=== PATIENT | female | born 1935 | race Caucasian/White ===

== ENCOUNTER 2019-04-24 19:36 | Emergency (ER) | payer MEDICARE, SELFPAY ==
[2019-04-24 19:39] VITALS: BP 174/58; PULSE 79; RESP 18; TEMP 36.8; O2SAT 97
--- NOTE | 2019-04-24 20:23 | ED.EXTPRO ---
HPI - Extremity Problem General Chief complaint: Extremity Injury, Lower Stated complaint: leg cellulitis Time Seen by Provider: 04/24/19 20:09 Source: patient and RN notes reviewed Mode of arrival: ambulatory Limitations: no limitations History of Present Illness HPI Narrative: Pt is a 83 y/o female with a Hx of cellulitis, who presents to the ED with c/o erythema and swelling in her rt lower leg starting several weeks ago. She notes that she received a rt knee replacement in December of 2018. Pt states that she has been unable to perform her scheduled physical therapy for the past several weeks due to the increased swelling and erythema around her rt knee. She currently denies any fever, chills, CP, or SOB. Pt states that she is currently taking Xarelto. Complaint: other (erythema and swelling of lower extremity) Onset (ago): week(s) (several) Location: right and lower extremity Context: recent surgery/procedure (rt knee replacement) Related Data Home Medications Medication Instructions Recorded Confirmed aspirin 81 mg tablet,delayed 81 mg PO DAILY 01/08/19 02/21/19 release levothyroxine 25 mcg tablet 25 mcg PO DAILY 01/08/19 02/21/19 multivitamin 1 cap PO DAILY 01/08/19 02/21/19 potassium chloride 10 mEq 20 meq PO BID 01/08/19 02/21/19 tablet,extended release simvastatin 10 mg tablet 10 mg PO DAILY 01/08/19 02/21/19 furosemide [Lasix] 40 mg PO DAILY 02/21/19 02/21/19 isosorbide mononitrate 30 mg PO DAILY 02/21/19 02/21/19 metoprolol tartrate 50 mg PO BID 02/21/19 02/21/19 Allergies Allergy/AdvReac Type Severity Reaction Status Date / Time morphine Allergy Intermediate Vomiting Verified 04/24/19 19:38 penicillin V Allergy Intermediate Rash Verified 04/24/19 19:38 Penicillins Allergy Intermediate Rash Verified 04/24/19 19:38 adhesive tape Allergy Unknown RASH Verified 04/24/19 19:38 meperidine Allergy Unknown WOOZY Verified 04/24/19 19:38 Review of Systems Review of Systems: All systems reviewed & are unremarkable except as noted in HPI and below Constitutional: Constitutional: Denies chills and Denies fever(s) Cardiovascular: Cardiovascular: Denies chest pain and Reports leg edema (RLE edema) Respiratory: Respiratory: Denies dyspnea Integumentary/Breasts: Skin/Breast: Reports erythema (erythema on rt lower leg) [facility] Past Medical History Medical History (Updated 04/24/19 @ 21:25 by Je Delarosa MD) Abnormal colonoscopy Colonoscopy per Dr. Peters in July 2013 showed diverticulosis, uncomplicated internal external hemorrhoids, and a hyperplastic polyp. Anemia Atrial fibrillation She has had several cardioversions, and had a cardiac ablation this year at [facility]. Cancer of right breast Status post lumpectomy and radiation in 2006. Cellulitis Dyslipidemia GERD (gastroesophageal reflux disease) Hearing loss of both ears History of peptic ulcer Hypertension Hypothyroidism Migraine headache Mild coronary artery disease Cardiac catheterization October 2018 showed no angiographically significant coronary disease, at best 40% stenosis at the ostium of the 1st diagonal branch. Osteoarthritis Seasonal allergic rhinitis JOSH (stress urinary incontinence, female) Vision loss Surgical History Surgical History History of 3 sections History of appendectomy History of lumpectomy of right breast For breast cancer in 2006. Status post arthroscopic knee surgery Status post laparoscopic cholecystectomy Status post right knee replacement Social History Social History Social History: The patient is . She lives with her daughter, Jaida and their 2 dogs, Yves (a Westie) and Cori (a pit bull). Smoking status: Former smoker Tobacco type: cigarettes Second hand tobacco smoke exposure: No Smoking end date: 02/21/19 Alcohol intake: never Substance use: never Gender identity
[2019-04-24 20:34] LABS: Basophils Percent Auto 0.7 % (0.2-1.2); Eosinophils Absolute Auto 0.2 K/mm3 (0-0.3); Eosinophils Percent Auto 2.6 % (0-4.4); Hematocrit 41.2 % (37.0-47.0); Hemoglobin 12.6 g/dL (12.0-15.0); Immature Granulocyte Absolute 0.01 K/mm3 (0.00-0.031); Immature Granulocyte Percent A 0.2 % (0-0.5); Lymphocytes Absolute Auto 1.46 K/mm3 (0.9-3.2); Lymphocytes Percent Auto 25.4 % (18.3-44.2); Mean Corpuscular HGB Conc 30.6 g/dl (32-36); Mean Corpuscular Hemoglobin 26.1 pg (26-34); Mean Corpuscular Volume 85.5 fl (80-100); Mean Platelet Volume 10.8 fl (7.4-10.4); Monocytes Absolute Auto 0.6 K/mm3 (0.1-0.6); Neutrophils Absolute Auto 3.5 K/mm3 (1.3-6.7); Neutrophils Percent Auto 60.1 % (45.5-73.1); Platelet Count Result 294 k/mm3 (150-375); Red Blood Count 4.82 M/mm3 (4.2-5.4); White Blood Count 5.7 K/mm3 (4.5-10.0)
[2019-04-24 20:45] LABS: INR 2.7; Prothrombin Time 28.5 Seconds (11.1-14.7)
[2019-04-24 20:53] LABS: Blood Urea Nitrogen 20 mg/dL (7-17); Calcium 9.6 mg/dL (8.4-10.2); Carbon Dioxide 33 mmol/L (22-30); Chloride 99 mmol/L (98-107); Estimated CRCL calculation 59 ml/min; Estimated Glomerular Filt Rate > 60; Glucose 119 mg/dL (65-105); Potassium 4.1 mmol/L (3.4-5.0); Sodium 139 mmol/L (137-145)
[2019-04-24 21:47] VITALS: BP 141/63; PULSE 73; RESP 18; O2SAT 97
== END 2019-04-24 21:49 | disposition home or self-care (01) ==
PROVIDERS: Emergency Provider Emergency Medicine; PCP Family Medicine
DX: L03.115 Cellulitis of right lower limb (principal); Z79.01 Long term (current) use of anticoagulants; D64.9 Anemia, unspecified; Z85.3 Personal history of malignant neoplasm of breast; E78.5 Hyperlipidemia, unspecified; K21.9 Gastro-esophageal reflux disease without esophagitis; I10 Essential (primary) hypertension; M19.90 Unspecified osteoarthritis, unspecified site; I25.10 Atherosclerotic heart disease of native coronary artery without angina pectoris
CPT/HCPCS: 36415; 80048; 83605; 85025; 85610; 85730; 99283

== ENCOUNTER → 2019-10-22 11:46 | Outpatient (CLI) | payer MEDICARE, SELFPAY ==
--- NOTE | ~2019-10-22 | XR_ITS ---
EXAMINATION: XR hand LT min 3V INDICATION: Left hand pain TECHNIQUE: Three views of the left hand are obtained. COMPARISON: None available FINDINGS: There is no fracture. There is advanced osteoarthritis at the first carpometacarpal joint. Moderate osteoarthritis is present at the triscaphe joint. There is also moderate to severe polyartic ular osteoarthritis involving several interphalangeal joints. IMPRESSION: 1. Polyarticular osteoarthritis, worst at the first carpometacarpal joint. Reviewed, dictated and finalized at location A.
== END ==
PROVIDERS: Visit Provider Family Medicine
DX: M79.642 Pain in left hand (principal)
CPT/HCPCS: 73130

== ENCOUNTER → 2019-12-24 10:23 | Outpatient (CLI) | payer MEDICARE, SELFPAY ==
--- NOTE | ~2019-12-24 | MM_ITS ---
EXAMINATION: MM screening vicente BI w charlette HISTORY: Screening mammogram TECHNIQUE: Craniocaudal and mediolateral oblique 3-D tomosynthesis images were obtained and synthetic 2-D images were generated. CAD analysis was submitted and interpreted. COMPARISON: 06/20/2018, 05/30/2017, 02/25/2016 bilateral digital screening mammogram examinations BREAST PARENCHYMAL COMPOSITION: There are scattered areas of fibroglandular density. FINDINGS: Status post right partial mastectomy for breast cancer, with volume loss, scarring and retr action and calcifications of fat necrosis. There is no evidence of interval suspicious mass, calcific ation, or architectural distortion to suggest malignancy in either breast. There has been no suspicio us interval change. IMPRESSION: 1. No mammographic evidence of malignancy. 2. Recommend routine screening mammography in one year. BI-RADS Category 2: Benign finding(s). Reviewed, dictated and finalized at location A.
== END ==
PROVIDERS: PCP Family Medicine; Visit Provider Obstetrics & Gynecology
DX: Z12.31 Encounter for screening mammogram for malignant neoplasm of breast (principal)
CPT/HCPCS: 77063; 77067

== ENCOUNTER 2020-02-07 09:18 | Emergency (ER) | payer MEDICARE, SELFPAY ==
[2020-02-07] VITALS (7 sets, daily range): BP systolic 105–130; BP diastolic 49–93; PULSE 76–87; RESP 15–18; TEMP 36.7; O2SAT 96–99
--- NOTE | ~2020-02-07 | CT_ITS ---
EXAMINATION: CT LE LT w con DATE: 02/07/2020 12:04 INDICATION: Left hip pain. Fall. TECHNIQUE: Computed tomography (CT) of the left hip and thigh was performed with 100 mL Omnipaque 350 intravenous contrast. Automated exposure control and iterative reconstruction technique were employe d. The dose-length product was 1204.89 mGy-cm. COMPARISON: CT abdomen and pelvis 12/26/2013 FINDINGS: There is lumbar levocurvature and severe spondylosis. No fracture. There is moderate osteoa rthritis of the hips. There is severe left knee osteoarthritis. Partially visualized is a total right knee arthroplasty. There are no pathologically enlarged lymph nodes. There is no free intraperitonea l fluid. There is a large subcutaneous hematoma in lateral left thigh. There is asymmetric subcutaneo us edema in left thigh. IMPRESSION: 1. Large subcutaneous hematoma in lateral left thigh. 2. Polyarticular osteoarthritis. Reviewed, dictated and finalized at location A. DRIER
--- NOTE | 2020-02-07 10:13 | ED.FALL ---
HPI - Fall General Chief Complaint: Fall Stated Complaint: fall 02/03/20 Time Seen by Provider: 02/07/20 09:21 Source: patient Mode of arrival: EMS Limitations: no limitations History of Present Illness HPI Narrative: This is a 84 year old female that presents to the ER for a fall 4 days ago with left hip pain. Reports she was walking with her walker and tripped on the transition on the [place]. Reports falling onto her left hip. Denies hitting her head or loss of consciousness. Reports since she has had pain in the left hip. She has been able to ambulate still. Reports a large amount of bruising to the area. She is on Xarelto for Afib. Denies vision changes, vomiting, numbness or weakness. Related Data Home Medications Medication Instructions Recorded Confirmed aspirin 81 mg tablet,delayed 81 mg PO DAILY 01/08/19 02/21/19 release levothyroxine 25 mcg tablet 25 mcg PO DAILY 01/08/19 02/21/19 multivitamin 1 cap PO DAILY 01/08/19 02/21/19 potassium chloride 10 mEq 20 meq PO BID 01/08/19 02/21/19 tablet,extended release simvastatin 10 mg tablet 10 mg PO DAILY 01/08/19 02/21/19 furosemide [Lasix] 40 mg PO DAILY 02/21/19 02/21/19 isosorbide mononitrate 30 mg PO DAILY 02/21/19 02/21/19 metoprolol tartrate 50 mg PO BID 02/21/19 02/21/19 Allergies Allergy/AdvReac Type Severity Reaction Status Date / Time morphine Allergy Intermediate Vomiting Verified 02/07/20 09:30 penicillin V Allergy Intermediate Rash Verified 02/07/20 09:30 Penicillins Allergy Intermediate Rash Verified 02/07/20 09:30 adhesive tape Allergy Unknown RASH Verified 02/07/20 09:30 meperidine Allergy Unknown WOOZY Verified 02/07/20 09:30 Review of Systems Review of Systems: Narrative: CONSTITUTIONAL: Denies fever EYES: Denies visual changes CARDIOVASCULAR: Denies chest pain RESPIRATORY: Denies dyspnea. GASTROINTESTINAL: Denies vomiting MUSCULOSKELETAL: Reports joint pain, and myalgia. NEUROLOGIC: Denies headache, numbness, or weakness. All systems reviewed & are unremarkable except as noted in HPI and below PMFSH Past Medical History Medical History Abnormal colonoscopy Colonoscopy per Dr. Peters in July 2013 showed diverticulosis, uncomplicated internal external hemorrhoids, and a hyperplastic polyp. Anemia Atrial fibrillation She has had several cardioversions, and had a cardiac ablation this year at [facility]. Cancer of right breast Status post lumpectomy and radiation in 2006. Cellulitis Dyslipidemia GERD (gastroesophageal reflux disease) Hearing loss of both ears History of peptic ulcer Hypertension Hypothyroidism Migraine headache Mild coronary artery disease Cardiac catheterization October 2018 showed no angiographically significant coronary disease, at best 40% stenosis at the ostium of the 1st diagonal branch. Osteoarthritis Seasonal allergic rhinitis JOSH (stress urinary incontinence, female) Vision loss Surgical History Surgical History History of 3 sections History of appendectomy History of lumpectomy of right breast For breast cancer in 2006. Status post arthroscopic knee surgery Status post laparoscopic cholecystectomy Status post right knee replacement Family History Family History Mother Patient's mother is Family history of Parkinson's disease, Onset Age: 89 Family history of type 2 diabetes mellitus Father Family history of hepatitis, Onset Age: 37 Family history of nephrotic syndrome, Onset Age: 37 Family history of heart disease in male family member before age 55, Onset Age: 37 Patient's father is , Onset Age: 37 Other Breast cancer Diabetes mellitus Family history of arthritis Family history of cardiovascular disease Family history of kidney disease Hypertension Social History
[2020-02-07 11:51] LABS: Estimated CRCL calculation 41 ml/min; Estimated Glomerular Filt Rate 60
[2020-02-07 12:26] LABS: Basophils Percent Auto 0.3 % (0.2-1.2); Eosinophils Absolute Auto 0.1 K/mm3 (0-0.3); Eosinophils Percent Auto 0.6 % (0-4.4); Hemoglobin 8.2 g/dL (12.0-15.0); Immature Granulocyte Absolute 0.08 K/mm3 (0.00-0.031); Immature Granulocyte Percent A 0.8 % (0-0.5); Lymphocytes Absolute Auto 1.16 K/mm3 (0.9-3.2); Lymphocytes Percent Auto 12.2 % (18.3-44.2); Mean Corpuscular HGB Conc 32.8 g/dl (32-36); Mean Corpuscular Hemoglobin 30.1 pg (26-34); Mean Corpuscular Volume 91.9 fl (80-100); Mean Platelet Volume 11.5 fl (7.4-10.4); Monocytes Absolute Auto 1.4 K/mm3 (0.1-0.6); Monocytes Percent Auto 14.3 % (2.6-8.5); Neutrophils Absolute Auto 6.8 K/mm3 (1.3-6.7); Neutrophils Percent Auto 71.8 % (45.5-73.1); Nucleated Red Blood Cells Perc 0.2 % (0.0-0.2); Platelet Count Result 209 k/mm3 (150-375); Red Blood Count 2.72 M/mm3 (4.2-5.4); Red Cell Distribution Width 14.2 % (11.5-14.5); White Blood Count 9.5 K/mm3 (4.5-10.0)
[2020-02-07 12:36] LABS: INR 1.9
[2020-02-07 12:37] LABS: Anion Gap 3 mmol/L (8-16); Blood Urea Nitrogen 15 mg/dL (7-17); Calcium 8.7 mg/dL (8.4-10.2); Carbon Dioxide 33 mmol/L (22-30); Chloride 97 mmol/L (98-107); Estimated CRCL calculation 51 ml/min; Estimated Glomerular Filt Rate > 60; Glucose 110 mg/dL (65-105); Partial Thromboplastin Time 40.8 SECONDS (22.3-36.8); Potassium 3.6 mmol/L (3.4-5.0); Sodium 133 mmol/L (137-145)
--- NOTE | 2020-02-07 15:21 | PM.CNGS ---
Assessment and Plan Assessment and plan (1) Hematoma of left thigh: Qualifiers: Encounter type: initial encounter Qualified Code(s): S70.12XA - Contusion of left thigh, initial encounter Code(s): S70.12XA - Contusion of left thigh, initial encounter Status: Acute Assessment and Plan: Large hematoma of left lateral thigh following a fall 4 days ago. Overall improvement but mostly dealing with pain from the hematoma at this point. She is anemic with hemoglobin at 8.2 but doubt she is continuing to bleed with improvement of her swelling. I discussed the patient's case and plan of care with Dr. Block. We would recommend that the patient follow-up in our office as an outpatient on Tuesday to reassess the hematoma. In the meantime, she should hold her Xarelto, use wendie wrap for compression, and may ice the area as well. Would also recommend analgesics as needed to help with her discomfort at home. I discussed with the patient signs of anemia and to present back to the ER if any of those symptoms present or if the swelling starts to get worse. The patient verbalized understanding. I also discussed with FRIDA Goins in the ER. Thank you for allowing me to see the patient in consultation. I will have our office call the patient to schedule the follow-up appointment for Tuesday. 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 Block on Tuesday. (3) Anemia: Qualifiers: Anemia type: unspecified type Qualified Code(s): D64.9 - Anemia, unspecified Code(s): D64.9 - Anemia, unspecified Status: Acute (4) Atrial fibrillation: Code(s): I48.91 - Unspecified atrial fibrillation Status: Acute Assessment and Plan: Currently in sinus rhythm. (5) Hypertension: Code(s): I10 - Essential (primary) hypertension Status: Acute History of Present Illness Consult details Consult date: 02/07/20 Reason for consult: other (Left thigh hematoma) Requesting physician: Mago Huerta PA-C Narrative: This is an 84-year-old female who is on chronic anticoagulation for paroxysmal atrial fibrillation, that fell at home four days ago, Tuesday evening. She states that she tripped over something on the floor and fell on her left hip and left arm from the ground level. No loss of consciousness, dizziness, or other symptoms contributing to the fall. She states that initially she had a lot of swelling and bruising of the left thigh and buttock. Since falling, she has had a lot of leg pain that has not improved. She states that the overall swelling and firmness of the hematoma have improved. Ultimately, the pain is what brought her to the ER today. CT scan of the left lower extremity showed large subcutaneous hematoma in lateral left thigh. No fracture or extravasation noted. Labs showed a hemoglobin of 8.2 and hematocrit 25. The ED provider contacted our service for consultation of the hematoma. I then saw the patient in the ER. She reports her pain has improved after receiving medication in the ER. She states her daughter has been dressing a skin tear over the hematoma on her left thigh with no changes. She reports that the area of swelling has become softer and improved in size. Reports the pain was uncomfortable enough that she couldn't sleep last night, therefore she came to the ER. No other complaints at this time. The patient takes Xarelto for atrial fibrillation and is followed by Dr. Garay for cardiology. She last took the Xarelto yesterday evening. Review of Systems Constitutional: Constitutional: Reports as per HPI, Denies chills, Denies excessive sweating, Denies fatigue, Denies fever(s), Denies headache(s) and Denies weakness Eyes: Eyes: Denies change in vision and Denies loss of vision ENT: Reports Normal hearing present, Denies
== END 2020-02-07 16:35 | disposition home or self-care (01) ==
PROVIDERS: Physician Assistant; Emergency Provider Emergency Medicine; PCP Family Medicine
DX: S70.12XA Contusion of left thigh, initial encounter (principal); I48.91 Unspecified atrial fibrillation; I25.10 Atherosclerotic heart disease of native coronary artery without angina pectoris; E78.5 Hyperlipidemia, unspecified; I10 Essential (primary) hypertension; E03.9 Hypothyroidism, unspecified; D64.9 Anemia, unspecified; Z85.3 Personal history of malignant neoplasm of breast; Z79.82 Long term (current) use of aspirin; Z87.11 Personal history of peptic ulcer disease; Z96.651 Presence of right artificial knee joint; Z87.891 Personal history of nicotine dependence; Z79.01 Long term (current) use of anticoagulants; M16.0 Bilateral primary osteoarthritis of hip; W18.09XA Striking against other object with subsequent fall, initial encounter
CPT/HCPCS: 73701; 80048; 85025; 85610; 85730; 96365; 99284; J0131; Q9967

== ENCOUNTER 2020-02-18 11:56 | Outpatient (CLI) | payer MEDICARE, SELFPAY ==
[2020-02-18 12:40] LABS: Basophils Percent Auto 0.5 % (0.2-1.2); Eosinophils Absolute Auto 0.1 K/mm3 (0-0.3); Eosinophils Percent Auto 1.9 % (0-4.4); Hematocrit 33.9 % (37.0-47.0); Hemoglobin 10.5 g/dL (12.0-15.0); Immature Granulocyte Absolute 0.04 K/mm3 (0.00-0.031); Immature Granulocyte Percent A 0.5 % (0-0.5); Lymphocytes Absolute Auto 1.05 K/mm3 (0.9-3.2); Lymphocytes Percent Auto 14.2 % (18.3-44.2); Mean Corpuscular Hemoglobin 29.6 pg (26-34); Mean Corpuscular Volume 95.5 fl (80-100); Mean Platelet Volume 10.4 fl (7.4-10.4); Monocytes Absolute Auto 0.8 K/mm3 (0.1-0.6); Neutrophils Absolute Auto 5.3 K/mm3 (1.3-6.7); Neutrophils Percent Auto 71.9 % (45.5-73.1); Platelet Count Result 327 k/mm3 (150-375); Red Blood Count 3.55 M/mm3 (4.2-5.4); Red Cell Distribution Width 16.7 % (11.5-14.5); White Blood Count 7.4 K/mm3 (4.5-10.0)
== END 2020-02-18 11:57 | disposition home or self-care (01) ==
PROVIDERS: PCP Family Medicine; Visit Provider Internal Medicine Cardiovascular Disease
DX: T14.8XXA Other injury of unspecified body region, initial encounter (principal); Z79.899 Other long term (current) drug therapy
CPT/HCPCS: 36415; 85025

== ENCOUNTER 2020-05-12 13:47 | Outpatient (CLI) | payer MEDICARE, SELFPAY | END 2020-05-12 13:48 | disposition home or self-care (01) | LOC: ANHCOVIDVC 13:47 | PROVIDERS: PCP Family Medicine; Visit Provider Internal Medicine Cardiovascular Disease | DX: Z23 Encounter for immunization (principal) | CPT/HCPCS: 0001A; 91300 ==

== ENCOUNTER 2020-06-02 13:45 | Outpatient (CLI) | payer MEDICARE, SELFPAY | END 2020-06-02 13:46 | disposition home or self-care (01) | LOC: ANHCOVIDVC 13:45 | PROVIDERS: PCP Family Medicine; Visit Provider Internal Medicine Cardiovascular Disease | DX: Z23 Encounter for immunization (principal) | CPT/HCPCS: 0002A; 91300 ==

== ENCOUNTER 2020-06-26 08:04 | Outpatient (RCR) | payer MEDICARE, SELFPAY ==
[2020-03-28 13:30] VITALS: BMI 30.2
--- NOTE | 2020-04-22 08:08 | PCWOUND ---
WOCN NOTE patients daughter called and left voicemail to cancel patient's appointment for Tuesday04/23/20 due to the weather. States patient will contact wound center to reschedule.
== END 2020-06-26 23:59 | disposition home or self-care (01) ==
LOC: ANHWOC 08:04
PROVIDERS: PCP Family Medicine; Visit Provider Surgery
DX: I83.009 Varicose veins of unspecified lower extremity with ulcer of unspecified site (principal); L97.909 Non-pressure chronic ulcer of unspecified part of unspecified lower leg with unspecified severity
CPT/HCPCS: 29581; 99212; A9270; G0463

== ENCOUNTER 2020-06-30 09:38 | Outpatient (CLI) | payer MEDICARE, SELFPAY ==
[2020-06-30 10:10] LABS: Basophils Percent Auto 0.7 % (0.2-1.2); Eosinophils Absolute Auto 0.2 K/mm3 (0-0.3); Eosinophils Percent Auto 3.2 % (0-4.4); Hemoglobin 13.6 g/dL (12.0-15.0); Immature Granulocyte Absolute 0.01 K/mm3 (0.00-0.031); Immature Granulocyte Percent A 0.2 % (0-0.5); Lymphocytes Absolute Auto 1.32 K/mm3 (0.9-3.2); Lymphocytes Percent Auto 23.6 % (18.3-44.2); Mean Corpuscular HGB Conc 30.9 g/dl (32-36); Mean Corpuscular Volume 90.7 fl (80-100); Mean Platelet Volume 11.3 fl (7.4-10.4); Monocytes Absolute Auto 0.6 K/mm3 (0.1-0.6); Monocytes Percent Auto 11.3 % (2.6-8.5); Neutrophils Absolute Auto 3.4 K/mm3 (1.3-6.7); Platelet Count Result 237 k/mm3 (150-375); Red Blood Count 4.85 M/mm3 (4.2-5.4); Red Cell Distribution Width 16.6 % (11.5-14.5); White Blood Count 5.6 K/mm3 (4.5-10.0)
[2020-06-30 10:22] LABS: Alanine Aminotransferase 14 U/L (4-35); Albumin Level 4.2 g/dL (3.5-5.1); Alkaline Phosphatase 72 U/L (38-126); Anion Gap 0 mmol/L (8-16); Aspartate Amino Transferase 33 U/L (14-36); Bilirubin,Total 0.7 mg/dL (0.2-1.3); Blood Urea Nitrogen 15 mg/dL (7-17); Calcium 9.7 mg/dL (8.4-10.2); Carbon Dioxide 38 mmol/L (22-30); Chloride 102 mmol/L (98-107); Cholesterol 140 mg/dL (0-200); Estimated Glomerular Filt Rate > 60; Glucose 96 mg/dL (65-105); HDL Direct 58 mg/dL; Potassium 4.1 mmol/L (3.4-5.0); Sodium 140 mmol/L (137-145); Triglycerides 143 mg/dL (<150)
[2020-06-30 10:33] LABS: LDL Cholesterol Direct 49 mg/dL
[2020-06-30 10:53] LABS: Total Triiodothyronine (T3) 1.33 NG/ML (0.97-1.69)
[2020-06-30 11:01] LABS: Creatinine Urine 10.8 mg/dL
[2020-06-30 11:07] LABS: Free T4 Free Thyroxine 0.97 ng/mL (0.78-2.19); MALB Creatinine Ratio < 55.6 mg/g (0-30); Microalbumin Urine Random < 6.0 mg/L (0-16.7); Vitamin D 25 Hydroxy 38.7 ng/mL
== END 2020-06-30 09:39 | disposition home or self-care (01) ==
PROVIDERS: PCP Family Medicine; Visit Provider Nurse Practitioner
DX: E03.9 Hypothyroidism, unspecified (principal); I10 Essential (primary) hypertension; I50.32 Chronic diastolic (congestive) heart failure; I48.91 Unspecified atrial fibrillation; Z13.0 Encounter for screening for diseases of the blood and blood-forming organs and certain disorders involving the immune mechanism; Z13.6 Encounter for screening for cardiovascular disorders; Z13.220 Encounter for screening for lipoid disorders; Z13.29 Encounter for screening for other suspected endocrine disorder; R80.9 Proteinuria, unspecified; E55.9 Vitamin D deficiency, unspecified
CPT/HCPCS: 36415; 80053; 80061; 82043; 82306; 84439; 84443; 84480; 85025; 99212; G0463

== ENCOUNTER 2020-07-23 13:26 | Outpatient (CLI) | payer MEDICARE, SELFPAY ==
--- NOTE | ~2020-07-23 | CT_ITS ---
EXAMINATION: CT LE LT w con DATE: 07/23/2020 14:17 INDICATION: Left thigh swelling. TECHNIQUE: Computed tomography (CT) of the left thigh was performed with 100 mL Omnipaque 350 intrave nous contrast. Automated exposure control and iterative reconstruction technique were employed. The d ose-length product was 604.43 mGy-cm. COMPARISON: CT left thigh 02/07/2020 FINDINGS: Bone alignment is normal. No fracture. There is mild left hip osteoarthritis. There is liliane re osteoarthritis of patellofemoral compartment of the knee. The medial and lateral compartments of t he knee are not included. There is a small knee joint effusion. There is subcutaneous fat stranding p osterolateral to the proximal left femur. IMPRESSION: 1. Subcutaneous fat stranding posterolateral to proximal left femur with interval improvement, consis tent with improving hematoma and scarring. 2. Polyarticular osteoarthritis. 3. Small left knee joint effusion. Reviewed, dictated and finalized at location A. IMPRESSION: 1. Subcutaneous fat stranding posterolateral to proximal left femur with interv al improvement, consistent with improving hematoma and scarring. 2. Polyarticular osteoarthritis. 3. Small left knee joint effusion.
== END 2020-07-23 13:27 | disposition home or self-care (01) ==
PROVIDERS: PCP Family Medicine; Visit Provider Nurse Practitioner
DX: M16.12 Unilateral primary osteoarthritis, left hip (principal); M25.462 Effusion, left knee; M17.12 Unilateral primary osteoarthritis, left knee
CPT/HCPCS: 73701; Q9967

== ENCOUNTER 2020-09-01 07:35 | Outpatient (RCR) | payer MEDICARE, SELFPAY ==
[2020-06-27 00:04] VITALS: BMI 30.2
== END 2020-09-28 23:59 | disposition home or self-care (01) ==
LOC: ANHWOC 07:35
PROVIDERS: PCP Family Medicine; Visit Provider Family Medicine
DX: I83.009 Varicose veins of unspecified lower extremity with ulcer of unspecified site (principal); L97.909 Non-pressure chronic ulcer of unspecified part of unspecified lower leg with unspecified severity
CPT/HCPCS: 29581; 99212; A9270; G0463

== ENCOUNTER 2020-10-08 11:20 | Outpatient (CLI) | payer MEDICARE, SELFPAY ==
[2020-10-08 13:04] LABS: Total Triiodothyronine (T3) 1.44 NG/ML (0.97-1.69)
[2020-10-08 13:14] LABS: Free T4 Free Thyroxine 1.15 ng/mL (0.78-2.19)
== END 2020-10-08 11:21 | disposition home or self-care (01) ==
PROVIDERS: PCP Family Medicine; Visit Provider Nurse Practitioner
DX: E03.9 Hypothyroidism, unspecified (principal)
CPT/HCPCS: 36415; 84439; 84443; 84480

== ENCOUNTER → 2020-11-13 16:44 | Outpatient (CLI) | payer MEDICARE, SELFPAY ==
--- NOTE | ~2020-11-13 | XR_ITS ---
[[id number] ] INDICATION: Recent fall. Left rib and chest pain. TECHNIQUE: Frontal projection of the upper left ribs, frontal projection of the lower left ribs, obli que projection of all the left ribs, frontal inspiratory chest x-ray for interpretation. FINDINGS: There are no displaced rib fractures identified. There are no soft tissue abnormality see n. The lungs are clear. Cardiomegaly. IMPRESSION: 1:No acute displaced rib fractures. Reviewed, dictated and finalized at location A.
== END ==
PROVIDERS: Visit Provider Nurse Practitioner
DX: R07.89 Other chest pain (principal); I51.7 Cardiomegaly
CPT/HCPCS: 71101

== ENCOUNTER 2020-12-15 07:31 | Outpatient (RCR) | payer MEDICARE, SELFPAY ==
[2020-09-29 00:06] VITALS: BMI 30.2
== END 2020-12-28 23:59 | disposition home or self-care (01) ==
LOC: ANHWOC 07:31
PROVIDERS: PCP Family Medicine; Visit Provider Family Medicine
DX: I83.009 Varicose veins of unspecified lower extremity with ulcer of unspecified site (principal); L97.909 Non-pressure chronic ulcer of unspecified part of unspecified lower leg with unspecified severity
CPT/HCPCS: 99212; A9270; G0463

== ENCOUNTER 2021-01-03 05:22 | Emergency (ER) | payer MEDICARE, SELFPAY ==
--- NOTE | ~2021-01-03 | XR_ITS ---
EXAMINATION: XR chest 2V EXAM DATE: 01/03/2021 06:19 INDICATION: Palpitations . TECHNIQUE: Portable AP frontal chest x-ray was obtained. Comparison is made to prior examination from 02/21/2019. FINDINGS: There is pulmonary vascular congestion. There is mild cardiomegaly. These findings do not a ppear significantly changed. No confluent consolidation, pneumothorax or pleural effusion suspected. There is aortic arteriosclerosis. There are bony degenerative changes. There are cholecystectomy clip s. IMPRESSION: Cardiomegaly, pulmonary vascular congestion. Reviewed, dictated and finalized at location A.
[2021-01-03 05:26] VITALS: BP 185/82; PULSE 110; RESP 18; TEMP 36.6; O2SAT 100
--- NOTE | 2021-01-03 06:04 | ECG_ITS ---
Measurements Intervals [place] Rate: 104 P: 23 MN: 208 QRS: -7 QRSD: 90 T: 43 QT: 338 QTc: 446 Interpretive Statements SINUS TACHYCARDIA ATRIAL PREMATURE COMPLEXES BORDERLINE ECG Electronically Signed On 01-03-2021 7:46:17 CDT by Pee Ruff D.O.
--- NOTE | 2021-01-03 06:05 | ED.ARRPALP ---
HPI - Arrhythmia/Palpitations General Chief Complaint: Arrhythmia/Palpitations <Pablito Arroyo MD - Last Filed: 01/03/21 07:01> Stated Complaint: Palpitations, afib <Pablito Arroyo MD - Last Filed: 01/03/21 07:01> Time Seen by Provider: 01/03/21 05:53 <Pablito Arroyo MD - Last Filed: 01/03/21 07:01> History of Present Illness HPI narrative: Patient is an 85-year-old female with history of atrial fibrillation who presents ER with palpitations. Ongoing over the last hour. No chest pain or chest pressure. Negative breathing. Reports compliance with home medication has taken her morning meds. No alleviating factors. No aggravating factors. <Pablito Arroyo MD - Last Filed: 01/03/21 07:01> Related Data Home Medications: Home Medications Medication Instructions Recorded Confirmed aspirin 81 mg tablet,delayed 81 mg PO DAILY 01/08/19 09/29/20 release levothyroxine 25 mcg tablet 25 mcg PO DAILY 01/08/19 09/29/20 multivitamin 1 cap PO DAILY 01/08/19 09/29/20 potassium chloride 10 mEq 20 meq PO BID 01/08/19 09/29/20 tablet,extended release simvastatin 10 mg tablet 20 mg PO DAILY 01/08/19 09/29/20 furosemide [Lasix] 40 mg PO DAILY 02/21/19 09/29/20 isosorbide mononitrate 30 mg PO DAILY 02/21/19 09/29/20 metoprolol tartrate 50 mg PO BID 02/21/19 09/29/20 rivaroxaban [Xarelto] 20 mg PO QPM 03/28/20 09/29/20 <Pablito Arroyo MD - Last Filed: 01/03/21 07:01> Allergies/Adverse Reactions: Allergies Allergy/AdvReac Type Severity Reaction Status Date / Time morphine Allergy Intermediate Vomiting Verified 01/03/21 05:36 penicillin V Allergy Intermediate Rash Verified 01/03/21 05:36 Penicillins Allergy Intermediate Rash Verified 01/03/21 05:36 adhesive tape Allergy Unknown RASH Verified 01/03/21 05:36 meperidine Allergy Unknown WOOZY Verified 01/03/21 05:36 <Pablito Arroyo MD - Last Filed: 01/03/21 07:01> Review of Systems Review of Systems: All systems reviewed & are unremarkable except as noted in HPI and below <Pablito Arroyo MD - Last Filed: 01/03/21 07:01> Constitutional: Constitutional: Denies chills, Denies fever(s) and Denies weakness <Pablito Arroyo MD - Last Filed: 01/03/21 07:01> ENT: Denies nasal congestion and Denies sore throat <Pablito Arroyo MD - Last Filed: 01/03/21 07:01> Cardiovascular: Cardiovascular: Denies chest pain, Reports rapid heart rate and Denies radiating jaw, neck or arm pain <Pablito Arroyo MD - Last Filed: 01/03/21 07:01> Respiratory: Respiratory: Denies chest congestion, Denies cough and Denies dyspnea <Pablito Arroyo MD - Last Filed: 01/03/21 07:01> Gastrointestinal: Gastrointestinal: Denies abdominal pain, Denies nausea and Denies vomiting <Pablito Arroyo MD - Last Filed: 01/03/21 07:01> [facility] Past Medical History Medical History: Medical History Abnormal colonoscopy Colonoscopy per Dr. Peters in July 2013 showed diverticulosis, uncomplicated internal external hemorrhoids, and a hyperplastic polyp. Anemia Atrial fibrillation She has had several cardioversions, and had a cardiac ablation this year at [facility]. Cancer of right breast Status post lumpectomy and radiation in 2006. Cellulitis Dyslipidemia GERD (gastroesophageal reflux disease) Hearing loss of both ears History of peptic ulcer Hypertension Hypothyroidism Migraine headache Mild coronary artery disease Cardiac catheterization October 2018 showed no angiographically significant coronary disease, at best 40% stenosis at the ostium of the 1st diagonal branch. Osteoarthritis Seasonal allergic rhinitis JOSH (stress urinary incontinence, female) Vision loss <Pablito Arroyo MD - Last Filed: 01/03/21 07:01> Surgical History Surgical History: Surgical History History of 3 sections History o
[2021-01-03 06:17] LABS: Basophils Percent Auto 0.7 % (0.2-1.2); Eosinophils Absolute Auto 0.1 K/mm3 (0-0.3); Hemoglobin 13.8 g/dL (12.0-15.0); Immature Granulocyte Absolute 0.01 K/mm3 (0.00-0.031); Immature Granulocyte Percent A 0.2 % (0-0.5); Lymphocytes Absolute Auto 1.07 K/mm3 (0.9-3.2); Mean Corpuscular HGB Conc 32.9 g/dl (32-36); Mean Corpuscular Hemoglobin 29.4 pg (26-34); Mean Corpuscular Volume 89.4 fl (80-100); Mean Platelet Volume 10.7 fl (7.4-10.4); Monocytes Absolute Auto 0.5 K/mm3 (0.1-0.6); Monocytes Percent Auto 10.8 % (2.6-8.5); Neutrophils Absolute Auto 2.8 K/mm3 (1.3-6.7); Neutrophils Percent Auto 62.3 % (45.5-73.1); Platelet Count Result 239 k/mm3 (150-375); Red Cell Distribution Width 13.8 % (11.5-14.5); White Blood Count 4.5 K/mm3 (4.5-10.0)
[2021-01-03 06:22] VITALS: BP 195/88; PULSE 84; RESP 16; O2SAT 99
[2021-01-03 06:36] LABS: Anion Gap 7 mmol/L (8-16); Blood Urea Nitrogen 15 mg/dL (7-17); Calcium 9.8 mg/dL (8.4-10.2); Carbon Dioxide 28 mmol/L (22-30); Chloride 104 mmol/L (98-107); Estimated CRCL calculation 58 ml/min; Estimated Glomerular Filt Rate > 60; Glucose 111 mg/dL (65-110); Magnesium 2.2 mg/dL (1.6-2.3); Potassium 3.4 mmol/L (3.4-5.0); Sodium 139 mmol/L (137-145)
--- NOTE | 2021-01-03 06:55 | PC.NURSE ---
called lab to add on BNP
[2021-01-03 07:21] LABS: NT Pro B Type Natriuretic Pept 673 pg/mL (5-100)
[2021-01-03 07:52] VITALS: BP 175/100; PULSE 82; RESP 16; TEMP 36.6; O2SAT 97
== END 2021-01-03 07:55 | disposition home or self-care (01) ==
PROVIDERS: Emergency Medicine; Emergency Provider Emergency Medicine; PCP Family Medicine
DX: R00.2 Palpitations (principal); I48.91 Unspecified atrial fibrillation; E78.5 Hyperlipidemia, unspecified; K21.9 Gastro-esophageal reflux disease without esophagitis; I10 Essential (primary) hypertension; E03.9 Hypothyroidism, unspecified; I25.10 Atherosclerotic heart disease of native coronary artery without angina pectoris; M19.90 Unspecified osteoarthritis, unspecified site; Z85.3 Personal history of malignant neoplasm of breast; Z96.651 Presence of right artificial knee joint; Z87.891 Personal history of nicotine dependence; Z92.3 Personal history of irradiation; Z79.01 Long term (current) use of anticoagulants; Z79.82 Long term (current) use of aspirin
CPT/HCPCS: 36415; 71046; 80048; 83735; 83880; 85025; 93005; 99284

== ENCOUNTER 2021-01-07 10:27 | Outpatient (RCR) | payer MEDICARE, SELFPAY ==
[2020-12-29 00:04] VITALS: BMI 30.2
== END 2021-03-23 08:47 | disposition home or self-care (01) ==
LOC: ANHWOC 10:27
PROVIDERS: PCP Family Medicine; Visit Provider Family Medicine
DX: I83.009 Varicose veins of unspecified lower extremity with ulcer of unspecified site (principal); L97.909 Non-pressure chronic ulcer of unspecified part of unspecified lower leg with unspecified severity
CPT/HCPCS: 99212; G0463

== ENCOUNTER → 2021-04-21 08:52 | Outpatient (CLI) | payer MEDICARE, SELFPAY ==
--- NOTE | ~2021-04-21 | XR_ITS ---
XR hip LT min 2V DATE: 04/21/2021 09:48 INDICATION: Left hip pain TECHNIQUE: AP and lateral views of left hip COMPARISON: 6 07/23/2020 CT lower extremity 02/07/2020 CT left lower extremity FINDINGS: There is diffuse osteopenia. There is mild to moderate left hip osteoarthritis. No fracture , dislocation, avascular necrosis or bone destruction is detected. The pubic symphysis and left sacro iliac joint are intact. Prominent degenerative disc disease at L5-S1. IMPRESSION: Osteopenia Mild to moderate left hip osteoarthritis Prominent degenerative disc disease at L5-S1 Reviewed, dictated and finalized at location B. ASSISTANT
--- NOTE | ~2021-04-21 | XR_ITS ---
XR cervical spine min 6V DATE: 04/21/2021 09:48 INDICATION: Neck pain TECHNIQUE: AP, open-mouth, lateral, swimmer views. Flexion and extension lateral views. COMPARISON: None FINDINGS: There is diffuse osteopenia. C1 and C2 are normally aligned and the odontoid process is intact. No fracture or dislocation or lock ed facet or prevertebral soft tissue swelling. There is reversal of lower cervical curvature. There is minimal anterolisthesis at C4-5, stable in flexion and extension. No cervical instability is evident on flexion or extension views. There is mild loss of interspace height at C4-5. There is severe degenerative disc disease at C5-6 with prominent uncovertebral joint spurring encroac matty upon the anterior aspect of both C6 neural foramina. IMPRESSION: Reversal of lower cervical curvature Osteopenia Minimal anterolisthesis at C4-5, stable in flexion and extension Mild loss of interspace height at C4-5 Severe degenerative disc disease at C5-C6 Prominent uncovertebral joint spurring bilaterally at C5-6 encroaching upon the anterior aspect of vicki th C6 neural foramina Reviewed, dictated and finalized at location B. E OPERATOR CAB IMPRESSION: Reversal of lower cervical curvature Osteopenia Minimal anterolisthesis at C4-5, stable in flexion and extension Mild loss of interspace height at C4-5 Severe degenerative disc disease at C5-C6 Prominent uncovertebral joint spurring bilaterally at C5-6 encroaching upon the anterior aspect of both C6 neural foramina
== END ==
PROVIDERS: PCP Family Medicine; Visit Provider Family Medicine
DX: M16.12 Unilateral primary osteoarthritis, left hip (principal); M51.37 Other intervertebral disc degeneration, lumbosacral region; M85.88 Other specified disorders of bone density and structure, other site; M50.322 Other cervical disc degeneration at C5-C6 level
CPT/HCPCS: 72052; 73502

== ENCOUNTER 2021-05-03 03:30 | Emergency (ER) | payer MEDICARE, SELFPAY ==
--- NOTE | ~2021-05-03 | XR_ITS ---
EXAMINATION: [id number] INDICATION: Fall, rib pain TECHNIQUE: A frontal view of the chest and 3 views of the right ribs were obtained. COMPARISON: 01/03/2021 FINDINGS: The lungs are free of acute opacities. There is no pleural effusion or pneumothorax. Cardio megaly is noted. There is no displaced rib fracture. Surgical clips are noted in the right breast. Leiva rgical clips in the right upper quadrant are likely from prior cholecystectomy. IMPRESSION: 1. No acute cardiopulmonary abnormality or evidence of displaced rib fracture. 2. Cardiomegaly. Reviewed, dictated and finalized at location F. TEGIC [employer]ANNER
[2021-05-03 03:32] VITALS: BP 164/98; PULSE 76; RESP 18; TEMP 36.6; O2SAT 94
--- NOTE | 2021-05-03 04:29 | ED.FALL ---
HPI - Fall General Chief Complaint: Fall Stated Complaint: GLF Time Seen by Provider: 05/03/21 03:31 Source: patient and RN notes reviewed Mode of arrival: EMS Limitations: no limitations History of Present Illness HPI Narrative: This is an 85 year old female who presents for evaluation of right lateral rib pain s/p fall. She reports she lost her balance and she fell backwards. She hit her right back on the wall but denies hitting her head or LOC. She denies having back pain currently. She is reporting right lateral breast pain with deep inspiration since fall. She denies any extremity pain or injuries. She was not using her walker at time of incident Related Data Home Medications Medication Instructions Recorded Confirmed aspirin 81 mg tablet,delayed 81 mg PO DAILY 01/08/19 09/29/20 release levothyroxine 25 mcg tablet 25 mcg PO DAILY 01/08/19 09/29/20 multivitamin 1 cap PO DAILY 01/08/19 09/29/20 potassium chloride 10 mEq 20 meq PO BID 01/08/19 09/29/20 tablet,extended release simvastatin 10 mg tablet 20 mg PO DAILY 01/08/19 09/29/20 furosemide [Lasix] 40 mg PO DAILY 02/21/19 09/29/20 isosorbide mononitrate 30 mg PO DAILY 02/21/19 09/29/20 metoprolol tartrate 50 mg PO BID 02/21/19 09/29/20 rivaroxaban [Xarelto] 20 mg PO QPM 03/28/20 09/29/20 Allergies Allergy/AdvReac Type Severity Reaction Status Date / Time morphine Allergy Intermediate Vomiting Verified 05/03/21 03:39 penicillin V Allergy Intermediate Rash Verified 05/03/21 03:39 Penicillins Allergy Intermediate Rash Verified 05/03/21 03:39 adhesive tape Allergy Unknown RASH Verified 05/03/21 03:39 meperidine Allergy Unknown WOOZY Verified 05/03/21 03:39 Review of Systems Review of Systems: All systems reviewed & are unremarkable except as noted in HPI and below PMFSH Past Medical History Medical History Abnormal colonoscopy Colonoscopy per Dr. Peters in July 2013 showed diverticulosis, uncomplicated internal external hemorrhoids, and a hyperplastic polyp. Anemia Atrial fibrillation She has had several cardioversions, and had a cardiac ablation this year at [facility]. Cancer of right breast Status post lumpectomy and radiation in 2006. Cellulitis Dyslipidemia GERD (gastroesophageal reflux disease) Hearing loss of both ears History of peptic ulcer Hypertension Hypothyroidism Migraine headache Mild coronary artery disease Cardiac catheterization October 2018 showed no angiographically significant coronary disease, at best 40% stenosis at the ostium of the 1st diagonal branch. Osteoarthritis Seasonal allergic rhinitis JOSH (stress urinary incontinence, female) Vision loss Surgical History Surgical History History of 3 sections History of appendectomy History of lumpectomy of right breast For breast cancer in 2006. Status post arthroscopic knee surgery Status post laparoscopic cholecystectomy Status post right knee replacement Family History Family History Mother Patient's mother is Family history of Parkinson's disease, Onset Age: 89 Family history of type 2 diabetes mellitus Father Family history of hepatitis, Onset Age: 37 Family history of nephrotic syndrome, Onset Age: 37 Family history of heart disease in male family member before age 55, Onset Age: 37 Patient's father is , Onset Age: 37 Other Breast cancer Diabetes mellitus Family history of arthritis Family history of cardiovascular disease Family history of kidney disease Hypertension Social History Social History Social History: The patient is . She lives with her daughter, Jaida and their 2 dogs, Yves (a Westie) and Cori (a pit bull). Smoking status: Former smoker Tobacco
[2021-05-03] MEDS: ACETAMINOPHEN 500 MG TABLET 1000 MG PO (04:43)
--- NOTE | 2021-05-03 05:13 | PC.NURSE ---
pt. ambulated down the dozier with a walker and no assistance.
[2021-05-03 05:56] VITALS: PULSE 61; RESP 16; O2SAT 94
== END 2021-05-03 06:11 | disposition home or self-care (01) ==
PROVIDERS: Emergency Provider General Practice; PCP Family Medicine
DX: R07.81 Pleurodynia (principal); I25.10 Atherosclerotic heart disease of native coronary artery without angina pectoris; I48.91 Unspecified atrial fibrillation; E78.5 Hyperlipidemia, unspecified; K21.9 Gastro-esophageal reflux disease without esophagitis; M19.90 Unspecified osteoarthritis, unspecified site; N39.3 Stress incontinence (female) (male); Z85.3 Personal history of malignant neoplasm of breast; Z92.3 Personal history of irradiation; Z87.11 Personal history of peptic ulcer disease; Z86.2 Personal history of diseases of the blood and blood-forming organs and certain disorders involving the immune mechanism; Z79.01 Long term (current) use of anticoagulants; Z79.82 Long term (current) use of aspirin; Z96.651 Presence of right artificial knee joint; Z87.891 Personal history of nicotine dependence; I51.7 Cardiomegaly; W18.39XA Other fall on same level, initial encounter
CPT/HCPCS: 71101; 99283; A9270

== ENCOUNTER 2021-07-22 17:52 | Inpatient (IN) | payer MEDICARE, SELFPAY ==
[2021-07-22] VITALS (16 sets, daily range): BP systolic 125–152; BP diastolic 54–105; PULSE 92–117; RESP 18–30; TEMP 38.2; O2SAT 88–99; BMI 26.6
--- NOTE | ~2021-07-22 | CT_ITS ---
EXAMINATION: CT brain wo con DATE: 07/22/2021 19:39 INDICATION: AMS . TECHNIQUE: Computed tomography (CT) of the head was performed without intravenous contrast. The mA wa s adjusted according to patient size. Iterative reconstruction technique was employed. The dose-lengt h product was 605.33 mGy-cm. COMPARISON: None FINDINGS: No acute intracranial hemorrhage or extra-axial fluid collection. No hydrocephalus, mass, or herniation. No acute ischemic infarct. Unremarkable dural venous sinus attenuation. No acute osseous abnormality. Right maxillary mucosal thickening, otherwise the aerated spaces are clear. Moderate atrophy and severe chronic white matter change. Atherosclerotic intracranial calcifications. Small right temporal dural calcification versus calcified meningioma. Bilateral lens replacements. IMPRESSION: No acute intracranial process. Reviewed, dictated and finalized at location K.
--- NOTE | ~2021-07-22 | US_ITS ---
EXAMINATION: US venous doppler [facility] DATE: 07/23/2021 15:28 INDICATION: Left lower limb swelling TECHNIQUE: Velazquez scale images without and with compression and Doppler images of the left lower extrem ity veins were obtained. COMPARISON: 03/23/2017 FINDINGS: The left common femoral vein, profunda femoral vein, femoral vein, popliteal vein, peroneal trunk, posterior tibial veins, and greater saphenous vein are patent. IMPRESSION: 1. Patent left lower extremity veins. No evidence of deep venous thrombosis. Reviewed, dictated and finalized at location A.
--- NOTE | ~2021-07-22 | XR_ITS ---
EXAMINATION: XR chest 1V portable DATE: 07/24/2021 18:19 INDICATION: Shortness of breath. TECHNIQUE: A single frontal view of the chest was obtained. COMPARISON: Chest 2 views 07/22/2021 FINDINGS: There is mild atelectasis at the lung bases. No pleural effusion or pneumothorax. Cardiomeg radha is noted. Surgical clips in the right upper quadrant are likely from cholecystectomy. IMPRESSION: 1. Mild atelectasis at the lung bases. 2. Cardiomegaly. Reviewed, dictated and finalized at location A.
--- NOTE | ~2021-07-22 | XR_ITS ---
EXAMINATION: XR ankle LT min 3V DATE: 07/23/2021 14:02 INDICATION: Left lower leg erythema and swelling with weeping medial sided wound TECHNIQUE: Anteroposterior, oblique, mortise, and lateral views of the chest ankle were obtained. COMPARISON: None. FINDINGS: Alignment is normal. No fracture. Joint spaces are well maintained. Small plantar calcaneal spur and tiny enthesophyte at the distal Achilles tendon. No ankle joint effusion. Diffuse soft tissue swelli ng with subcutaneous edema extending from the visualized mid left calf crossing the ankle and extendi ng into the foot. No soft tissue gas or radiopaque foreign bodies. IMPRESSION: 1. No acute osseous abnormality. Reviewed, dictated and finalized at location A.
--- NOTE | ~2021-07-22 | XR_ITS ---
EXAMINATION: XR chest 2V Exam Date/Time: 07/22/2021 18:50 CDT HISTORY: weakness, Hx of Afib, hx of R breast cancer Comparison: 01/03/2021. RESULT: Lines, tubes, and devices: None. Lungs and pleura: Senescent changes, otherwise clear. Cardiomediastinal silhouette: Stable cardiomediastinal silhouette. Other: No acute osseous or upper abdominal finding. IMPRESSION: No acute cardiopulmonary process. Reviewed, dictated and finalized at location K.
--- NOTE | ~2021-07-22 | CT_ITS ---
EXAMINATION: CT abdomen pelvis w con DATE: 07/22/2021 19:40 INDICATION: abdominal pain TECHNIQUE: Computed tomography (CT) of the abdomen and pelvis was performed with 100 mL Omnipaque-300 intravenous contrast. Automated exposure control and iterative reconstruction technique were employe d. The dose-length product was 760.88 mGy-cm. COMPARISON: 07/23/2020, 11/26/2013. FINDINGS: Lower thorax: Bibasilar atelectasis/scarring. Cardiomegaly. Aortic valve calcifications. Liver: Multiple hepatic cysts and lesions that are too small to characterize but also likely represen t cysts. Biliary/Gallbladder: Gallbladder is absent. Stable intrahepatic and extra hepatic biliary duct dilata tion, likely related to cholecystectomy. Pancreas: No mass or duct dilation. Atrophy and fatty infiltration. Spleen: Multiple stable subcentimeter hypodensities, likely represent cysts or granulomas. Adrenals:No mass. Kidneys: Multiple renal cysts and subcentimeter hypodensities that likely represent cysts. GI tract: No small or large bowel dilation. Appendix not visualized. Diverticulosis without diverticu litis. Mesentery/Peritoneum: No ascites, mass, or free air. Retroperitoneum: No mass. Abdominal arterial atherosclerosis. Pelvis: Distended urinary bladder, without wall thickening, otherwise the pelvic organs are within no rmal limits. Soft Tissues: Soft tissues and body wall unremarkable. Bones: No acute osseous finding. IMPRESSION: No acute abdominopelvic process detected. Reviewed, dictated and finalized at location K.
--- NOTE | 2021-07-22 18:15 | ECG_ITS ---
Measurements Intervals [place] Rate: 92 P: 38 [place]: 213 QRS: -4 QRSD: 86 T: 44 QT: 365 QTc: 454 Interpretive Statements SINUS RHYTHM WITH FIRST DEGREE AV BLOCK BASELINE ARTIFACT- I, II, AVR, AVL, AVF, V1-V3 ABNORMAL ECG Electronically Signed On 07-22-2021 20:04:53 CDT by Pee Ruff D.O.
[2021-07-22 18:48] LABS: Basophils Percent Auto 0.3 % (0.2-1.2); Eosinophils Percent Auto 0.1 % (0-4.4); Hematocrit 44.7 % (37.0-47.0); Immature Granulocyte Absolute 0.06 K/mm3 (0.00-0.031); Immature Granulocyte Percent A 0.4 % (0-0.5); Lymphocytes Absolute Auto 0.41 K/mm3 (0.9-3.2); Mean Corpuscular HGB Conc 31.3 g/dl (32-36); Mean Corpuscular Hemoglobin 28.5 pg (26-34); Mean Corpuscular Volume 90.9 fl (80-100); Mean Platelet Volume 11.2 fl (7.4-10.4); Monocytes Absolute Auto 0.8 K/mm3 (0.1-0.6); Monocytes Percent Auto 5.8 % (2.6-8.5); Neutrophils Absolute Auto 12.3 K/mm3 (1.3-6.7); Neutrophils Percent Auto 90.4 % (45.5-73.1); Platelet Count Result 207 k/mm3 (150-375); Red Blood Count 4.92 M/mm3 (4.2-5.4); Red Cell Distribution Width 14.2 % (11.5-14.5); White Blood Count 13.6 K/mm3 (4.5-10.0)
[2021-07-22 19:09] LABS: Alanine Aminotransferase 17 U/L (6-35); Albumin Level 4.7 g/dL (3.5-5.1); Alkaline Phosphatase 92 U/L (38-126); Anion Gap 5 mmol/L (8-16); Aspartate Amino Transferase 41 U/L (14-36); Bilirubin,Total 1.4 mg/dL (0.2-1.3); Blood Urea Nitrogen 12 mg/dL (7-17); Calcium 9.6 mg/dL (8.4-10.2); Carbon Dioxide 34 mmol/L (22-30); Chloride 96 mmol/L (98-107); Estimated Glomerular Filt Rate > 60; Glucose 145 mg/dL (65-110); Potassium 3.5 mmol/L (3.4-5.0); Sodium 135 mmol/L (137-145)
[2021-07-22] MEDS: ONDANSETRON INJ 4 MG/2 ML VIAL IV PUSH (19:12)
[2021-07-22 19:18] LABS: Platelet Estimate Adequate (Adequate)
[2021-07-22 19:19] LABS: Ovalocytes 1+ (NORMAL)
--- NOTE | 2021-07-22 19:30 | ED.WEAKNESS ---
HPI - Weakness General Chief complaint: Weakness Stated complaint: weakness Time Seen by Provider: 07/22/21 18:52 History of Present Illness HPI Narrative: 86-year-old female with history of A. fib on anticoagulation presents after being found by her daughter slumped over on the toilet, last known well at 1430. Patient was initially mumbling and very sleepy, however when woken up she is able to speak in full sentences, states that she is cold and per daughter, she did have an episode of nausea, vomiting, diarrhea today. No known sick contacts. She denies any chest pain, cough, or difficulty breathing Related Data Home Medications Medication Instructions Recorded Confirmed levothyroxine 25 mcg tablet 25 mcg PO DAILY 01/08/19 07/22/21 multivitamin 1 cap PO DAILY 01/08/19 07/22/21 potassium chloride 10 mEq 20 meq PO BID 01/08/19 07/22/21 tablet,extended release simvastatin 10 mg tablet 20 mg PO DAILY 01/08/19 07/22/21 furosemide [Lasix] 40 mg PO DAILY 02/21/19 07/22/21 isosorbide mononitrate 30 mg PO DAILY 02/21/19 07/22/21 metoprolol tartrate 50 mg PO BID 02/21/19 07/22/21 rivaroxaban [Xarelto] 20 mg PO QPM 03/28/20 07/22/21 Allergies Allergy/AdvReac Type Severity Reaction Status Date / Time penicillin V Allergy Intermediate Rash Verified 05/03/21 03:39 Penicillins Allergy Intermediate Rash Verified 05/03/21 03:39 adhesive tape Allergy Unknown RASH Verified 05/03/21 03:39 morphine AdvReac Intermediate Vomiting Verified 07/22/21 19:06 meperidine AdvReac Unknown WOOZY Verified 07/22/21 19:06 Review of Systems Review of Systems: CONST: Chills, fatigue HEENT: No sore throat C/V: No chest pain RESP: No cough GI: nausea, vomiting[, diarrhea] : No dysuria. M/S: No joint pain. SKIN: ulcer left lower extremity NEURO: [No headache or focal numbness or weakness] PSYCH: [No depression] PMFSH Past Medical History Medical History Abnormal colonoscopy Colonoscopy per Dr. Peters in July 2013 showed diverticulosis, uncomplicated internal external hemorrhoids, and a hyperplastic polyp. Anemia Atrial fibrillation She has had several cardioversions, and had a cardiac ablation this year at [facility]. Cancer of right breast Status post lumpectomy and radiation in 2006. Cellulitis Dyslipidemia GERD (gastroesophageal reflux disease) Hearing loss of both ears History of peptic ulcer Hypertension Hypothyroidism Migraine headache Mild coronary artery disease Cardiac catheterization October 2018 showed no angiographically significant coronary disease, at best 40% stenosis at the ostium of the 1st diagonal branch. Osteoarthritis Seasonal allergic rhinitis JOSH (stress urinary incontinence, female) Vision loss Surgical History Surgical History History of 3 sections History of appendectomy History of lumpectomy of right breast For breast cancer in 2006. Status post arthroscopic knee surgery Status post laparoscopic cholecystectomy Status post right knee replacement Family History Family History Mother Patient's mother is Family history of Parkinson's disease, Onset Age: 89 Family history of type 2 diabetes mellitus Father Family history of hepatitis, Onset Age: 37 Family history of nephrotic syndrome, Onset Age: 37 Family history of heart disease in male family member before age 55, Onset Age: 37 Patient's father is , Onset Age: 37 Other Breast cancer Diabetes mellitus Family history of arthritis Family history of cardiovascular disease Family history of kidney disease Hypertension Social History Social History Social History: The patient is . She lives with her daughter, Jaida and their 2 dogs, Yves (a Westie) and Cori (a pit bull). Smoking status: F
[2021-07-22] MEDS: LACTATED RINGERS 1,000 ML 999 ML IV CONT (20:22)
[2021-07-22 20:23] LABS: Appearance Urine Clear (Clear); Bilirubin Urine Negative (Negative); Blood Urine 1+ (Negative); Color Urine Yellow (Yellow); Glucose Urine UA Negative (Negative); Ketones Urine Negative (Negative); Leukocyte Esterase Ur Negative LEU/UL (Negative); Nitrate Urine Negative (Negative); Protein Urine Negative (Negative); Urobilinogen Urine 0.2 mg/dL (<2.0); pH Urine 8.5 (5.0-9.0)
[2021-07-22 20:49] LABS: WBC Urine 0-3 /hpf
[2021-07-22 20:53] LABS: Add Urine Microscopic? YES
[2021-07-22 20:55] LABS: SARS-CoV-2 RNA PCR Negative
[2021-07-22 21:24] LABS: Thyroid Stimulating Hormone Reflex 0.809 uIU/mL (0.465-4.68)
--- NOTE | 2021-07-22 22:50 | ADMGEN ---
This patient, Mayuri Love, was admitted to [address] [place] [address] Room 305-02. Patient/family oriented to hospital policies and general routines including ID bracelet, bed and alarms, visiting hours, pain management, procedures, bathroom and other care routines, personal items, smoking policy, room service/diet, and visiting hours. Information on how to activate the Rapid Response Team has been discussed. Patient/Family are encouraged to report perceived risks to care and to ask questions if they do not understand what they are told or what they should do.
[2021-07-22] MEDS: LACTATED RINGERS 1,000 ML 125 ML IV CONT (23:04)
[2021-07-22] MEDS: ACETAMINOPHEN 325 MG TABLET 650 MG PO (23:28)
[2021-07-23] VITALS (21 sets, daily range): BP systolic 90–112; BP diastolic 41–60; PULSE 72–153; RESP 20–22; TEMP 36.1–37.2; O2SAT 91–96
--- NOTE | 2021-07-23 00:11 | ECG_ITS ---
Measurements Intervals [place] Rate: 151 P: [place]: 0 QRS: -18 QRSD: 84 T: 60 QT: 206 QTc: 327 Interpretive Statements ATRIAL FIBRILLATION WITH RAPID VENTRICULAR RESPONSE NONSPECIFIC ST & T-WAVE ABNORMALITY- DIFFUSE LEADS BASELINE WANDER- I, II, AVR, AVL, AVF ABNORMAL ECG Electronically Signed On 07-23-2021 7:16:22 CDT by Pee Ruff D.O.
--- NOTE | 2021-07-23 00:40 | PC.NURSE ---
Place call to patients daughter Ariadne Lambert , informed that pt was transferred to IMU room 203 for elevated heart rate ( atrial fib with RVR ) verified understanding.
[2021-07-23] MEDS: SODIUM CHLORIDE 0.9% IV 1,000 ML 75 ML IV CONT ×2 (00:56→16:23)
[2021-07-23] MEDS: dilTIAZem 100 MG/100 ML 100 MG/100 ML BAG IV CONT (00:58)
[2021-07-23] MEDS: METOPROLOL TARTRATE 50 MG TAB PO ×3 (01:20→21:06)
--- NOTE | 2021-07-23 02:36 | PC.NURSE ---
This patient, Mayuri Rutherfordradhacosta, was received from [[id number] ] on 07/23/21 at 0030. Patient/family oriented to unit policies and routines
--- NOTE | 2021-07-23 05:02 | PM.IMHP ---
H&P: HPI History of Present Illness Date/Time: 07/23/21 05:02 Chief Complaint: Slumped over on toilet Narrative: Is 86-year-old female with a past medical history of atrial fibrillation, breast cancer, hypertension, hypertension and hypothyroidism who presented to the ER after her daughter found her slumped over on the toilet. As the patient reports that his T does have a history of chronic intermittent diarrhea and had been having some loose stools for the last day and half. Then yesterday she began having nausea and had 2 episodes of vomiting. She was on the toilet began when she became profoundly weak. She denies feeling lightheaded or having a near syncopal episode. She reports that she did not feel well and she does not think that she took her heart medications in the morning. She knows she did not take her metoprolol at night. She denies any shortness of breath or chest pain. She has chronic lower extremity edema and chronic left lower extremity cellulitis for which she sees wound care. She is post dizzy wound care this morning as outpatient. She reports that her chronic wound in her leg is scabbed. Her leg is not any redder than usual. She denies any pain in her extremity. She has not been on any antibiotics recently. After the patient arrived to the medical floor the patient went into AFib RVR. She reports that she never has symptoms whenever she goes in the AFib. The patient denied having any fevers at home that she was aware of but did have a T-max of 100.7? in the ER. She reports that her grandson who is around 7 years old has been sick with upper respiratory symptoms recently. Her COVID PCR was negative. She has chronic intermittent urinary incontinence but denies any dysuria, hematuria or foul-smelling urine. Review of Systems Review of Systems: 12 systems were reviewed with pertinent positives and negatives per HPI. Except as documented in the HPI, all other systems were reviewed and are negative. [facility] Past Medical History Medical History Abnormal colonoscopy Colonoscopy per Dr. Peters in July 2013 showed diverticulosis, uncomplicated internal external hemorrhoids, and a hyperplastic polyp. Anemia Atrial fibrillation She has had several cardioversions, and had a cardiac ablation this year at [facility]. Cancer of right breast Status post lumpectomy and radiation in 2006. Cellulitis Dyslipidemia GERD (gastroesophageal reflux disease) Hearing loss of both ears History of peptic ulcer Hypertension Hypothyroidism Migraine headache Mild coronary artery disease Cardiac catheterization October 2018 showed no angiographically significant coronary disease, at best 40% stenosis at the ostium of the 1st diagonal branch. Osteoarthritis Seasonal allergic rhinitis JOSH (stress urinary incontinence, female) Vision loss Surgical History Surgical History History of 3 sections History of appendectomy History of lumpectomy of right breast For breast cancer in 2006. Status post arthroscopic knee surgery Status post laparoscopic cholecystectomy Status post right knee replacement Family History Family History Mother Patient's mother is Family history of Parkinson's disease, Onset Age: 89 Family history of type 2 diabetes mellitus Father Family history of hepatitis, Onset Age: 37 Family history of nephrotic syndrome, Onset Age: 37 Family history of heart disease in male family member before age 55, Onset Age: 37 Patient's father is , Onset Age: 37 Other Breast cancer Diabetes mellitus Family history of arthritis Family history of cardiovascular disease Family history of kidney disease Hypertension Social History Social History Social History: The [facility]
[2021-07-23 07:20] LABS: Hemoglobin 13.1 g/dL (12.0-15.0); Mean Corpuscular HGB Conc 32.8 g/dl (32-36); Mean Corpuscular Hemoglobin 29.2 pg (26-34); Mean Corpuscular Volume 89.3 fl (80-100); Mean Platelet Volume 11.4 fl (7.4-10.4); Platelet Count Result 185 k/mm3 (150-375); Red Blood Count 4.48 M/mm3 (4.2-5.4); Red Cell Distribution Width 14.2 % (11.5-14.5); White Blood Count 20.4 K/mm3 (4.5-10.0)
[2021-07-23 07:47] LABS: Anion Gap 9 mmol/L (8-16); Blood Urea Nitrogen 15 mg/dL (7-17); Calcium 8.5 mg/dL (8.4-10.2); Carbon Dioxide 29 mmol/L (22-30); Chloride 98 mmol/L (98-107); Estimated CRCL calculation 39 ml/min; Estimated Glomerular Filt Rate > 60; Glucose 127 mg/dL (65-110); Potassium 3.4 mmol/L (3.4-5.0); Sodium 136 mmol/L (137-145)
[2021-07-23] MEDS: ACETAMINOPHEN 325 MG TABLET 650 MG PO ×2 (08:17→18:12)
--- NOTE | 2021-07-23 08:48 | PM.IMPN ---
Progress Note: A&P Assessment and Plan (1) Fever: Qualifiers: Fever type: due to other condition Qualified Code(s): R50.81 - Fever presenting with conditions classified elsewhere Code(s): R50.9 - Fever, unspecified Status: Acute (2) Nausea vomiting and diarrhea: Code(s): R11.2 - Nausea with vomiting, unspecified; R19.7 - Diarrhea, unspecified Status: Acute (3) Paroxysmal atrial fibrillation with RVR: Code(s): I48.0 - Paroxysmal atrial fibrillation Status: Acute (4) Venous stasis ulcer: Qualifiers: Laterality: left Non-pressure ulcer stage: unspecified non-pressure ulcer stage Varicose vein presence: unspecified whether present Venous stasis ulcer site: other part of lower leg Qualified Code(s): I83.028 - Varicose veins of left lower extremity with ulcer other part of lower leg; L97.829 - Non-pressure chronic ulcer of other part of left lower leg with unspecified severity Code(s): I83.009 - Varicose veins of unspecified lower extremity with ulcer of unspecified site; L97.909 - Non-pressure chronic ulcer of unspecified part of unspecified lower leg with unspecified severity Status: Acute (5) Cellulitis of left lower extremity without foot: Code(s): L03.116 - Cellulitis of left lower limb Status: Acute Additional Plan Paroxysmal atrial fibrillation with rapid ventricular response Mr. Home medication due to GI symptoms. Restart metoprolol. Along with Cardizem drip. AFib likely exacerbated by fever/viral illness. Cardiology consultation. Nausea vomiting diarrhea Fever COVID test negative. Check influenza. Chest x-ray with no acute cardiopulmonary process. CT abdomen is negative. Does her leukocytosis which has worsened. Will treat for possible cellulitis of her left lower extremity. Generalized weakness slumped over the toilet prior to admission. CT head is negative Leukocytosis Left lower extremity chronic stasis dermatitis versus acute cellulitis wound care consulted with worsening leukocytosis will cover with antibiotics, started on Ancef pancultured follow culture. Check ultrasound venous duplex and x-ray of left ankle Hypothyroidism Hypertension Hyperlipidemia DVT prophylaxis on Xarelto which will be resumed Code status full code Subjective Date/time seen: 07/23/21 08:48 Interval history: HPI:Chief Complaint: Slumped over on toilet Narrative: Is 86-year-old female with a past medical history of atrial fibrillation, breast cancer, hypertension, hypertension and hypothyroidism who presented to the ER after her daughter found her slumped over on the toilet. As the patient reports that his T does have a history of chronic intermittent diarrhea and had been having some loose stools for the last day and half. Then yesterday she began having nausea and had 2 episodes of vomiting. She was on the toilet began when she became profoundly weak. She denies feeling lightheaded or having a near syncopal episode. She reports that she did not feel well and she does not think that she took her heart medications in the morning. She knows she did not take her metoprolol at night. She denies any shortness of breath or chest pain. She has chronic lower extremity edema and chronic left lower extremity cellulitis for which she sees wound care. She is post dizzy wound care this morning as outpatient. She reports that her chronic wound in her leg is scabbed. Her leg is not any redder than usual. She denies any pain in her extremity. She has not been on any antibiotics recently. After the patient arrived to the medical floor the patient went into AFib RVR. She reports that she never has symptoms whenever she goes in the AFib. The patient denied having any fevers at home that she was aware of but did have a T-max of 100.7? in the ER. She reports that her grandson who is around 7 years old has been sick with upper respiratory symptoms recently. Her COVID PCR was negat
[2021-07-23] MEDS: MULTIVITAMINS THERAPEUTIC TAB (*BKC) 1 TABLET PO (09:02)
[2021-07-23] MEDS: POTASSIUM CHLORIDE 10 MEQ TABLET.ER 20 MEQ PO ×2 (09:02→18:09)
[2021-07-23] MEDS: LEVOTHYROXINE SODIUM 25 MCG TABLET PO (09:03)
[2021-07-23] MEDS: ISOSORBIDE MONONITRATE 30 MG TAB.ER.24H PO (09:03)
[2021-07-23] MEDS: SIMVASTATIN 10 MG TABLET 20 MG PO (09:03)
[2021-07-23 09:12] LABS: Influenza A QL RT-PCR Negative (Negative); Influenza B QL RT-PCR Negative (Negative)
--- NOTE | 2021-07-23 09:47 | PM.CNCAR ---
Assessment and Plan Assessment and plan (1) Paroxysmal atrial fibrillation with RVR: Code(s): I48.0 - Paroxysmal atrial fibrillation Status: Acute Assessment and Plan: History of atrial fibrillation was treated with radiofrequency catheter ablation in 2018. Since then she has not had any recurrence of atrial fibrillation that she is aware of. Presented to the hospital and was noted to be in atrial fibrillation with rapid ventricular response rate 140s to 150s. She was asymptomatic. Currently still in atrial fibrillation with controlled rate. Decrease diltiazem to 5 milligrams/hour Ideally would like to restore sinus rhythm Administer 150 mg amiodarone bolus after diltiazem has been decreased Continue metoprolol 50 mg p.o. b.i.d. 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 History of GI bleeding per her electronic medical record although patient does not have a recollection of this. Monitor for bleeding. History of Present Illness History of Present Illness Consult date/time: 07/23/21 09:47 Requesting physician: Esteban Tinajero MD Consult reason: atrial fibrillation Reason For Visit: chest pain Narrative: Ms. Love is an 86-year-old female with a history of coronary artery disease, hypertension, thyroid dysfunction, osteoarthritis, and atrial fibrillation. She is followed by Dr. Aquino at [facility] for management of her atrial fibrillation. She underwent radiofrequency catheter ablation for atrial fibrillation in February of 2018 and had been maintaining sinus rhythm up until this point. She enters the hospital because there was some concern from her daughter that she was having chest pain. Patient denies having any chest discomfort at home at any time. When she entered the hospital she was noted to be in atrial fibrillation with rapid ventricular response. She denied having any palpitations, shortness of breath, chest pain. She does endorse some shortness of breath with exertion which is baseline for her. Her workup has revealed leukocytosis and fever. Currently being treated for left lower leg cellulitis. In the emergency department she was placed on a diltiazem drip which has provided adequate rate control. Currently, she does not have any complaints whatsoever. Review of Systems Constitutional: Constitutional: Denies fatigue, Denies lethargy and Denies weakness Eyes: Eyes: Denies blurry vision and Denies change in vision ENT: Reports Normal hearing present and Denies epistaxis Cardiovascular: Cardiovascular: Denies chest pain, Denies diaphoresis, Reports leg edema and Denies palpitations Respiratory: Respiratory: Denies cough, Denies hemoptysis, Denies dyspnea and Reports dyspnea on exertion Gastrointestinal: Gastrointestinal: Denies melena and Denies hematochezia Genitourinary: Genitourinary: Denies hematuria Musculoskeletal: Musculoskeletal: Denies arthralgias and Denies joint swelling Integumentary/Breasts: Skin/Breast: Reports erythema and Reports wounds Neurologic: Denies confusion and Reports headache(s) Psychiatric: Psychiatric: Denies anxiety and Denies depression Endocrine: Endocrine: Denies excessive sweating and Denies fatigue Hematologic/Lymphatic: Hematologic/Lymphatic: Denies easy bleeding and Denies easy bruising Allergic/Immunologic: Allergic/Immunologic: Denies lip swelling PMFSH Past Medical History Medical History Abnormal colonoscopy Colonoscopy per Dr. Peters in July 2013 showed diverticulosis,
[2021-07-23 11:39] LABS: Thyroid Stimulating Hormone 0.412 uIU/mL (0.465-4.680)
[2021-07-23 12:14] LABS: Free T4 Free Thyroxine 1.32 ng/mL (0.78-2.19)
--- NOTE | 2021-07-23 12:30 | ECG_ITS ---
Measurements Intervals [place] Rate: 69 P: 109 CT: 239 QRS: 6 QRSD: 93 T: 43 QT: 413 QTc: 444 Interpretive Statements SINUS RHYTHM WITH FIRST DEGREE AV BLOCK ATRIAL PREMATURE COMPLEX NONSPECIFIC T-WAVE ABNORMALITY- LATERAL LEADS ABNORMAL ECG Electronically Signed On 07-23-2021 13:04:57 CDT by Pee Ruff D.O.
--- NOTE | 2021-07-23 12:48 | PC.NURSE ---
Notified Pema Gonsales NP of patient's heart rhythm has converted to NSR. According to 12 lead EKG: SR w/ first degree AV block w/ occasional supraventricular premature complexes. New order to stop Diltazem drip and hold on Amiodarone bolus for now. Pema Gonsales NP will decide on what the future plan is with the patient to keep her in NSR
--- NOTE | 2021-07-23 16:16 | PCCCNOTE ---
On 07/23/21, the student, [Elissa Velez], provided care and completed [facility] documentation on this patient. I have reviewed the student's documentation and agree with the findings.
[2021-07-23] MEDS: RIVAROXABAN 20 MG TABLET PO (18:09)
[2021-07-23] MEDS: DRONEDARONE HCL 400 MG TABLET PO (18:26)
[2021-07-24] VITALS (19 sets, daily range): BP systolic 121–146; BP diastolic 57–90; PULSE 69–115; RESP 16–20; TEMP 36.7–37; O2SAT 92–97
--- NOTE | 2021-07-24 | ECHO_ITS ---
Patient Info Name: Mayuri Love Age: 86 years : 1935 Gender: Female Ht: 64 in Wt: 158 lbs BSA: 1.82 m2 HR: 84 bpm BP: 144 / 71 mmHg Heart Rhythm: Sinus Rhythm Technical Quality: Fair Exam Date: 07/24/2021 10:30 AM Exam Location: [facility] Pulmonary Exam Room: 203 Patient Status: Inpatient Admit Date: 07/22/2021 Staff Ordering Physician: Pema Gonsales Hearing Aid Assistant: Tennille Toledo RDCS Attending Provider: Esteban Tinajero MD Referring Physician: Ilda DAWSON; Exam Type: CA echo doppler color flow Study Info Indications - AFIB RVR Complete two-dimensional, color flow and Doppler transthoracic echocardiogram is performed. Summary 1. Complete two-dimensional, color flow and Doppler transthoracic echocardiogram is performed. 2. Left ventricular chamber dimension is normal. 3. Left ventricular systolic function is normal, estimated at 60-65%. 4. There is mild concentric increased left ventricular wall thickness. 5. Left atrial chamber dimension is moderately enlarged. 6. There is trace mitral valve regurgitation. 7. There is mild aortic valve sclerosis. Left Ventricle Left ventricular chamber dimension is normal. Left ventricular systolic function is normal, estimated at 60-65%. There is mild concentric increased left ventricular wall thickness. The left ventricular diastolic function is grade I diastolic dysfunction. Right Ventricle Right ventricular chamber dimension is normal. Left Atria Left atrial chamber dimension is moderately enlarged. Right Atria Right atrial chamber dimension is normal. Aortic Valve The aortic valve is trileaflet. There is mild aortic valve sclerosis. Pulmonic Valve The pulmonic valve is normal. Mitral Valve The mitral valve has normal leaflets. There is trace mitral valve regurgitation. The mitral valve annulus is mildly calcified. Tricuspid Valve The tricuspid valve leaflets are normal. Pericardium/Pleural The pericardium appears normal. Aorta The aortic root size at the sinus of Valsalva is normal. Left Ventricular Outflow Tract Name Value Normal LVOT 2D LVOT Diameter 2.0 cm LVOT Doppler LVOT Peak Gradient 5 mmHg LVOT Mean Gradient 3 mmHg LVOT VTI 24 cm LVOT VTI/AV VTI Ratio 1.0 LVOT Stroke Volume 76 ml LVOT CO 15.6 l/min LVOT CI 8.6 l/min/m2 Pulmonic Valve Name Value Normal PV Doppler PV Peak Gradient 2 mmHg Mitral Valve Name Value Normal MV Doppler
[2021-07-24] MEDS: HYDROcodone/acetaminophen (*CRX) 5-325 MG TABLET 1 TAB PO (05:18)
[2021-07-24] MEDS: LEVOTHYROXINE SODIUM 25 MCG TABLET PO (05:19)
[2021-07-24 07:28] LABS: Alanine Aminotransferase 21 U/L (6-35); Albumin Level 3.5 g/dL (3.5-5.1); Alkaline Phosphatase 92 U/L (38-126); Anion Gap 6 mmol/L (8-16); Aspartate Amino Transferase 56 U/L (14-36); Bilirubin,Total 0.8 mg/dL (0.2-1.3); Blood Urea Nitrogen 15 mg/dL (7-17); Calcium 8.6 mg/dL (8.4-10.2); Carbon Dioxide 26 mmol/L (22-30); Chloride 99 mmol/L (98-107); Estimated CRCL calculation 58 ml/min; Estimated Glomerular Filt Rate > 60; Glucose 122 mg/dL (65-110); Magnesium 2.2 mg/dL (1.6-2.3); Potassium 3.7 mmol/L (3.4-5.0); Sodium 131 mmol/L (137-145)
[2021-07-24 07:33] LABS: Basophils Percent Auto 0.2 % (0.2-1.2); Hematocrit 38.4 % (37.0-47.0); Hemoglobin 12.3 g/dL (12.0-15.0); Immature Granulocyte Absolute 0.06 K/mm3 (0.00-0.031); Immature Granulocyte Percent A 0.5 % (0-0.5); Lymphocytes Absolute Auto 0.43 K/mm3 (0.9-3.2); Lymphocytes Percent Auto 3.8 % (18.3-44.2); Mean Corpuscular Hemoglobin 28.9 pg (26-34); Mean Corpuscular Volume 90.1 fl (80-100); Mean Platelet Volume 11.5 fl (7.4-10.4); Monocytes Absolute Auto 0.7 K/mm3 (0.1-0.6); Monocytes Percent Auto 6.3 % (2.6-8.5); Neutrophils Percent Auto 89.2 % (45.5-73.1); Platelet Count Result 167 k/mm3 (150-375); Red Blood Count 4.26 M/mm3 (4.2-5.4); Red Cell Distribution Width 14.6 % (11.5-14.5); White Blood Count 11.2 K/mm3 (4.5-10.0)
--- NOTE | 2021-07-24 08:27 | PM.PNCARD ---
Progress Note: A&P Assessment and Plan (1) Paroxysmal atrial fibrillation with RVR: Code(s): I48.0 - Paroxysmal atrial fibrillation Status: Acute Assessment and Plan: History of atrial fibrillation was treated with radiofrequency catheter ablation in 2018. Since then she has not had any recurrence of atrial fibrillation that she is aware of. Presented to the hospital and was noted to be in atrial fibrillation with rapid ventricular response rate 140s to 150s. She was asymptomatic. She had converted to sinus rhythm but is back in AF RVR this morning Continue metoprolol 50 mg p.o. b.i.d. 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 History of GI bleeding per her electronic medical record although patient does not have a recollection of this. Monitor for bleeding. H/H stable. Subjective Date/time seen: 07/24/21 08:27 cardiology follow-up for atrial fibrillation She feels well this morning. Complains of her head feeling fuzzy and states she has had a mild headache since she entered the hospital. No other complaints. Denies shortness of breath, palpitations, chest pain. Review of Systems Constitutional: Constitutional: Denies excessive sweating, Denies fatigue, Reports headache(s), Denies lethargy and Denies weakness Eyes: Eyes: Denies blurry vision and Denies change in vision ENT: Reports Normal hearing present, Reports headache(s), Denies lip swelling and Denies epistaxis Cardiovascular: Cardiovascular: Denies chest pain, Denies diaphoresis, Reports leg edema, Denies palpitations, Denies dyspnea and Reports dyspnea on exertion Respiratory: Respiratory: Denies cough, Denies hemoptysis, Denies dyspnea and Reports dyspnea on exertion Gastrointestinal: Gastrointestinal: Denies melena and Denies hematochezia Genitourinary: Genitourinary: Denies hematuria Musculoskeletal: Musculoskeletal: Denies arthralgias and Denies joint swelling Integumentary/Breasts: Skin/Breast: Reports erythema and Reports wounds Neurologic: Reports Normal hearing present, Denies confusion, Reports headache(s) and Denies weakness Psychiatric: Psychiatric: Denies anxiety, Denies confusion and Denies depression Endocrine: Endocrine: Denies excessive sweating, Denies fatigue and Denies palpitations Hematologic/Lymphatic: Hematologic/Lymphatic: Denies easy bleeding and Denies easy bruising Allergic/Immunologic: Allergic/Immunologic: Denies lip swelling Exam Const: General: comfortable and no acute distress; No confusion Orientation/consciousness: No confusion HENMT: Head: normal to inspection, normocephalic and atraumatic Ears: hearing grossly normal bilaterally Eyes: General: appearance normal, both eyes and all related structures Neck: Neck: supple and no JVD Resp: Auscultation: not clear to auscultation bilaterally and crackles Cardio: Rate: tachycardic Rhythm: abnormal rhythm Heart sounds: no murmurs GI: Auscultation: normal bowel sounds Skin: General skin exam: normal color and erythema Wounds: wounds noted Other: pretibial and calf erythema, swelling, serous drainage Neuro: General: No confusion Cranial nerves: Yes Normal hearing present Cognition (Neuro): normal cognition Extrem: General: abnormal to inspection and edema left Psych: Mental Status: mental status grossly normal Objective Data Vital Signs Vital Signs: Vital Signs - 24 hr 07/23/21 09:03 07/23/21 10:00 07/23/21 11:00 Temperature Pulse Rate 122 H 87 72 Respiratory Rate Blood Pressure Pulse Oximetry 07/05
[2021-07-24] MEDS: SIMVASTATIN 10 MG TABLET 20 MG PO (08:40)
[2021-07-24] MEDS: POTASSIUM CHLORIDE 10 MEQ TABLET.ER 20 MEQ PO ×2 (08:41→17:12)
[2021-07-24] MEDS: MULTIVITAMINS THERAPEUTIC TAB (*BKC) 1 TABLET PO (08:41)
[2021-07-24] MEDS: METOPROLOL TARTRATE 50 MG TAB PO ×2 (08:42→20:41)
[2021-07-24] MEDS: ISOSORBIDE MONONITRATE 30 MG TAB.ER.24H PO (08:42)
[2021-07-24] MEDS: ACETAMINOPHEN 325 MG TABLET 650 MG PO ×2 (08:51→17:10)
[2021-07-24] MEDS: AMIODARONE 150 MG/D5W 100 ML 150 MG/100 ML BAG 600 MG IV CONT (09:16)
[2021-07-24] MEDS: AMIODARONE 360 MG/D5W 200 ML 360 MG/200 ML BAG 33.33 MG IV CONT (09:17)
--- NOTE | 2021-07-24 13:52 | PCCCNOTE ---
On 07/24/21, the student, [Elissa Velez], provided care and completed [facility] documentation on this patient. I have reviewed the student's documentation and agree with the findings.
[2021-07-24] MEDS: AMIODARONE 360 MG/D5W 200 ML 360 MG/200 ML BAG 16.67 MG IV CONT (14:45)
[2021-07-24] MEDS: SODIUM CHLORIDE 0.9% IV 1,000 ML 75 ML IV CONT (14:46)
--- NOTE | 2021-07-24 15:43 | PM.IMPN ---
Progress Note: A&P Assessment and Plan (1) Fever: Qualifiers: Fever type: due to other condition Qualified Code(s): R50.81 - Fever presenting with conditions classified elsewhere Code(s): R50.9 - Fever, unspecified Status: Acute (2) Nausea vomiting and diarrhea: Code(s): R11.2 - Nausea with vomiting, unspecified; R19.7 - Diarrhea, unspecified Status: Acute (3) Paroxysmal atrial fibrillation with RVR: Code(s): I48.0 - Paroxysmal atrial fibrillation Status: Acute (4) Venous stasis ulcer: Qualifiers: Venous stasis ulcer site: other part of lower leg Varicose vein presence: unspecified whether present Laterality: left Non-pressure ulcer stage: unspecified non-pressure ulcer stage Qualified Code(s): I83.028 - Varicose veins of left lower extremity with ulcer other part of lower leg; L97.829 - Non-pressure chronic ulcer of other part of left lower leg with unspecified severity Code(s): I83.009 - Varicose veins of unspecified lower extremity with ulcer of unspecified site; L97.909 - Non-pressure chronic ulcer of unspecified part of unspecified lower leg with unspecified severity Status: Acute (5) Cellulitis of left lower extremity without foot: Code(s): L03.116 - Cellulitis of left lower limb Status: Acute Additional Plan Paroxysmal atrial fibrillation with rapid ventricular response she held her Home medication due to GI symptoms. Restart metoprolol. started on Cardizem drip. AFib likely exacerbated by fever/viral illness. Cardiology consultation. started on amiodarone drip and now sinus rhythm Nausea vomiting diarrhea Fever COVID test negative. influenza negative Chest x-ray with no acute cardiopulmonary process. CT abdomen is negative. Does her leukocytosis which has worsened. treated for cellulitis of her left lower extremity with Ancef. leukocytosis has improved today Generalized weakness slumped over the toilet prior to admission. CT head is negative Leukocytosis improving now with start of antibiotics Left lower extremity chronic stasis dermatitis versus acute cellulitis wound care consulted with worsening leukocytosis will cover with antibiotics, started on Ancef pancultured follow culture. x-ray left ankle negative for any underlying bony infection Venous duplex negative for DVT Hypothyroidism Hypertension Hyperlipidemia DVT prophylaxis on Xarelto which will be resumed Code status full code Subjective Date/time seen: 07/24/21 15:43 Interval history: HPI:Chief Complaint: Slumped over on toilet Narrative: Is 86-year-old female with a past medical history of atrial fibrillation, breast cancer, hypertension, hypertension and hypothyroidism who presented to the ER after her daughter found her slumped over on the toilet. As the patient reports that his T does have a history of chronic intermittent diarrhea and had been having some loose stools for the last day and half. Then yesterday she began having nausea and had 2 episodes of vomiting. She was on the toilet began when she became profoundly weak. She denies feeling lightheaded or having a near syncopal episode. She reports that she did not feel well and she does not think that she took her heart medications in the morning. She knows she did not take her metoprolol at night. She denies any shortness of breath or chest pain. She has chronic lower extremity edema and chronic left lower extremity cellulitis for which she sees wound care. She is post dizzy wound care this morning as outpatient. She reports that her chronic wound in her leg is scabbed. Her leg is not any redder than usual. She denies any pain in her extremity. She has not been on any antibiotics recently. After the patient arrived to the medical [facility] She reports that she never has symptoms whenever she goes in the AFib. The patient denied having any fevers at home that she was aware of but
[2021-07-24] MEDS: RIVAROXABAN 20 MG TABLET PO (17:12)
[2021-07-24] MEDS: FUROSEMIDE INJ 40 MG/4 ML VIAL IV PUSH (20:41)
[2021-07-25] VITALS (19 sets, daily range): BP systolic 128–151; BP diastolic 46–76; PULSE 70–112; RESP 15–24; TEMP 36.4–37.2; O2SAT 94–100
[2021-07-25] MEDS: AMIODARONE 360 MG/D5W 200 ML 360 MG/200 ML BAG 16.67 MG IV CONT (02:32)
[2021-07-25] MEDS: ONDANSETRON INJ 4 MG/2 ML VIAL IV PUSH (03:11)
[2021-07-25] MEDS: LEVOTHYROXINE SODIUM 25 MCG TABLET PO (06:36)
[2021-07-25 07:29] LABS: Anion Gap 4 mmol/L (8-16); Blood Urea Nitrogen 9 mg/dL (7-17); Calcium 8.6 mg/dL (8.4-10.2); Carbon Dioxide 30 mmol/L (22-30); Chloride 100 mmol/L (98-107); Estimated CRCL calculation 70 ml/min; Estimated Glomerular Filt Rate > 60; Glucose 118 mg/dL (65-110); Magnesium 1.9 mg/dL (1.6-2.3); Potassium 3.6 mmol/L (3.4-5.0); Sodium 134 mmol/L (137-145)
[2021-07-25 07:44] LABS: Hematocrit 39.5 % (37.0-47.0); Hemoglobin 12.9 g/dL (12.0-15.0); Mean Corpuscular HGB Conc 32.7 g/dl (32-36); Mean Corpuscular Hemoglobin 29.3 pg (26-34); Mean Corpuscular Volume 89.8 fl (80-100); Mean Platelet Volume 11.6 fl (7.4-10.4); Platelet Count Result 192 k/mm3 (150-375); Red Cell Distribution Width 14.2 % (11.5-14.5); White Blood Count 8.5 K/mm3 (4.5-10.0)
[2021-07-25] MEDS: POTASSIUM CHLORIDE 10 MEQ TABLET.ER 20 MEQ PO ×2 (09:54→17:31)
[2021-07-25] MEDS: SIMVASTATIN 10 MG TABLET 20 MG PO (09:54)
[2021-07-25] MEDS: ISOSORBIDE MONONITRATE 30 MG TAB.ER.24H PO (09:55)
[2021-07-25] MEDS: METOPROLOL TARTRATE 50 MG TAB PO ×2 (09:55→20:47)
[2021-07-25] MEDS: MULTIVITAMINS THERAPEUTIC TAB (*BKC) 1 TABLET PO (09:55)
--- NOTE | 2021-07-25 10:51 | PM.PNCARD ---
Progress Note: A&P Additional Plan 86-year-old lady with: Asymptomatic paroxysmal atrial fibrillation. Will shift her to oral amiodarone this morning at 400 mg daily for the time being. She continues to be systemically anticoagulated with Xarelto. If she is stable I would consider discharge in the next 24-48 hours to be reasonable. Donnie Saunders MD [facility] Subjective Date/time seen: Date of service: 07/25/21 10:51 Interval history: Follow-up in this 86-year-old lady with: Paroxysmal atrial fibrillation admitted with a recurrence of her arrhythmia with which she appeared to have been asymptomatic. She has been placed on intravenous amiodarone this morning she is back in sinus rhythm asymptomatic and has no cardiovascular complaints. She says she feels weak overall and has a headache. Exam Const: General: comfortable and no acute distress; No confusion Orientation/consciousness: No confusion HENMT: Head: normal to inspection, normocephalic and atraumatic Ears: hearing grossly normal bilaterally Eyes: General: appearance normal, both eyes and all related structures Neck: Neck: supple and no JVD Resp: Auscultation: not clear to auscultation bilaterally and crackles Cardio: Rate: regular rate Rhythm: regular rhythm Heart sounds: no murmurs GI: Auscultation: normal bowel sounds Skin: General skin exam: normal color and erythema Wounds: wounds noted Other: pretibial and calf erythema, swelling, serous drainage Neuro: General: No confusion Cranial nerves: Yes Normal hearing present Cognition (Neuro): normal cognition Extrem: General: abnormal to inspection and edema left Psych: Mental Status: mental status grossly normal Objective Data Vital Signs Vital Signs: Vital Signs - 24 hr 07/24/21 12:00 07/24/21 14:00 07/24/21 14:45 Temperature 36.7 C Pulse Rate 74 79 74 Respiratory Rate 20 Blood Pressure 121/64 Pulse Oximetry 95 07/24/21 16:00 07/24/21 18:00 07/24/21 20:00 Temperature 36.8 C 37.0 C Pulse Rate 77 86 87 Respiratory Rate 16 20 Blood Pressure 146/90 H 142/65 H Pulse Oximetry 96 96 07/24/21 20:18 07/24/21 20:41 07/24/21 22:00 Temperature Pulse Rate 87 84 Respiratory Rate Blood Pressure Pulse Oximetry 96 07/25/21 00:00 07/25/21 01:47 07/25/21 02:32 Temperature 36.6 C Pulse Rate 99 88 87 Respiratory Rate 20 Blood Pressure 145/75 H Pulse Oximetry 97 07/25/21 04:00 07/25/21 05:04 07/25/21 06:00 Temperature 37.2 C Pulse Rate 94 79 77 Respiratory Rate 16 Blood Pressure 145/76 H Pulse Oximetry 95 07/25/21 08:00 07/25/21 09:55 Temperature 37.1 C Pulse Rate 71 100 Respiratory Rate 24 H Blood Pressure 128/46 L Pulse Oximetry 94 Intake/Output Intake/Output: Intake & Output 07/22/21 07/23/21 07/24/21 07/25/21 23:59 23:59 23:59 23:59 Intake Total 1000 2351.6 2562 490 Output Total 325 2750 1325 Balance 1000 2026.6 -188 -835 Meds/Results Medications: Active Medications Generic Name Dose Route Start Last Admin Trade Name Freq PRN Reason Stop Dose Admin Acetaminophen 650 mg 07/22/21 20:44 07/24/21 17:10 Acetaminophen 325 Mg Tablet PO 650 mg Q4H PRN Administration Mild Pain (1-3) or Fever Hydrocodone Bitart/Acetaminophen 1 tab 07/23/21 07:29 07/24/21 05:18 Hydrocodone/Acetaminophen (*Crx) 5-325 Mg Tablet PO 1 tab Q8H PRN Administration pain 7-10 Amiodarone HCl 400 mg 07/25/21 10:55 Amiodarone Hcl 200 Mg Tablet PO DAILY@0800 VERN Furosemide 40 mg 07/25/21 09:00 Furosemide 40 Mg Tablet PO DAILY VERN Cefazolin Sodium 1 gm in 50 mls @ 100 mls/hr 07/23/21 10:00 07/25/21 03:03 Ancef 1 Gm/D5w 50 Ml Pm IVPB Infused Q8H VERN Infusion Isosorbide Mononitrate 30 mg 07/23/21 09:00 07/25/21 09:55 Isosorbide Mononitrate 30 Mg Tab.Er.24h PO 30 mg DAILY VERN Administration Levothyroxine Sodium 25 mcg 07/23/21 06:30 07/25/21 06:36 Levothyr
[2021-07-25] MEDS: FUROSEMIDE 40 MG TABLET PO (11:21)
--- NOTE | 2021-07-25 11:36 | PM.IMPN ---
Progress Note: A&P Assessment and Plan (1) Fever: Qualifiers: Fever type: due to other condition Qualified Code(s): R50.81 - Fever presenting with conditions classified elsewhere Code(s): R50.9 - Fever, unspecified Status: Acute (2) Nausea vomiting and diarrhea: Code(s): R11.2 - Nausea with vomiting, unspecified; R19.7 - Diarrhea, unspecified Status: Acute (3) Paroxysmal atrial fibrillation with RVR: Code(s): I48.0 - Paroxysmal atrial fibrillation Status: Acute (4) Venous stasis ulcer: Qualifiers: Venous stasis ulcer site: other part of lower leg Varicose vein presence: unspecified whether present Laterality: left Non-pressure ulcer stage: unspecified non-pressure ulcer stage Qualified Code(s): I83.028 - Varicose veins of left lower extremity with ulcer other part of lower leg; L97.829 - Non-pressure chronic ulcer of other part of left lower leg with unspecified severity Code(s): I83.009 - Varicose veins of unspecified lower extremity with ulcer of unspecified site; L97.909 - Non-pressure chronic ulcer of unspecified part of unspecified lower leg with unspecified severity Status: Acute (5) Cellulitis of left lower extremity without foot: Code(s): L03.116 - Cellulitis of left lower limb Status: Acute Additional Plan Paroxysmal atrial fibrillation with rapid ventricular response she held her Home medication due to GI symptoms. Restart metoprolol. started on Cardizem drip. AFib likely exacerbated by fever/viral illness. Cardiology consultation. started on amiodarone drip and now sinus rhythm. Plans to switch to oral amiodarone Cardiology Nausea vomiting diarrhea this has resolved Fever COVID test negative. influenza negative Chest x-ray with no acute cardiopulmonary process. CT abdomen is negative. She does leukocytosis which has worsened. treated for cellulitis of her left lower extremity with Ancef. leukocytosis has improved and resolved Generalized weakness slumped over the toilet prior to admission. CT head is negative Leukocytosis improving now with start of antibiotics Left lower extremity chronic stasis dermatitis versus acute cellulitis wound care consulted with worsening leukocytosis will cover with antibiotics, started on Ancef pancultured follow culture. x-ray left ankle negative for any underlying bony infection Venous duplex negative for DVT Hypothyroidism Hypertension Hyperlipidemia DVT prophylaxis on Xarelto which will be resumed Code status full code Subjective Date/time seen: 07/25/21 11:36 Interval history: HPI:Chief Complaint: Slumped over on toilet Narrative: Is 86-year-old female with a past medical history of atrial fibrillation, breast cancer, hypertension, hypertension and hypothyroidism who presented to the ER after her daughter found her slumped over on the toilet. As the patient reports that his T does have a history of chronic intermittent diarrhea and had been having some loose stools for the last day and half. Then yesterday she began having nausea and had 2 episodes of vomiting. She was on the toilet began when she became profoundly weak. She denies feeling lightheaded or having a near syncopal episode. She reports that she did not feel well and she does not think that she took her heart medications in the morning. She knows she did not take her metoprolol at night. She denies any shortness of breath or chest pain. She has chronic lower extremity edema and chronic left lower extremity cellulitis for which she sees wound care. She is post dizzy wound care this morning as outpatient. She reports that her chronic wound in her leg is scabbed. Her leg is not any redder than usual. She denies any pain in her extremity. She has not been on any antibiotics recently. After the patient arrived to the medical floor the patient went into AFib RVR. She reports that she never has symptoms whenever she goes in the AFib.
[2021-07-25] MEDS: AMIODARONE HCL 200 MG TABLET 400 MG PO (12:34)
[2021-07-25] MEDS: FUROSEMIDE INJ 40 MG/4 ML VIAL 20 MG IV PUSH (12:34)
[2021-07-25] MEDS: RIVAROXABAN 20 MG TABLET PO (17:31)
[2021-07-26] VITALS (13 sets, daily range): BP systolic 126–155; BP diastolic 63–78; PULSE 70–97; RESP 18–24; TEMP 36.1–36.9; O2SAT 94–100
[2021-07-26 04:51] LABS: Basophils Percent Auto 0.3 % (0.2-1.2); Eosinophils Absolute Auto 0.1 K/mm3 (0-0.3); Eosinophils Percent Auto 1.1 % (0-4.4); Hematocrit 41.6 % (37.0-47.0); Hemoglobin 13.3 g/dL (12.0-15.0); Immature Granulocyte Absolute 0.07 K/mm3 (0.00-0.031); Immature Granulocyte Percent A 1.1 % (0-0.5); Lymphocytes Absolute Auto 1.05 K/mm3 (0.9-3.2); Mean Corpuscular Hemoglobin 28.5 pg (26-34); Mean Corpuscular Volume 89.3 fl (80-100); Mean Platelet Volume 11.4 fl (7.4-10.4); Monocytes Absolute Auto 0.9 K/mm3 (0.1-0.6); Neutrophils Absolute Auto 4.5 K/mm3 (1.3-6.7); Neutrophils Percent Auto 68.5 % (45.5-73.1); Platelet Count Result 232 k/mm3 (150-375); Red Blood Count 4.66 M/mm3 (4.2-5.4); Red Cell Distribution Width 14.1 % (11.5-14.5); White Blood Count 6.6 K/mm3 (4.5-10.0)
[2021-07-26 05:09] LABS: Alanine Aminotransferase 15 U/L (6-35); Albumin Level 3.3 g/dL (3.5-5.1); Alkaline Phosphatase 92 U/L (38-126); Anion Gap 3 mmol/L (8-16); Aspartate Amino Transferase 39 U/L (14-36); Bilirubin,Total 0.5 mg/dL (0.2-1.3); Blood Urea Nitrogen 8 mg/dL (7-17); Calcium 8.9 mg/dL (8.4-10.2); Carbon Dioxide 35 mmol/L (22-30); Chloride 98 mmol/L (98-107); Estimated CRCL calculation 59 ml/min; Estimated Glomerular Filt Rate > 60; Glucose 103 mg/dL (65-110); Potassium 3.6 mmol/L (3.4-5.0); Sodium 136 mmol/L (137-145)
[2021-07-26] MEDS: LEVOTHYROXINE SODIUM 25 MCG TABLET PO (06:37)
[2021-07-26] MEDS: POTASSIUM CHLORIDE 10 MEQ TABLET.ER 20 MEQ PO ×2 (08:24→17:01)
[2021-07-26] MEDS: SIMVASTATIN 10 MG TABLET 20 MG PO (08:24)
[2021-07-26] MEDS: METOPROLOL TARTRATE 50 MG TAB PO ×2 (08:25→20:55)
[2021-07-26] MEDS: ISOSORBIDE MONONITRATE 30 MG TAB.ER.24H PO (08:25)
[2021-07-26] MEDS: MULTIVITAMINS THERAPEUTIC TAB (*BKC) 1 TABLET PO (08:25)
[2021-07-26] MEDS: AMIODARONE HCL 200 MG TABLET 400 MG PO (08:25)
[2021-07-26] MEDS: FUROSEMIDE 40 MG TABLET PO (08:25)
--- NOTE | 2021-07-26 08:35 | PM.PNCARD ---
Progress Note: A&P Additional Plan 86-year-old lady with paroxysmal atrial fibrillation being treated with amyl a recurrence of her arrhythmias she is back in sinus rhythm. From my perspective she can be discharged today and we will arrange for appropriate follow-up in our office with Dr. Garay. She will be discharged on 400 mg per day of amiodarone we will anticipate reducing that dosage as an outpatient. Donnie Saunders MD [facility] Subjective Date/time seen: Date of service: 07/26/21 08:35 Interval history: Follow-up visit in this 86-year-old lady with paroxysmal atrial fibrillation. Admitted and seen in consultation because of a recurrence of her atrial fib with which she appears to be asymptomatic. Patient has been placed on amiodarone is back in sinus rhythm with APCs as mentioned above but continues to be asymptomatic this morning enjoying her breakfast and does not seem to have any other complaints or concerns Exam Const: General: comfortable and no acute distress; No confusion Orientation/consciousness: No confusion HENMT: Head: normal to inspection, normocephalic and atraumatic Ears: hearing grossly normal bilaterally Eyes: General: appearance normal, both eyes and all related structures Neck: Neck: supple and no JVD Resp: Auscultation: not clear to auscultation bilaterally and crackles Cardio: Rate: regular rate Rhythm: regular rhythm Heart sounds: no murmurs GI: Auscultation: normal bowel sounds Skin: General skin exam: normal color and erythema Wounds: wounds noted Other: pretibial and calf erythema, swelling, serous drainage Neuro: General: No confusion Cranial nerves: Yes Normal hearing present Cognition (Neuro): normal cognition Extrem: General: abnormal to inspection and edema left Psych: Mental Status: mental status grossly normal Objective Data Vital Signs Vital Signs: Vital Signs - 24 hr 07/25/21 09:55 07/25/21 10:00 07/25/21 12:00 Temperature 36.9 C Pulse Rate 100 71 70 Respiratory Rate 15 Blood Pressure 133/64 Pulse Oximetry 95 07/25/21 12:34 07/25/21 14:00 07/25/21 16:00 Temperature 36.8 C Pulse Rate 77 77 81 Respiratory Rate 16 Blood Pressure 151/72 H Pulse Oximetry 97 07/25/21 18:00 07/25/21 19:19 07/25/21 20:00 Temperature 36.7 C Pulse Rate 72 90 83 Respiratory Rate 16 Blood Pressure 137/64 Pulse Oximetry 95 95 07/25/21 20:47 07/25/21 22:00 07/25/21 23:08 Temperature 36.4 C L Pulse Rate 112 H 77 94 Respiratory Rate 16 Blood Pressure 143/62 H Pulse Oximetry 100 07/26/21 00:00 07/26/21 02:00 07/26/21 04:00 Temperature 36.4 C Pulse Rate 96 75 79 Respiratory Rate 18 Blood Pressure 146/75 H Pulse Oximetry 100 100 07/26/21 06:00 07/26/21 07:53 07/26/21 08:25 Temperature 36.1 C L Pulse Rate 70 75 97 Respiratory Rate 24 H Blood Pressure 126/63 Pulse Oximetry 96 Intake/Output Intake/Output: Intake & Output 07/23/21 07/24/21 07/25/21 07/26/21 23:59 23:59 23:59 23:59 Intake Total 2351.6 2562 950 50 Output Total 325 2750 2625 850 Balance 2026.6 -188 -1675 -800 Meds/Results Medications: Active Medications Generic Name Dose Route Start Last Admin Trade Name Freq PRN Reason Stop Dose Admin Acetaminophen 650 mg 07/22/21 20:44 07/24/21 17:10 Acetaminophen 325 Mg Tablet PO 650 mg Q4H PRN Administration Mild Pain (1-3) or Fever Hydrocodone Bitart/Acetaminophen 1 tab 07/23/21 07:29 07/24/21 05:18 Hydrocodone/Acetaminophen (*Crx) 5-325 Mg Tablet PO 1 tab Q8H PRN Administration pain 7-10 Amiodarone HCl 400 mg 07/25/21 11:15 07/26/21 08:25 Amiodarone Hcl 200 Mg Tablet PO 400 mg DAILY@0800 VERN Administration Furosemide 40 mg 07/25/21 09:00 07/26/21 08:25 Furosemide 40 Mg Tablet PO 40 mg DAILY VERN Administration Cefazolin Sodium 1 gm in 50 mls @ 100 mls/hr 07/23/21 10:00 07/26/21 02:40 Ancef 1 Gm/D5w 50 Ml Pm IVPB Infused Q
--- NOTE | 2021-07-26 10:45 | PM.IMPN ---
Progress Note: A&P Assessment and Plan (1) Fever: Qualifiers: Fever type: due to other condition Qualified Code(s): R50.81 - Fever presenting with conditions classified elsewhere Code(s): R50.9 - Fever, unspecified Status: Acute (2) Nausea vomiting and diarrhea: Code(s): R11.2 - Nausea with vomiting, unspecified; R19.7 - Diarrhea, unspecified Status: Acute (3) Paroxysmal atrial fibrillation with RVR: Code(s): I48.0 - Paroxysmal atrial fibrillation Status: Acute (4) Venous stasis ulcer: Qualifiers: Venous stasis ulcer site: other part of lower leg Varicose vein presence: unspecified whether present Laterality: left Non-pressure ulcer stage: unspecified non-pressure ulcer stage Qualified Code(s): I83.028 - Varicose veins of left lower extremity with ulcer other part of lower leg; L97.829 - Non-pressure chronic ulcer of other part of left lower leg with unspecified severity Code(s): I83.009 - Varicose veins of unspecified lower extremity with ulcer of unspecified site; L97.909 - Non-pressure chronic ulcer of unspecified part of unspecified lower leg with unspecified severity Status: Acute (5) Cellulitis of left lower extremity without foot: Code(s): L03.116 - Cellulitis of left lower limb Status: Acute Additional Plan # Paroxysmal atrial fibrillation with rapid ventricular response she held her Home medication due to GI symptoms. Restart metoprolol. started on Cardizem drip. AFib likely exacerbated by fever/viral illness. Cardiology consultation. started on amiodarone drip and now sinus rhythm. Switched to amiodarone per Cardiology. Okay to discharge per Cardiology. # Nausea vomiting diarrhea this has resolved # Fever COVID test negative. influenza negative Chest x-ray with no acute cardiopulmonary process. CT abdomen is negative. She does leukocytosis which has worsened. treated for cellulitis of her left lower extremity with Ancef. leukocytosis has improved and resolved # Generalized weakness slumped over the toilet prior to admission. CT head is negative # Leukocytosis improving now with start of antibiotics # Left lower extremity cellulitis: Wound care consulted with worsening leukocytosis will cover with antibiotics, started on Ancef pancultured follow culture. x-ray left ankle negative for any underlying bony infection. Will change Ancef to cephalexin today Venous duplex negative for DVT # Hypothyroidism # Hypertension # Hyperlipidemia # DVT prophylaxis on Xarelto which will be resumed # Code status full code Subjective Date/time seen: 07/26/21 10:45 Interval history: HPI:Chief Complaint: Slumped over on toilet Narrative: Is 86-year-old female with a past medical history of atrial fibrillation, breast cancer, hypertension, hypertension and hypothyroidism who presented to the ER after her daughter found her slumped over on the toilet. As the patient reports that his T does have a history of chronic intermittent diarrhea and had been having some loose stools for the last day and half. Then yesterday she began having nausea and had 2 episodes of vomiting. She was on the toilet began when she became profoundly weak. She denies feeling lightheaded or having a near syncopal episode. She reports that she did not feel well and she does not think that she took her heart medications in the morning. She knows she did not take her metoprolol at night. She denies any shortness of breath or chest pain. She has chronic lower extremity edema and chronic left lower extremity cellulitis for which she sees wound care. She is post dizzy wound care this morning as outpatient. She reports that her chronic wound in her leg is scabbed. Her leg is not any redder than usual. She denies any pain in her extremity. She has not been on any antibiotics recently. After the patient arrived to the medical floor the patient went into AFib RVR. She reports that
--- NOTE | 2021-07-26 14:16 | PC.NURSE ---
This patient, Mayuri Love, was transferred to [[facility]] on 07/26/21 at 1416. Personal belongings sent with patient. Report given to [FREDY Rhodes @ [phone] ]. Appropriate documentation sent with patient.
--- NOTE | 2021-07-26 15:05 | PC.NURSE ---
This patient, Mayuri Love, was received from [[id number] ] on 07/26/21 at 1450. Patient/family oriented to unit policies and routines
[2021-07-26] MEDS: RIVAROXABAN 20 MG TABLET PO (17:01)
[2021-07-26] MEDS: ACETAMINOPHEN 325 MG TABLET 650 MG PO (17:01)
[2021-07-26] MEDS: CEPHALEXIN 250 MG CAPSULE PO ×2 (17:01→23:56)
[2021-07-27] MEDS: ONDANSETRON INJ 4 MG/2 ML VIAL IV PUSH (03:50)
[2021-07-27 05:33] VITALS: BP 137/78; PULSE 101; RESP 18; TEMP 36.8; O2SAT 96
[2021-07-27] MEDS: CEPHALEXIN 250 MG CAPSULE PO ×2 (05:44→12:57)
[2021-07-27] MEDS: LEVOTHYROXINE SODIUM 25 MCG TABLET PO (05:45)
[2021-07-27] MEDS: SIMETHICONE 125 MG CHEW TAB PO (06:16)
[2021-07-27] MEDS: PANTOPRAZOLE SODIUM IV 40 MG VIAL IV PUSH (06:17)
[2021-07-27 07:17] LABS: Basophils Absolute Auto 0.1 K/mm3 (0.0-0.1); Basophils Percent Auto 0.8 % (0.2-1.2); Eosinophils Absolute Auto 0.1 K/mm3 (0-0.3); Eosinophils Percent Auto 1.7 % (0-4.4); Hemoglobin 13.3 g/dL (12.0-15.0); Immature Granulocyte Absolute 0.12 K/mm3 (0.00-0.031); Lymphocytes Absolute Auto 1.15 K/mm3 (0.9-3.2); Lymphocytes Percent Auto 19.2 % (18.3-44.2); Mean Corpuscular HGB Conc 31.7 g/dl (32-36); Mean Corpuscular Hemoglobin 28.4 pg (26-34); Mean Corpuscular Volume 89.7 fl (80-100); Mean Platelet Volume 10.7 fl (7.4-10.4); Monocytes Absolute Auto 0.9 K/mm3 (0.1-0.6); Monocytes Percent Auto 14.4 % (2.6-8.5); Neutrophils Absolute Auto 3.7 K/mm3 (1.3-6.7); Neutrophils Percent Auto 61.9 % (45.5-73.1); Platelet Count Result 229 k/mm3 (150-375); Red Blood Count 4.68 M/mm3 (4.2-5.4); Red Cell Distribution Width 13.9 % (11.5-14.5)
[2021-07-27 07:27] LABS: Alanine Aminotransferase 13 U/L (6-35); Albumin Level 3.2 g/dL (3.5-5.1); Alkaline Phosphatase 71 U/L (38-126); Anion Gap 2 mmol/L (8-16); Aspartate Amino Transferase 30 U/L (14-36); Bilirubin,Total 0.6 mg/dL (0.2-1.3); Blood Urea Nitrogen 11 mg/dL (7-17); Calcium 8.8 mg/dL (8.4-10.2); Carbon Dioxide 34 mmol/L (22-30); Chloride 96 mmol/L (98-107); Estimated CRCL calculation 45 ml/min; Estimated Glomerular Filt Rate > 60; Glucose 109 mg/dL (65-110); Magnesium 2.1 mg/dL (1.6-2.3); Potassium 3.5 mmol/L (3.4-5.0); Sodium 132 mmol/L (137-145)
[2021-07-27] MEDS: AMIODARONE HCL 200 MG TABLET 400 MG PO (08:29)
[2021-07-27] MEDS: METOPROLOL TARTRATE 50 MG TAB PO (08:29)
[2021-07-27] MEDS: FUROSEMIDE 40 MG TABLET PO (08:29)
[2021-07-27] MEDS: MULTIVITAMINS THERAPEUTIC TAB (*BKC) 1 TABLET PO (08:29)
[2021-07-27] MEDS: SIMVASTATIN 10 MG TABLET 20 MG PO (08:29)
[2021-07-27] MEDS: POTASSIUM CHLORIDE 10 MEQ TABLET.ER 20 MEQ PO (08:29)
[2021-07-27] MEDS: ISOSORBIDE MONONITRATE 30 MG TAB.ER.24H PO (08:29)
--- NOTE | 2021-07-27 12:28 | PM.DS ---
DS: Admitting Diagnosis Discharge Date 07/27/2021 Admitting Diagnosis weakness DS: Discharge Diagnosis Discharge Diagnosis (1) Fever: Qualifiers: Fever type: due to other condition Qualified Code(s): R50.81 - Fever presenting with conditions classified elsewhere Code(s): R50.9 - Fever, unspecified Status: Acute (2) Nausea vomiting and diarrhea: Code(s): R11.2 - Nausea with vomiting, unspecified; R19.7 - Diarrhea, unspecified Status: Acute (3) Paroxysmal atrial fibrillation with RVR: Code(s): I48.0 - Paroxysmal atrial fibrillation Status: Acute (4) Venous stasis ulcer: Qualifiers: Venous stasis ulcer site: other part of lower leg Varicose vein presence: unspecified whether present Laterality: left Non-pressure ulcer stage: unspecified non-pressure ulcer stage Qualified Code(s): I83.028 - Varicose veins of left lower extremity with ulcer other part of lower leg; L97.829 - Non-pressure chronic ulcer of other part of left lower leg with unspecified severity Code(s): I83.009 - Varicose veins of unspecified lower extremity with ulcer of unspecified site; L97.909 - Non-pressure chronic ulcer of unspecified part of unspecified lower leg with unspecified severity Status: Acute (5) Cellulitis of left lower extremity without foot: Code(s): L03.116 - Cellulitis of left lower limb Status: Acute DS: Summary Hospital Course Hospital Course: # Paroxysmal atrial fibrillation with rapid ventricular response she held her Home medication due to GI symptoms. Restart metoprolol. started on Cardizem drip. AFib likely exacerbated by fever/viral illness. Cardiology consultation. started on amiodarone drip and now sinus rhythm. Switched to amiodarone per Cardiology. Okay to discharge per Cardiology. on amiodarone and metoprolol at home back to sinus rhythm but the time of discharge. # Nausea vomiting diarrhea this has resolved # Fever COVID test negative. influenza negative Chest x-ray with no acute cardiopulmonary process. CT abdomen is negative. She does leukocytosis which has worsened On admission. she was treated for cellulitis of her left lower extremity with Ancef. leukocytosis has improved and resolved. Or NSAID was switched to cephalexin for discharge which he tolerated during the hospital stay. # Generalized weakness slumped over the toilet prior to admission. CT head is negative # Leukocytosis Resolved now with start of antibiotics # Left lower extremity cellulitis: Wound care consulted with worsening leukocytosis will cover with antibiotics, started on Ancef pancultured follow culture. x-ray left ankle negative for any underlying bony infection. change Ancef to cephalexin which will be continued for at discharge Venous duplex negative for DVT # Hypothyroidism # Hypertension # Hyperlipidemia # DVT prophylaxis on Xarelto which will be resumed # Code status full code Time Spent with Patient Time attestation: Total time spent providing and/or coordinating discharge services: 45 minutes Exam Narrative: General: No acute distress, well-developed well-nourished HEENT: Mucous membranes are dry, no oral pharyngeal erythema, pupils are equal and reactive, normocephalic atraumatic Respiratory: Clear to auscultation bilaterally, no increased work of breathing Cardiovascular: regular rate and rhythm, 2+ bilateral radial pedal pulses Gastrointestinal: Soft, nontender, nondistended, hyperactive bowel sounds Skin: Generalized pallor, non jaundice, chronic erythema of lower extremities left greater than right, the patient's skin in general is warm to touch with no significant increased warmth in the legs Musculoskeletal: Trace to 1+ edema, chronic erythematous changes, venous stasis ulcer of the left anterior pérez erythema has improved much more since admission Neurological: Alert oriented x4, speech is clear, no facial asymmetry Psychiatric: Appropr
[2021-07-27 14:00] VITALS: BP 129/77; PULSE 96; RESP 18; TEMP 36.5; O2SAT 97
== END 2021-07-27 14:46 | disposition home or self-care (01) | DRG 866 ==
LOC: ANHED 19:33 → ANH3MEDSUR 22:40 → ANHIMU 07-23 08:10 → ANH3MEDSUR 07-24 09:50 → ANHIMU 07-24 09:50 → ANH3MEDSUR 07-26 14:14
PROVIDERS: Emergency Medicine; Internal Medicine; Nurse Practitioner; Admitting Provider Internal Medicine; Emergency Provider Emergency Medicine; PCP Family Medicine; Visit Provider Internal Medicine
DX: B34.9 Viral infection, unspecified (principal); L03.116 Cellulitis of left lower limb; L97.829 Non-pressure chronic ulcer of other part of left lower leg with unspecified severity; R50.81 Fever presenting with conditions classified elsewhere; Z20.822 Contact with and (suspected) exposure to COVID-19; I48.91 Unspecified atrial fibrillation; Z79.01 Long term (current) use of anticoagulants; Z85.3 Personal history of malignant neoplasm of breast; E78.5 Hyperlipidemia, unspecified; K21.9 Gastro-esophageal reflux disease without esophagitis; Z87.11 Personal history of peptic ulcer disease; I10 Essential (primary) hypertension; E03.9 Hypothyroidism, unspecified; I25.10 Atherosclerotic heart disease of native coronary artery without angina pectoris; M19.90 Unspecified osteoarthritis, unspecified site; J30.9 Allergic rhinitis, unspecified; N39.3 Stress incontinence (female) (male); Z87.891 Personal history of nicotine dependence; K52.9 Noninfective gastroenteritis and colitis, unspecified; I48.0 Paroxysmal atrial fibrillation; I87.8 Other specified disorders of veins; I83.028 Varicose veins of left lower extremity with ulcer other part of lower leg
CPT/HCPCS: 36415; 70450; 71045; 71046; 73610; 74177; 80048; 80053; 81001; 83735; 84439; 84443; 85025; 85027; 87040; 87502; 93005; 93306; 93971; 96361; 96374; 99285; A9270; C9113; C9803; J0282; J0690; J1940; J2405; J7030; J7120; Q9967; U0003; U0005

== ENCOUNTER 2021-08-19 13:11 | Outpatient (CLI) | payer MEDICARE, SELFPAY ==
--- NOTE | ~2021-08-19 | US_ITS ---
EXAMINATION: US venous doppler [facility] DATE: 08/19/2021 14:27 INDICATION: Left lower limb swelling. TECHNIQUE: Grayscale ultrasound images without and with compression and Doppler ultrasound images of the left lower extremity veins were obtained. COMPARISON: Ultrasound 07/23/2021 FINDINGS: The visualized portions of left common femoral vein, profunda (deep) femoral vein, femoral vein, popl iteal vein, peroneal veins, posterior tibial veins, and greater saphenous vein outflow are patent. Th ere is subcutaneous edema in the calf. IMPRESSION: 1. No deep venous thrombosis. Reviewed, dictated and finalized at location B.
== END 2021-08-19 13:12 | disposition home or self-care (01) ==
PROVIDERS: PCP Family Medicine; Visit Provider Family Medicine
DX: M79.89 Other specified soft tissue disorders (principal)
CPT/HCPCS: 93971

== ENCOUNTER 2021-10-05 07:33 | Outpatient (RCR) | payer MEDICARE, SELFPAY ==
[2021-07-09 13:04] VITALS: BMI 64.0
--- NOTE | 2021-07-23 07:35 | PCWOUND ---
WOCN NOTE outpatient appointment cancelled due to patient is admitted to the hospital.
== END 2021-10-07 23:59 | disposition home or self-care (01) ==
LOC: ANHWOC 07:33
PROVIDERS: PCP Family Medicine; Visit Provider Family Medicine
DX: L03.116 Cellulitis of left lower limb (principal)
CPT/HCPCS: 29581; 99212; 99213; A9270; G0463

== ENCOUNTER 2021-12-14 07:18 | Outpatient (RCR) | payer MEDICARE, SELFPAY ==
[2021-10-08 00:03] VITALS: BMI 64.0
--- NOTE | 2021-11-30 14:23 | PCWOUND ---
CWON NOTE Patient rescheduled from today 11/30/21 at 1330 to Tuesday12/02/21 at 1300 due to CWON being called into surgery during the appointment time.
== END 2022-01-17 23:59 | disposition home or self-care (01) ==
LOC: ANHWOC 07:18
PROVIDERS: PCP Family Medicine; Visit Provider Family Medicine
DX: L03.116 Cellulitis of left lower limb (principal)
CPT/HCPCS: 99212; 99213; A9270; G0463

== ENCOUNTER 2021-12-18 15:06 | Inpatient (IN) | payer MEDICARE, SELFPAY ==
--- NOTE | ~2021-12-18 | US_ITS ---
EXAMINATION: US venous doppler [facility] DATE: 12/19/2021 09:13 INDICATION: Left lower limb swelling. TECHNIQUE: Grayscale ultrasound images without and with compression and Doppler ultrasound images of the bilateral lower extremity veins were obtained. COMPARISON: Ultrasound 08/19/2021 FINDINGS: The visualized portions of right common femoral vein, profunda (deep) femoral vein, femoral vein, pop liteal vein, peroneal veins, and posterior tibial veins are patent. The visualized portions of left common femoral vein, profunda femoral vein, femoral vein, popliteal v ein, peroneal veins, and posterior tibial veins are patent. IMPRESSION: 1. No deep venous thrombosis. Reviewed, dictated and finalized at location A.
[2021-12-18 15:09] VITALS: BP 113/78; PULSE 73; RESP 14; TEMP 36.6; O2SAT 97
[2021-12-18 16:16] LABS: Basophils Absolute Auto 0.1 K/mm3 (0.0-0.1); Basophils Percent Auto 0.6 % (0.2-1.2); Eosinophils Absolute Auto 0.4 K/mm3 (0-0.3); Eosinophils Percent Auto 4.4 % (0-4.4); Hematocrit 42.5 % (37.0-47.0); Hemoglobin 13.3 g/dL (12.0-15.0); Immature Granulocyte Absolute 0.02 K/mm3 (0.00-0.031); Immature Granulocyte Percent A 0.3 % (0-0.5); Lymphocytes Percent Auto 11.4 % (18.3-44.2); Mean Corpuscular HGB Conc 31.3 g/dl (32-36); Mean Corpuscular Hemoglobin 28.1 pg (26-34); Mean Corpuscular Volume 89.9 fl (80-100); Mean Platelet Volume 11.7 fl (7.4-10.4); Monocytes Absolute Auto 0.9 K/mm3 (0.1-0.6); Monocytes Percent Auto 10.7 % (2.6-8.5); Neutrophils Absolute Auto 5.7 K/mm3 (1.3-6.7); Neutrophils Percent Auto 72.6 % (45.5-73.1); Platelet Count Result 204 k/mm3 (150-375); Red Blood Count 4.73 M/mm3 (4.2-5.4); Red Cell Distribution Width 15.4 % (11.5-14.5); White Blood Count 7.9 K/mm3 (4.5-10.0)
[2021-12-18 16:27] LABS: Alanine Aminotransferase 16 U/L (6-35); Albumin Level 4.2 g/dL (3.5-5.1); Alkaline Phosphatase 85 U/L (38-126); Anion Gap 8 mmol/L (8-16); Aspartate Amino Transferase 27 U/L (14-36); Bilirubin,Total 1.1 mg/dL (0.2-1.3); Blood Urea Nitrogen 14 mg/dL (7-17); Calcium 9.1 mg/dL (8.4-10.2); Carbon Dioxide 30 mmol/L (22-30); Chloride 98 mmol/L (98-107); Estimated CRCL calculation 41 ml/min; Estimated Glomerular Filt Rate > 60; Glucose 106 mg/dL (65-110); INR 1.5; Partial Thromboplastin Time 32.7 SECONDS (22.3-36.8); Potassium 3.4 mmol/L (3.4-5.0); Prothrombin Time 17.6 Seconds (11.1-14.7); Sodium 136 mmol/L (137-145)
--- NOTE | 2021-12-18 16:49 | ED.GENADULT ---
HPI - General Adult General Chief complaint: Extremity Problem,Nontraumatic Stated complaint: L. leg draining Time Seen by Provider: 12/18/21 15:16 Source: RN notes reviewed History of Present Illness HPI narrative: Patient presents emergency department from urgent care for left leg cellulitis. Patient states that she has chronic wounds on her left leg that have been more open and weeping over the past several days with increased redness of the leg. She states that she has been being followed by the [facility] wound cares clinic but had been released from there this past Tuesday she states she is noticed increased redness and weeping from the wound. She does report the leg is tender when you touch the wounds she denies any new trauma or injury she states she is had no fevers or chills chest pain shortness of breath or any other symptoms the patient is on Xarelto she has been taking Related Data Home Medications Medication Instructions Recorded Confirmed levothyroxine 25 mcg tablet 50 mcg PO DAILY 01/08/19 10/19/21 (Synthroid) multivitamin 1 cap PO DAILY 01/08/19 10/19/21 potassium chloride 10 mEq 20 meq PO BID 01/08/19 10/19/21 tablet,extended release (Klor-Con) simvastatin 10 mg tablet 20 mg PO DAILY 01/08/19 10/19/21 furosemide 40 mg tablet (Lasix) 40 mg PO DAILY 02/21/19 10/19/21 isosorbide mononitrate 30 mg 30 mg PO DAILY 02/21/19 10/19/21 tablet,extended release 24 hr metoprolol tartrate 100 mg tablet 100 mg PO BID 02/21/19 10/19/21 rivaroxaban 20 mg tablet (Xarelto) 20 mg PO QPM 03/28/20 10/19/21 amiodarone 200 mg tablet (Pacerone) 200 mg PO DAILY@0800 10/19/21 10/19/21 amlodipine 2.5 mg tablet 2.5 mg PO DAILY 10/19/21 10/19/21 cholecalciferol (vitamin D3) 25 50 mcg PO DAILY 10/19/21 10/19/21 mcg (1,000 unit) tablet gabapentin 300 mg capsule 300 mg PO BID 10/19/21 10/19/21 Allergies Allergy/AdvReac Type Severity Reaction Status Date / Time penicillin V Allergy Intermediate Rash Verified 12/18/21 15:07 Penicillins Allergy Intermediate Rash Verified 12/18/21 15:07 adhesive tape Allergy Unknown RASH Verified 12/18/21 15:07 morphine AdvReac Intermediate Vomiting Verified 12/18/21 15:07 meperidine AdvReac Unknown WOOZY Verified 12/18/21 15:07 Review of Systems Review of Systems: Gen.: Denies fevers or chills ENT: Denies congestion Respiratory: Denies shortness of breath or cough CV: Denies chest pain or palpitations GI: Denies abdominal pain nausea, emesis or diarrhea Musculoskeletal: Denies back pain or muscle pain Neuro: Denies numbness, tingling, weakness or focal weakness Skin see HPI Except as documented, all other systems reviewed and negative [facility] Past Medical History Medical History Abnormal colonoscopy Colonoscopy per Dr. Peters in July 2013 showed diverticulosis, uncomplicated internal external hemorrhoids, and a hyperplastic polyp. Anemia Atrial fibrillation She has had several cardioversions, and had a cardiac ablation this year at [facility]. Cancer of right breast Status post lumpectomy and radiation in 2006. Cellulitis Dyslipidemia GERD (gastroesophageal reflux disease) Hearing loss of both ears History of peptic ulcer Hypertension Hypothyroidism Migraine headache Mild coronary artery disease Cardiac catheterization October 2018 showed no angiographically significant coronary disease, at best 40% stenosis at the ostium of the 1st diagonal branch. Osteoarthritis Seasonal allergic rhinitis JOSH (stress urinary incontinence, female) Vision loss Surgical History Surgical History History of 3 sections History of appendectomy History of lumpectomy of right breast For breast cancer in 2006. Status post arthroscopic knee surgery Status post laparoscopic cholecystectomy Status post right knee replacement Family History Family History (Reviewed
[2021-12-18 17:44] VITALS: BP 113/72; PULSE 76; RESP 18; O2SAT 99
--- NOTE | 2021-12-18 18:05 | ADMGEN ---
This patient, Mayuri Rutherfordcosta, was admitted to Medical Room 251-01. Patient/family oriented to hospital policies and general routines including ID bracelet, bed and alarms, visiting hours, pain management, procedures, bathroom and other care routines, personal items, smoking policy, room service/diet, and visiting hours. Information on how to activate the Rapid Response Team has been discussed. Patient/Family are encouraged to report perceived risks to care and to ask questions if they do not understand what they are told or what they should do.
[2021-12-18 18:15] VITALS: BP 125/58; PULSE 65; RESP 16; TEMP 36.6; O2SAT 96
[2021-12-18 20:25] VITALS: BP 155/58; PULSE 75; RESP 16; TEMP 36.6; O2SAT 97
--- NOTE | 2021-12-18 23:26 | PM.IMHP ---
H&P: HPI History of Present Illness Date/Time: 12/18/21 23:26 Chief Complaint: left leg draining Narrative: this is a 86-year-old female patient who came to the emergency room with complaints of left leg cellulitis. The patient does have chronic wounds to her left leg and has been going to the wound care clinic. The patient stated that she was dropped from the wound care clinic and they stated there was nothing else they could do for her. The patient has open sores and we being to her left lower extremity. The patient was released from Wound Care this past Tuesday. She states she has not had any trauma or injury. No fever or chills. The patient has left leg swelling. She denies any fever chills. She does not have a white count. The patient was started on Ancef. The patient is being admitted to observation on the date of service 12/18/2021. Review of Systems Review of Systems: See HPI All systems reviewed & are unremarkable except as noted in HPI and below Constitutional: Constitutional: Reports as per HPI and Reports no additional constitutional complaints Eyes: Eyes: Reports as per HPI and Reports no additional eye complaints ENT: Reports system reviewed and no additional complaints, except as documented and Reports Normal hearing present Cardiovascular: Cardiovascular: Reports no additional cardiovascular complaints Respiratory: Respiratory: Reports no additional respiratory complaints and Reports no additional respiratory complaints Gastrointestinal: Gastrointestinal: Reports as per HPI and Reports no additional gastrointestinal complaints Musculoskeletal: Musculoskeletal: Reports no additional musculoskeletal complaints Integumentary/Breasts: Skin/Breast: Reports system reviewed and no additional complaints, except as docu and Reports as per HPI Neurologic: Reports system reviewed and no additional complaints, except as documented, Reports as per HPI and Reports Normal hearing present Psychiatric: Psychiatric: Reports no additional psychiatric complaints and Reports as per HPI Endocrine: Endocrine: Reports no additional endocrine complaints Hematologic/Lymphatic: Hematologic/Lymphatic: Reports no additional hematologic/lymphatic complaints Allergic/Immunologic: Allergic/Immunologic: Reports no additional allergic/immunologic complaints [facility] Past Medical History Medical History (Updated 12/19/21 @ 01:23 by Kathleen Suresh NP) Abnormal colonoscopy Colonoscopy per Dr. Peters in July 2013 showed diverticulosis, uncomplicated internal external hemorrhoids, and a hyperplastic polyp. Acute lower GI bleeding Anemia Atrial fibrillation She has had several cardioversions, and had a cardiac ablation this year at [facility]. Cancer of right breast Status post lumpectomy and radiation in 2006. Cellulitis Dyslipidemia GERD (gastroesophageal reflux disease) Hearing loss of both ears History of peptic ulcer Hypertension Hypothyroidism Migraine headache Mild coronary artery disease Cardiac catheterization October 2018 showed no angiographically significant coronary disease, at best 40% stenosis at the ostium of the 1st diagonal branch. Osteoarthritis Seasonal allergic rhinitis JOSH (stress urinary incontinence, female) Vision loss Surgical History Surgical History History of 3 sections History of appendectomy History of lumpectomy of right breast For breast cancer in 2006. Status post arthroscopic knee surgery Status post laparoscopic cholecystectomy Status post right knee replacement Family History Family History (Updated 12/19/21 @ 01:15 by Kathleen Suresh NP) Mother Patient's mother is Family history of type 2 diabetes mellitus Family history of Parkinson's disease, Onset Age: 89 Father Family history of heart disease in male family member before age 55, Onset Age: 37 Patient's father is ,
[2021-12-19 05:12] VITALS: BP 129/50; PULSE 82; RESP 16; TEMP 36.6; O2SAT 95
[2021-12-19 05:28] LABS: Basophils Absolute Auto 0.1 K/mm3 (0.0-0.1); Basophils Percent Auto 0.8 % (0.2-1.2); Eosinophils Absolute Auto 0.4 K/mm3 (0-0.3); Eosinophils Percent Auto 6.4 % (0-4.4); Hematocrit 37.8 % (37.0-47.0); Hemoglobin 11.9 g/dL (12.0-15.0); Immature Granulocyte Absolute 0.01 K/mm3 (0.00-0.031); Immature Granulocyte Percent A 0.2 % (0-0.5); Lymphocytes Absolute Auto 1.17 K/mm3 (0.9-3.2); Lymphocytes Percent Auto 17.9 % (18.3-44.2); Mean Corpuscular HGB Conc 31.5 g/dl (32-36); Mean Corpuscular Hemoglobin 28.3 pg (26-34); Mean Corpuscular Volume 89.8 fl (80-100); Mean Platelet Volume 11.6 fl (7.4-10.4); Monocytes Absolute Auto 0.7 K/mm3 (0.1-0.6); Neutrophils Absolute Auto 4.2 K/mm3 (1.3-6.7); Neutrophils Percent Auto 63.7 % (45.5-73.1); Platelet Count Result 174 k/mm3 (150-375); Red Blood Count 4.21 M/mm3 (4.2-5.4); Red Cell Distribution Width 15.4 % (11.5-14.5); White Blood Count 6.5 K/mm3 (4.5-10.0)
[2021-12-19 05:38] LABS: Alanine Aminotransferase 12 U/L (6-35); Albumin Level 3.5 g/dL (3.5-5.1); Alkaline Phosphatase 66 U/L (38-126); Anion Gap 9 mmol/L (8-16); Aspartate Amino Transferase 23 U/L (14-36); Bilirubin,Total 0.8 mg/dL (0.2-1.3); Blood Urea Nitrogen 13 mg/dL (7-17); Calcium 8.6 mg/dL (8.4-10.2); Carbon Dioxide 30 mmol/L (22-30); Chloride 98 mmol/L (98-107); Estimated CRCL calculation 46 ml/min; Estimated Glomerular Filt Rate > 60; Glucose 101 mg/dL (65-110); Potassium 3.1 mmol/L (3.4-5.0); Sodium 137 mmol/L (137-145)
[2021-12-19] MEDS: LEVOTHYROXINE SODIUM 50 MCG TABLET PO (07:19)
[2021-12-19] MEDS: AMIODARONE HCL 200 MG TABLET PO (08:24)
[2021-12-19] MEDS: POTASSIUM CHLORIDE 10 MEQ TABLET.ER 20 MEQ PO ×2 (08:24→17:07)
[2021-12-19] MEDS: POTASSIUM CHLORIDE 20 MEQ TABLET PO (08:24)
[2021-12-19] MEDS: ROSUVASTATIN 10 MG TABLET PO (08:25)
[2021-12-19] MEDS: FUROSEMIDE 40 MG TABLET PO (08:25)
[2021-12-19] MEDS: GABAPENTIN 300 MG CAPSULE PO ×2 (08:25→20:46)
[2021-12-19] MEDS: amLODIPine BESYLATE 2.5 MG TABLET PO (08:25)
[2021-12-19] MEDS: MUPIROCIN 2% OINT 22 GM TUBE 1 APPLIC TOPICAL ×3 (08:26→17:07)
[2021-12-19] MEDS: ISOSORBIDE MONONITRATE 30 MG TAB.ER.24H PO (08:26)
[2021-12-19] MEDS: METOPROLOL TARTRATE 50 MG TAB 100 MG PO ×2 (08:26→20:45)
[2021-12-19 14:00] VITALS: BP 128/54; PULSE 66; RESP 16; TEMP 37; O2SAT 96
[2021-12-19] MEDS: RIVAROXABAN 20 MG TABLET PO (17:07)
--- NOTE | 2021-12-19 17:31 | PM.IMPN ---
Progress Note: A&P Assessment and Plan (1) Cellulitis of left leg: Code(s): L03.116 - Cellulitis of left lower limb Status: Acute Assessment and Plan: The patient had Venous stasis ulcers and was seen by the wound care clinic and had completed her treatment. However the patient states that this is a new event involving the foot. The patient was started on Ancef per antibiotic stewardship. Doppler negative for DVT. Bactroban can cause skin reactions so will hold this for now. Treated with Ancef in July with good response so will continue Ancef. Probably infectious but consider drug reaction or auto-immune. Cultures pending. 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 (2) Hypertension: Code(s): I10 - Essential (primary) hypertension Status: Acute Assessment and Plan: Patient's blood pressure was reviewed on 12/19 Blood pressure remains well controlled. Will continue current medications. (3) Paroxysmal atrial fibrillation with RVR: Code(s): I48.0 - Paroxysmal atrial fibrillation Status: Acute Assessment and Plan: The patient has pAFib. Contine Amiodarone and Metoprolol. Continue with her Xarelto (4) Venous stasis ulcer: Qualifiers: Laterality: left Non-pressure ulcer stage: unspecified non-pressure ulcer stage Varicose vein presence: unspecified whether present Venous stasis ulcer site: other part of lower leg Qualified Code(s): I83.028 - Varicose veins of left lower extremity with ulcer other part of lower leg; L97.829 - Non-pressure chronic ulcer of other part of left lower leg with unspecified severity Code(s): I83.009 - Varicose veins of unspecified lower extremity with ulcer of unspecified site; L97.909 - Non-pressure chronic ulcer of unspecified part of unspecified lower leg with unspecified severity Status: Acute Assessment and Plan: No open areas. Treat as above. (5) Hypothyroidism: Code(s): E03.9 - Hypothyroidism, unspecified Status: Acute Assessment and Plan: Continue with levothyroxine. Will check thyroid level Plan DVT prophylaxis: Xarelto Code status: Full Diet: heart healthy Subjective Date/time seen: 12/19/21 17:31 Interval history: 86yo female with pAFib and HTN here for LLE rash. Patient has had chronic skin issues with the LLE but she states it has never been like this. She denies putting any caustic material on the skin. It was scaly and was also weeping. No fever or chills. Came on over a few days. Exam Narrative: AF 98.6 128/54 66 16 96% ra Gen - NARD Chest - CTA bilaterally, nml RR CV - RRR S1/S2 Abd - Soft, NT/ND, Positive BS Ext - No pedal edema Psych - Nml mood and affect Skin - purplish patch mid left pérez. Diffuse erythema to the left foot and about the left knee with two smaller patches left thigh. The areas are rough and scaly. No open areas. Chronic venous skin changes to the right LE. Objective Data Vital Signs Vital Signs: Vital Signs - 24 hr 12/18/21 17:44 12/18/21 18:15 12/18/21 19:47 Temperature 97.9 F Pulse Rate 76 65 Respiratory Rate 18 16 Blood Pressure 113/72 125/58 L Pulse Oximetry 99 96 Oxygen Delivery Room Air 12/18/21 20:25 12/19/21 05:12 12/19/21 14:00 Temperature 98 F 97.9 F 98.6 F Pulse Rate 75 82 66 Respiratory Rate 16 16 16 Blood Pressure 155/58 H 129/50 L 128/54 L Pulse Oximetry 97 95 96 Oxygen Delivery Intake/Output Intake/Output: Intake & Output 12/16/21 12/17/21 12/18/21 12/19/21 23:59 23:59 23:59 23:59 Intake Total 50 1220 Balance 50 1220 Meds/Results Medications: Active Medications Generic Name Dose Route Start Last Admin Trade Name Freq PRN Reason Stop Dose Admin Hydrocodone Bitart/Acetaminophen 1 tab 12/19/21 01:40 Hydrocodone/Acetaminophen (*Crx) 5-325 Mg Tablet PO BID PRN Pain Amiodarone HCl 200 mg 12/19/21 08:00 12/19/21 08:24 Amiodarone Hcl 200 Mg Tablet PO 200
[2021-12-19 20:26] VITALS: BP 131/47; PULSE 71; RESP 16; TEMP 36.7; O2SAT 94
[2021-12-19 20:45] VITALS: PULSE 71
[2021-12-20 05:52] VITALS: BP 135/46; PULSE 65; RESP 16; TEMP 36.6; O2SAT 97
[2021-12-20] MEDS: LEVOTHYROXINE SODIUM 50 MCG TABLET PO (06:08)
[2021-12-20 06:19] LABS: Albumin Level 3.6 g/dL (3.5-5.1); Anion Gap 7 mmol/L (8-16); Blood Urea Nitrogen 9 mg/dL (7-17); Calcium 8.9 mg/dL (8.4-10.2); Carbon Dioxide 29 mmol/L (22-30); Chloride 102 mmol/L (98-107); Estimated CRCL calculation 53 ml/min; Estimated Glomerular Filt Rate > 60; Glucose 93 mg/dL (65-110); Magnesium 2.2 mg/dL (1.6-2.3); Phosphorus 2.9 mg/dL (2.5-4.5); Potassium 3.6 mmol/L (3.4-5.0); Sodium 138 mmol/L (137-145)
[2021-12-20] MEDS: METOPROLOL TARTRATE 50 MG TAB 100 MG PO ×2 (08:58→20:32)
[2021-12-20] MEDS: POTASSIUM CHLORIDE 10 MEQ TABLET.ER 20 MEQ PO ×2 (08:58→16:55)
[2021-12-20] MEDS: ROSUVASTATIN 10 MG TABLET PO (08:59)
[2021-12-20] MEDS: amLODIPine BESYLATE 2.5 MG TABLET PO (08:59)
[2021-12-20] MEDS: ISOSORBIDE MONONITRATE 30 MG TAB.ER.24H PO (08:59)
[2021-12-20] MEDS: AMIODARONE HCL 200 MG TABLET PO (08:59)
[2021-12-20] MEDS: FUROSEMIDE 40 MG TABLET PO (08:59)
[2021-12-20] MEDS: GABAPENTIN 300 MG CAPSULE PO ×2 (08:59→20:32)
[2021-12-20 10:13] VITALS: O2SAT 99
[2021-12-20 14:00] VITALS: BP 128/58; PULSE 73; RESP 16; TEMP 36.5; O2SAT 94
--- NOTE | 2021-12-20 16:42 | PM.IMPN ---
Progress Note: A&P Assessment and Plan (1) Cellulitis of left leg: Code(s): L03.116 - Cellulitis of left lower limb Status: Acute Assessment and Plan: The patient had Venous stasis ulcers and was seen by the wound care clinic and had completed her treatment. However the patient states that this is a new event involving the foot. The patient was started on Ancef per antibiotic stewardship. Doppler negative for DVT. Good response so will continue Ancef. BCx NGTD. 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 Leg is dry and with scale so will add Eucerin. (2) Hypertension: Code(s): I10 - Essential (primary) hypertension Status: Acute Assessment and Plan: Patient's blood pressure was reviewed on 12/20 Blood pressure remains well controlled. Will continue current medications. (3) Paroxysmal atrial fibrillation with RVR: Code(s): I48.0 - Paroxysmal atrial fibrillation Status: Acute Assessment and Plan: The patient has pAFib. Continue Amiodarone and Metoprolol. Continue with her Xarelto (4) Venous stasis ulcer: Qualifiers: Venous stasis ulcer site: other part of lower leg Varicose vein presence: unspecified whether present Laterality: left Non-pressure ulcer stage: unspecified non-pressure ulcer stage Qualified Code(s): I83.028 - Varicose veins of left lower extremity with ulcer other part of lower leg; L97.829 - Non-pressure chronic ulcer of other part of left lower leg with unspecified severity Code(s): I83.009 - Varicose veins of unspecified lower extremity with ulcer of unspecified site; L97.909 - Non-pressure chronic ulcer of unspecified part of unspecified lower leg with unspecified severity Status: Acute Assessment and Plan: No open areas. Treat as above. (5) Hypothyroidism: Code(s): E03.9 - Hypothyroidism, unspecified Status: Acute Assessment and Plan: TSH normal. Continue with levothyroxine. Plan DVT prophylaxis: Xarelto Code status: Full Diet: heart healthy Subjective Date/time seen: 12/20/21 16:42 Interval history: 86yo female with pAFib and HTN here for LLE rash. No LE pain. No n/v. No diarrhea. no CP or SOB. No palpitations Exam Narrative: AF 97.7 128/58 73 16 94% ra Gen - NARD Chest - CTA bilaterally, nml RR CV - RRR S1/S2 Abd - Soft, NT/ND, Positive BS Ext - No pedal edema Psych - Nml mood and affect Skin - decreased diffuse erythematous patches to the left knee and LE. slightly raises and dry and scaly. Objective Data Vital Signs Vital Signs: Vital Signs - 24 hr 12/19/21 20:26 12/19/21 20:00 12/19/21 20:45 Temperature 98.1 F Pulse Rate 71 71 Respiratory Rate 16 Blood Pressure 131/47 L Pulse Oximetry 94 Oxygen Delivery Room Air 12/20/21 05:52 12/20/21 10:13 12/20/21 14:00 Temperature 97.9 F 97.7 F Pulse Rate 65 73 Respiratory Rate 16 16 Blood Pressure 135/46 L 128/58 L Pulse Oximetry 97 99 94 Oxygen Delivery Room Air Intake/Output Intake/Output: Intake & Output 12/17/21 12/18/21 12/19/21 12/20/21 23:59 23:59 23:59 23:59 Intake Total 50 2692 1580 Output Total 1400 750 Balance 50 1292 830 Meds/Results Medications: Active Medications Generic Name Dose Route Start Last Admin Trade Name Freq PRN Reason Stop Dose Admin Hydrocodone Bitart/Acetaminophen 1 tab 12/19/21 01:40 Hydrocodone/Acetaminophen (*Crx) 5-325 Mg Tablet PO BID PRN Pain Amiodarone HCl 200 mg 12/19/21 08:00 12/20/21 08:59 Amiodarone Hcl 200 Mg Tablet PO 200 mg DAILY@0800 VERN Administration Amlodipine Besylate 2.5 mg 12/19/21 09:00 12/20/21 08:59 Amlodipine Besylate 2.5 Mg Tablet PO 2.5 mg DAILY VERN Administration Furosemide 40 mg 12/19/21 09:00 12/20/21 08:59 Furosemide 40 Mg Tablet PO 40 mg DAILY VERN Administration Gabapentin 300 mg 12/19/21 09:00 12/20/21 08:59 Gabapentin 300 Mg
[2021-12-20] MEDS: RIVAROXABAN 20 MG TABLET PO (17:39)
[2021-12-20] MEDS: EUCERIN CREAM 120 GM JAR 1 APPLIC TOPICAL (17:39)
[2021-12-20] MEDS: FLUTICASONE PROPIONATE 0.05% NA SPR 16 GM BTL (*BKC) 1 SPRAY NASAL (18:48)
[2021-12-20 20:32] VITALS: PULSE 88
[2021-12-20 21:45] VITALS: BP 149/60; PULSE 88; RESP 18; TEMP 37; O2SAT 96
[2021-12-21 05:07] VITALS: BP 128/53; PULSE 65; RESP 16; TEMP 36.8; O2SAT 93
[2021-12-21] MEDS: LEVOTHYROXINE SODIUM 50 MCG TABLET PO (05:32)
[2021-12-21] MEDS: GABAPENTIN 300 MG CAPSULE PO ×2 (08:28→22:03)
[2021-12-21] MEDS: METOPROLOL TARTRATE 50 MG TAB 100 MG PO ×2 (08:28→22:03)
[2021-12-21] MEDS: POTASSIUM CHLORIDE 10 MEQ TABLET.ER 20 MEQ PO ×2 (08:28→16:26)
[2021-12-21] MEDS: ISOSORBIDE MONONITRATE 30 MG TAB.ER.24H PO (08:28)
[2021-12-21] MEDS: FUROSEMIDE 40 MG TABLET PO (08:28)
[2021-12-21] MEDS: ROSUVASTATIN 10 MG TABLET PO (08:28)
[2021-12-21] MEDS: amLODIPine BESYLATE 2.5 MG TABLET PO (08:28)
[2021-12-21] MEDS: AMIODARONE HCL 200 MG TABLET PO (08:28)
[2021-12-21] MEDS: EUCERIN CREAM 120 GM JAR 1 APPLIC TOPICAL (08:28)
[2021-12-21] MEDS: FLUTICASONE PROPIONATE 0.05% NA SPR 16 GM BTL (*BKC) 1 SPRAY NASAL ×2 (08:29→22:03)
[2021-12-21 14:15] VITALS: BP 114/44; PULSE 65; RESP 16; TEMP 36.6; O2SAT 98
--- NOTE | 2021-12-21 17:48 | PM.IMPN ---
Progress Note: A&P Assessment and Plan (1) Cellulitis of left leg: Code(s): L03.116 - Cellulitis of left lower limb Status: Acute Assessment and Plan: The patient had venous stasis ulcers and was seen by the wound care clinic and had completed her treatment. However the patient states that this is a new event involving the foot. The patient was started on Ancef per antibiotic stewardship. Doppler negative for DVT. BCx NGTD. Wound culture growing Staph aureus. Vanco added for this reason. linemarker has removed some scale today. Continue current skin care. Needs to follow up with stenciler after discharge. (2) Hypertension: Code(s): I10 - Essential (primary) hypertension Status: Acute Assessment and Plan: Patient's blood pressure was reviewed on 12/21 Blood pressure remains well controlled. Will continue current medications. (3) Paroxysmal atrial fibrillation with RVR: Code(s): I48.0 - Paroxysmal atrial fibrillation Status: Acute Assessment and Plan: The patient has pAFib. Continue Amiodarone and Metoprolol. Continue with her Xarelto (4) Venous stasis ulcer: Qualifiers: Venous stasis ulcer site: other part of lower leg Varicose vein presence: unspecified whether present Laterality: left Non-pressure ulcer stage: unspecified non-pressure ulcer stage Qualified Code(s): I83.028 - Varicose veins of left lower extremity with ulcer other part of lower leg; L97.829 - Non-pressure chronic ulcer of other part of left lower leg with unspecified severity Code(s): I83.009 - Varicose veins of unspecified lower extremity with ulcer of unspecified site; L97.909 - Non-pressure chronic ulcer of unspecified part of unspecified lower leg with unspecified severity Status: Acute Assessment and Plan: No open areas. Treat as above. (5) Hypothyroidism: Code(s): E03.9 - Hypothyroidism, unspecified Status: Acute Assessment and Plan: TSH normal. Continue with levothyroxine. Plan DVT prophylaxis: Xarelto Code status: Full Diet: heart healthy Subjective Date/time seen: 12/21/21 17:48 Interval history: 86yo female with pAFib and HTN here for LLE rash. patient is up ambulating to the bathroom. Slept well last night. Denies any chest pain or shortness of breath. No nausea or vomiting. States the rash is very itchy today. Exam Narrative: AF 98.0 114/44 65 16 98% ra Gen - NARD Chest - Few basilar crackles otherwise clear. CV - RRR S1/S2 Abd - Soft, NT/ND, Positive BS Ext - No pedal edema Psych - Nml mood and affect Skin - Diffuse erythematous patch noted in the left foot tracking left lower leg. Small lesions noted at and above the left knee. small area noted on the upper right thigh as well as bilateral hands and forearms. Lower extremity has decrease in scale; hands and forearm still with raised crusting scale. Back, chest and abdomen are uninvolved. Objective Data Vital Signs Vital Signs: Vital Signs - 24 hr 12/20/21 20:32 12/20/21 21:45 12/20/21 20:30 Temperature 98.6 F Pulse Rate 88 88 Respiratory Rate 18 Blood Pressure 149/60 H Pulse Oximetry 96 Oxygen Delivery Room Air 12/21/21 05:07 12/21/21 14:15 Temperature 98.3 F 98 F Pulse Rate 65 65 Respiratory Rate 16 16 Blood Pressure 128/53 L 114/44 L Pulse Oximetry 93 98 Oxygen Delivery Intake/Output Intake/Output: Intake & Output 12/18/21 12/19/21 12/20/21 12/21/21 23:59 23:59 23:59 23:59 Intake Total 50 2692 2854 910 Output Total 1400 1300 1000 Balance 50 1292 1554 -90 Meds/Results Medications: Active Medications Generic Name Dose Route Start Last Admin Trade Name Freq PRN Reason Stop Dose Admin Hydrocodone Bitart/Acetaminophen 1 tab 12/19/21 01:40 Hydrocodone/Acetaminophen (*Crx) 5-325 Mg Tablet PO BID PRN Pain Amiodarone HCl 200 mg 12/19/21 08:00 12/21/21 0
[2021-12-21] MEDS: RIVAROXABAN 20 MG TABLET PO (17:56)
[2021-12-21 22:03] VITALS: PULSE 71
[2021-12-21 22:55] VITALS: BP 138/53; PULSE 71; RESP 18; TEMP 36.3; O2SAT 96
[2021-12-22] MEDS: LEVOTHYROXINE SODIUM 50 MCG TABLET PO (05:31)
[2021-12-22 05:40] LABS: Basophils Absolute Auto 0.1 K/mm3 (0.0-0.1); Eosinophils Absolute Auto 0.6 K/mm3 (0-0.3); Eosinophils Percent Auto 12.7 % (0-4.4); Hematocrit 40.2 % (37.0-47.0); Hemoglobin 12.8 g/dL (12.0-15.0); Immature Granulocyte Absolute 0.01 K/mm3 (0.00-0.031); Immature Granulocyte Percent A 0.2 % (0-0.5); Lymphocytes Absolute Auto 1.37 K/mm3 (0.9-3.2); Lymphocytes Percent Auto 27.3 % (18.3-44.2); Mean Corpuscular HGB Conc 31.8 g/dl (32-36); Mean Corpuscular Hemoglobin 27.8 pg (26-34); Mean Corpuscular Volume 87.4 fl (80-100); Mean Platelet Volume 11.6 fl (7.4-10.4); Monocytes Absolute Auto 0.6 K/mm3 (0.1-0.6); Monocytes Percent Auto 12.7 % (2.6-8.5); Neutrophils Absolute Auto 2.3 K/mm3 (1.3-6.7); Neutrophils Percent Auto 46.1 % (45.5-73.1); Platelet Count Result 234 k/mm3 (150-375); Red Cell Distribution Width 14.8 % (11.5-14.5)
[2021-12-22 05:49] LABS: Anion Gap 6 mmol/L (8-16); Blood Urea Nitrogen 12 mg/dL (7-17); CRP 3.2 mg/dL (<1.0); Calcium 9.1 mg/dL (8.4-10.2); Carbon Dioxide 32 mmol/L (22-30); Chloride 101 mmol/L (98-107); Estimated CRCL calculation 53 ml/min; Estimated Glomerular Filt Rate > 60; Glucose 90 mg/dL (65-110); Potassium 4.4 mmol/L (3.4-5.0); Sodium 139 mmol/L (137-145)
[2021-12-22 06:00] VITALS: BP 132/52; PULSE 66; RESP 16; TEMP 36.5; O2SAT 94
[2021-12-22] MEDS: METOPROLOL TARTRATE 50 MG TAB 100 MG PO ×2 (08:29→20:23)
[2021-12-22] MEDS: AMIODARONE HCL 200 MG TABLET PO (08:29)
[2021-12-22] MEDS: ISOSORBIDE MONONITRATE 30 MG TAB.ER.24H PO (08:29)
[2021-12-22] MEDS: ROSUVASTATIN 10 MG TABLET PO (08:29)
[2021-12-22] MEDS: POTASSIUM CHLORIDE 10 MEQ TABLET.ER 20 MEQ PO ×2 (08:29→16:42)
[2021-12-22] MEDS: GABAPENTIN 300 MG CAPSULE PO ×2 (08:29→20:23)
[2021-12-22] MEDS: FUROSEMIDE 40 MG TABLET PO (08:29)
[2021-12-22] MEDS: amLODIPine BESYLATE 2.5 MG TABLET PO (08:29)
[2021-12-22] MEDS: FLUTICASONE PROPIONATE 0.05% NA SPR 16 GM BTL (*BKC) 1 SPRAY NASAL ×2 (08:30→20:22)
[2021-12-22 14:00] VITALS: BP 110/52; PULSE 64; RESP 16; TEMP 36.7; O2SAT 95
--- NOTE | 2021-12-22 15:42 | PM.IMPN ---
Progress Note: A&P Assessment and Plan (1) Cellulitis of left leg: Code(s): L03.116 - Cellulitis of left lower limb Status: Acute Assessment and Plan: The patient had venous stasis ulcers and was seen by the wound care clinic and had completed her treatment. However the patient states that this is a new event involving the foot and leg. Suspect she has an underlying skin disease taht has become secondarily infected with MRSA. The patient was started on Ancef per antibiotic stewardship. Doppler negative for DVT. BCx NGTD. Wound culture growing Staph aureus so Vanco added; final culture is MRSA. bar tender has removed some scale . Continue current skin care. Needs to follow up with secondary spanish teacher after discharge. (2) Hypertension: Code(s): I10 - Essential (primary) hypertension Status: Acute Assessment and Plan: Patient's blood pressure was reviewed on 12/22 Blood pressure remains well controlled. Will continue current medications. (3) Paroxysmal atrial fibrillation with RVR: Code(s): I48.0 - Paroxysmal atrial fibrillation Status: Acute Assessment and Plan: The patient has pAFib. Continue Amiodarone and Metoprolol. Continue with her Xarelto (4) Venous stasis ulcer: Qualifiers: Laterality: left Non-pressure ulcer stage: unspecified non-pressure ulcer stage Varicose vein presence: unspecified whether present Venous stasis ulcer site: other part of lower leg Qualified Code(s): I83.028 - Varicose veins of left lower extremity with ulcer other part of lower leg; L97.829 - Non-pressure chronic ulcer of other part of left lower leg with unspecified severity Code(s): I83.009 - Varicose veins of unspecified lower extremity with ulcer of unspecified site; L97.909 - Non-pressure chronic ulcer of unspecified part of unspecified lower leg with unspecified severity Status: Acute Assessment and Plan: No open areas. Treat as above. (5) Hypothyroidism: Code(s): E03.9 - Hypothyroidism, unspecified Status: Acute Assessment and Plan: TSH normal. Continue with levothyroxine. Plan DVT prophylaxis: Xarelto Code status: Full Diet: heart healthy Subjective Date/time seen: 12/22/21 15:42 Interval history: 86yo female with pAFib and HTN here for LLE rash. No problems overnight. Patient slept well. She denies any chest pain shortness of breath. Her left forearm and left leg are very pruritic. Exam Narrative: AF 98.0 110/52 64 16 95% ra Gen - NARD Chest - Clear to auscultation bilaterally CV - RRR S1/S2 Abd - Soft, NT/ND, Positive BS Ext - No pedal edema Psych - Nml mood and affect Skin - Diffuse dark red erythematous patch noted in the left foot tracking left lower leg. Smaller patch at and above the left knee. small area noted on the left thigh and one area upper right thigh. Dry scaly rash noted left hand and forearm and to a lesser extent to the right hand. Lower extremity has decrease in scale. Back, chest and abdomen are uninvolved. Objective Data Vital Signs Vital Signs: Vital Signs - 24 hr 12/21/21 22:03 12/21/21 22:55 12/21/21 21:50 Temperature 97.4 F L Pulse Rate 71 71 Respiratory Rate 18 Blood Pressure 138/53 L Pulse Oximetry 96 Oxygen Delivery Room Air 12/22/21 06:00 12/22/21 14:00 Temperature 97.7 F 98.0 F Pulse Rate 66 64 Respiratory Rate 16 16 Blood Pressure 132/52 L 110/52 L Pulse Oximetry 94 95 Oxygen Delivery Intake/Output Intake/Output: Intake & Output 12/19/21 12/20/21 12/21/21 12/22/21 23:59 23:59 23:59 23:59 Intake Total 2692 2854 2200 1190 Output Total 1400 1300 2200 800 Balance 1292 1554 0 390 Meds/Results Medications: Active Medications Generic Name Dose Route Start Last Admin Trade Name Freq PRN Reason Stop Dose Admin Hydrocodone Bitart/Acetaminophen 1 tab 12/19/21 01:40 Hydrocodone/Acetaminophen (*Crx
[2021-12-22] MEDS: RIVAROXABAN 20 MG TABLET PO (18:42)
[2021-12-22 20:23] VITALS: PULSE 70
[2021-12-22 20:30] VITALS: BP 130/49; PULSE 73; RESP 20; TEMP 37; O2SAT 95
[2021-12-23] VITALS (7 sets, daily range): BP systolic 129–151; BP diastolic 53–62; PULSE 68–87; RESP 14–20; TEMP 36.4–36.9; O2SAT 97–98
[2021-12-23] MEDS: LEVOTHYROXINE SODIUM 50 MCG TABLET PO (07:15)
[2021-12-23] MEDS: ROSUVASTATIN 10 MG TABLET PO (08:02)
[2021-12-23] MEDS: METOPROLOL TARTRATE 50 MG TAB 100 MG PO ×2 (08:03→21:14)
[2021-12-23] MEDS: GABAPENTIN 300 MG CAPSULE PO ×2 (08:03→21:15)
[2021-12-23] MEDS: FUROSEMIDE 40 MG TABLET PO (08:06)
[2021-12-23] MEDS: amLODIPine BESYLATE 2.5 MG TABLET PO (08:06)
[2021-12-23] MEDS: ISOSORBIDE MONONITRATE 30 MG TAB.ER.24H PO (08:06)
[2021-12-23] MEDS: POTASSIUM CHLORIDE 10 MEQ TABLET.ER 20 MEQ PO ×2 (08:06→17:26)
[2021-12-23] MEDS: AMIODARONE HCL 200 MG TABLET PO (08:06)
[2021-12-23] MEDS: FLUTICASONE PROPIONATE 0.05% NA SPR 16 GM BTL (*BKC) 1 SPRAY NASAL ×2 (08:07→21:14)
--- NOTE | 2021-12-23 11:57 | PM.IMPN ---
Progress Note: A&P Assessment and Plan (1) Cellulitis of left leg: Code(s): L03.116 - Cellulitis of left lower limb Status: Acute Assessment and Plan: The patient was started on Ancef per antibiotic stewardship. Doppler negative for DVT. BCx NGTD. Wound culture growing Staph aureus so Vanco added; final culture is MRSA. general office worker has removed some scale . Continue current skin care. Needs to follow up with wireless construction manager after discharge. (2) Hypertension: Code(s): I10 - Essential (primary) hypertension Status: Acute Assessment and Plan: Patient's blood pressure was reviewed on 12/22 Blood pressure remains well controlled. Will continue current medications. (3) Paroxysmal atrial fibrillation with RVR: Code(s): I48.0 - Paroxysmal atrial fibrillation Status: Acute Assessment and Plan: The patient has pAFib. Continue Amiodarone and Metoprolol. Continue with her Xarelto (4) Venous stasis ulcer: Qualifiers: Venous stasis ulcer site: other part of lower leg Varicose vein presence: unspecified whether present Laterality: left Non-pressure ulcer stage: unspecified non-pressure ulcer stage Qualified Code(s): I83.028 - Varicose veins of left lower extremity with ulcer other part of lower leg; L97.829 - Non-pressure chronic ulcer of other part of left lower leg with unspecified severity Code(s): I83.009 - Varicose veins of unspecified lower extremity with ulcer of unspecified site; L97.909 - Non-pressure chronic ulcer of unspecified part of unspecified lower leg with unspecified severity Status: Acute Assessment and Plan: No open areas. Treat as above. (5) Hypothyroidism: Code(s): E03.9 - Hypothyroidism, unspecified Status: Acute Assessment and Plan: TSH normal. Continue with levothyroxine. Plan DVT prophylaxis: Xarelto Code status: Full Diet: heart healthy Subjective Date/time seen: 12/23/21 11:57 no new complaints she reports leg is less red and inflammed Exam Narrative: Gen - NARD Chest - Clear to auscultation bilaterally CV - RRR S1/S2 Abd - Soft, NT/ND, Positive BS Ext - No pedal edema Psych - Nml mood and affect Skin - Diffuse dark red erythematous patch noted in the left foot tracking left lower leg. Smaller patch at and above the left knee. small area noted on the left thigh and one area upper right thigh. Dry scaly rash noted left hand and forearm and to a lesser extent to the right hand. Lower extremity has decrease in scale. Back, chest and abdomen are uninvolved. Objective Data Vital Signs Vital Signs: Vital Signs - 24 hr 12/22/21 14:00 12/22/21 20:23 12/22/21 20:30 Temperature 98.0 F 98.6 F Pulse Rate 64 70 73 Respiratory Rate 16 20 Blood Pressure 110/52 L 130/49 L Pulse Oximetry 95 95 Oxygen Delivery 12/23/21 04:06 12/23/21 08:03 12/23/21 08:05 Temperature 97.6 F Pulse Rate 68 74 73 Respiratory Rate 18 14 Blood Pressure 146/62 H 151/60 H Pulse Oximetry 97 97 Oxygen Delivery 12/23/21 08:06 12/23/21 08:00 Temperature Pulse Rate 73 Respiratory Rate Blood Pressure Pulse Oximetry Oxygen Delivery Room Air Intake/Output Intake/Output: Intake & Output 12/20/21 12/21/21 12/22/21 12/23/21 23:59 23:59 23:59 23:59 Intake Total 2854 2200 1760 890 Output Total 1300 2200 1600 1200 Balance 1554 0 160 -310 Meds/Results Medications: Active Medications Generic Name Dose Route Start Last Admin Trade Name Freq PRN Reason Stop Dose Admin Hydrocodone Bitart/Acetaminophen 1 tab 12/19/21 01:40 Hydrocodone/Acetaminophen (*Crx) 5-325 Mg Tablet PO BID PRN Pain Amiodarone HCl 200 mg 12/19/21 08:00 12/23/21 08:06 Amiodarone Hcl 200 Mg Tablet PO 200 mg DAILY@0800 VERN Administration Amlodipine Besylate 2.5 mg 12/19/21 09:00 12/23/21 08:06 Amlodipine Besylate 2.5 Mg Tablet PO 2.5 mg
--- NOTE | 2021-12-23 14:56 | PC.NURSE ---
On 12/23/21, the student, [Kaleigh Brower], provided care and completed [facility] documentation on this patient. I have reviewed the student's documentation and agree with the findings.
[2021-12-23] MEDS: RIVAROXABAN 20 MG TABLET PO (17:26)
[2021-12-23] MEDS: HYDROcodone/acetaminophen (*CRX) 5-325 MG TABLET 1 TAB PO (21:16)
[2021-12-24] MEDS: LEVOTHYROXINE SODIUM 50 MCG TABLET PO (06:10)
[2021-12-24 06:21] LABS: Estimated CRCL calculation 46 ml/min; Estimated Glomerular Filt Rate > 60
[2021-12-24 06:30] VITALS: BP 136/57; PULSE 63; RESP 20; TEMP 36.1; O2SAT 98
[2021-12-24 08:14] VITALS: BP 140/60; PULSE 70; RESP 14; O2SAT 96
[2021-12-24] MEDS: FLUTICASONE PROPIONATE 0.05% NA SPR 16 GM BTL (*BKC) 1 SPRAY NASAL (08:16)
[2021-12-24 08:17] VITALS: PULSE 70
[2021-12-24] MEDS: amLODIPine BESYLATE 2.5 MG TABLET PO (08:17)
[2021-12-24] MEDS: AMIODARONE HCL 200 MG TABLET PO (08:17)
[2021-12-24 08:18] VITALS: PULSE 70
[2021-12-24] MEDS: ROSUVASTATIN 10 MG TABLET PO (08:18)
[2021-12-24] MEDS: POTASSIUM CHLORIDE 10 MEQ TABLET.ER 20 MEQ PO ×2 (08:18→16:57)
[2021-12-24] MEDS: DOXYCYCLINE HYCLATE 100 MG TABLET PO (08:18)
[2021-12-24] MEDS: GABAPENTIN 300 MG CAPSULE PO (08:18)
[2021-12-24] MEDS: ISOSORBIDE MONONITRATE 30 MG TAB.ER.24H PO (08:18)
[2021-12-24] MEDS: METOPROLOL TARTRATE 50 MG TAB 100 MG PO (08:18)
[2021-12-24] MEDS: FUROSEMIDE 40 MG TABLET PO (08:18)
--- NOTE | 2021-12-24 10:30 | PM.DS ---
DS: Admitting Diagnosis Discharge Date December 24, 2021 Admitting Diagnosis cellulitis DS: Discharge Diagnosis Discharge Diagnosis (1) Cellulitis of left leg: Code(s): L03.116 - Cellulitis of left lower limb Status: Acute Assessment and Plan: improved (2) Hypertension: Code(s): I10 - Essential (primary) hypertension Status: Acute Assessment and Plan: Patient's blood pressure was reviewed on 12/22 Blood pressure remains well controlled. Will continue current medications. (3) Paroxysmal atrial fibrillation with RVR: Code(s): I48.0 - Paroxysmal atrial fibrillation Status: Acute Assessment and Plan: The patient has pAFib. Continue Amiodarone and Metoprolol. Continue with her Xarelto (4) Venous stasis ulcer: Qualifiers: Venous stasis ulcer site: other part of lower leg Varicose vein presence: unspecified whether present Laterality: left Non-pressure ulcer stage: unspecified non-pressure ulcer stage Qualified Code(s): I83.028 - Varicose veins of left lower extremity with ulcer other part of lower leg; L97.829 - Non-pressure chronic ulcer of other part of left lower leg with unspecified severity Code(s): I83.009 - Varicose veins of unspecified lower extremity with ulcer of unspecified site; L97.909 - Non-pressure chronic ulcer of unspecified part of unspecified lower leg with unspecified severity Status: Acute Assessment and Plan: No open areas. Treat as above. (5) Hypothyroidism: Code(s): E03.9 - Hypothyroidism, unspecified Status: Acute Assessment and Plan: TSH normal. Continue with levothyroxine. Plan DVT prophylaxis: Xarelto Code status: Full Diet: heart healthy DS: Summary Hospital Course Hospital Course: admitted for left lower extremity cellulitis. Patient was started on IV antibiotics in skin cultures did grow MRSA. The patient will be discharged on doxycycline. Much improved. Time Spent with Patient Time attestation: Total time spent providing and/or coordinating discharge services: Exam Narrative: Gen - NARD Chest - Clear to auscultation bilaterally CV - RRR S1/S2 Abd - Soft, NT/ND, Positive BS Ext - No pedal edema Psych - Nml mood and affect Skin - Diffuse dark red erythematous patch noted in the left foot tracking left lower leg. Smaller patch at and above the left knee. small area noted on the left thigh and one area upper right thigh. Dry scaly rash noted left hand and forearm and to a lesser extent to the right hand. Lower extremity has decrease in scale. Back, chest and abdomen are uninvolved. DS: Data Data Completed and Pending Labs on day of discharge: Labs from last 24 hours 12/24/21 05:41 Creatinine 0.70 Estim Creat Clear Calc 46 Estimated GFR > 60 Discharge Plan Discharge Attending physician on discharge: Donnie Bello Discharging Clinician: Donnie Bello Patient Disposition: Home, Self-Care Activity: no preference Diet: as tolerated Patient Instructions: Antibiotic Form, Safe Use of Anticoagulants (GEN) Stand Alone Forms: General Discharge Information Follow-up/Referrals: Marky Loya MD [Primary Care Provider] - Discharge Medications: New doxycycline hyclate 100 mg Tablet 100 mg PO Q12HR 7 Days Qty: 14 0RF Continued potassium chloride [Klor-Con 10] 10 mEq tablet extended release 20 meq PO BID levothyroxine [Synthroid] 25 mcg tablet 50 mcg PO DAILY Xarelto 20 mg Tablet 20 mg PO QPM furosemide [Lasix] 40 mg tablet 40 mg PO DAILY isosorbide mononitrate 30 mg tablet extended release 24 hr 30 mg PO DAILY metoprolol tartrate 100 mg tablet 100 mg PO BID amiodarone [Pacerone] 200 mg tablet 200 mg PO DAILY@0800 amlodipine 2.5 mg Tablet 2.5 mg PO DAILY gabapentin 300 mg Capsule 300 mg PO BID hydrocodone-ac
--- NOTE | 2021-12-24 13:37 | PC.NURSE ---
On 12/24/21, the student, [Radha Poon], provided care and completed [facility] documentation on this patient. I have reviewed the student's documentation and agree with the findings.
[2021-12-24 13:42] VITALS: BP 120/52; PULSE 76; RESP 16; TEMP 37.1; O2SAT 95
[2021-12-24] MEDS: RIVAROXABAN 20 MG TABLET PO (17:00)
== END 2021-12-24 17:40 | disposition home or self-care (01) | DRG 603 ==
LOC: ANHED 17:21 → ANH2MED 17:41
PROVIDERS: Admitting Provider Internal Medicine; Emergency Provider Emergency Medicine; PCP Family Medicine; Visit Provider Chiropractor
DX: L03.116 Cellulitis of left lower limb (principal); L97.829 Non-pressure chronic ulcer of other part of left lower leg with unspecified severity; I83.028 Varicose veins of left lower extremity with ulcer other part of lower leg; B95.62 Methicillin resistant Staphylococcus aureus infection as the cause of diseases classified elsewhere; I10 Essential (primary) hypertension; I48.0 Paroxysmal atrial fibrillation; E03.9 Hypothyroidism, unspecified; E78.5 Hyperlipidemia, unspecified; I25.10 Atherosclerotic heart disease of native coronary artery without angina pectoris; M19.90 Unspecified osteoarthritis, unspecified site; Z96.651 Presence of right artificial knee joint; Z23 Encounter for immunization; Z79.01 Long term (current) use of anticoagulants; Z79.899 Other long term (current) drug therapy; Z85.3 Personal history of malignant neoplasm of breast; Z87.891 Personal history of nicotine dependence
CPT/HCPCS: 36415; 80048; 80053; 80069; 82565; 83605; 83735; 84443; 85025; 85610; 85730; 86038; 86140; 87040; 87070; 87147; 87186; 87205; 90471; 90694; 93970; 96365; 96366; 99285; A9270; G0008; G0378; J0690; J3370

== ENCOUNTER 2022-01-13 11:17 | Outpatient (CLI) | payer MEDICARE, SELFPAY ==
--- NOTE | ~2022-01-13 | US_ITS ---
EXAMINATION: US venous doppler [facility] DATE: 01/13/2022 11:57 INDICATION: Left lower limb swelling. TECHNIQUE: Grayscale ultrasound images without and with compression and Doppler ultrasound images of the left lower extremity veins were obtained. COMPARISON: Ultrasound 12/19/2021 FINDINGS: The visualized portions of left common femoral vein, profunda (deep) femoral vein, femoral vein, popl iteal vein, peroneal veins, posterior tibial veins, and greater saphenous vein outflow are patent. IMPRESSION: 1. No deep venous thrombosis. Reviewed, dictated and finalized at location A. NISTRATIVE EXECUTIVE
== END 2022-01-13 11:18 | disposition home or self-care (01) ==
PROVIDERS: PCP Family Medicine; Visit Provider Family Medicine
DX: M79.89 Other specified soft tissue disorders (principal)
CPT/HCPCS: 93971

== ENCOUNTER 2022-03-10 05:44 | Inpatient (IN) | payer MEDICARE, SELFPAY ==
[2022-03-10] VITALS (31 sets, daily range): BP systolic 99–210; BP diastolic 42–79; PULSE 72–108; RESP 15–24; TEMP 36.1–37.4; O2SAT 84–100
--- NOTE | ~2022-03-10 | XR_ITS ---
Portable chest x-ray Comparison: 07/24/2021 Clinical History: Aspiration Findings: Lungs are clear, without focal consolidation or pleural effusion. Cardiomediastinal silho uette is stable. Bones and soft tissues are unremarkable. Impression: Clear lungs. Reviewed, dictated and finalized at location . CLOSER Impression: Clear lungs.
--- NOTE | 2022-03-10 05:51 | ECG_ITS ---
Measurements Intervals [place] Rate: 102 P: 83 OK: 230 QRS: -4 QRSD: 85 T: 39 QT: 280 QTc: 365 Interpretive Statements SINUS TACHYCARDIA WITH FIRST DEGREE AV BLOCK ATRIAL PREMATURE COMPLEX BORDERLINE ST-T WAVE ABNORMALITY- HIGH LATERAL LEADS BASELINE ARTIFACT- I, II, III, AVR, AVL, AVF, V1-V2 ABNORMAL ECG COMPARED TO ECG 07/23/2021 12:42:39 SINUS TACHYCARDIA NOW PRESENT Electronically Signed On 03-10-2022 7:00:44 LEAD PROGRAMMER by Pee Ruff D.O.
--- NOTE | 2022-03-10 05:59 | ED.FEVER ---
HPI - Fever General Chief Complaint: Fever Stated Complaint: fever, flu-like s/s Time Seen by Provider: 03/10/22 05:51 History of Present Illness HPI Narrative: 86-year-old female presenting from home with complaint of fever, nausea and vomiting, and concern for aspiration. She is endorsing pain in her left leg and headache Related Data Home Medications Medication Instructions Recorded Confirmed levothyroxine 25 mcg tablet 50 mcg PO DAILY 01/08/19 12/19/21 (Synthroid) potassium chloride 10 mEq 20 meq PO BID 01/08/19 12/19/21 tablet,extended release (Klor-Con) furosemide 40 mg tablet (Lasix) 40 mg PO DAILY 02/21/19 12/19/21 isosorbide mononitrate 30 mg 30 mg PO DAILY 02/21/19 12/19/21 tablet,extended release 24 hr metoprolol tartrate 100 mg tablet 100 mg PO BID 02/21/19 12/19/21 rivaroxaban 20 mg tablet (Xarelto) 20 mg PO QPM 03/28/20 12/19/21 amiodarone 200 mg tablet (Pacerone) 200 mg PO DAILY@0800 10/19/21 12/19/21 amlodipine 2.5 mg tablet 2.5 mg PO DAILY 10/19/21 12/19/21 gabapentin 300 mg capsule 300 mg PO BID 10/19/21 12/19/21 hydrocodone 5 mg-acetaminophen 325 1 tablet PO BID PRN Pain 12/19/21 12/19/21 mg tablet rosuvastatin 10 mg tablet 10 mg PO DAILY 12/19/21 12/19/21 Allergies Allergy/AdvReac Type Severity Reaction Status Date / Time penicillin V Allergy Intermediate Rash Verified 03/10/22 05:48 Penicillins Allergy Intermediate Rash Verified 03/10/22 05:48 adhesive tape Allergy Unknown RASH Verified 03/10/22 05:48 morphine AdvReac Intermediate Vomiting Verified 03/10/22 05:48 meperidine AdvReac Unknown WOOZY Verified 03/10/22 05:48 Review of Systems Review of Systems: CONST: Fever. HEENT: No sore throat C/V: Mild chest pain RESP: Cough GI: Reports nausea, vomiting : No dysuria. M/S: Left leg pain SKIN: Rash left leg. NEURO: headache PSYCH: [No depression] PMFSH Past Medical History Medical History Abnormal colonoscopy Colonoscopy per Dr. Peters in July 2013 showed diverticulosis, uncomplicated internal external hemorrhoids, and a hyperplastic polyp. Acute lower GI bleeding Anemia Atrial fibrillation She has had several cardioversions, and had a cardiac ablation this year at [facility]. Cancer of right breast Status post lumpectomy and radiation in 2006. Cellulitis Dyslipidemia GERD (gastroesophageal reflux disease) Hearing loss of both ears History of peptic ulcer Hypertension Hypothyroidism Migraine headache Mild coronary artery disease Cardiac catheterization October 2018 showed no angiographically significant coronary disease, at best 40% stenosis at the ostium of the 1st diagonal branch. Osteoarthritis Seasonal allergic rhinitis JOSH (stress urinary incontinence, female) Vision loss Surgical History Surgical History History of 3 sections History of appendectomy History of lumpectomy of right breast For breast cancer in 2006. Status post arthroscopic knee surgery Status post laparoscopic cholecystectomy Status post right knee replacement Family History Family History Mother Patient's mother is Family history of type 2 diabetes mellitus Family history of Parkinson's disease, Onset Age: 89 Father Family history of heart disease in male family member before age 55, Onset Age: 37 Patient's father is , Onset Age: 37 Family history of hepatitis, Onset Age: 37 Family history of nephrotic syndrome, Onset Age: 37 Son Motor vehicle accident Social History Social History Social History: The patient is . She lives with her daughter, Jaida and their dog Persaud (a pit bull). the patient had 3 children but her son has in a car accident. 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 She is a former smoker. She does not use any alc
[2022-03-10 06:07] LABS: Add Urine Microscopic? YES; Appearance Urine Clear (Clear); Bilirubin Urine Negative (Negative); Blood Urine Negative (Negative); Color Urine Yellow (Yellow); Glucose Urine UA Negative (Negative); Ketones Urine 1+ mg/dL (Negative); Leukocyte Esterase Ur Negative LEU/UL (Negative); Nitrate Urine Negative (Negative); Protein Urine Negative (Negative); Specific Grav Ur 1.015 (1.001-1.035); Urobilinogen Urine 0.2 mg/dL (<2.0)
[2022-03-10 06:08] LABS: Basophils Percent Auto 0.2 % (0.2-1.2); Eosinophils Percent Auto 0.1 % (0-4.4); Hematocrit 41.1 % (37.0-47.0); Hemoglobin 13.2 g/dL (12.0-15.0); Immature Granulocyte Absolute 0.11 K/mm3 (0.00-0.031); Immature Granulocyte Percent A 0.6 % (0-0.5); Lymphocytes Percent Auto 2.3 % (18.3-44.2); Mean Corpuscular HGB Conc 32.1 g/dl (32-36); Mean Corpuscular Hemoglobin 28.1 pg (26-34); Mean Corpuscular Volume 87.4 fl (80-100); Mean Platelet Volume 10.7 fl (7.4-10.4); Monocytes Absolute Auto 0.9 K/mm3 (0.1-0.6); Monocytes Percent Auto 5.4 % (2.6-8.5); Neutrophils Absolute Auto 15.9 K/mm3 (1.3-6.7); Neutrophils Percent Auto 91.4 % (45.5-73.1); Nucleated Red Blood Cells Perc 0.1 % (0.0-0.2); Platelet Count Result 259 k/mm3 (150-375); Red Cell Distribution Width 15.4 % (11.5-14.5); White Blood Count 17.4 K/mm3 (4.5-10.0)
[2022-03-10] MEDS: LACTATED RINGERS 1,000 ML 999 ML IV CONT (06:11)
[2022-03-10 06:17] LABS: Lactic Acid Reflex 1.2 mmol/L (0.7-2.0)
[2022-03-10 06:19] LABS: Alanine Aminotransferase 16 U/L (6-35); Albumin Level 4.2 g/dL (3.5-5.1); Alkaline Phosphatase 99 U/L (38-126); Anion Gap 7 mmol/L (8-16); Aspartate Amino Transferase 30 U/L (14-36); Bilirubin,Total 0.6 mg/dL (0.2-1.3); Blood Urea Nitrogen 8 mg/dL (7-17); CRP 3.9 mg/dL (<1.0); Calcium 8.8 mg/dL (8.4-10.2); Carbon Dioxide 29 mmol/L (22-30); Chloride 96 mmol/L (98-107); Estimated Glomerular Filt Rate > 60; Glucose 145 mg/dL (65-110); Potassium 3.2 mmol/L (3.4-5.0); Sodium 132 mmol/L (137-145)
[2022-03-10 06:20] LABS: Mucus Urine Rare /lpf; RBC Urine 0-2 /hpf (0-2); Squamous Epithelial Cell Urine Rare /hpf (Few); WBC Urine 0-3 /hpf
[2022-03-10] MEDS: METOCLOPRAMIDE HCL INJ 10 MG/2 ML VIAL IV PUSH (06:22)
[2022-03-10 06:26] LABS: INR 1.1; Prothrombin Time 13.9 Seconds (11.1-14.7)
[2022-03-10 06:27] LABS: Partial Thromboplastin Time 33.5 SECONDS (22.3-36.8)
[2022-03-10 06:28] LABS: Troponin I < 0.012 ng/mL (0.000-0.034)
[2022-03-10 06:43] LABS: Influenza A QL RT-PCR Negative (Negative); Influenza B QL RT-PCR Negative (Negative); SARS-CoV-2 RNA PCR Negative
[2022-03-10] MEDS: POTASSIUM CHLORIDE INJ 40 MEQ in SODIUM CHLORIDE 0.9% IV 500 ML 130 MEQ IVPB (07:02)
--- NOTE | 2022-03-10 07:19 | PC.NURSE ---
Report given to FREDY Barragan.
--- NOTE | 2022-03-10 08:49 | PM.IMHP ---
H&P: HPI History of Present Illness Date/Time: 03/10/22 08:49 Chief Complaint: Pain, swelling and erythema of left lower extremity, nausea vomiting, Narrative: 86 years old lady with history hypertension, hypothyroidism, presented ED with a chief complaint of pain swelling, erythema of the left lower extremity, and nausea vomiting. Patient has scattered rashes of left lower extremity in past few months. In the past few days, patient has develops pain swelling, tenderness of her left lower extremity started patient also has intermittent nausea vomiting. Patient denies abdomen pain, diarrhea. Patient has low-grade fever. Patient denies dysuria, headache, focal weakness. [facility] Past Medical History Medical History Abnormal colonoscopy Colonoscopy per Dr. Peters in July 2013 showed diverticulosis, uncomplicated internal external hemorrhoids, and a hyperplastic polyp. Acute lower GI bleeding Anemia Atrial fibrillation She has had several cardioversions, and had a cardiac ablation this year at [facility]. Cancer of right breast Status post lumpectomy and radiation in 2006. Cellulitis Dyslipidemia GERD (gastroesophageal reflux disease) Hearing loss of both ears History of peptic ulcer Hypertension Hypothyroidism Migraine headache Mild coronary artery disease Cardiac catheterization October 2018 showed no angiographically significant coronary disease, at best 40% stenosis at the ostium of the 1st diagonal branch. Osteoarthritis Seasonal allergic rhinitis JOSH (stress urinary incontinence, female) Vision loss Surgical History Surgical History History of 3 sections History of appendectomy History of lumpectomy of right breast For breast cancer in 2006. Status post arthroscopic knee surgery Status post laparoscopic cholecystectomy Status post right knee replacement Family History Family History Mother Patient's mother is Family history of type 2 diabetes mellitus Family history of Parkinson's disease, Onset Age: 89 Father Family history of heart disease in male family member before age 55, Onset Age: 37 Patient's father is , Onset Age: 37 Family history of hepatitis, Onset Age: 37 Family history of nephrotic syndrome, Onset Age: 37 Son Motor vehicle accident Social History Social History Social History: The patient is . She lives with her daughterJaida and their dog Persaud (a pit bull). the patient had 3 children but her son has in a car accident. 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 She is a former smoker. She does not use any alcohol marijuana or illicit drugs. her daughter Jaida is a durable power assistant county attorney for healthcare Code status full code Smoking status: Former smoker Second hand tobacco smoke exposure: No Additional smoking assessment comments: pt said she stopped smoking in 1978 Alcohol intake: never Substance use: never Gender identity (if verbalized by the patient): Female Spiritual care concerns: No Agree to blood products: Yes Meds Home Medications and Allergies Home Medications Medication Instructions Recorded Confirmed Type potassium chloride 10 mEq 20 meq PO BID 01/08/19 03/10/22 History tablet,extended release (Klor-Con) furosemide 40 mg tablet (Lasix) 40 mg PO DAILY 02/21/19 03/10/22 History isosorbide mononitrate 30 mg 30 mg PO DAILY 02/21/19 03/10/22 History tablet,extended release 24 hr metoprolol tartrate 100 mg tablet 100 mg PO BID 02/21/19 03/10/22 History rivaroxaban 20 mg tablet (Xarelto) 20 mg PO QPM 03/28/20 03/10/22 History amiodarone 200 mg tablet (Pacerone) 200 mg PO DAILY@0800 10/19/21 03/10/22 History amlodipine 2.5 mg tablet 2.5 mg PO DAILY 10/19/21 03/10/22 History gabapentin 300 mg caps
--- NOTE | 2022-03-10 13:22 | PHAR ---
SPOKE WITH DR WALSH ABOUT ZOSYN WITH PENICILLIN ALLERGY. DOSE WAS GIVEN IN ER WITH NO REACTIONS. MONITOR PATIENT WHILE ZOSYN IS USED.
[2022-03-10] MEDS: GABAPENTIN 300 MG CAPSULE PO (17:39)
[2022-03-10] MEDS: POTASSIUM CHLORIDE 10 MEQ TABLET.ER 20 MEQ PO (17:39)
[2022-03-10] MEDS: RIVAROXABAN 20 MG TABLET PO (17:50)
--- NOTE | 2022-03-10 18:31 | ADMGEN ---
This patient, Mayuri Love, was admitted to [facility] Surg Room 329-01. Report received from FREDY Jean-Baptiste. Patient/family oriented to hospital policies and general routines including ID bracelet, bed and alarms, visiting hours, pain management, procedures, bathroom and other care routines, personal items, smoking policy, room service/diet, and visiting hours. Information on how to activate the Rapid Response Team has been discussed. Patient/Family are encouraged to report perceived risks to care and to ask questions if they do not understand what they are told or what they should do.
[2022-03-10] MEDS: METOPROLOL TARTRATE 50 MG TAB 100 MG PO (21:02)
[2022-03-11] MEDS: LEVOTHYROXINE SODIUM 50 MCG TABLET PO (05:28)
[2022-03-11 05:49] VITALS: BP 125/51; PULSE 65; RESP 16; TEMP 35.9; O2SAT 100
[2022-03-11 06:59] LABS: Estimated CRCL calculation 45 ml/min; Estimated Glomerular Filt Rate > 60
[2022-03-11 08:30] VITALS: O2SAT 99
[2022-03-11] MEDS: AMIODARONE HCL 200 MG TABLET PO (08:41)
[2022-03-11] MEDS: FUROSEMIDE 40 MG TABLET PO (08:41)
[2022-03-11] MEDS: amLODIPine BESYLATE 2.5 MG TABLET PO (08:41)
[2022-03-11] MEDS: GABAPENTIN 300 MG CAPSULE PO ×2 (08:41→16:59)
[2022-03-11] MEDS: METOPROLOL TARTRATE 50 MG TAB 100 MG PO ×2 (08:41→20:43)
[2022-03-11] MEDS: ROSUVASTATIN 10 MG TABLET PO (08:41)
[2022-03-11] MEDS: POTASSIUM CHLORIDE 10 MEQ TABLET.ER 20 MEQ PO ×2 (08:41→16:59)
[2022-03-11] MEDS: ISOSORBIDE MONONITRATE 30 MG TAB.ER.24H PO (08:42)
[2022-03-11 12:05] VITALS: BMI 25.2
[2022-03-11 13:36] VITALS: BP 119/57; PULSE 80; RESP 17; TEMP 36.8; O2SAT 96
[2022-03-11] MEDS: RIVAROXABAN 20 MG TABLET PO (17:00)
--- NOTE | 2022-03-11 17:53 | PM.IMPN ---
Progress Note: A&P Assessment and Plan (1) Cellulitis of left lower extremity: Code(s): L03.116 - Cellulitis of left lower limb Status: Acute Assessment and Plan: Continue vancomycin and Zosyn Possible superimposed his fungal infection, start clotrimazole cream twice a day topical use (2) Dyslipidemia: Code(s): E78.5 - Hyperlipidemia, unspecified Status: Acute (3) Hypothyroidism: Code(s): E03.9 - Hypothyroidism, unspecified Status: Acute Assessment and Plan: Continue Synthroid mcg daily p.o. (4) Paroxysmal atrial fibrillation with RVR: Code(s): I48.0 - Paroxysmal atrial fibrillation Status: Acute Assessment and Plan: Now patient has a sinus rhythm Continue hemorrhoidal 200 mg daily p.o. Rivaroxaban 20 mg tablet p.o. Follow-up acute (5) Gastroenteritis: Code(s): K52.9 - Noninfective gastroenteritis and colitis, unspecified Status: Acute Assessment and Plan: Had nausea vomiting at home Start Reglan 10 mg q.6 IV p.r.n. patient denies nausea vomiting now Advanced a diet tolerable Subjective Date/time seen: 03/11/22 17:53 Saw and examined patient today Patient feels better today, denies fever, chills, chest pain, shortness of breath, abdominal pain nausea vomiting diarrhea Exam Narrative: GENERAL: Pleasant, in no acute distress. Well-nourished. - EYES: EOMI. Anicteric. - HENT: Moist mucous membranes. - LUNGS: Clear to auscultation bilaterally, no wheezing, rhonchi, or rales. - CARDIOVASCULAR: Regular rate and rhythm. No murmur. No JVD. - ABDOMEN: Soft, non-tender and non-distended. No palpable masses. - EXTREMITIES: 2+ edema of leftl lower extremity. Peripheral pulses 2+. Non-tender. - NEUROLOGIC: No focal neurological deficits. CN II-XII grossly intact. - PSYCHIATRIC: Awake, Alert and oriented x 3. Appropriate mood and affect. - SKIN: Scaly rashes, tender, erythema, swelling of the lower extremity, - LYMPH: No cervical lymphadenopathy. Objective Data Vital Signs Vital Signs: Vital Signs - 24 hr 03/10/22 21:02 03/10/22 20:00 03/10/22 22:00 Temperature 96.9 F L Pulse Rate 72 72 Respiratory Rate 16 Blood Pressure 119/56 L Pulse Oximetry 99 Oxygen Delivery Room Air 03/11/22 05:49 03/11/22 08:30 03/11/22 13:36 Temperature 96.6 F L 98.2 F Pulse Rate 65 80 Respiratory Rate 16 17 Blood Pressure 125/51 L 119/57 L Pulse Oximetry 100 99 96 Oxygen Delivery Room Air Intake/Output Intake/Output: Intake & Output 03/08/22 03/09/22 03/10/22 03/11/22 23:59 23:59 23:59 23:59 Intake Total 2140 1200 Output Total 450 Balance 2140 750 Meds/Results Medications: Active Medications Generic Name Dose Route Start Last Admin Trade Name Freq PRN Reason Stop Dose Admin Hydrocodone Bitart/Acetaminophen 1 tab 03/10/22 11:29 Hydrocodone/Acetaminophen (*Crx) 5-325 Mg Tablet PO BID PRN Pain Amiodarone HCl 200 mg 03/11/22 08:00 03/11/22 08:41 Amiodarone Hcl 200 Mg Tablet PO 200 mg DAILY@0800 VERN Administration Amlodipine Besylate 2.5 mg 03/11/22 09:00 03/11/22 08:41 Amlodipine Besylate 2.5 Mg Tablet PO 2.5 mg DAILY VERN Administration Furosemide 40 mg 03/11/22 09:00 03/11/22 08:41 Furosemide 40 Mg Tablet PO 40 mg DAILY VERN Administration Gabapentin 300 mg 03/10/22 17:00 03/11/22 16:59 Gabapentin 300 Mg Capsule PO 300 mg BID VERN Administration Vancomycin HCl 1,000 mg in 250 mls @ 250 mls/hr 03/11/22 07:00 03/11/22 07:28 Vancomycin 1,000 Mg/D5w 250 Ml IVPB Infused Q24H VERN Infusion Piperacillin/Tazobactam/Dextrose 3.375 gm in 50 mls @ 100 mls/hr 03/10/22 13:00 03/11/22 17:00 Zosyn 3.375 Gm/D5w 50ml Pm IVPB 100 mls/hr Q6HR VERN Administration Isosorbide Mononitrate 30 mg 03/11/22 09:00 03/11/22 08:42 Isosorbide Mononitrate 30 Mg Tab.Er.24h PO 30 mg DAILY VERN Administration Levothyroxine S
[2022-03-11 20:43] VITALS: PULSE 70
[2022-03-11] MEDS: MICONAZOLE NITRATE 2% CREAM 30 GM TUBE 1 APPLIC TOPICAL (20:45)
[2022-03-11 22:00] VITALS: BP 111/52; PULSE 56; RESP 18; TEMP 36.3; O2SAT 94
[2022-03-12] MEDS: LEVOTHYROXINE SODIUM 50 MCG TABLET PO (05:32)
[2022-03-12 06:00] VITALS: BP 124/68; PULSE 70; RESP 20; TEMP 36.8; O2SAT 94
[2022-03-12 07:06] LABS: Hematocrit 36.1 % (37.0-47.0); Hemoglobin 11.6 g/dL (12.0-15.0); Mean Corpuscular HGB Conc 32.1 g/dl (32-36); Mean Corpuscular Hemoglobin 27.8 pg (26-34); Mean Corpuscular Volume 86.6 fl (80-100); Mean Platelet Volume 10.6 fl (7.4-10.4); Platelet Count Result 250 k/mm3 (150-375); Red Blood Count 4.17 M/mm3 (4.2-5.4); Red Cell Distribution Width 15.6 % (11.5-14.5); White Blood Count 7.6 K/mm3 (4.5-10.0)
[2022-03-12 07:25] LABS: Anion Gap 3 mmol/L (8-16); Blood Urea Nitrogen 9 mg/dL (7-17); Calcium 8.2 mg/dL (8.4-10.2); Carbon Dioxide 31 mmol/L (22-30); Chloride 103 mmol/L (98-107); Estimated CRCL calculation 45 ml/min; Estimated Glomerular Filt Rate > 60; Glucose 92 mg/dL (65-110); Sodium 137 mmol/L (137-145)
--- NOTE | 2022-03-12 08:05 | PCWOUND ---
WOCN NOTE assessed patients legs due to receiving a outpatient referral for wound care for legs. no open wounds present. large dry flaking patches of skin and rash present. asked patient if she went to tire building supervisor as recommended in the past and she replied No . again recommended she be seen by a tire building supervisor. patient expressed understanding.
[2022-03-12 09:50] VITALS: PULSE 70
[2022-03-12] MEDS: POTASSIUM CHLORIDE 10 MEQ TABLET.ER 20 MEQ PO ×2 (09:50→17:30)
[2022-03-12] MEDS: METOPROLOL TARTRATE 50 MG TAB 100 MG PO ×2 (09:50→20:31)
[2022-03-12] MEDS: amLODIPine BESYLATE 2.5 MG TABLET PO (09:50)
[2022-03-12] MEDS: ISOSORBIDE MONONITRATE 30 MG TAB.ER.24H PO (09:50)
[2022-03-12 09:51] VITALS: PULSE 70
[2022-03-12] MEDS: ROSUVASTATIN 10 MG TABLET PO (09:51)
[2022-03-12] MEDS: GABAPENTIN 300 MG CAPSULE PO ×2 (09:51→17:29)
[2022-03-12] MEDS: FUROSEMIDE 40 MG TABLET PO (09:51)
[2022-03-12] MEDS: AMIODARONE HCL 200 MG TABLET PO (09:51)
[2022-03-12] MEDS: MICONAZOLE NITRATE 2% CREAM 30 GM TUBE 1 APPLIC TOPICAL ×2 (09:51→20:31)
[2022-03-12 14:00] VITALS: BP 128/59; PULSE 62; RESP 16; TEMP 36.6; O2SAT 95
[2022-03-12] MEDS: RIVAROXABAN 20 MG TABLET PO (17:30)
--- NOTE | 2022-03-12 17:59 | PM.IMPN ---
Progress Note: A&P Assessment and Plan (1) Cellulitis of left lower extremity: Code(s): L03.116 - Cellulitis of left lower limb Status: Acute Assessment and Plan: Continue vancomycin and Zosyn Possible superimposed his fungal infection, start clotrimazole cream twice a day topical use (2) Dyslipidemia: Code(s): E78.5 - Hyperlipidemia, unspecified Status: Acute (3) Hypothyroidism: Code(s): E03.9 - Hypothyroidism, unspecified Status: Acute Assessment and Plan: Continue Synthroid mcg daily p.o. (4) Paroxysmal atrial fibrillation with RVR: Code(s): I48.0 - Paroxysmal atrial fibrillation Status: Acute Assessment and Plan: Now patient has a sinus rhythm Continue hemorrhoidal 200 mg daily p.o. Rivaroxaban 20 mg tablet p.o. Follow-up acute (5) Gastroenteritis: Code(s): K52.9 - Noninfective gastroenteritis and colitis, unspecified Status: Acute Assessment and Plan: Had nausea vomiting at home Start Reglan 10 mg q.6 IV p.r.n. patient denies nausea vomiting now Advanced a diet tolerable hypokalemia, replace potassium chloride IV and he will need a follow-up BMP a.m. Subjective Date/time seen: 03/12/22 17:59 saw and examined patient Patient feels better, denies leg pain, chest pain, shortness of breath, fever, chills diarrhea Exam Narrative: GENERAL: Pleasant, in no acute distress. Well-nourished. - EYES: EOMI. Anicteric. - HENT: Moist mucous membranes. - LUNGS: Clear to auscultation bilaterally, no wheezing, rhonchi, or rales. - CARDIOVASCULAR: Regular rate and rhythm. No murmur. No JVD. - ABDOMEN: Soft, non-tender and non-distended. No palpable masses. - EXTREMITIES: 2+ edema of leftl lower extremity. Peripheral pulses 2+. Non-tender. - NEUROLOGIC: No focal neurological deficits. CN II-XII grossly intact. - PSYCHIATRIC: Awake, Alert and oriented x 3. Appropriate mood and affect. - SKIN: Scaly rashes, tender, erythema, swelling of the lower extremity, - LYMPH: No cervical lymphadenopathy. Objective Data Vital Signs Vital Signs: Vital Signs - 24 hr 03/11/22 19:40 03/11/22 20:43 03/11/22 22:00 Temperature 97.4 F L Pulse Rate 70 56 L Respiratory Rate 18 Blood Pressure 111/52 L Pulse Oximetry 94 Oxygen Delivery Room Air 03/12/22 06:00 03/12/22 09:50 03/12/22 09:51 Temperature 98.2 F Pulse Rate 70 70 70 Respiratory Rate 20 Blood Pressure 124/68 Pulse Oximetry 94 Oxygen Delivery 03/12/22 08:00 03/12/22 14:00 Temperature 98 F Pulse Rate 62 Respiratory Rate 16 Blood Pressure 128/59 L Pulse Oximetry 95 Oxygen Delivery Room Air Intake/Output Intake/Output: Intake & Output 03/09/22 03/10/22 03/11/22 03/12/22 23:59 23:59 23:59 23:59 Intake Total 2140 1720 1190 Output Total 450 Balance 2140 1270 1190 Meds/Results Medications: Active Medications Generic Name Dose Route Start Last Admin Trade Name Freq PRN Reason Stop Dose Admin Hydrocodone Bitart/Acetaminophen 1 tab 03/10/22 11:29 Hydrocodone/Acetaminophen (*Crx) 5-325 Mg Tablet PO BID PRN Pain Amiodarone HCl 200 mg 03/11/22 08:00 03/12/22 09:51 Amiodarone Hcl 200 Mg Tablet PO 200 mg DAILY@0800 VERN Administration Amlodipine Besylate 2.5 mg 03/11/22 09:00 03/12/22 09:50 Amlodipine Besylate 2.5 Mg Tablet PO 2.5 mg DAILY VERN Administration Furosemide 40 mg 03/11/22 09:00 03/12/22 09:51 Furosemide 40 Mg Tablet PO 40 mg DAILY VERN Administration Gabapentin 300 mg 03/10/22 17:00 03/12/22 17:29 Gabapentin 300 Mg Capsule PO 300 mg BID VERN Administration Vancomycin HCl 1,000 mg in 250 mls @ 250 mls/hr 03/11/22 07:00 03/12/22 06:00 Vancomycin 1,000 Mg/D5w 250 Ml IVPB 250 mls/hr Q24H VERN Administration Piperacillin/Tazobactam/Dextrose 3.375 gm in 50 mls @ 100 mls/hr 03/10/22 13:00 03/12/22 17:30 Zosyn 3.375 Gm/D5w 50ml Pm I
[2022-03-12] MEDS: POTASSIUM CHLORIDE 20 MEQ TABLET 40 MEQ PO (18:35)
[2022-03-12] MEDS: POTASSIUM CHLORIDE INJ 40 MEQ in SODIUM CHLORIDE 0.9% IV 500 ML 130 MEQ IVPB (18:36)
[2022-03-12 20:31] VITALS: PULSE 74
[2022-03-12 22:00] VITALS: BP 144/59; PULSE 74; RESP 16; TEMP 36.7; O2SAT 96
[2022-03-13] MEDS: LEVOTHYROXINE SODIUM 50 MCG TABLET PO (05:11)
[2022-03-13 06:00] VITALS: BP 152/56; PULSE 71; RESP 16; TEMP 36.2; O2SAT 97
[2022-03-13 07:32] LABS: Hematocrit 36.6 % (37.0-47.0); Hemoglobin 11.4 g/dL (12.0-15.0); Mean Corpuscular HGB Conc 31.1 g/dl (32-36); Mean Corpuscular Hemoglobin 27.7 pg (26-34); Mean Corpuscular Volume 88.8 fl (80-100); Mean Platelet Volume 10.7 fl (7.4-10.4); Platelet Count Result 242 k/mm3 (150-375); Red Blood Count 4.12 M/mm3 (4.2-5.4); Red Cell Distribution Width 15.6 % (11.5-14.5); White Blood Count 5.5 K/mm3 (4.5-10.0)
[2022-03-13 07:53] LABS: Anion Gap 3 mmol/L (8-16); Blood Urea Nitrogen 7 mg/dL (7-17); Calcium 8.1 mg/dL (8.4-10.2); Carbon Dioxide 29 mmol/L (22-30); Chloride 106 mmol/L (98-107); Estimated CRCL calculation 51 ml/min; Estimated Glomerular Filt Rate > 60; Glucose 90 mg/dL (65-110); Potassium 4.4 mmol/L (3.4-5.0); Sodium 138 mmol/L (137-145)
[2022-03-13 08:23] VITALS: PULSE 76
[2022-03-13] MEDS: METOPROLOL TARTRATE 50 MG TAB 100 MG PO ×2 (08:23→21:32)
[2022-03-13] MEDS: POTASSIUM CHLORIDE 10 MEQ TABLET.ER 20 MEQ PO ×2 (08:23→17:31)
[2022-03-13] MEDS: MICONAZOLE NITRATE 2% CREAM 30 GM TUBE 1 APPLIC TOPICAL ×2 (08:23→21:34)
[2022-03-13 08:24] VITALS: PULSE 76
[2022-03-13] MEDS: AMIODARONE HCL 200 MG TABLET PO (08:24)
[2022-03-13] MEDS: GABAPENTIN 300 MG CAPSULE PO ×2 (08:24→17:31)
[2022-03-13] MEDS: FUROSEMIDE 40 MG TABLET PO (08:24)
[2022-03-13] MEDS: ROSUVASTATIN 10 MG TABLET PO (08:24)
[2022-03-13] MEDS: amLODIPine BESYLATE 2.5 MG TABLET PO (08:24)
[2022-03-13] MEDS: ISOSORBIDE MONONITRATE 30 MG TAB.ER.24H PO (08:24)
[2022-03-13 08:37] LABS: Vancomycin Trough 6.1 ug/mL (10.0-20.0)
[2022-03-13 14:00] VITALS: BP 122/55; PULSE 69; RESP 16; TEMP 36.3; O2SAT 98
--- NOTE | 2022-03-13 15:25 | PM.IMPN ---
Progress Note: A&P Assessment and Plan (1) Cellulitis of left lower extremity: Code(s): L03.116 - Cellulitis of left lower limb Status: Acute Assessment and Plan: Stable vancomycin and continue Zosyn Possible superimposed his fungal infection, start clotrimazole cream twice a day topical use Blood culture grows group G Streptococcus 03/10/22 Continue antibiotics (2) Dyslipidemia: Code(s): E78.5 - Hyperlipidemia, unspecified Status: Acute (3) Hypothyroidism: Code(s): E03.9 - Hypothyroidism, unspecified Status: Acute Assessment and Plan: Continue Synthroid mcg daily p.o. (4) Paroxysmal atrial fibrillation with RVR: Code(s): I48.0 - Paroxysmal atrial fibrillation Status: Acute Assessment and Plan: Now patient has a sinus rhythm Continue hemorrhoidal 200 mg daily p.o. Rivaroxaban 20 mg tablet p.o. Follow-up acute (5) Gastroenteritis: Code(s): K52.9 - Noninfective gastroenteritis and colitis, unspecified Status: Acute Assessment and Plan: Had nausea vomiting at home Start Reglan 10 mg q.6 IV p.r.n. patient denies nausea vomiting now Advanced a diet tolerable hypokalemia, replace potassium chloride IV and he will need a follow-up BMP a.m. (6) Bacteremia: Code(s): R78.81 - Bacteremia Status: Acute Assessment and Plan: Blood culture grows group G Streptococcus 03/10 Susceptible to Zosyn Discontinue vancomycin Repeat blood culture Subjective Date/time seen: 03/13/22 15:25 Saw and examined the patient, patient has no even over the night. Denies nausea vomiting diarrhea Exam Narrative: GENERAL: Pleasant, in no acute distress. Well-nourished. - EYES: EOMI. Anicteric. - HENT: Moist mucous membranes. - LUNGS: Clear to auscultation bilaterally, no wheezing, rhonchi, or rales. - CARDIOVASCULAR: Regular rate and rhythm. No murmur. No JVD. - ABDOMEN: Soft, non-tender and non-distended. No palpable masses. - EXTREMITIES: 2+ edema of leftl lower extremity. Peripheral pulses 2+. Non-tender. - NEUROLOGIC: No focal neurological deficits. CN II-XII grossly intact. - PSYCHIATRIC: Awake, Alert and oriented x 3. Appropriate mood and affect. - SKIN: Scaly rashes, tender, erythema, swelling of the lower extremity, - LYMPH: No cervical lymphadenopathy. Objective Data Vital Signs Vital Signs: Vital Signs - 24 hr 03/12/22 20:31 03/12/22 22:00 03/12/22 20:00 Temperature 98.1 F Pulse Rate 74 74 Respiratory Rate 16 Blood Pressure 144/59 H Pulse Oximetry 96 Oxygen Delivery Room Air 03/13/22 06:00 03/13/22 08:23 03/13/22 08:24 Temperature 97.1 F L Pulse Rate 71 76 76 Respiratory Rate 16 Blood Pressure 152/56 H Pulse Oximetry 97 Oxygen Delivery Intake/Output Intake/Output: Intake & Output 03/10/22 03/11/22 03/12/22 03/13/22 23:59 23:59 23:59 23:59 Intake Total 2140 1720 1999 710 Output Total 450 300 Balance 2140 1270 1999 410 Meds/Results Medications: Active Medications Generic Name Dose Route Start Last Admin Trade Name Freq PRN Reason Stop Dose Admin Hydrocodone Bitart/Acetaminophen 1 tab 03/10/22 11:29 Hydrocodone/Acetaminophen (*Crx) 5-325 Mg Tablet PO BID PRN Pain Amiodarone HCl 200 mg 03/11/22 08:00 03/13/22 08:24 Amiodarone Hcl 200 Mg Tablet PO 200 mg DAILY@0800 VERN Administration Amlodipine Besylate 2.5 mg 03/11/22 09:00 03/13/22 08:24 Amlodipine Besylate 2.5 Mg Tablet PO 2.5 mg DAILY VERN Administration Furosemide 40 mg 03/11/22 09:00 03/13/22 08:24 Furosemide 40 Mg Tablet PO 40 mg DAILY VERN Administration Gabapentin 300 mg 03/10/22 17:00 03/13/22 08:24 Gabapentin 300 Mg Capsule PO 300 mg BID VERN Administration Piperacillin/Tazobactam/Dextrose 3.375 gm in 50 mls @ 100 mls/hr 03/10/22 13:00 03/13/22 13:15 Zosyn 3.375 Gm/D5w 50ml Pm IVPB 100 mls/hr Q6HR VERN Administration Vancom
[2022-03-13] MEDS: RIVAROXABAN 20 MG TABLET PO (17:31)
[2022-03-13 21:32] VITALS: PULSE 75
[2022-03-13 22:00] VITALS: BP 116/49; PULSE 75; RESP 16; TEMP 36.2; O2SAT 95
[2022-03-14] MEDS: LEVOTHYROXINE SODIUM 50 MCG TABLET PO (05:49)
[2022-03-14 06:00] VITALS: BP 147/51; PULSE 72; RESP 16; TEMP 36.6; O2SAT 94
[2022-03-14 07:04] LABS: Hematocrit 33.2 % (37.0-47.0); Hemoglobin 10.5 g/dL (12.0-15.0); Mean Corpuscular HGB Conc 31.6 g/dl (32-36); Mean Corpuscular Hemoglobin 27.6 pg (26-34); Mean Corpuscular Volume 87.1 fl (80-100); Mean Platelet Volume 10.5 fl (7.4-10.4); Platelet Count Result 229 k/mm3 (150-375); Red Blood Count 3.81 M/mm3 (4.2-5.4); Red Cell Distribution Width 15.7 % (11.5-14.5)
[2022-03-14] MEDS: POTASSIUM CHLORIDE 10 MEQ TABLET.ER 20 MEQ PO ×2 (09:38→17:10)
[2022-03-14 09:39] VITALS: PULSE 72
[2022-03-14] MEDS: ROSUVASTATIN 10 MG TABLET PO (09:39)
[2022-03-14] MEDS: AMIODARONE HCL 200 MG TABLET PO (09:39)
[2022-03-14] MEDS: amLODIPine BESYLATE 2.5 MG TABLET PO (09:39)
[2022-03-14] MEDS: GABAPENTIN 300 MG CAPSULE PO ×2 (09:39→17:10)
[2022-03-14] MEDS: ISOSORBIDE MONONITRATE 30 MG TAB.ER.24H PO (09:39)
[2022-03-14] MEDS: FUROSEMIDE 40 MG TABLET PO (09:39)
[2022-03-14 09:40] VITALS: PULSE 72
[2022-03-14] MEDS: METOPROLOL TARTRATE 50 MG TAB 100 MG PO ×2 (09:40→21:52)
[2022-03-14 10:33] LABS: Anion Gap 3 mmol/L (8-16); Blood Urea Nitrogen 7 mg/dL (7-17); Calcium 8.6 mg/dL (8.4-10.2); Carbon Dioxide 29 mmol/L (22-30); Chloride 102 mmol/L (98-107); Estimated CRCL calculation 51 ml/min; Estimated Glomerular Filt Rate > 60; Glucose 91 mg/dL (65-110); Potassium 3.5 mmol/L (3.4-5.0); Sodium 134 mmol/L (137-145)
[2022-03-14] MEDS: MICONAZOLE NITRATE 2% CREAM 30 GM TUBE 1 APPLIC TOPICAL ×2 (11:15→21:53)
--- NOTE | 2022-03-14 14:49 | PM.IMPN ---
Progress Note: A&P Assessment and Plan (1) Cellulitis of left lower extremity: Code(s): L03.116 - Cellulitis of left lower limb Status: Acute Assessment and Plan: Stable vancomycin and continue Zosyn Possible superimposed his fungal infection, start clotrimazole cream twice a day topical use Blood culture grows group G Streptococcus 03/10/22 Continue antibiotics (2) Bacteremia: Code(s): R78.81 - Bacteremia Status: Acute Assessment and Plan: Blood culture grows group G Streptococcus 03/10 Susceptible to Zosyn Discontinue vancomycin Repeat blood culture, result pending (3) Paroxysmal atrial fibrillation with RVR: Code(s): I48.0 - Paroxysmal atrial fibrillation Status: Acute Assessment and Plan: Now patient has a sinus rhythm Continue hemorrhoidal 200 mg daily p.o. Rivaroxaban 20 mg tablet p.o. Follow-up acute (4) Dyslipidemia: Code(s): E78.5 - Hyperlipidemia, unspecified Status: Acute (5) Hypothyroidism: Code(s): E03.9 - Hypothyroidism, unspecified Status: Acute Assessment and Plan: Continue Synthroid mcg daily p.o. (6) Gastroenteritis: Code(s): K52.9 - Noninfective gastroenteritis and colitis, unspecified Status: Acute Assessment and Plan: Had nausea vomiting at home Start Reglan 10 mg q.6 IV p.r.n. patient denies nausea vomiting now Advanced a diet tolerable hypokalemia, replace potassium chloride IV , corrected Time Spent With Patient Time with patient: 25 - 35 minutes Subjective Date/time seen: 03/14/22 14:49 Saw and examined patient. Patient has no overt distress, no new issue even over the night. Patient denies chest pain, shortness of breath, chest pain, and low back pain, nausea vomiting diarrhea. Exam Narrative: GENERAL: Pleasant, in no acute distress. Well-nourished. - EYES: EOMI. Anicteric. - HENT: Moist mucous membranes. - LUNGS: Clear to auscultation bilaterally, no wheezing, rhonchi, or rales. - CARDIOVASCULAR: Regular rate and rhythm. No murmur. No JVD. - ABDOMEN: Soft, non-tender and non-distended. No palpable masses. - EXTREMITIES: 2+ edema of leftl lower extremity. Peripheral pulses 2+. Non-tender. - NEUROLOGIC: No focal neurological deficits. CN II-XII grossly intact. - PSYCHIATRIC: Awake, Alert and oriented x 3. Appropriate mood and affect. - SKIN: Scaly rashes, tender, erythema, swelling of the lower extremity, - LYMPH: No cervical lymphadenopathy. Objective Data Vital Signs Vital Signs: Vital Signs - 24 hr 03/13/22 21:32 03/13/22 20:00 03/13/22 22:00 Temperature 97.2 F L Pulse Rate 75 75 Respiratory Rate 16 Blood Pressure 116/49 L Pulse Oximetry 95 Oxygen Delivery Room Air 03/14/22 06:00 03/14/22 09:39 03/14/22 09:40 Temperature 98 F Pulse Rate 72 72 72 Respiratory Rate 16 Blood Pressure 147/51 H Pulse Oximetry 94 Oxygen Delivery Intake/Output Intake/Output: Intake & Output 03/11/22 03/12/22 03/13/22 03/14/22 23:59 23:59 23:59 23:59 Intake Total 1720 1999 1500 840 Output Total 450 1500 1050 Balance 1270 1999 0 -210 Meds/Results Medications: Active Medications Generic Name Dose Route Start Last Admin Trade Name Freq PRN Reason Stop Dose Admin Hydrocodone Bitart/Acetaminophen 1 tab 03/10/22 11:29 Hydrocodone/Acetaminophen (*Crx) 5-325 Mg Tablet PO BID PRN Pain Amiodarone HCl 200 mg 03/11/22 08:00 03/14/22 09:39 Amiodarone Hcl 200 Mg Tablet PO 200 mg DAILY@0800 VERN Administration Amlodipine Besylate 2.5 mg 03/11/22 09:00 03/14/22 09:39 Amlodipine Besylate 2.5 Mg Tablet PO 2.5 mg DAILY VERN Administration Furosemide 40 mg 03/11/22 09:00 03/14/22 09:39 Furosemide 40 Mg Tablet PO 40 mg DAILY VERN Administration Gabapentin 300 mg 03/10/22 17:00 03/14/22 09:39 Gabapentin 300 Mg Capsule PO 300 mg BID VERN Administration Piperacillin/Tazobactam/Dextro
[2022-03-14 15:00] VITALS: BP 128/53; PULSE 65; RESP 18; TEMP 36.6; O2SAT 100
[2022-03-14] MEDS: RIVAROXABAN 20 MG TABLET PO (18:23)
[2022-03-14 21:50] VITALS: BP 114/45; PULSE 80; RESP 18; TEMP 36.3; O2SAT 97
[2022-03-14 21:52] VITALS: PULSE 80
[2022-03-15] MEDS: LEVOTHYROXINE SODIUM 50 MCG TABLET PO (05:38)
[2022-03-15 06:00] VITALS: BP 132/43; PULSE 73; RESP 18; TEMP 36.4; O2SAT 97
[2022-03-15 09:19] VITALS: PULSE 80
[2022-03-15] MEDS: amLODIPine BESYLATE 2.5 MG TABLET PO (09:19)
[2022-03-15] MEDS: POTASSIUM CHLORIDE 10 MEQ TABLET.ER 20 MEQ PO ×2 (09:19→17:45)
[2022-03-15] MEDS: ISOSORBIDE MONONITRATE 30 MG TAB.ER.24H PO (09:19)
[2022-03-15] MEDS: METOPROLOL TARTRATE 50 MG TAB 100 MG PO (09:19)
[2022-03-15] MEDS: AMIODARONE HCL 200 MG TABLET PO (09:19)
[2022-03-15] MEDS: GABAPENTIN 300 MG CAPSULE PO ×2 (09:20→17:44)
[2022-03-15] MEDS: ROSUVASTATIN 10 MG TABLET PO (09:20)
[2022-03-15] MEDS: FUROSEMIDE 40 MG TABLET PO (09:20)
[2022-03-15] MEDS: MICONAZOLE NITRATE 2% CREAM 30 GM TUBE 1 APPLIC TOPICAL (09:32)
[2022-03-15 14:00] VITALS: BP 114/41; PULSE 64; RESP 16; TEMP 36.8; O2SAT 97
--- NOTE | 2022-03-15 15:21 | PM.DS ---
DS: Admitting Diagnosis Discharge Date 03/15/2022 Admitting Diagnosis Pain, swelling and erythema of left lower extremity, nausea vomiting, DS: Discharge Diagnosis Discharge Diagnosis (1) Cellulitis of left lower extremity: Code(s): L03.116 - Cellulitis of left lower limb Status: Acute Assessment and Plan: Stable vancomycin and continue Zosyn Possible superimposed his fungal infection, start clotrimazole cream twice a day topical use Blood culture grows group G Streptococcus 03/10/22 Continue antibiotics (2) Bacteremia: Code(s): R78.81 - Bacteremia Status: Acute Assessment and Plan: Blood culture grows group G Streptococcus / Susceptible to Zosyn Discontinue vancomycin Repeat blood culture, result pending (3) Paroxysmal atrial fibrillation with RVR: Code(s): I48.0 - Paroxysmal atrial fibrillation Status: Acute Assessment and Plan: Now patient has a sinus rhythm Continue hemorrhoidal 200 mg daily p.o. Rivaroxaban 20 mg tablet p.o. Follow-up acute (4) Dyslipidemia: Code(s): E78.5 - Hyperlipidemia, unspecified Status: Acute (5) Hypothyroidism: Code(s): E03.9 - Hypothyroidism, unspecified Status: Acute Assessment and Plan: Continue Synthroid mcg daily p.o. (6) Gastroenteritis: Code(s): K52.9 - Noninfective gastroenteritis and colitis, unspecified Status: Acute Assessment and Plan: Had nausea vomiting at home Start Reglan 10 mg q.6 IV p.r.n. patient denies nausea vomiting now Advanced a diet tolerable hypokalemia, replace potassium chloride IV , corrected DS: Summary Hospital Course Reason for hospitalization: Chief Complaint: Pain, swelling and erythema of left lower extremity, nausea vomiting, Narrative: 86 years old lady with history hypertension, hypothyroidism, presented ED with a chief complaint of pain swelling, erythema of the left lower extremity, and nausea vomiting.? Patient has scattered rashes of left lower extremity in past few months.? In the past few days, patient has develops pain swelling, tenderness of her left lower extremity started patient also has intermittent nausea vomiting.? Patient denies abdomen pain, diarrhea.? Patient has low-grade fever.? Patient denies dysuria, headache, focal weakness. Hospital Course: Patient races improved as well as her clinicals symptoms, blood cultures growing group G Streptococcus sensitive to Rocephin will discharge the patient on Cefdinir, patient will follow-up with her primary care provider Time Spent with Patient Time attestation: Total time spent providing and/or coordinating discharge services: Exam Narrative: GENERAL: Pleasant, in no acute distress. Well-nourished. - EYES: EOMI. Anicteric. - HENT: Moist mucous membranes. - LUNGS: Clear to auscultation bilaterally, no wheezing, rhonchi, or rales. - CARDIOVASCULAR: Regular rate and rhythm. No murmur. No JVD. - ABDOMEN: Soft, non-tender and non-distended. No palpable masses. - EXTREMITIES: 2+ edema of leftl lower extremity. Peripheral pulses 2+. Non-tender. - NEUROLOGIC: No focal neurological deficits. CN II-XII grossly intact. - PSYCHIATRIC: Awake, Alert and oriented x 3. Appropriate mood and affect. - SKIN: Scaly rashes, tender, erythema, swelling of the lower extremity, - LYMPH: No cervical lymphadenopathy. DS: Data Data Completed and Pending Labs on day of discharge: Preliminary micro results at discharge 03/13/22 16:07 Blood Culture - Preliminary Blood 03/13/22 16:07 Blood Culture - Preliminary Blood 03/10/22 05:58 Blood Culture - Preliminary Blood Group G Streptococcus Discharge Plan Discharge Attending physician on discharge: Talita Velasco Consulting providers: Pee Ruff ; Ben Bridges ; Hayder Bennett Discharging Clinician: Talita Velasco Patient Disposition: Home Health Service Discharge Instructions: Per Care Coordina
[2022-03-15] MEDS: RIVAROXABAN 20 MG TABLET PO (17:45)
== END 2022-03-15 17:50 | disposition home health service (06) | DRG 603 ==
LOC: ANHED 06:51 → ANH3MEDSUR 07:50
PROVIDERS: Hospitalist; Admitting Provider Internal Medicine; Emergency Provider Emergency Medicine; PCP Family Medicine; Visit Provider Family Medicine
DX: L03.116 Cellulitis of left lower limb (principal); R78.81 Bacteremia; B95.1 Streptococcus, group B, as the cause of diseases classified elsewhere; Z20.822 Contact with and (suspected) exposure to COVID-19; M19.90 Unspecified osteoarthritis, unspecified site; D64.9 Anemia, unspecified; I48.0 Paroxysmal atrial fibrillation; K21.9 Gastro-esophageal reflux disease without esophagitis; I25.10 Atherosclerotic heart disease of native coronary artery without angina pectoris; E03.9 Hypothyroidism, unspecified; I10 Essential (primary) hypertension; E78.5 Hyperlipidemia, unspecified; K52.9 Noninfective gastroenteritis and colitis, unspecified; D72.829 Elevated white blood cell count, unspecified; Z96.651 Presence of right artificial knee joint; Z87.11 Personal history of peptic ulcer disease; Z90.49 Acquired absence of other specified parts of digestive tract; Z85.3 Personal history of malignant neoplasm of breast; Z87.891 Personal history of nicotine dependence
CPT/HCPCS: 36415; 71045; 80048; 80053; 80202; 81001; 82565; 83605; 84484; 85025; 85027; 85610; 85730; 86140; 87040; 87147; 87181; 87186; 87636; 93005; 96365; 96375; 99285; A9270; J0131; J2543; J2765; J3370; J3480; J7040; J7120

== ENCOUNTER 2022-05-28 14:43 | Emergency (ER) | payer MEDICARE, SELFPAY ==
--- NOTE | ~2022-05-28 | XR_ITS ---
XR chest 2V DATE: 05/28/2022 15:23 INDICATION: Dry cough for 2 weeks. Past smoker. TECHNIQUE: 2 views COMPARISON: 03/10/2022 portable AP chest at 0607 hours FINDINGS: Cardiomegaly. Aortic arch and descending thoracic aortic calcification. Abdominal aortic ca lcification. Bilateral moderate hyperinflation. No pulmonary infiltrate or consolidation, pleural effusion or pulm onary vascular congestion or pneumothorax is detected. Surgical clips along anterior right chest/breast area. Status post cholecystectomy. Osteopenia. Degenerative changes of the thoracic and lumbar spine. IMPRESSION: Cardiomegaly, aortic atherosclerosis. Moderate bilateral hyperinflation Postoperative change of right breast Status post cholecystectomy Reviewed, dictated and finalized at location A.
[2022-05-28 14:52] VITALS: BP 144/64; PULSE 51; RESP 16; TEMP 37; O2SAT 97
[2022-05-28 14:54] VITALS: BP 144/64; PULSE 51; RESP 16; TEMP 37; O2SAT 97
--- NOTE | 2022-05-28 14:54 | ED.URI ---
HPI - URI/Sore Throat General Chief Complaint: Upper Respiratory Infection Stated Complaint: productive cough, chest tightness Time Seen by Provider: 05/28/22 14:54 Source: patient Mode of arrival: ambulatory Limitations: no limitations History of Present Illness HPI Narrative: 86-year-old female presents with daughter with complaint cough for 1 week. Reports a few days ago daughter felt that cough was wet So patient started taking Mucinex and cough is now dry. Denies chest pain and shortness of breath. Afebrile. Is taking [id number] medications to treat cough and states just keeps coughing and coughing . Patient speaking in full sentences. No respiratory distress. All systems reviewed and negative except as noted above. Related Data Home Medications Medication Instructions Recorded Confirmed potassium chloride 10 mEq 20 meq PO BID 01/08/19 05/28/22 tablet,extended release (Klor-Con) furosemide 40 mg tablet (Lasix) 40 mg PO DAILY 02/21/19 05/28/22 isosorbide mononitrate 30 mg 30 mg PO DAILY 02/21/19 05/28/22 tablet,extended release 24 hr metoprolol tartrate 100 mg tablet 100 mg PO BID 02/21/19 05/28/22 amiodarone 200 mg tablet (Pacerone) 200 mg PO DAILY@0800 10/19/21 05/28/22 amlodipine 2.5 mg tablet 2.5 mg PO DAILY 10/19/21 05/28/22 gabapentin 300 mg capsule 300 mg PO BID 10/19/21 05/28/22 rosuvastatin 10 mg tablet 10 mg PO DAILY 12/19/21 05/28/22 levothyroxine 50 mcg tablet 50 mcg PO DAILY 03/10/22 05/28/22 Allergies Allergy/AdvReac Type Severity Reaction Status Date / Time penicillin V Allergy Intermediate Rash Verified 05/28/22 14:52 Penicillins Allergy Intermediate Rash Verified 05/28/22 14:52 adhesive tape Allergy Unknown RASH Verified 05/28/22 14:52 morphine AdvReac Intermediate Vomiting Verified 05/28/22 14:52 meperidine AdvReac Unknown WOOZY Verified 05/28/22 14:52 Review of Systems Review of Systems: CONSTITUTIONAL: Denies fever, chills, or sweats. reports fatigue. EYES: Denies visual changes, redness, or discharge. ENT: Denies rhinorrhea, congestion, sore throat, or otalgia. CARDIOVASCULAR: Denies chest pain, palpitations, or edema. RESPIRATORY: Reports cough. Denies dyspnea. GASTROINTESTINAL: Denies abdominal pain, nausea, vomiting, or diarrhea. GENITOURINARY: Denies dysuria or hematuria. SKIN: Denies rash or itching. MUSCULOSKELETAL: Denies back pain, joint pain, or myalgia. NEUROLOGIC: Denies headache, numbness, or weakness. PSYCHIATRIC: Denies anxiety or depression. All other systems reviewed are negative, except as documented in HPI. [facility] Past Medical History Medical History Abnormal colonoscopy Colonoscopy per Dr. Peters in July 2013 showed diverticulosis, uncomplicated internal external hemorrhoids, and a hyperplastic polyp. Acute lower GI bleeding Anemia Atrial fibrillation She has had several cardioversions, and had a cardiac ablation this year at [facility]. Cancer of right breast Status post lumpectomy and radiation in 2006. Cellulitis Dyslipidemia GERD (gastroesophageal reflux disease) Hearing loss of both ears History of peptic ulcer Hypertension Hypothyroidism Migraine headache Mild coronary artery disease Cardiac catheterization October 2018 showed no angiographically significant coronary disease, at best 40% stenosis at the ostium of the 1st diagonal branch. Osteoarthritis Seasonal allergic rhinitis JOSH (stress urinary incontinence, female) Vision loss Surgical History Surgical History History of 3 sections History of appendectomy History of lumpectomy of right breast For breast cancer in 2006. Status post arthroscopic knee surgery Status post laparoscopic cholecystectomy Status post right knee replacement Family History Family History Mother Patient's mother is Family h
== END 2022-05-28 15:53 | disposition home or self-care (01) ==
PROVIDERS: Emergency Provider Nurse Practitioner Family; PCP Family Medicine
DX: J20.9 Acute bronchitis, unspecified (principal); I48.91 Unspecified atrial fibrillation; I10 Essential (primary) hypertension; E03.9 Hypothyroidism, unspecified; E78.5 Hyperlipidemia, unspecified; Z85.3 Personal history of malignant neoplasm of breast; Z87.891 Personal history of nicotine dependence
CPT/HCPCS: 71046; 99213; G0463

== ENCOUNTER 2022-10-23 22:48 | Emergency (ER) | payer MEDICARE, SELFPAY ==
--- NOTE | ~2022-10-23 | XR_ITS ---
EXAMINATION: XR chest 1V portable DATE: 10/24/2022 00:23 INDICATION: Weakness. TECHNIQUE: A single frontal view of the chest was obtained. COMPARISON: Chest 2 views 05/28/2022, CT abdomen and pelvis 07/22/2021 FINDINGS: There is mild atelectasis in the lower lung zones. There is a mass in left lower lung zone correlating with a diaphragmatic hernia containing fat by CT. No pleural effusion or pneumothorax. Ca rdiomegaly is noted. Surgical clips overlie right chest. IMPRESSION: 1. Mild atelectasis in the lower lung zones. 2. Cardiomegaly. Reviewed, dictated and finalized at location A.
--- NOTE | ~2022-10-23 | CT_ITS ---
EXAMINATION: CT brain wo con DATE: 10/24/2022 00:13 INDICATION: Dizziness. TECHNIQUE: Computed tomography (CT) of the head was performed without intravenous contrast. The mA wa s adjusted according to patient size. Iterative reconstruction technique was employed. The dose-lengt h product was 605.33 mGy-cm. COMPARISON: Head CT 07/22/2021 FINDINGS: There are scattered areas of low attenuation in the cerebral white matter. There is no intr acranial hemorrhage, acute infarction, or abnormal intracranial mass lesion. The ventricles are antoine l in size. There are likely changes of ocular lens replacement surgeries. There is mild mucosal thick ening in the paranasal sinuses. There is a small right mastoid effusion. IMPRESSION: 1. Stable extensive nonspecific cerebral white matter disease, which likely represents chronic small vessel ischemic disease. Reviewed, dictated and finalized at location A. IMPRESSION: 1. Stable extensive nonspecific cerebral white matter disease, which likely rep resents chronic small vessel ischemic disease.
[2022-10-23 22:52] VITALS: BP 156/76; PULSE 72; RESP 20; TEMP 36.6; O2SAT 98
[2022-10-23 23:00] VITALS: PULSE 70
[2022-10-23 23:01] VITALS: BP 182/56; PULSE 66; RESP 13; TEMP 36.5; O2SAT 99
--- NOTE | 2022-10-23 23:20 | ECG_ITS ---
Measurements Intervals [place] Rate: 62 P: 91 WI: 204 QRS: -17 QRSD: 89 T: 57 QT: 414 QTc: 423 Interpretive Statements SINUS RHYTHM NONSPECIFIC T-WAVE ABNORMALITY ABNORMAL ECG COMPARED TO ECG 03/10/2022 05:46:40 REDUCED HEART RATE NO OTHER SIGNIFICANT CHANGE Electronically Signed On 10-24-2022 7:15:54 CDT by Donnie Saunders M.D.
[2022-10-23 23:51] LABS: Basophils Percent Auto 0.9 % (0.2-1.2); Eosinophils Absolute Auto 0.1 K/mm3 (0-0.3); Eosinophils Percent Auto 1.3 % (0-4.4); Hematocrit 45.6 % (37.0-47.0); Hemoglobin 14.6 g/dL (12.0-15.0); Immature Granulocyte Absolute 0.01 K/mm3 (0.00-0.031); Immature Granulocyte Percent A 0.2 % (0-0.5); Mean Corpuscular Hemoglobin 29.3 pg (26-34); Mean Corpuscular Volume 91.4 fl (80-100); Mean Platelet Volume 11.3 fl (7.4-10.4); Monocytes Absolute Auto 0.4 K/mm3 (0.1-0.6); Monocytes Percent Auto 8.6 % (2.6-8.5); Neutrophils Absolute Auto 2.8 K/mm3 (1.3-6.7); Platelet Count Result 201 k/mm3 (150-375); Red Blood Count 4.99 M/mm3 (4.2-5.4); Red Cell Distribution Width 14.4 % (11.5-14.5); White Blood Count 4.7 K/mm3 (4.5-10.0)
[2022-10-24 00:03] LABS: Magnesium 2.2 mg/dL (1.6-2.3)
[2022-10-24 00:04] LABS: Lactic Acid Reflex 0.7 mmol/L (0.7-2.0)
[2022-10-24 00:05] LABS: Alanine Aminotransferase 20 U/L (6-35); Albumin Level 4.5 g/dL (3.5-5.1); Alkaline Phosphatase 74 U/L (38-126); Anion Gap 4 mmol/L (8-16); Aspartate Amino Transferase 37 U/L (14-36); Bilirubin,Total 0.7 mg/dL (0.2-1.3); Blood Urea Nitrogen 15 mg/dL (7-17); Calcium 9.7 mg/dL (8.4-10.2); Carbon Dioxide 34 mmol/L (22-30); Chloride 102 mmol/L (98-107); Estimated CRCL calculation 35 ml/min; Estimated Glomerular Filt Rate > 60; Glucose 99 mg/dL (65-110); INR 1.1; Potassium 3.6 mmol/L (3.4-5.0); Sodium 140 mmol/L (137-145)
[2022-10-24 00:06] LABS: Partial Thromboplastin Time 35.6 SECONDS (22.3-36.8)
[2022-10-24 00:13] LABS: Appearance Urine Clear (Clear); Bacteria Urine None Seen /hpf; Bilirubin Urine Negative (Negative); Blood Urine Trace (Negative); Color Urine Yellow (Yellow); Glucose Urine UA Negative (Negative); Ketones Urine Negative (Negative); Leukocyte Esterase Ur Negative LEU/UL (Negative); Nitrate Urine Negative (Negative); Non Pathogenic Casts 0-2; Protein Urine Negative (Negative); RBC Urine 0-2 /hpf (0-2); Specific Grav Ur 1.006 (1.001-1.035); Squamous Epithelial Cell Urine None seen /hpf (Few); Urobilinogen Urine 0.2 mg/dL (<2.0); WBC Urine 0-5 /hpf
[2022-10-24 00:16] VITALS: BP 151/78; BP 152/51; BP 164/63; PULSE 65; PULSE 69; PULSE 74
[2022-10-24 00:16] LABS: Troponin I < 0.012 ng/mL (0.000-0.034)
[2022-10-24 00:28] LABS: Add Urine Microscopic? YES
[2022-10-24 00:30] LABS: Influenza A QL RT-PCR Negative (Negative); Influenza B QL RT-PCR Negative (Negative); SARS-CoV-2 RNA PCR Negative (Negative)
[2022-10-24 00:45] VITALS: BP 140/71; PULSE 63; RESP 12; O2SAT 95
--- NOTE | 2022-10-24 01:53 | ED.GENADULT ---
HPI - General Adult General Chief complaint: Dizziness Stated complaint: my head is shaky, I'm shaky. Time Seen by Provider: 10/23/22 23:01 History of Present Illness HPI narrative: Patient is a 87-year-old female who presents the emergency department chief complaint of dizziness patient reports that this evening she decided not to take her medications and noticed that she had an episode where she started to feel lightheaded like she was almost off balance patient reports she had some tightness in her chest that she has been having for some period of time patient states that that she is currently not having any active chest pain Related Data Home Medications Medication Instructions Recorded Confirmed potassium chloride 10 mEq 20 meq PO BID 01/08/19 05/28/22 tablet,extended release (Klor-Con) furosemide 40 mg tablet (Lasix) 40 mg PO DAILY 02/21/19 05/28/22 isosorbide mononitrate 30 mg 30 mg PO DAILY 02/21/19 05/28/22 tablet,extended release 24 hr metoprolol tartrate 100 mg tablet 100 mg PO BID 02/21/19 05/28/22 amiodarone 200 mg tablet (Pacerone) 200 mg PO DAILY@0800 10/19/21 05/28/22 amlodipine 2.5 mg tablet 2.5 mg PO DAILY 10/19/21 05/28/22 gabapentin 300 mg capsule 300 mg PO BID 10/19/21 05/28/22 rosuvastatin 10 mg tablet 10 mg PO DAILY 12/19/21 05/28/22 levothyroxine 50 mcg tablet 50 mcg PO DAILY 03/10/22 05/28/22 Allergies Allergy/AdvReac Type Severity Reaction Status Date / Time penicillin V Allergy Intermediate Rash Verified 05/28/22 14:52 Penicillins Allergy Intermediate Rash Verified 05/28/22 14:52 adhesive tape Allergy Unknown RASH Verified 05/28/22 14:52 morphine AdvReac Intermediate Vomiting Verified 05/28/22 14:52 meperidine AdvReac Unknown WOOZY Verified 05/28/22 14:52 Review of Systems Review of Systems: A 10 system review of systems was completed on the patient and is negative except for what is stated in the HPI. Nursing and ancillary documentation was reviewed. [facility] Past Medical History Medical History Abnormal colonoscopy Colonoscopy per Dr. Peters in July 2013 showed diverticulosis, uncomplicated internal external hemorrhoids, and a hyperplastic polyp. Acute lower GI bleeding Anemia Atrial fibrillation She has had several cardioversions, and had a cardiac ablation this year at [facility]. Cancer of right breast Status post lumpectomy and radiation in 2006. Cellulitis Dyslipidemia GERD (gastroesophageal reflux disease) Hearing loss of both ears History of peptic ulcer Hypertension Hypothyroidism Migraine headache Mild coronary artery disease Cardiac catheterization October 2018 showed no angiographically significant coronary disease, at best 40% stenosis at the ostium of the 1st diagonal branch. Osteoarthritis Seasonal allergic rhinitis JOSH (stress urinary incontinence, female) Vision loss Surgical History Surgical History History of 3 sections History of appendectomy History of lumpectomy of right breast For breast cancer in 2006. Status post arthroscopic knee surgery Status post laparoscopic cholecystectomy Status post right knee replacement Family History Family History Mother Patient's mother is Family history of type 2 diabetes mellitus Family history of Parkinson's disease, Onset Age: 89 Father Family history of heart disease in male family member before age 55, Onset Age: 37 Patient's father is , Onset Age: 37 Family history of hepatitis, Onset Age: 37 Family history of nephrotic syndrome, Onset Age: 37 Son Motor vehicle accident Social History Social History Social History: The patient is . She lives with her daughter, Jaida and their dog Persaud (a pit bull)
[2022-10-24 02:08] VITALS: BP 162/58; PULSE 61; RESP 12; O2SAT 97
[2022-10-24 03:12] LABS: Troponin I < 0.012 ng/mL (0.000-0.034)
[2022-10-24 04:12] VITALS: BP 158/65; PULSE 65; RESP 20; O2SAT 95
== END 2022-10-24 04:51 | disposition home or self-care (01) ==
PROVIDERS: Emergency Provider Emergency Medicine; PCP Family Medicine
DX: R42 Dizziness and giddiness (principal); Z20.822 Contact with and (suspected) exposure to COVID-19; I48.91 Unspecified atrial fibrillation; I10 Essential (primary) hypertension; I25.10 Atherosclerotic heart disease of native coronary artery without angina pectoris; E78.5 Hyperlipidemia, unspecified; M19.90 Unspecified osteoarthritis, unspecified site; K21.9 Gastro-esophageal reflux disease without esophagitis; N39.3 Stress incontinence (female) (male); Z96.651 Presence of right artificial knee joint; Z87.11 Personal history of peptic ulcer disease; Z85.3 Personal history of malignant neoplasm of breast; Z92.3 Personal history of irradiation; Z86.2 Personal history of diseases of the blood and blood-forming organs and certain disorders involving the immune mechanism; Z87.891 Personal history of nicotine dependence; Z90.49 Acquired absence of other specified parts of digestive tract; R94.31 Abnormal electrocardiogram [ECG] [EKG]; I51.7 Cardiomegaly; R90.82 White matter disease, unspecified
CPT/HCPCS: 36415; 70450; 71045; 80053; 81001; 83605; 83735; 84484; 85025; 85610; 85730; 87636; 93005; 99284

== ENCOUNTER 2023-05-25 11:14 | Outpatient (CLI) | payer MEDICARE, SELFPAY ==
[2023-05-25 11:59] LABS: Basophils Percent Auto 0.8 % (0.2-1.2); Eosinophils Absolute Auto 0.1 K/mm3 (0-0.3); Hematocrit 44.5 % (37.0-47.0); Hemoglobin 13.9 g/dL (12.0-15.0); Immature Granulocyte Absolute 0.01 K/mm3 (0.00-0.031); Immature Granulocyte Percent A 0.2 % (0-0.5); Lymphocytes Absolute Auto 1.51 K/mm3 (0.9-3.2); Lymphocytes Percent Auto 30.7 % (18.3-44.2); Mean Corpuscular HGB Conc 31.2 g/dl (32-36); Mean Corpuscular Volume 92.9 fl (80-100); Mean Platelet Volume 11.2 fl (7.4-10.4); Monocytes Absolute Auto 0.6 K/mm3 (0.1-0.6); Monocytes Percent Auto 11.6 % (2.6-8.5); Neutrophils Absolute Auto 2.7 K/mm3 (1.3-6.7); Neutrophils Percent Auto 54.7 % (45.5-73.1); Platelet Count Result 200 k/mm3 (150-375); Red Blood Count 4.79 M/mm3 (4.2-5.4); Red Cell Distribution Width 14.4 % (11.5-14.5); White Blood Count 4.9 K/mm3 (4.5-10.0)
[2023-05-25 12:14] LABS: Alanine Aminotransferase 12 U/L (6-35); Albumin Level 4.1 g/dL (3.5-5.1); Alkaline Phosphatase 58 U/L (38-126); Anion Gap 1 mmol/L (8-16); Aspartate Amino Transferase 32 U/L (14-36); Bilirubin,Total 0.7 mg/dL (0.2-1.3); Blood Urea Nitrogen 16 mg/dL (7-17); Calcium 9.9 mg/dL (8.4-10.2); Carbon Dioxide 36 mmol/L (22-30); Chloride 103 mmol/L (98-107); Cholesterol 165 mg/dL (0-200); Estimated Glomerular Filt Rate 60; Glucose 91 mg/dL (65-110); HDL Direct 67 mg/dL; Potassium 3.7 mmol/L (3.4-5.0); Sodium 140 mmol/L (137-145); Triglycerides 104 mg/dL (<150)
[2023-05-25 12:29] LABS: LDL Cholesterol Direct 70 mg/dL
[2023-05-27 13:17] LABS: Total Triiodothyronine (T3) 0.94 NG/ML (0.97-1.69)
== END 2023-05-25 11:15 | disposition home or self-care (01) ==
PROVIDERS: Registered Nurse; PCP Family Medicine; Visit Provider Family Medicine
DX: E78.5 Hyperlipidemia, unspecified (principal); I10 Essential (primary) hypertension; R53.83 Other fatigue
CPT/HCPCS: 36415; 80053; 80061; 84439; 84443; 84480; 84481; 85025

== ENCOUNTER 2023-10-05 16:50 | Outpatient (CLI) | payer MEDICARE, SELFPAY ==
--- NOTE | ~2023-10-05 | XR_ITS ---
EXAMINATION: XR chest 2V DATE: 10/05/2023 17:09 INDICATION: . Risk for amiodarone toxicity TECHNIQUE: PA and lateral views of the chest were obtained. COMPARISON: Chest radiograph dated 10/24/2022 FINDINGS: Mild eventration along the left and right sides of the diaphragm. Persistent mild streaky atelectasis /scarring at the bilateral lung bases. No pulmonary edema, pleural effusion or pneumothorax. Mild car diomegaly. Couple surgical clips along the anterior right chest IMPRESSION: 1. Unchanged mild streaky bibasilar atelectasis/scarring. 2. Cardiomegaly. Reviewed, dictated and finalized at location A.
== END 2023-10-05 16:51 | disposition home or self-care (01) ==
LOC: ANHIMG 16:52
PROVIDERS: PCP Family Medicine; Visit Provider Nurse Practitioner Adult Health
DX: I51.7 Cardiomegaly (principal); R91.8 Other nonspecific abnormal finding of lung field; Z79.899 Other long term (current) drug therapy; Z91.89 Other specified personal risk factors, not elsewhere classified
CPT/HCPCS: 71046

== ENCOUNTER 2023-12-05 09:22 | Inpatient (IN) | payer MEDICARE, SELFPAY ==
[2023-12-05] VITALS (7 sets, daily range): BP systolic 139–158; BP diastolic 53–92; PULSE 79–97; RESP 16–20; TEMP 36.7–37.3; O2SAT 96–99; BMI 25.6
--- NOTE | ~2023-12-05 | US_ITS ---
EXAMINATION: US soft tissue head and neck, US thyroid DATE: 12/06/2023 14:30 INDICATION: Left facial and neck swelling. Concern for Meño's angina. TECHNIQUE: 1. Multiple grayscale and Doppler ultrasound images of the left face and neck were obtained. 2. Multiple ultrasound images of the thyroid were obtained. COMPARISON: CT dated 12/06/2023 FINDINGS: The right thyroid lobe measures 4.6 x 2.1 x 1.8 cm. The left thyroid lobe measures 4.2 x 1.9 x 1.9 c m. Thyroid isthmus measures 3 to 4 mm in thickness. There is a 2.2 x 1.7 x 1.4 cm wider than tall so lid hypoechoic nodule with smooth to ill-defined margins and without echogenic foci in the left thyro id lobe (TI-RADS 4, moderately suspicious , FNA if >=1.5 cm, annual followup is >=1 cm). There is an additional subtle 2.5 cm solid wider than tall mildly hypoechoic nodule with ill-defined margins in t he right thyroid lobe. There are few normal-sized left jugular chain lymph nodes the largest measuring 6 mm in maximal short axis diameter with normal central echogenic fatty hilum. There is subcutaneous edema in the left nec k and submandibular region. The left submandibular gland is unremarkable. No pathologically enlarged lymphadenopathy, abnormal masses or fluid collections identified at the left face or neck. IMPRESSION: 1. Multinodular goiter with 2.5 cm right-sided and 2.2 cm left-sided Ti rads 4 thyroid nodules which would meet consensus criteria for biopsy. Could consider either ultrasound-guided biopsy or continued follow-up as clinically indicated taking into account patient age. 2. Thoracic subcutaneous edema at the left face and neck with normal sized left jugular chain lymph n odes. No pathologically enlarged lymphadenopathy or other abnormal masses or fluid collections identi fied. Reviewed, dictated and finalized at location A. IMPRESSION: 1. Multinodular goiter with 2.5 cm right-sided and 2.2 cm left-sided Ti rads 4 thyroid nodules which would meet consensus criteria for biopsy. Could consider either ultrasound-guided biopsy or continued follow-up as clinically indicated taking into account patient age. 2. Thoracic subcutaneous edema at the left face and neck with normal sized left jugular chain lymph nodes. No pathologically enlarged lymphadenopathy or other abnormal masses or fluid collections identified.
--- NOTE | ~2023-12-05 | CT_ITS ---
CT scan of the Neck Technique: 2.5 mm axial scans were obtained through the neck after intravenous administration of 75 c c Omnipaque 350. Coronal and sagittal reconstructions of the neck were obtained. Dose reduction techn ique was used on this scan by utilizing automated exposure control and iterative reconstruction techn ique. The dose-length product (DLP) was 303.15 mGy-cm. Clinical History: Left ear and facial infection Findings: There is extensive subcutaneous soft tissue edema extending from the left cheek inferior to the level of the left thyroid gland is asymmetric soft tissue prominence and haziness. No discrete fluid colle ction seen. There is possible mild enlargement of the left parotid gland as compared to the right dif fusely. There is swelling of left ear as compared to the right ear. No significant lymphadenopathy ev ident. Parapharyngeal fat preserved. No airway compromise identified. The pharyngeal mucosal spaces appear normal. No soft tissue masses are seen in the neck. The thyroid gland demonstrates 1.8 cm hypodense nodule in the right lobe. Images of the lung apices r eveal 7 mm irregular right upper lobe pulmonary nodule (axial image 99). Impression: Extensive nonspecific soft tissue edema in the left face and neck, compatible with nonspecific infect ious/inflammatory process. No abscess or discrete fluid collection seen. No definite lymphadenopathy. Mild enlargement of the left parotid gland could reflect associated parotitis. 7 mm right upper lobe pulmonary nodule. Early neoplasm not excluded. According to Fleischner Society criteria, for a low-risk patient, recommend follow-up CT scan in 6-12 months, then consider additiona l 18-[address] 4 high-risk patient, follow-up CT scans at both 6-12 months and 18-24 months are re commended. 1.8 cm hypodense right thyroid lobe nodule. Consider follow-up thyroid ultrasound, as indicated. Reviewed, dictated and finalized at location . Impression: Extensive nonspecific soft tissue edema in the left face and neck, compatible w ith nonspecific infectious/inflammatory process. No abscess or discrete fluid c ollection seen. No definite lymphadenopathy. Mild enlargement of the left parotid gland could reflect associated parotitis. 7 mm right upper lobe pulmonary nodule. Early neoplasm not excluded. According to Fleischner Society criteria, for a low-risk patient, recommend follow-up CT scan in 6-12 months, then consider additional 18-[address] 4 high-risk patie nt, follow-up CT scans at both 6-12 months and 18-24 months are recommended. 1.8 cm hypodense right thyroid lobe nodule. Consider follow-up thyroid ultrasou nd, as indicated.
--- NOTE | 2023-12-05 09:44 | ED.SKABFB ---
HPI - Skin/Abscess/Foreign Bdy General Chief complaint: Skin/Abscess/Foreign Body Stated complaint: rash to L face and ear ache Time Seen by Provider: 12/05/23 09:38 History of Present Illness HPI narrative: Pt presents with pain and redness to her left ear and face. Pt has had some pain in her left ear for about a week. Pt noticed redness to her ear yesterday and spread to face this morning. Pt denies fever. Pt has not been swimming. Related Data Home Medications Medication Instructions Recorded Confirmed potassium chloride 10 mEq 10 meq PO BID 01/08/19 12/05/23 tablet,extended release (Klor-Con) furosemide 40 mg tablet (Lasix) 40 mg PO DAILY 02/21/19 12/05/23 isosorbide mononitrate 30 mg 30 mg PO DAILY 02/21/19 12/05/23 tablet,extended release 24 hr metoprolol tartrate 100 mg tablet 100 mg PO BID 02/21/19 12/05/23 amiodarone 200 mg tablet (Pacerone) 200 mg PO DAILY@0800 10/19/21 12/05/23 amlodipine 2.5 mg tablet 2.5 mg PO DAILY 10/19/21 12/05/23 gabapentin 300 mg capsule 300 mg PO BID 10/19/21 12/05/23 rosuvastatin 10 mg tablet 10 mg PO DAILY 12/19/21 12/05/23 levothyroxine 50 mcg tablet 50 mcg PO DAILY 03/10/22 12/05/23 cholecalciferol (vitamin D3) 25 50 mcg PO DAILY 12/05/23 12/05/23 mcg (1,000 unit) tablet (Vitamin D3) hydrocodone 5 mg-acetaminophen 325 1 tablet PO Q6H PRN Pain (Scale 12/05/23 12/05/23 mg tablet Score 4-6) rivaroxaban 20 mg tablet (Xarelto) 20 mg PO QPM 12/05/23 12/05/23 Allergies Allergy/AdvReac Type Severity Reaction Status Date / Time penicillin V Allergy Intermediate Rash Verified 12/05/23 14:34 Penicillins Allergy Intermediate Rash Verified 12/05/23 14:34 adhesive tape Allergy Unknown RASH Verified 12/05/23 14:34 morphine AdvReac Intermediate Vomiting Verified 12/05/23 14:34 meperidine AdvReac Unknown WOOZY Verified 12/05/23 14:34 Review of Systems Review of Systems: All systems reviewed & are unremarkable except as noted in HPI and below PMFSH Past Medical History Medical History (Updated 12/05/23 @ 15:05 by Ellie Krishnan PA-C) Abnormal colonoscopy Anemia Atrial fibrillation She has had several cardioversions, and had a cardiac ablation this year at [facility]. Cancer of right breast Status post lumpectomy and radiation in 2006. Dyslipidemia Gastroesophageal reflux disease Hearing loss of both ears Hypertension Hypothyroidism Migraine headache Mild coronary artery disease Cardiac catheterization October 2018 showed no angiographically significant coronary disease, at best 40% stenosis at the ostium of the 1st diagonal branch. MRSA cellulitis Osteoarthritis Peptic ulcer Primary stress urinary incontinence Seasonal allergic rhinitis Vision loss Surgical History Surgical History (Updated 12/05/23 @ 15:03 by Ellie Krishnan PA-C) History of 3 sections History of appendectomy History of arthroplasty of right knee History of arthroscopic knee surgery History of colonoscopy (07/2013) Diverticulosis, uncomplicated internal external hemorrhoids, hyperplastic polyp. History of laparoscopic cholecystectomy History of lumpectomy of right breast For breast cancer in 2006. Family History Family History Mother Patient's mother is Family history of type 2 diabetes mellitus Family history of Parkinson's disease, Onset Age: 89 Father Family history of heart disease in male family member before age 55, Onset Age: 37 Patient's father is , Onset Age: 37 Family history of hepatitis, Onset Age: 37 Family history of nephrotic syndrome, Onset Age: 37 Son Motor vehicle accident Social History Social History (Updated 12/05/23 @ 15:04 by Ellie Krishnan PA-C) Social History: Surrogate medical decision maker: Ariadne Lambert, daughter. Code status: Full code. Smoking packs per day: 0.5 Smoking cigarettes per day: 10.0 Years smoked: 25 Smoking pac
[2023-12-05 10:30] LABS: Basophils Percent Auto 0.3 % (0.2-1.2); Hematocrit 43.6 % (37.0-47.0); Hemoglobin 14.2 g/dL (12.0-15.0); Immature Granulocyte Absolute 0.02 K/mm3 (0.00-0.031); Immature Granulocyte Percent A 0.3 % (0-0.5); Lymphocytes Absolute Auto 0.81 K/mm3 (0.9-3.2); Lymphocytes Percent Auto 10.8 % (18.3-44.2); Mean Corpuscular HGB Conc 32.6 g/dl (32-36); Mean Corpuscular Hemoglobin 29.8 pg (26-34); Mean Corpuscular Volume 91.4 fl (80-100); Mean Platelet Volume 10.7 fl (7.4-10.4); Monocytes Absolute Auto 0.9 K/mm3 (0.1-0.6); Monocytes Percent Auto 12.1 % (2.6-8.5); Neutrophils Absolute Auto 5.8 K/mm3 (1.3-6.7); Neutrophils Percent Auto 76.5 % (45.5-73.1); Platelet Count Result 187 k/mm3 (150-375); Red Blood Count 4.77 M/mm3 (4.2-5.4); White Blood Count 7.5 K/mm3 (4.5-10.0)
[2023-12-05 10:41] LABS: INR 1.9; Prothrombin Time 22.5 Seconds (11.1-14.7)
[2023-12-05 10:44] LABS: Lactic Acid Reflex 1.1 mmol/L (0.7-2.0)
[2023-12-05 10:48] LABS: Alanine Aminotransferase 12 U/L (6-35); Albumin Level 4.3 g/dL (3.5-5.1); Alkaline Phosphatase 67 U/L (38-126); Anion Gap 8 mmol/L (4-12); Aspartate Amino Transferase 29 U/L (14-36); Bilirubin,Total 1.1 mg/dL (0.2-1.3); Blood Urea Nitrogen 10 mg/dL (7-17); CRP 4.2 mg/dL (<1.0); Carbon Dioxide 28 mmol/L (22-30); Chloride 98 mmol/L (98-107); Estimated CRCL calculation 45 ml/min; Estimated Glomerular Filt Rate > 60; Glucose 111 mg/dL (65-110); Potassium 3.5 mmol/L (3.4-5.0); Sodium 134 mmol/L (137-145)
[2023-12-05] MEDS: VANCOMYCIN 1,250 MG/NS 250 ML BAG 166.67 MG IVPB (11:01)
--- NOTE | 2023-12-05 13:45 | PM.IMHP ---
H&P: HPI History of Present Illness Date/Time: 12/05/23 13:45 Chief Complaint: Pain, redness, and swelling to left ear and face. Narrative: This is a very pleasant 88-year-old female with history of cellulitis including cellulitis due to methicillin-resistant Staphylococcus aureus, paroxysmal atrial fibrillation, hypertension, hyperlipidemia, and hypothyroidism who presented to the emergency department via private vehicle for evaluation of pain and swelling to the left side of her face. The patient provides the following history. She reports mild, aching pain in the left ear for nearly a week yesterday the ear was red and swollen. This morning the redness and swelling had migrated to the left side of the face and she came in for evaluation. She is otherwise feeling okay and denies systemic symptoms. She has not had any trauma or abrasions to the year and is unaware of any bug bites or pimples. In the ED: She was afebrile on arrival with stable vital signs. Labs were significant for a sodium of 134, glucose 111, lactic acid 1.1, CRP 4.2. She was given a dose of IV vancomycin is being admitted in this setting for further treatment. Review of Systems Review of Systems: 12 systems were reviewed and are negative except for as per HPI. [facility] Past Medical History Medical History Abnormal colonoscopy Anemia Atrial fibrillation She has had several cardioversions, and had a cardiac ablation this year at [facility]. Cancer of right breast Status post lumpectomy and radiation in 2006. Dyslipidemia Gastroesophageal reflux disease Hearing loss of both ears Hypertension Hypothyroidism Migraine headache Mild coronary artery disease Cardiac catheterization October 2018 showed no angiographically significant coronary disease, at best 40% stenosis at the ostium of the 1st diagonal branch. MRSA cellulitis Osteoarthritis Peptic ulcer Primary stress urinary incontinence Seasonal allergic rhinitis Vision loss Surgical History Surgical History History of 3 sections History of appendectomy History of arthroplasty of right knee History of arthroscopic knee surgery History of colonoscopy (07/2013) Diverticulosis, uncomplicated internal external hemorrhoids, hyperplastic polyp. History of laparoscopic cholecystectomy History of lumpectomy of right breast For breast cancer in 2006. Family History Family History Mother Patient's mother is Family history of type 2 diabetes mellitus Family history of Parkinson's disease, Onset Age: 89 Father Family history of heart disease in male family member before age 55, Onset Age: 37 Patient's father is , Onset Age: 37 Family history of hepatitis, Onset Age: 37 Family history of nephrotic syndrome, Onset Age: 37 Son Motor vehicle accident Social History Social History Social History: Surrogate medical decision maker: Ariadne Lambert, daughter. Code status: Full code. Smoking packs per day: 0.5 Smoking cigarettes per day: 10.0 Years smoked: 25 Smoking pack-years: 12.50 Smoking status: Former smoker Additional smoking assessment comments: pt said she stopped smoking in 1978 Alcohol intake: never Substance use: former Do You Feel Safe in your Home?: Yes Lack of Transportation: No Lack of Food: Never True Current Housing: I Have Housing Concerned About Future Housing: No Difficulty Paying Gas/Electric Bills: No Difficulty Paying for Meds: No Currently Unemployed: No Education: High School Diploma/GED Difficulty w/ Childcare or Family Care: No Additional living arrangements comments: . 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
--- NOTE | 2023-12-05 14:33 | ADMGEN ---
This patient, Mayuri Love, was admitted to [facility] Surg Room 303-01. Patient/family oriented to hospital policies and general routines including ID bracelet, bed and alarms, visiting hours, pain management, procedures, bathroom and other care routines, personal items, smoking policy, room service/diet, and visiting hours. Information on how to activate the Rapid Response Team has been discussed. Patient/Family are encouraged to report perceived risks to care and to ask questions if they do not understand what they are told or what they should do.
--- NOTE | 2023-12-05 14:50 | PC.NURSE ---
This nurse called patient's pharmacy on file that patient verbalized is preferred pharmacy ([facility] on [address]) to perform medication reconciliation. nuclear medicine chief technologist states that they do not have any record of that patient filling their prescriptions there. Attempted to reach out to patient's daughter, Ariadne, to perform med reconciliation. Awaiting call back.
--- NOTE | 2023-12-05 15:17 | PC.NURSE ---
Medication reconcilation completed with paper medication list provided by daughter. List placed in paper chart.
[2023-12-05] MEDS: ACETAMINOPHEN 325 MG TABLET 650 MG PO (16:22)
[2023-12-05 17:08] LABS: MRSA (PCR) DETECTED (NOT DETECTE)
[2023-12-05] MEDS: MUPIROCIN 2% OINT 22 GM TUBE 1 APPLIC EACH NARE (23:50)
[2023-12-06] VITALS (9 sets, daily range): BP systolic 113–156; BP diastolic 55–75; PULSE 72–93; RESP 12–16; TEMP 36.6–38.3; O2SAT 96–100
[2023-12-06] MEDS: ACETAMINOPHEN 325 MG TABLET 650 MG PO (02:49)
[2023-12-06] MEDS: LEVOTHYROXINE SODIUM 50 MCG TABLET PO (05:27)
[2023-12-06] MEDS: CEFEPIME 2 GM/NS 50 ML 2 GM/50 ML BAG IVPB (06:03)
[2023-12-06 07:24] LABS: Hematocrit 41.7 % (37.0-47.0); Hemoglobin 13.6 g/dL (12.0-15.0); Mean Corpuscular HGB Conc 32.6 g/dl (32-36); Mean Corpuscular Volume 91.9 fl (80-100); Mean Platelet Volume 11.2 fl (7.4-10.4); Platelet Count Result 176 k/mm3 (150-375); Red Blood Count 4.54 M/mm3 (4.2-5.4); Red Cell Distribution Width 14.1 % (11.5-14.5); White Blood Count 6.1 K/mm3 (4.5-10.0)
[2023-12-06 07:44] LABS: Anion Gap 7 mmol/L (4-12); Blood Urea Nitrogen 9 mg/dL (7-17); Carbon Dioxide 25 mmol/L (22-30); Chloride 101 mmol/L (98-107); Estimated CRCL calculation 51 ml/min; Estimated Glomerular Filt Rate > 60; Glucose 97 mg/dL (65-110); Sodium 133 mmol/L (137-145)
[2023-12-06 07:48] LABS: Potassium 3.9 mmol/L (3.4-5.0)
[2023-12-06] MEDS: MUPIROCIN 2% OINT 22 GM TUBE 1 APPLIC EACH NARE ×2 (08:52→20:50)
[2023-12-06] MEDS: GABAPENTIN 300 MG CAPSULE PO ×2 (08:53→17:38)
[2023-12-06] MEDS: ROSUVASTATIN 10 MG TABLET PO (08:53)
[2023-12-06] MEDS: METOPROLOL TARTRATE 50 MG TAB 100 MG PO ×2 (08:53→20:50)
[2023-12-06] MEDS: ISOSORBIDE MONONITRATE 30 MG TAB.ER.24H PO (08:54)
[2023-12-06] MEDS: FUROSEMIDE 40 MG TABLET PO (08:54)
[2023-12-06] MEDS: AMIODARONE HCL 200 MG TABLET PO (08:54)
[2023-12-06] MEDS: POTASSIUM CHLORIDE 10 MEQ ER TABLET PO ×2 (08:54→17:38)
[2023-12-06] MEDS: amLODIPine BESYLATE 2.5 MG TABLET PO (08:54)
[2023-12-06] MEDS: CHOLECALCIFEROL 1,000 UNITS TABLET 2000 UNITS PO (08:54)
[2023-12-06 08:58] LABS: Procalcitonin 0.1 ng/mL
[2023-12-06 09:03] LABS: Erythrocyte Sedimentation Rate 22 mm/hr (0-20)
--- NOTE | 2023-12-06 09:15 | PM.IMPN ---
Progress Note: A&P Assessment and Plan (1) Acute parotitis: Code(s): K11.21 - Acute sialoadenitis Status: Acute Assessment and Plan: 12/06/23: CT of the soft tissue of the neck showed extensive nonspecific soft tissue edema in the left face and neck, no abscess or discrete fluid collection seen, mild enlargement of the left parotid gland associated with parotitis, 7 mm right upper lobe pulmonary nodule recommending follow-up CT in 6-12 months, 1.8 cm hypodense right thyroid lobe nodule. CT did not show any signs or symptoms for Meño's angina We will get US of left side of neck for further rule out of Meño's angina MRSA positive Started on cefepime and vancomycin Will switch antibiotics to Rocephin, flagyl and vancomycin for now Will also start Dexamethasone 10mg IV push Consider transfer to tertiary hospital for ENT services ESR 22, CRP 4.2, procal 0.1 Will check RF, MATTY, HIV, and Sjorgen's antibodies, IGG, IGM, IGA antibodies obtained. (2) Pulmonary nodule: Code(s): R91.1 - Solitary pulmonary nodule Status: Acute Assessment and Plan: 12/06/23: CT of the soft tissues of the neck showed a 7 mm right upper lobe pulmonary nodule with recommendations for follow-up CT in 6-12 months (3) Right thyroid nodule: Code(s): E04.1 - Nontoxic single thyroid nodule Status: Acute Assessment and Plan: 12/06/23: CT of the soft tissues of the neck shown a 1.8 cm hypodense right thyroid lobe nodule Ultrasound of the thyroid ordered (4) Hypothyroidism: Code(s): E03.9 - Hypothyroidism, unspecified Status: Chronic Assessment and Plan: 12/06/23: Continue Synthroid (5) Hypertension: Code(s): I10 - Essential (primary) hypertension Status: Chronic Assessment and Plan: 12/06/23: Blood pressures ranging 145/71 to 156/75 Continue amlodipine and isosorbide (6) Paroxysmal atrial fibrillation: Code(s): I48.0 - Paroxysmal atrial fibrillation Status: Acute Assessment and Plan: 12/06/23: Continue metoprolol and Xarelto (7) Dyslipidemia: Code(s): E78.5 - Hyperlipidemia, unspecified Status: Chronic Assessment and Plan: 12/06/23: Continue rosuvastatin Time Spent With Patient Time with patient: 25 - 35 minutes Subjective Date/time seen: 12/06/23 09:15 Interval history: Interval history: This is an 88 year old female who presented to the hospital on 12/05/2023 with pain, redness, swelling to left ear and face. Patient reported pain in her left ear for about a week and then started noticing swelling to her face which prompted her to come to the ER for further evaluation. Workup in the hospital included initial labs which showed a white blood cell count of 7.5, ESR 22, sodium 134, lactic acid 1.1, CRP 4.2, procalcitonin 0.1. MRSA positive. CT of the soft tissue of neck showed extensive nonspecific soft tissue edema in the left face and neck, no abscess or discrete fluid collection seen, mild enlargement of the left parotid gland representing Parotitis, 7 mm right upper lobe pulmonary nodule recommending follow-up CT in 6-12 months, 1.8 cm hypodense right thyroid lobe nodule was also noted. Blood cultures were obtained and are pending. Patient was started on vancomycin and cefepime while in the ED. Subjective: Patient denies any fever, chills, nausea, vomiting, diarrhea, abdominal pain,chest pain, shortness of breath, recent sick contacts, sore throat, or dental issues. Patient endorses pain, warmth, swelling to left side of face, left side of neck, and ear. She does not recall being bit by any spider or insect. Labs and imaging reviewed. Review of Systems Review of Systems: 12 systems were reviewed and are negative except for as per HPI. Constitutional: Constitutional: Reports as per HPI and Reports no additional constitutional complaints Eyes: Eyes: Reports as per HPI and Reports no additional eye
[2023-12-06] MEDS: VANCOMYCIN 1,250 MG/NS 250 ML 1,250 MG/250 ML BAG 166.67 MG IVPB (11:31)
[2023-12-06 11:37] LABS: HIV 1/2 Ab P24 Ag Result Negative (Negative)
[2023-12-06 12:40] LABS: Immunoglobulin A 111 mg/dL (70-400); Immunoglobulin G 493 mg/dL (700-1600); Immunoglobulin M 29 mg/dL (40-230)
[2023-12-06] MEDS: metroNIDAZOLE 500 MG TABLET PO ×2 (13:05→20:50)
[2023-12-06] MEDS: cefTRIAXone 2 GM/NS 100 ML 2 GM/100 ML BAG IVPB (17:38)
[2023-12-06] MEDS: RIVAROXABAN 20 MG TABLET PO (17:38)
[2023-12-07 05:37] VITALS: BP 145/54; PULSE 73; RESP 16; TEMP 36.8; O2SAT 96
[2023-12-07] MEDS: metroNIDAZOLE 500 MG TABLET PO ×3 (05:53→22:12)
[2023-12-07] MEDS: LEVOTHYROXINE SODIUM 50 MCG TABLET PO (05:53)
[2023-12-07 08:26] LABS: Albumin Level 3.3 g/dL (3.5-5.1); Anion Gap 6 mmol/L (4-12); Blood Urea Nitrogen 13 mg/dL (7-17); CRP 5.8 mg/dL (<1.0); Carbon Dioxide 28 mmol/L (22-30); Chloride 102 mmol/L (98-107); Estimated CRCL calculation 51 ml/min; Estimated Glomerular Filt Rate > 60; Glucose 93 mg/dL (65-110); Potassium 3.5 mmol/L (3.4-5.0); Sodium 136 mmol/L (137-145)
[2023-12-07 09:57] VITALS: PULSE 73
[2023-12-07] MEDS: FUROSEMIDE 40 MG TABLET PO (09:57)
[2023-12-07] MEDS: GABAPENTIN 300 MG CAPSULE PO (09:57)
[2023-12-07] MEDS: METOPROLOL TARTRATE 50 MG TAB 100 MG PO ×2 (09:57→21:01)
[2023-12-07] MEDS: POTASSIUM CHLORIDE 10 MEQ ER TABLET PO ×2 (09:57→18:36)
[2023-12-07] MEDS: CHOLECALCIFEROL 1,000 UNITS TABLET 2000 UNITS PO (09:58)
[2023-12-07] MEDS: ISOSORBIDE MONONITRATE 30 MG TAB.ER.24H PO (09:58)
[2023-12-07] MEDS: amLODIPine BESYLATE 2.5 MG TABLET PO (09:58)
[2023-12-07] MEDS: ROSUVASTATIN 10 MG TABLET PO (09:58)
[2023-12-07] MEDS: ACETAMINOPHEN 325 MG TABLET 650 MG PO (09:58)
[2023-12-07 09:59] VITALS: PULSE 73
[2023-12-07] MEDS: AMIODARONE HCL 200 MG TABLET PO (09:59)
[2023-12-07] MEDS: MUPIROCIN 2% OINT 22 GM TUBE 1 APPLIC EACH NARE ×2 (10:01→21:03)
[2023-12-07] MEDS: VANCOMYCIN 1,250 MG/NS 250 ML 1,250 MG/250 ML BAG 166.67 MG IVPB (11:59)
[2023-12-07 14:00] VITALS: BP 96/60; PULSE 59; RESP 20; TEMP 36.2; O2SAT 95
--- NOTE | 2023-12-07 15:19 | P.PNIM_ITS ---
Progress Note: A&P Assessment and Plan (1) Acute parotitis: Code(s): K11.21 - Acute sialoadenitis Status: Acute Assessment and Plan: 12/06/23: * CT of the soft tissue of the neck showed extensive nonspecific soft tissue edema in the left face and neck, no abscess or discrete fluid collection seen, mild enlargement of the left parotid gland associated with parotitis, 7 mm right upper lobe pulmonary nodule recommending follow-up CT in 6-12 months, 1.8 cm hypodense right thyroid lobe nodule. CT did not show any signs or symptoms for Meño's angina * We will get US of left side of neck for further rule out of Meño's angina * MRSA positive * Started on cefepime and vancomycin * Will switch antibiotics to Rocephin, flagyl and vancomycin for now * Will also start Dexamethasone 10mg IV push * Consider transfer to tertiary hospital for ENT services * ESR 22, CRP 4.2, procal 0.1 * Will check RF, MATTY, HIV, and Sjorgen's antibodies, IGG, IGM, IGA antibodies obtained. 12/07/23: * HIV negative. CRP 5.8 today, IGG 493, IgM 29-could indicate autoimmune disorder * MATTY, SSA and SSB still pending. * Continue IV antibiotics for now. * May need [employer] at discharge (2) Pulmonary nodule: Code(s): R91.1 - Solitary pulmonary nodule Status: Acute Assessment and Plan: 12/06/23: * CT of the soft tissues of the neck showed a 7 mm right upper lobe pulmonary nodule with recommendations for follow-up CT in 6-12 months 12/07/23: * no change (3) Right thyroid nodule: Code(s): E04.1 - Nontoxic single thyroid nodule Status: Acute Assessment and Plan: 12/06/23: * CT of the soft tissues of the neck shown a 1.8 cm hypodense right thyroid lobe nodule * Ultrasound of the thyroid ordered 12/07/23: * CT of the thyroid showing multi nodular goiter with 2.5 cm right sided and 2.2 cm left-sided TI rads 4 thyroid nodules which meet consensus for biopsy, thoracic subcutaneous edema at the left face and neck with normal size left jugular chain lymph nodes no abnormal masses seen. * Ultrasound recommending outpatient biopsy. We will order this upon discharge per their recommendation. (4) Hypothyroidism: Code(s): E03.9 - Hypothyroidism, unspecified Status: Chronic Assessment and Plan: 12/06/23: * Continue Synthroid 12/07/23: * No change to current treatment plan (5) Hypertension: Code(s): I10 - Essential (primary) hypertension Status: Chronic Assessment and Plan: 12/06/23: * Blood pressures ranging 145/71 to 156/75 * Continue amlodipine and isosorbide 12/07/23: * No change to current treatment plan (6) Paroxysmal atrial fibrillation: Code(s): I48.0 - Paroxysmal atrial fibrillation Status: Acute Assessment and Plan: 12/06/23: * Continue metoprolol and Xarelto 12/07/23: * No change to current treatment plan (7) Dyslipidemia: Code(s): E78.5 - Hyperlipidemia, unspecified Status: Chronic Assessment and Plan: 12/06/23: * Continue rosuvastatin 12/07/23: * No change to current treatment plan Time Spent With Patient Time with patient: 15 - 25 minutes Subjective Date/time seen: 12/07/23 15:19 Interval history: Interval history: This is an 88 year old female who presented to the hospital on 12/05/2023 with pain, redness, swelling to left ear and face. Patient reported pain in her left ear for about a week and then started noticing swelling to her face which prompted her to com
--- NOTE | 2023-12-07 15:19 | PM.IMPN ---
Progress Note: A&P Assessment and Plan (1) Acute parotitis: Code(s): K11.21 - Acute sialoadenitis Status: Acute Assessment and Plan: 12/06/23: CT of the soft tissue of the neck showed extensive nonspecific soft tissue edema in the left face and neck, no abscess or discrete fluid collection seen, mild enlargement of the left parotid gland associated with parotitis, 7 mm right upper lobe pulmonary nodule recommending follow-up CT in 6-12 months, 1.8 cm hypodense right thyroid lobe nodule. CT did not show any signs or symptoms for Meño's angina We will get US of left side of neck for further rule out of Meño's angina MRSA positive Started on cefepime and vancomycin Will switch antibiotics to Rocephin, flagyl and vancomycin for now Will also start Dexamethasone 10mg IV push Consider transfer to tertiary hospital for ENT services ESR 22, CRP 4.2, procal 0.1 Will check RF, MATTY, HIV, and Sjorgen's antibodies, IGG, IGM, IGA antibodies obtained. 12/07/23: HIV negative. CRP 5.8 today, IGG 493, IgM 29-could indicate autoimmune disorder MATTY, SSA and SSB still pending. Continue IV antibiotics for now. May need Preparation Center Coordinator at discharge (2) Pulmonary nodule: Code(s): R91.1 - Solitary pulmonary nodule Status: Acute Assessment and Plan: 12/06/23: CT of the soft tissues of the neck showed a 7 mm right upper lobe pulmonary nodule with recommendations for follow-up CT in 6-12 months 12/07/23: no change (3) Right thyroid nodule: Code(s): E04.1 - Nontoxic single thyroid nodule Status: Acute Assessment and Plan: 12/06/23: CT of the soft tissues of the neck shown a 1.8 cm hypodense right thyroid lobe nodule Ultrasound of the thyroid ordered 12/07/23: CT of the thyroid showing multi nodular goiter with 2.5 cm right sided and 2.2 cm left-sided TI rads 4 thyroid nodules which meet consensus for biopsy, thoracic subcutaneous edema at the left face and neck with normal size left jugular chain lymph nodes no abnormal masses seen. Ultrasound recommending outpatient biopsy. We will order this upon discharge per their recommendation. (4) Hypothyroidism: Code(s): E03.9 - Hypothyroidism, unspecified Status: Chronic Assessment and Plan: 12/06/23: Continue Synthroid 12/07/23: No change to current treatment plan (5) Hypertension: Code(s): I10 - Essential (primary) hypertension Status: Chronic Assessment and Plan: 12/06/23: Blood pressures ranging 145/71 to 156/75 Continue amlodipine and isosorbide 12/07/23: No change to current treatment plan (6) Paroxysmal atrial fibrillation: Code(s): I48.0 - Paroxysmal atrial fibrillation Status: Acute Assessment and Plan: 12/06/23: Continue metoprolol and Xarelto 12/07/23: No change to current treatment plan (7) Dyslipidemia: Code(s): E78.5 - Hyperlipidemia, unspecified Status: Chronic Assessment and Plan: 12/06/23: Continue rosuvastatin 12/07/23: No change to current treatment plan Time Spent With Patient Time with patient: 15 - 25 minutes Subjective Date/time seen: 12/07/23 15:19 Interval history: Interval history: This is an 88 year old female who presented to the hospital on 12/05/2023 with pain, redness, swelling to left ear and face. Patient reported pain in her left ear for about a week and then started noticing swelling to her face which prompted her to come to the ER for further evaluation. Workup in the hospital included initial labs which showed a white blood cell count of 7.5, ESR 22, sodium 134, lactic acid 1.1, CRP 4.2, procalcitonin 0.1. MRSA positive. CT of the soft tissue of neck showed extensive nonspecific soft tissue edema in the left face and neck, no abscess or discrete fluid collection seen, mild enlargement of the left parotid gland representing Parotitis, 7 mm right upper lobe pulmonary nodule recommending follow-up C
[2023-12-07] MEDS: cefTRIAXone 2 GM/NS 100 ML 2 GM/100 ML BAG IVPB (18:35)
[2023-12-07] MEDS: RIVAROXABAN 20 MG TABLET PO (18:36)
[2023-12-07 21:01] VITALS: PULSE 60
[2023-12-07 21:06] VITALS: BP 133/54; PULSE 66; RESP 20; TEMP 37.2; O2SAT 96
[2023-12-08] VITALS (7 sets, daily range): BP systolic 125–138; BP diastolic 46–59; PULSE 61–76; RESP 16–20; TEMP 36.4–36.5; O2SAT 92–98
[2023-12-08] MEDS: LEVOTHYROXINE SODIUM 50 MCG TABLET PO (06:14)
[2023-12-08] MEDS: metroNIDAZOLE 500 MG TABLET PO ×3 (06:14→21:53)
[2023-12-08 07:04] LABS: SS-A <1.0 NEG AI (<1.0 NEG); SS-B <1.0 NEG AI (<1.0 NEG)
[2023-12-08] MEDS: AMIODARONE HCL 200 MG TABLET PO (07:59)
[2023-12-08] MEDS: METOPROLOL TARTRATE 50 MG TAB 100 MG PO ×2 (07:59→21:53)
[2023-12-08] MEDS: GABAPENTIN 300 MG CAPSULE PO ×2 (07:59→16:52)
[2023-12-08] MEDS: CHOLECALCIFEROL 1,000 UNITS TABLET 2000 UNITS PO (08:00)
[2023-12-08] MEDS: amLODIPine BESYLATE 2.5 MG TABLET PO (08:00)
[2023-12-08] MEDS: FUROSEMIDE 40 MG TABLET PO (08:00)
[2023-12-08] MEDS: POTASSIUM CHLORIDE 10 MEQ ER TABLET PO ×2 (08:00→16:53)
[2023-12-08] MEDS: ISOSORBIDE MONONITRATE 30 MG TAB.ER.24H PO (08:00)
[2023-12-08] MEDS: ROSUVASTATIN 10 MG TABLET PO (08:00)
[2023-12-08] MEDS: MUPIROCIN 2% OINT 22 GM TUBE 1 APPLIC EACH NARE ×2 (08:01→21:55)
[2023-12-08 08:03] LABS: Basophils Absolute Auto 0.1 K/mm3 (0.0-0.1); Basophils Percent Auto 1.1 % (0.2-1.2); Eosinophils Absolute Auto 0.1 K/mm3 (0-0.3); Eosinophils Percent Auto 2.1 % (0-4.4); Hematocrit 43.3 % (37.0-47.0); Hemoglobin 13.5 g/dL (12.0-15.0); Immature Granulocyte Absolute 0.02 K/mm3 (0.00-0.031); Immature Granulocyte Percent A 0.4 % (0-0.5); Lymphocytes Absolute Auto 1.25 K/mm3 (0.9-3.2); Lymphocytes Percent Auto 26.4 % (18.3-44.2); Mean Corpuscular HGB Conc 31.2 g/dl (32-36); Mean Corpuscular Hemoglobin 29.7 pg (26-34); Mean Corpuscular Volume 95.2 fl (80-100); Mean Platelet Volume 11.3 fl (7.4-10.4); Monocytes Absolute Auto 0.6 K/mm3 (0.1-0.6); Monocytes Percent Auto 11.8 % (2.6-8.5); Neutrophils Absolute Auto 2.8 K/mm3 (1.3-6.7); Neutrophils Percent Auto 58.2 % (45.5-73.1); Platelet Count Result 190 k/mm3 (150-375); Red Blood Count 4.55 M/mm3 (4.2-5.4); Red Cell Distribution Width 14.3 % (11.5-14.5); White Blood Count 4.7 K/mm3 (4.5-10.0)
[2023-12-08 08:08] LABS: Alanine Aminotransferase 12 U/L (6-35); Albumin Level 3.8 g/dL (3.5-5.1); Alkaline Phosphatase 55 U/L (38-126); Anion Gap 7 mmol/L (4-12); Aspartate Amino Transferase 28 U/L (14-36); Bilirubin,Total 0.3 mg/dL (0.2-1.3); Blood Urea Nitrogen 12 mg/dL (7-17); Calcium 8.8 mg/dL (8.4-10.2); Carbon Dioxide 27 mmol/L (22-30); Chloride 102 mmol/L (98-107); Estimated CRCL calculation 44 ml/min; Estimated Glomerular Filt Rate > 60; Glucose 107 mg/dL (65-110); Potassium 3.4 mmol/L (3.4-5.0); Sodium 136 mmol/L (137-145)
[2023-12-08 10:56] LABS: Vancomycin Trough 10.7 ug/mL (10.0-20.0)
[2023-12-08] MEDS: VANCOMYCIN 1,250 MG/NS 250 ML 1,250 MG/250 ML BAG 166.67 MG IVPB (11:30)
[2023-12-08] MEDS: ACETAMINOPHEN 325 MG TABLET 650 MG PO (11:40)
[2023-12-08] MEDS: CEFEPIME 2 GM/NS 50 ML 2 GM/50 ML BAG IVPB (14:53)
[2023-12-08 16:00] LABS: CRP 3.7 mg/dL (<1.0)
[2023-12-08] MEDS: RIVAROXABAN 20 MG TABLET PO (16:52)
--- NOTE | 2023-12-08 17:32 | P.PNIM_ITS ---
Progress Note: A&P Assessment and Plan (1) Acute parotitis: Code(s): K11.21 - Acute sialoadenitis Status: Acute Assessment and Plan: 12/06/23: * CT of the soft tissue of the neck showed extensive nonspecific soft tissue edema in the left face and neck, no abscess or discrete fluid collection seen, mild enlargement of the left parotid gland associated with parotitis, 7 mm right upper lobe pulmonary nodule recommending follow-up CT in 6-12 months, 1.8 cm hypodense right thyroid lobe nodule. CT did not show any signs or symptoms for Meño's angina * We will get US of left side of neck for further rule out of Meño's angina * MRSA positive * Started on cefepime and vancomycin * Will switch antibiotics to Rocephin, flagyl and vancomycin for now * Will also start Dexamethasone 10mg IV push * Consider transfer to tertiary hospital for ENT services * ESR 22, CRP 4.2, procal 0.1 * Will check RF, MATTY, HIV, and Sjorgen's antibodies, IGG, IGM, IGA antibodies obtained. 12/07/23: * HIV negative. CRP 5.8 today, IGG 493, IgM 29-could indicate autoimmune disorder * MATTY, SSA and SSB still pending. * Continue IV antibiotics for now. * May need [employer] at discharge 12/08/23: * SSA and SSB negative * Continue IV antibiotics today, switch Rocephin to Cefepime, Flagyl, and Vancomycin * Will need to recheck (2) Pulmonary nodule: Code(s): R91.1 - Solitary pulmonary nodule Status: Acute Assessment and Plan: 12/06/23: * CT of the soft tissues of the neck showed a 7 mm right upper lobe pulmonary nodule with recommendations for follow-up CT in 6-12 months 12/07/23: * no change (3) Right thyroid nodule: Code(s): E04.1 - Nontoxic single thyroid nodule Status: Acute Assessment and Plan: 12/06/23: * CT of the soft tissues of the neck shown a 1.8 cm hypodense right thyroid lobe nodule * Ultrasound of the thyroid ordered 12/07/23: * CT of the thyroid showing multi nodular goiter with 2.5 cm right sided and 2.2 cm left-sided TI rads 4 thyroid nodules which meet consensus for biopsy, thoracic subcutaneous edema at the left face and neck with normal size left jugular chain lymph nodes no abnormal masses seen. * Ultrasound recommending outpatient biopsy. We will order this upon discharge per their recommendation. 12/08/23: * No change (4) Hypothyroidism: Code(s): E03.9 - Hypothyroidism, unspecified Status: Chronic Assessment and Plan: 12/06/23: * Continue Synthroid 12/07/23: * No change to current treatment plan (5) Hypertension: Code(s): I10 - Essential (primary) hypertension Status: Chronic Assessment and Plan: 12/06/23: * Blood pressures ranging 145/71 to 156/75 * Continue amlodipine and isosorbide 12/07/23: * No change to current treatment plan (6) Paroxysmal atrial fibrillation: Code(s): I48.0 - Paroxysmal atrial fibrillation Status: Acute Assessment and Plan: 12/06/23: * Continue metoprolol and Xarelto 12/07/23: * No change to current treatment plan (7) Dyslipidemia: Code(s): E78.5 - Hyperlipidemia, unspecified Status: Chronic Assessment and Plan: 12/06/23: * Continue rosuvastatin 12/07/23: * No change to current treatment plan Time Spent With Patient Time with patient: Greater than 35 minutes Subjective Date/time seen: 12/08/23 17:32 Interval history: Interval history: This is an 88 year old female who presented to
--- NOTE | 2023-12-08 17:32 | PM.IMPN ---
Progress Note: A&P Assessment and Plan (1) Acute parotitis: Code(s): K11.21 - Acute sialoadenitis Status: Acute Assessment and Plan: 12/06/23: CT of the soft tissue of the neck showed extensive nonspecific soft tissue edema in the left face and neck, no abscess or discrete fluid collection seen, mild enlargement of the left parotid gland associated with parotitis, 7 mm right upper lobe pulmonary nodule recommending follow-up CT in 6-12 months, 1.8 cm hypodense right thyroid lobe nodule. CT did not show any signs or symptoms for Meño's angina We will get US of left side of neck for further rule out of Meño's angina MRSA positive Started on cefepime and vancomycin Will switch antibiotics to Rocephin, flagyl and vancomycin for now Will also start Dexamethasone 10mg IV push Consider transfer to tertiary hospital for ENT services ESR 22, CRP 4.2, procal 0.1 Will check RF, MATTY, HIV, and Sjorgen's antibodies, IGG, IGM, IGA antibodies obtained. 12/07/23: HIV negative. CRP 5.8 today, IGG 493, IgM 29-could indicate autoimmune disorder MATTY, SSA and SSB still pending. Continue IV antibiotics for now. May need Office Support at discharge 12/08/23: SSA and SSB negative Continue IV antibiotics today, switch Rocephin to Cefepime, Flagyl, and Vancomycin Will need to recheck (2) Pulmonary nodule: Code(s): R91.1 - Solitary pulmonary nodule Status: Acute Assessment and Plan: 12/06/23: CT of the soft tissues of the neck showed a 7 mm right upper lobe pulmonary nodule with recommendations for follow-up CT in 6-12 months 12/07/23: no change (3) Right thyroid nodule: Code(s): E04.1 - Nontoxic single thyroid nodule Status: Acute Assessment and Plan: 12/06/23: CT of the soft tissues of the neck shown a 1.8 cm hypodense right thyroid lobe nodule Ultrasound of the thyroid ordered 12/07/23: CT of the thyroid showing multi nodular goiter with 2.5 cm right sided and 2.2 cm left-sided TI rads 4 thyroid nodules which meet consensus for biopsy, thoracic subcutaneous edema at the left face and neck with normal size left jugular chain lymph nodes no abnormal masses seen. Ultrasound recommending outpatient biopsy. We will order this upon discharge per their recommendation. 12/08/23: No change (4) Hypothyroidism: Code(s): E03.9 - Hypothyroidism, unspecified Status: Chronic Assessment and Plan: 12/06/23: Continue Synthroid 12/07/23: No change to current treatment plan (5) Hypertension: Code(s): I10 - Essential (primary) hypertension Status: Chronic Assessment and Plan: 12/06/23: Blood pressures ranging 145/71 to 156/75 Continue amlodipine and isosorbide 12/07/23: No change to current treatment plan (6) Paroxysmal atrial fibrillation: Code(s): I48.0 - Paroxysmal atrial fibrillation Status: Acute Assessment and Plan: 12/06/23: Continue metoprolol and Xarelto 12/07/23: No change to current treatment plan (7) Dyslipidemia: Code(s): E78.5 - Hyperlipidemia, unspecified Status: Chronic Assessment and Plan: 12/06/23: Continue rosuvastatin 12/07/23: No change to current treatment plan Time Spent With Patient Time with patient: Greater than 35 minutes Subjective Date/time seen: 12/08/23 17:32 Interval history: Interval history: This is an 88 year old female who presented to the hospital on 12/05/2023 with pain, redness, swelling to left ear and face. Patient reported pain in her left ear for about a week and then started noticing swelling to her face which prompted her to come to the ER for further evaluation. Workup in the hospital included initial labs which showed a white blood cell count of 7.5, ESR 22, sodium 134, lactic acid 1.1, CRP 4.2, procalcitonin 0.1. MRSA positive. CT of the soft tissue of neck showed extensive nonspecific soft tissue edema in the left face and neck, no
[2023-12-09] MEDS: CEFEPIME 2 GM/NS 50 ML 2 GM/50 ML BAG IVPB (02:28)
[2023-12-09 05:37] VITALS: BP 137/68; PULSE 72; RESP 16; TEMP 36.5; O2SAT 95
[2023-12-09] MEDS: LEVOTHYROXINE SODIUM 50 MCG TABLET PO (05:41)
[2023-12-09] MEDS: metroNIDAZOLE 500 MG TABLET PO (05:41)
[2023-12-09 06:51] LABS: Basophils Percent Auto 0.9 % (0.2-1.2); Eosinophils Absolute Auto 0.1 K/mm3 (0-0.3); Eosinophils Percent Auto 2.8 % (0-4.4); Hematocrit 38.3 % (37.0-47.0); Hemoglobin 12.4 g/dL (12.0-15.0); Immature Granulocyte Absolute 0.01 K/mm3 (0.00-0.031); Immature Granulocyte Percent A 0.2 % (0-0.5); Lymphocytes Percent Auto 25.7 % (18.3-44.2); Mean Corpuscular HGB Conc 32.4 g/dl (32-36); Mean Corpuscular Hemoglobin 29.8 pg (26-34); Mean Corpuscular Volume 92.1 fl (80-100); Mean Platelet Volume 10.7 fl (7.4-10.4); Monocytes Absolute Auto 0.7 K/mm3 (0.1-0.6); Monocytes Percent Auto 14.8 % (2.6-8.5); Neutrophils Absolute Auto 2.6 K/mm3 (1.3-6.7); Neutrophils Percent Auto 55.6 % (45.5-73.1); Platelet Count Result 204 k/mm3 (150-375); Red Blood Count 4.16 M/mm3 (4.2-5.4); Red Cell Distribution Width 14.3 % (11.5-14.5); White Blood Count 4.7 K/mm3 (4.5-10.0)
[2023-12-09 07:03] LABS: Alanine Aminotransferase 11 U/L (6-35); Albumin Level 3.4 g/dL (3.5-5.1); Alkaline Phosphatase 53 U/L (38-126); Anion Gap 3 mmol/L (4-12); Aspartate Amino Transferase 26 U/L (14-36); Bilirubin,Total 0.5 mg/dL (0.2-1.3); Blood Urea Nitrogen 12 mg/dL (7-17); Calcium 9.1 mg/dL (8.4-10.2); Carbon Dioxide 34 mmol/L (22-30); Chloride 100 mmol/L (98-107); Estimated CRCL calculation 39 ml/min; Estimated Glomerular Filt Rate > 60; Glucose 91 mg/dL (65-110); Potassium 3.7 mmol/L (3.4-5.0); Sodium 137 mmol/L (137-145)
[2023-12-09] MEDS: ROSUVASTATIN 10 MG TABLET PO (08:02)
[2023-12-09] MEDS: POTASSIUM CHLORIDE 10 MEQ ER TABLET PO ×2 (08:02→16:13)
[2023-12-09 08:03] VITALS: PULSE 79
[2023-12-09] MEDS: FUROSEMIDE 40 MG TABLET PO (08:03)
[2023-12-09] MEDS: AMIODARONE HCL 200 MG TABLET PO (08:03)
[2023-12-09] MEDS: METOPROLOL TARTRATE 50 MG TAB 100 MG PO (08:03)
[2023-12-09] MEDS: ISOSORBIDE MONONITRATE 30 MG TAB.ER.24H PO (08:03)
[2023-12-09] MEDS: amLODIPine BESYLATE 2.5 MG TABLET PO (08:03)
[2023-12-09] MEDS: CHOLECALCIFEROL 1,000 UNITS TABLET 2000 UNITS PO (08:03)
[2023-12-09] MEDS: GABAPENTIN 300 MG CAPSULE PO ×2 (08:03→16:13)
[2023-12-09 08:04] VITALS: BP 170/63; PULSE 79; RESP 14; TEMP 36.8; O2SAT 97
[2023-12-09] MEDS: MUPIROCIN 2% OINT 22 GM TUBE 1 APPLIC EACH NARE (08:04)
[2023-12-09] MEDS: DOXYCYCLINE HYCLATE 100 MG TABLET PO (10:57)
--- NOTE | 2023-12-09 12:53 | PM.DS ---
DS: Admitting Diagnosis Discharge Date 12/09/23 Admitting Diagnosis Cellulitis of left year Paroxysmal atrial fibrillation Hypertension Hyperlipidemia Hypothyroidism DS: Discharge Diagnosis Discharge Diagnosis (1) Acute parotitis: Code(s): K11.21 - Acute sialoadenitis Status: Acute (2) Pulmonary nodule: Code(s): R91.1 - Solitary pulmonary nodule Status: Acute (3) Right thyroid nodule: Code(s): E04.1 - Nontoxic single thyroid nodule Status: Acute (4) Hypothyroidism: Code(s): E03.9 - Hypothyroidism, unspecified Status: Chronic (5) Hypertension: Code(s): I10 - Essential (primary) hypertension Status: Chronic (6) Paroxysmal atrial fibrillation: Code(s): I48.0 - Paroxysmal atrial fibrillation Status: Acute (7) Dyslipidemia: Code(s): E78.5 - Hyperlipidemia, unspecified Status: Chronic DS: Summary Hospital Course Reason for hospitalization: Cellulitis of left year Paroxysmal atrial fibrillation Hypertension Hyperlipidemia Hypothyroidism Hospital Course: This is an 88 year old female who presented to the hospital on 12/05/2023 with pain, redness, swelling to left ear and face. Patient reported pain in her left ear for about a week and then started noticing swelling to her face which prompted her to come to the ER for further evaluation. Workup in the hospital included initial labs which showed a white blood cell count of 7.5, ESR 22, sodium 134, lactic acid 1.1, CRP 4.2, procalcitonin 0.1. MRSA positive. CT of the soft tissue of neck showed extensive nonspecific soft tissue edema in the left face and neck, no abscess or discrete fluid collection seen, mild enlargement of the left parotid gland representing Parotitis, 7 mm right upper lobe pulmonary nodule recommending follow-up CT in 6-12 months, 1.8 cm hypodense right thyroid lobe nodule was also noted. Blood cultures were obtained and are pending. Patient was started on vancomycin and cefepime while in the ED. patient was transition to Levaquin and doxycycline. Her swelling and redness has gone down significantly. She will need to follow up with her primary care physician in 1 week. She was also noted to have thyroid nodules which was worked up and had an ultrasound of her thyroid which they recommend needle biopsy. She was given a requisite to come back for the ultrasound-guided biopsy upon discharge. She was also found to have pulmonary nodules with recommendations for follow-up CT in 6-12 months. She will follow up with her primary care physician to get this done at that time. She will also need to get labs in a week as her IgG and her IgA were low this admission. And considering the CT showed parotitis an autoimmune disorder should be ruled out. Final diagnosis: acute parotitis, cellulitis Status at Discharge Cognitive/behavioral status at discharge: alert oriented x4 Functional status at discharge: independent ambulation Overall status at discharge: patient is progressing back to baseline Time Spent with Patient Time attestation: Total time spent providing and/or coordinating discharge services: Time spent: Greater than 30 minutes Exam Narrative: General: In no acute distress, well nourished ENT: moist mucous membranes, nasal passages clear, airway patent and pharynx visualized. Neck: swelling noted to left side of neck, tender to touch Cardiac: Normal S1 and S2. RRR, No murmur, gallops or friction rubs, peripheral pulses intact. Respiratory: Lungs clear to auscultation, no adventitious lung sounds, currently on room air Skin: Improving facial swelling and erythema Neuro: Alert and oriented x4 DS: Data Data Completed and Pending Completed studies during hospitalization: soft tissue neck CT head/neck ultrasound thyroid ultrasound Pending studies at discharge: none Labs on day of discharge: Labs from last 24 hours 12/09/23 12/08/23 06:41 07:44 WB
[2023-12-09] MEDS: levoFLOXacin 750 MG TABLET PO (13:18)
[2023-12-09 14:00] VITALS: BP 94/60; PULSE 71; RESP 20; TEMP 36.6; O2SAT 96
[2023-12-09] MEDS: RIVAROXABAN 20 MG TABLET PO (16:13)
== END 2023-12-09 18:10 | disposition home or self-care (01) | DRG 156 ==
LOC: ANHED 13:33 → ANH3MEDSUR 14:16
PROVIDERS: Internal Medicine; Physician Assistant; Admitting Provider General Practice; Emergency Provider Emergency Medicine; PCP Family Medicine; Visit Provider Nurse Practitioner Acute Care
DX: K11.21 Acute sialoadenitis (principal); H60.12 Cellulitis of left external ear; I25.10 Atherosclerotic heart disease of native coronary artery without angina pectoris; I10 Essential (primary) hypertension; I48.0 Paroxysmal atrial fibrillation; E04.1 Nontoxic single thyroid nodule; E03.9 Hypothyroidism, unspecified; E78.5 Hyperlipidemia, unspecified; K21.9 Gastro-esophageal reflux disease without esophagitis; M19.90 Unspecified osteoarthritis, unspecified site; R91.1 Solitary pulmonary nodule; Z79.01 Long term (current) use of anticoagulants; Z85.3 Personal history of malignant neoplasm of breast; Z87.891 Personal history of nicotine dependence; Z22.322 Carrier or suspected carrier of Methicillin resistant Staphylococcus aureus
CPT/HCPCS: 36415; 70491; 76536; 80048; 80053; 80069; 80202; 82565; 82784; 83605; 84145; 85025; 85027; 85610; 85652; 85730; 86038; 86039; 86140; 86235; 86703; 87040; 87641; 96365; 99285; A9270; G0378; G0432; J0692; J0696; J3370; Q9967

== ENCOUNTER 2023-12-16 12:56 | Outpatient (CLI) | payer MEDICARE, SELFPAY ==
[2023-12-16 14:13] LABS: Immunoglobulin A 123 mg/dL (70-400); Immunoglobulin G 624 mg/dL (700-1600); Immunoglobulin M 29 mg/dL (40-230)
[2023-12-21 13:14] LABS: Actin Antibody (IgG) <20 U (<20)
== END 2023-12-16 12:57 | disposition home or self-care (01) ==
PROVIDERS: PCP Family Medicine; Visit Provider Nurse Practitioner Acute Care
DX: K11.21 Acute sialoadenitis (principal)
CPT/HCPCS: 36415; 82784; 86364

== ENCOUNTER 2024-05-30 09:05 | Outpatient (CLI) | payer MEDICARE, SELFPAY ==
--- OUTSIDE RECORDS SUMMARY | 2024-05-30 09:41 | XMS_ITS | Encounter Summary ---
Author Organization [facility] Medical [facility] Address [address] [facility] [address] [place] [id number] Care Team Providers Care Helper Maintenance Cleaning Name Role Phone Jose Cherry MD Primary Care Provider [phone] No, Physician Primary Care Provider [phone] Marky Loya MD Primary Care Provider [phone] Encounter Details Date Type Department Care Team (Late st Contact Info) Description 05/12/2016 Orders Only [facility] ProviderNe MD [address] [place] [address] Social History Tobacco Use Types Packs/Day Years Used Date Smoking Tobacco: Former Cigarettes Q uit: 03/07/1978 Alcohol Use Standard Drinks/Week Comments Yes 0 (1 standard drink = 0.6 oz pur e alcohol) Comments Unknown Sex and Gender Information Value Date Recorded Sex Assigned at Not on file 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 Historical Provider [facility] ANABELA SANCHEZ Final Result documented in this encounter Visit Diagnoses Not on filedocumented in this encounter Care Teams Helper Maintenance Cleaning Relationship Specialty Start Date End Date Jose Cherry MD PCP - General 09/10/14 06/03/16 No, Physician PCP - General 05/04/18 07/05/18 Marky Loya MD PCP - General Family Medicine 07/06/18 documented as of this encounter
--- OUTSIDE RECORDS SUMMARY | 2024-05-30 09:41 | XMS_ITS | Continuity of Care Document ---
Author Organization [facility] Address [address] [place] [address] [address] [place] [address] Phone Care Team Providers Care Room Service Food Server Name Role Phone Domenico Vaughn Unavailable Unavailable Procedures Procedure Date Eye Exam & Treatment No Script Refraction Eye Exam & Treatment Refraction Office/outpatient Visit, Est Office/outpatient Visit, Est Office/outpatient Visit, Est Miscellaneous Vision Service - Supplies Advance Directives Directive Yes / No Effective Date File Name No Information Encounters Encounter Description Practice Location Reason(s) For Visit Diagnoses Date Provider Providers Copied on Encounter [facility], [address] [place] [address] [address], [place], [place], [id number], [place] tel:[phone] [facility] No Information 4-201 0 Roderick Acuña. [address] [facility] , [address], [place], [place], [facility], [place]. tel:[phone] [facility], [address] [place] [address] [address], [place], [place], [id number], [place] tel:[phone] [facility] No Information 6-200 8 Roderick Acuña. [address] [facility] , [address], [place], [address], [place]. tel:[phone] Office/outpat ient Visit, [facility], [address] [place] [address] [address], [place], [place], [id number], [place] tel:[phone] [facility] No Information 8[address] 8 Roderick Edlinette. [address] [place] [address] , [address], [place], [address], [place]. tel:[phone] Office/outpat ient Visit, [facility], [address], [place], [place], [id number], [place] tel:[phone] SEC [facility] No Information 1200 7 Mayra Arreola. [address] [facility], [address], [place], [place], [id number], [place]. tel:[phone] Office/outpat ient Visit, [facility], [address], [place], [place], [address], [place] tel:[phone] [facility] No Information 4[address] 7 Roderick Acuña. [address] [place] [address] , [address], [place], [address], [place]. tel:[phone] [facility], [address], [place], [place], [id number], [place] tel:[phone] SEC [facility] No Information 0 6200 7 [employer] . [address] [facility], [address], [place], [place], [id number], [place]. tel:[phone] Consulting Provider: Giuseppe Gupta, [address], [place], [address]. tel:[phone] Family History Family Member Type Diagnosis Age At Onset No Information Payers Payer name Insurance type Covered alliance party ID Authoriza tion(s) Medicare [place] [id number] BCBS [place] Commercial CI [id number] Social History Type Description Quantity Date Captured Comments Sex Female Smoking Status No Information Chief Complaint And Reason For Visit No Information Reason For Referral Reason For Referral No Information History Of Present Illness Encounter Date Complaint History Of Prese nt Illness No Information Functional Status Date Functional Assessmen t No Information Instructions Date Instruction Additional Infor mation No Information Assessments Type Assessment Date No Information Patient Care Teams Name Effective Dates (start - stop) Status Members No Information
--- OUTSIDE RECORDS SUMMARY | 2024-05-30 09:41 | XMS_ITS | Referral Summary ---
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 Office Visit [facility] Medical [facility] Cardiology [address] [facility] [facility] [address] [place] [address] Hemalatha An NP Coronary artery disease of [place] artery of [place] heart with stable angina pectoris (Primary Dx); Persistent atrial fibrillation (HCC); S/P ablation of atrial fibrillation; At risk for amiodarone toxicity with intermediate accountant use; Chronic anticoagulation; Benign hypertension from Last 3 Months Allergies Active Allergy Reactions Criticality Noted Date Comments Adhesive Tape-Silicones Itching Low 02/14/2018 Meperidine Other (See comments) Low 02/14/2018 high Morphine Vomiting Low Penicillins Rash Medium Medications cholecalciferol (VITAMIN D-3) 1,000 unit tablet Take 1 tablet (1,000 Units total) by mouth daily Two tablets daily by mouth Active levothyroxine sodium (TIROSINT) 50 mcg capsule Take 1 capsule (50 mcg total) by mouth early childhood services coordinator before breakfast Active multivitamin tabletIndications :Vitamin Deficiency Prevention Take 1 tablet by mouth daily Active furosemide (LASIX) 40 mg tablet TAKE 1 TABLET BY MOUTH EVERY DAY 90 tablet 3 9 Active isosorbide mononitrate ER (IMDUR) 30 mg 24 hr tablet Take 1 tablet (30 mg total) by mouth daily 30 tablet 11 9 Active HYDROcodone-aceta minophen (NORCO) 5-325 mg per tabletIndications :Pain Take 1 tablet by mouth every 6 (six) hours as needed Active rivaroxaban (XARELTO) 20 mg tablet Take 1 tablet (20 mg total) by mouth daily with dinner 90 tablet 1 0 Active metoprolol (LOPRESSOR) 100 mg tablet Take 1 tablet (100 mg total) by mouth 2 (two) times a day Active amLODIPine (NORVASC) 2.5 mg tablet 2 Active potassium chloride ER 10 mEq CR tablet TAKE 2 TABLETS BY MOUTH TWICE A DAY 360 tablet 2 4 Active rosuvastatin (CRESTOR) 10 mg tabletIndications :Coronary artery disease involving [place] coronary artery of [place] heart without angina pectoris TAKE 1 TABLET BY MOUTH EVERY DAY 90 tablet 3 4 Active nitroglycerin (NITROSTAT) 0.4 mg SL tabletIndications :Coronary artery disease of [place] artery of [place] heart with stable angina pectoris Place 1 tablet (0.4 mg total) under the tongue every 5 (five) minutes as needed for chest pain May repeat dose every 5 minutes for up to 3 doses total. 25 tablet 3 5 Active amiodarone (PACERONE) 200 mg tabletIndications :Paroxysmal atrial fibrillation (HCC) Take 1 tablet (200 mg total) by mouth daily 90 tablet 2 5 Active Active Problems Problem Noted Date Diagnosed Date Other chest pain 01/07/2023 Mixed hyperlipidemia 06/15/2021 Hematoma 02/21/2020 BRBPR (bright red blood per rectum) 02/06/2019 Abnormal stress test 09/11/2018 S/P ablation of atrial fibrillation 05/09/2018 Anticoagulation management encounter 01/16/2018 Assessment & Plan (06/23/2021 11:38 AM CDT): Chads Vasc score is 5. She is presently doing well with rivaroxaban. Previously, we discussed Watchman placement, as she experienced a life- threatening GI bleed while on anticoagulation. She also had a traumatic lower extremity hematoma with delayed healing because of ongoing anticoagulation. She is not interested in Watchman placement at this time, but will consider the option if she experiences additional bleeding issues. The patient will follow-up with me in 12 months for an office visit and twelve- lead ECG. Assessment & Plan (06/16/2020 3:14 PM CDT): Patient has a chads Vasc score of 5. She is presently anticoagulated with rivaroxaban. However, the patient has experienced several bleeding events that make continued use of anticoagulation problematic. Previously, the patient had a life-threatening GI bleed, and more recently, she experienced a traumatic lower extremity hematoma that is only now healing fully. As an alternative, I recommended that she consider placement of a Watchman left atrial appendage occlusion device. I explained the rationale for this, as well as the risks and benefits. She will discuss this with her commercial carpenter, and if she wishes to proceed, I asked her to contact my office so that we could screen her appropriately. The patient will follow-up with me in 12 months for an office visit and twelve- lead ECG. Assessment & Plan (07/09/2018 10:48 AM CDT): The patient has a [id number] score of 5 (annualized risk of stroke 6.7 %). I have therefore recommended that she remain anticoagulated for thromboprophylaxis. The patient will follow-up with me in 6 months for an office visit and twelve- lead ECG. Assessment & Plan (01/16/2018 4:35 PM SELF PROPELLED MINING MACHINE OPERATOR): The patient has a [id number] score of 4 (annualized risk of stroke 4.0 %). I have therefore recommended that she remain anticoagulated for thromboprophylaxis. Paroxysmal atrial fibrillation 01/12/2018 Overview (01/12/2018): Added automatically from request for surgery [id number] Assessment & Plan (06/27/2022 1:48 PM CDT): The patient is 4 and half years status post ablation for atrial fibrillation, doing well. Maintaining sinus rhythm with amiodarone. No changes to management at this time The patient has a WID3YC0-EQVl score of 5. I have therefore recommended anticoagulation. We discussed Watchman, as the patient has experienced life-threatening GI bleeds in the past. However, at this time she appears to be tolerating rivaroxaban without difficulty. The patient will follow-up with me in 12 months for an office visit and twelve- lead ECG. Assessment & Plan (06/23/2021 11:37 AM CDT): Paroxysmal atrial fibrillation, symptomatic. She is maintaining sinus rhythm 3 and half years post ablation. We will continue to monitor and follow closely, and manage new / recurrent arrhythmia expectantly. Assessment & Plan (06/16/2020 3:12 PM CDT): Paroxysmal atrial fibrillation, status post ablation. The patient is presently maintaining sinus rhythm without documented recurrence. We will continue to monitor and follow closely, and manage new / recurrent arrhythmia expectantly. Assessment & Plan (07/09/2018 10:47 AM CDT): The patient is 6 months status post ablation for persistent atrial fibrillation. She is doing well, without recurrence. We will continue to monitor and follow closely, and manage new / recurrent arrhythmia expectantly. At risk for amiodarone toxicity with custodial u se 12/14/2017 Chronic diastolic heart failure 08/08/2017 COPD (chronic obstructive pulmonary disease) Chronic anticoagulation 02/01/2017 Assessment & Plan (06/11/2019 1:12 PM CDT): The patient has a RNI5RO2-RKQt score of 5 (annualized risk of stroke 6.7%). I have therefore recommended that she remain anticoagulated for thromboprophylaxis. The patient will follow-up with me in 12 months for an office visit and twelve- lead ECG. Coronary artery disease invo lving [place] coronary artery of [place] heart without angina pectoris 02/01/2017 Edema of extremities 05/03/2016 Overview (06/11/2016): Edema extremities Persistent atrial fibrillation 01/13/2015 Overview (06/11/2016): Paroxysmal atrial fibrillation Assessment & Plan (06/23/2023 1:20 PM CDT): The patient is 6 years status post ablation for atrial fibrillation, doing well. Maintaining sinus rhythm with low-dose amiodarone. 12-lead ECG today does not demonstrate any changes that would prohibit continued use of amiodarone. We will continue the patient on the same dose and schedule. As long as the patient continues on this medication, an ECG should be performed at least every 6 months to monitor for toxicity. Liver function tests and thyroid function tests should be performed at least every 6 months, an assessment of pulmonary function will be needed yearly. The patient has a [id number] score of 4. I have therefore recommended continued anticoagulation thromboprophylaxis. The patient follows yearly with her commercial carpenter. I have not made a follow-up appointment, but asked her to contact me if she has additional problems or questions with her atrial arrhythmia. Assessment & Plan (06/11/2019 1:12 PM CDT): The patient is a 15 month status post ablation for persistent atrial fibrillation. She is doing well without documented recurrence. We will continue to monitor and follow closely, and manage new / recurrent arrhythmia expectantly. The patient should have a 12 lead ECG when the current SARS-Cov-19 pandemic allows from a safety standpoint. Assessment & Plan (01/16/2018 4:34 PM SELF PROPELLED MINING MACHINE OPERATOR): The patient has symptomatic persistent atrial fibrillation that has been refractory to cardioversion with amiodarone. We discussed radiofrequency catheter ablation, and the patient is interested in pursuing this option. We discussed the rationale for atrial fibrillation ablation, including the steps involved in ablation. I detailed the risks of the procedure, including vascular injury/hematoma, myocardial injury/perforation, stroke, myocardial infarction, pulmonary vein stenosis, thermal esophageal injury, and . I estimated a 70% chance of freedom from long-term atrial arrhythmia, and the patient understands that occasionally a second procedure is necessary. Prior to ablation, I recommended that the patient undergo CT scanning with reconstruction of the left atrium, to assist with mapping and ablation. Because of the patient's persistent atrial fibrillation, I recommended that they undergo transesophageal echocardiography (to exclude the presence of left atrial thrombus) immediately prior to EP study and ablation. My office will make the appropriate arrangements. From: March, Matt LS, Sukhdev JS, Waqas H, Alec SANTY, Tabby JE, Dank TALYA, Darlin PT, Jere MENDOZA, [place], Wale KT, Chemo RL, Soy WG, Twyal PJ, Cony CM, Alberta CW. 2014 AHA/ACC/HRS guideline for the management of patients with atrial fibrillation: a report of the [place] College [employer]/[place] Heart Association Task Force on Practice Guidelines and the Heart Rhythm Society. J Am Stefani Cardiol 2014. 6.3. AF Catheter Ablation to Maintain Sinus Rhythm: Recommendations Class IIa AF catheter ablation is reasonable for selected patients with symptomatic persistent AF refractory or intolerant to at least 1 class I or III antiarrhythmic medication (388, [phone]). (Level of Evidence: A) Benign hypertension 01/13/2015 Overview (06/11/2016): HTN (hypertension), benign Dyspnea on exertion 06/19/2014 Overview (06/11/2016): RAMOS (dyspnea on exertion) Resolved Problems Problem Noted Date Diagnosed Date Resolved Date Dyslipidemia 01/13/2015 10/02/2021 Overview (06/11/2016): Mixed dyslipidemia Social History Tobacco Use Types Packs/Day Years Used Date Smoking Tobacco: Former Cigarettes Q uit: 10/09/1978 Smokeless Tobacco: Never Tobacco Cessation:Counseling Given: Not Answered Alcohol Use Standard Drinks/Week Comments Yes 0 (1 standard drink = 0.6 oz pur e alcohol) occasional AUDIT-C Answer Date Recorded Q1: How often do you have a drink containing alc ohol? Never 01/05/2021 Average Number of Drinks Not on file 021 Frequency of Binge Drinking Not on file 03/2020 Comments Unknown Sex and Gender Information Value Date Recorded Sex Assigned at Not on file Legal Sex Female 2:34 AM SELF PROPELLED MINING MACHINE OPERATOR Gender Identity Not on file Sexual Orientation Not on file Last Filed Vital Signs Vital Sign Reading Time Taken Comments Blood Pressure 156/64 03/08/2024 11:32 AM SELF PROPELLED MINING MACHINE OPERATOR Pulse 57 03/08/2024 11:32 AM SELF PROPELLED MINING MACHINE OPERATOR Temperature 36.5 C (97.7 F) 01/05/2021 10:16 AM CDT Respiratory Rate 20 02/16/2018 7:50 AM SELF PROPELLED MINING MACHINE OPERATOR Oxygen Saturation 94% 03/08/2024 11:32 AM SELF PROPELLED MINING MACHINE OPERATOR Inhaled Oxygen Concentration - - Weight 64.4 kg (142 lb) 03/08/2024 11:32 AM SELF PROPELLED MINING MACHINE OPERATOR Height 157.5 cm (5' 2 ) 03/08/2024 11:32 AM SELF PROPELLED MINING MACHINE OPERATOR Body Mass Index 25.97 03/08/2024 11:32 AM SELF PROPELLED MINING MACHINE OPERATOR Plan of Treatment Not on file Insurance MEDICARE [facility] MEDICARE [facility] MEDICARE [facility] MEDICARE SUPPLEMENT Care Teams Lumber Sorter Machine Relationship Specialty Start Date End Date Marky Loya MD PCP - General Family Medicine 07/06/18
--- OUTSIDE RECORDS SUMMARY | 2024-05-30 09:41 | XMS_ITS | Clinical Summary ---
Author Organization [facility] [address] Address [address] [place] [address] Care Team Providers Care Char Conveyor Tender Cellar Name Role Phone Marky Loya MD Primary Care Provider [phone] Allergies Active Allergy Reactions Criticality Noted Date Comments Adhesive Tape-Silicones Itching Low 02/14/2018 Meperidine Other (See comments) Low 02/14/2018 high Morphine Vomiting Low Penicillins Rash Medium Medications cholecalciferol (VITAMIN D-3) 1,000 unit tablet Take 1 tablet (1,000 Units total) by mouth daily Two tablets daily by mouth Active levothyroxine sodium (TIROSINT) 50 mcg capsule Take 1 capsule (50 mcg total) by mouth fine dining server before breakfast Active multivitamin tabletIndications :Vitamin Deficiency [...] 10 mg tabletIndications :Coronary artery disease involving [place] coronary artery of [place] heart without angina pectoris TAKE 1 TABLET BY MOUTH EVERY DAY 90 tablet 3 4 Active nitroglycerin (NITROSTAT) 0.4 mg SL tabletIndications :Coronary artery disease of [place] artery of [place] heart with stable angina pectoris Place 1 [...] benefits. She will discuss this with her transmitter supervisor, and if she wishes to proceed, I asked her to contact my office so that we could screen her appropriately. The patient will follow-up with me in 12 months for an office visit and twelve- lead ECG. Assessment & Plan (07/09/2018 10:48 AM CDT): The patient has a [id number] score of 5 (annualized risk of stroke 6.7 %). I have therefore recommended that she remain anticoagulated for thromboprophylaxis. The patient will follow-up with me in 6 months for an office visit and twelve- lead ECG. Assessment & Plan (01/16/2018 4:35 PM EXECUTIVE PILOT): The patient has a [id number] score of 4 (annualized risk of stroke 4.0 %). I have therefore recommended that she remain anticoagulated for thromboprophylaxis. Paroxysmal atrial fibrillation 01/12/2018 Overview (01/12/2018): Added automatically from request for surgery [id number] Assessment & Plan (06/27/2022 1:48 PM CDT): The patient is 4 and half years status post ablation for atrial fibrillation, doing well. Maintaining sinus rhythm with amiodarone. No changes to management at this time The patient has a [id number] score of 5. I have therefore recommended [...] expectantly. At risk for amiodarone toxicity with assistant terminal manager u se 12/14/2017 Chronic diastolic heart failure 08/08/2017 COPD (chronic obstructive pulmonary disease) Chronic anticoagulation 02/01/2017 Assessment & Plan (06/11/2019 1:12 PM CDT): The patient has a [id number] score of 5 (annualized risk of stroke 6.7%). I have therefore recommended that she remain anticoagulated for thromboprophylaxis. The patient will follow-up with me in 12 months for an office visit and twelve- lead ECG. Coronary artery disease invo lving [place] coronary artery of [place] heart without angina pectoris 02/01/2017 Edema of [...] be needed yearly. The patient has a [id number] score of 4. I have therefore recommended continued anticoagulation thromboprophylaxis. The patient follows yearly with her transmitter supervisor. I have not made a follow-up appointment, [...] standpoint. Assessment & Plan (01/16/2018 4:34 PM EXECUTIVE PILOT): The patient has symptomatic persistent atrial fibrillation [...] JE, Dank TALYA, Darlin PT, Jere MENDOZA, Field NORTON, Wale KT, Chemo RL, Soy WG, Twyla PJ, Cony CM, [place] CW. 2014 AHA/ACC/HRS guideline for the management of patients with atrial fibrillation: a report of the [place] [employer] [employer] Task Force on Practice Guidelines [...] Dyslipidemia 01/13/2015 10/02/2021 Overview (06/11/2016): Mixed dyslipidemia Encounters Date Type Department Care Team Description 03/16/2024 Telephone [facility] [address] [facility] [address] [place] [phone] Hemalatha An NP Chest Pain 03/08/2024 11:30 AM EXECUTIVE PILOT Office Visit [facility] Cardiology [address] [place] [phone] Hemalatha An NP Coronary artery disease of [place] artery of [place] heart with stable angina pectoris (Primary Dx); Persistent atrial fibrillation (HCC); S/P ablation of atrial fibrillation; At risk for amiodarone toxicity with assistant terminal manager use; Chronic anticoagulation; Benign hypertension from Last 3 Months Surgical History Surgery Date Site/Laterality Comments BREAST LUMPECTOMY Right LAPAROSCOPIC CHOLECYSTECTOMY SECTION x 3 TONSILLECTOMY/ADENOIDECTOMY childhood NECK MASS EXCISION lump on back of neck removed -- benign SECTION 08/16/1960 TUBAL LIGATION 02/02/1965 Medical History Medical History Date Comments Hypertension Hypertension Hypothyroidism Hypothyroidism Osteoarthritis Osteoarthritis Arrhythmia A-fib (HCC) Breast cancer (HCC) right Coronary artery disease History of radiation therapy rig ht breast cancer Family History Medical History Relation Name Comments Colon cancer Father Cancer, colon; Cause of : Cancer, colon Heart attack Mother Ofelia Myocardial Infa rction; Relation Name Status Comments Father (Age 37) Mother Ofelia Alive Social History Tobacco Use Types Packs/Day Years [...] on file Legal Sex Female 2:34 AM EXECUTIVE PILOT Gender Identity Not on file Sexual Orientation Not on file Obstetrics History Last Filed Vital Signs Vital Sign Reading Time Taken Comments Blood Pressure 156/64 03/08/2024 11:32 AM EXECUTIVE PILOT Pulse 57 03/08/2024 11:32 AM EXECUTIVE PILOT Temperature 36.5 C (97.7 F) 01/05/2021 10:16 AM CDT Respiratory Rate 20 02/16/2018 7:50 AM EXECUTIVE PILOT Oxygen Saturation 94% 03/08/2024 11:32 AM EXECUTIVE PILOT Inhaled Oxygen Concentration - - Weight 64.4 kg (142 lb) 03/08/2024 11:32 AM EXECUTIVE PILOT Height 157.5 cm (5' 2 ) 03/08/2024 11:32 AM EXECUTIVE PILOT Body Mass Index 25.97 03/08/2024 11:32 AM EXECUTIVE PILOT Plan of Treatment Health Maintenance Due Date Last Done Comments Depression Screening 1937 Fall Risk Assessment 1935 DTaP/Tdap/Td Vaccine (1 - Tdap) 1948 Hepatitis B Screening 06/11/1955 Pneumococcal vaccine 65+ (1 of 2 - PCV) 1956 Well Visit 65+ 2002 Zoster Vaccine (2 of 3) 02/26/2012 01/01/2012 Influenza Vaccine (#1) 2023 01/05/2012 Insurance MEDICARE [facility] MEDICARE [facility] MEDICARE [facility] [employer] MEDICARE SUPPLEMENT Care Teams Char Conveyor Tender Cellar Relationship Specialty Start Date End Date Marky Loya MD PCP - General Family Medicine 07/06/18
--- OUTSIDE RECORDS SUMMARY | 2024-05-30 09:41 | XMS_ITS ---
Author Name MillyDylan andersonazam Curtis Address [address] [place] [address] Phone [phone] [employer] Address [address] [place] [address] Phone [phone] Care Team Providers Care Management Accountant Name Role Phone Dylan Loyaesh Ever Unavailable Functional Status No Results Mental Status No Results Allergies and Intolerances Name Onset Date Reaction Severity meperidine (Allergy) TueDec 12 15:42:00 EDT 201 9 tape, permeable adhesive (Allergy) TueDec 12 15 :42:00 EDT 2019 morphine (Allergy) TueDec 12 15:42:00 EDT 2019 penicillin (Allergy) TueDec 12 15:42:00 EDT 201 9 Medications Medication Directions Start Date End Date Bactrim DS 800 mg-160 mg tablet 1tab (TABLET) Oral Every 12 Hours TueDec 14 01:00:00 EDT 2018Dec 23 00:59:00 EDT 2018 Vitamin D3 1,000 unit capsule 1cap (CAPSULE) Oral Every 1 Day TueDec 13 01:00:00 EDT 2018Jan 23 01:00:00 EST 2018 Aspirin Low-Strength 81 mg chewable tablet 1tab (TABLET,CHEWABLE) Oral Every 1 Day TueDec 13 01:00:00 EDT 2018Jan 23 01:00:00 EST 2018 HYDROcodone 5 mg-acetaminophen 325 mg tablet 1-2tabs (TABLET) Oral Every 4 to 6 Hours, PRN TueDec 13 01:00:00 EDT 2018Jan 23 01:00:00 EST 2018 furosemide 40 mg tablet 1tab (TABLET) Or al Every 1 Day TueDec 13 01:00:00 EDT 2018Jan 23 01:00:00 EST 2018 levothyroxine 25 mcg tablet 1tab (TABLET ) Oral Every 1 Day TueDec 13 01:00:00 ED2018Jan 23 01:00:00 EST 2018 isosorbide mononitrate ER 30 mg tablet,extended release 24 hr 1tab (TABLET, EXTENDED RELEASE 24 HR) Oral Every 1 Day TueDec 13:00:00 ED2018Jan 23 01:00:00 EST 2018 Multiple Vitamin, Womens tablet 1tab (TABLET) Oral Every 1 Day TueDec 13:00:00 EDT 2018Jan 23 01:00:00 EST 2018 metoprolol tartrate 50 mg tablet 1tab (TABLET) Oral 2 Times Daily TueDec 13:00:00 ED2018Jan 23 01:00:00 EST 2018 Xarelto 20 mg tablet 1tab (TABLET) Oral Every 1 Day Take at supper time TueDec 13:00:00 2018Jan 23 01:00:00 EST 2018 potassium chloride ER 10 mEq capsule,extended release 2cap (CAPSULE, EXTENDED RELEASE) Oral 2 Times Daily TueDec 13:00:00 EDT 2018Jan 23 01:00:00 EST 2018 Zocor 10 mg tablet 1tab (TABLET) Oral Every 1 Day take in PM TueDec 13 01:00:00 EDT 2018Jan 23 01:00:00 EST 2018 Problems Active Concerns * Aftercare following joint replacement surgery* Code: * Start Date: TueDec 13:00:00 T 2018 * End Date: * Text: * Presence of right artificial knee joint* Code: * Start Date: TueDec 13:00:00 T 2018 * End Date: * Text: * Essential (primary) hypertension* Code: * Start Date: TueDec 13:00:00 T 2018 * End Date: * Text: * Unspecified atrial fibrillation* Code: * Start Date: TueDec 13 00:00:00 EDT 2018 * End Date: * Text: * Obesity, unspecified* Code: * Start Date: TueDec 13:00:00 T 2018 * End Date: * Text: * Body mass index [BMI]30.0-30.9, adult* Code: * Start Date: TueDec 13:00:00 EDT 2018 * End Date: * Text: Reason for Referral Past Medical History
[2024-05-30 10:03] LABS: Basophils Percent Auto 0.6 % (0.2-1.2); Eosinophils Absolute Auto 0.1 K/mm3 (0-0.3); Eosinophils Percent Auto 1.4 % (0-4.4); Hematocrit 43.4 % (37.0-47.0); Immature Granulocyte Absolute 0.01 K/mm3 (0.00-0.031); Immature Granulocyte Percent A 0.2 % (0-0.5); Lymphocytes Absolute Auto 1.13 K/mm3 (0.9-3.2); Lymphocytes Percent Auto 21.8 % (18.3-44.2); Mean Corpuscular HGB Conc 32.3 g/dl (32-36); Mean Corpuscular Hemoglobin 29.8 pg (26-34); Mean Corpuscular Volume 92.3 fl (80-100); Mean Platelet Volume 11.2 fl (7.4-10.4); Monocytes Absolute Auto 0.5 K/mm3 (0.1-0.6); Monocytes Percent Auto 9.1 % (2.6-8.5); Neutrophils Absolute Auto 3.5 K/mm3 (1.3-6.7); Neutrophils Percent Auto 66.9 % (45.5-73.1); Platelet Count Result 213 k/mm3 (150-375); Red Cell Distribution Width 14.1 % (11.5-14.5); White Blood Count 5.2 K/mm3 (4.5-10.0)
[2024-05-30 10:13] LABS: Alanine Aminotransferase 14 U/L (6-35); Albumin Level 4.5 g/dL (3.5-5.1); Alkaline Phosphatase 67 U/L (38-126); Anion Gap 7 mmol/L (4-12); Aspartate Amino Transferase 31 U/L (14-36); Bilirubin,Total 0.9 mg/dL (0.2-1.3); Blood Urea Nitrogen 15 mg/dL (7-17); Calcium 9.9 mg/dL (8.4-10.2); Carbon Dioxide 31 mmol/L (22-30); Chloride 101 mmol/L (98-107); Cholesterol 135 mg/dL (0-200); Estimated Glomerular Filt Rate 59; Glucose 89 mg/dL (65-110); HDL Direct 73 mg/dL; Potassium 4.2 mmol/L (3.4-5.0); Sodium 139 mmol/L (137-145); Triglycerides 112 mg/dL (<150)
[2024-05-30 10:35] LABS: Free T4 Free Thyroxine 1.51 ng/dL (0.78-2.19)
[2024-05-30 10:44] LABS: Total Triiodothyronine (T3) 1.05 NG/ML (0.97-1.69)
[2024-05-30 10:48] LABS: LDL Cholesterol Direct < 30 mg/dL
== END 2024-05-30 09:06 | disposition home or self-care (01) ==
LOC: ANHLAB 09:08
PROVIDERS: PCP Family Medicine; Visit Provider Registered Nurse
DX: E03.9 Hypothyroidism, unspecified (principal); E78.5 Hyperlipidemia, unspecified; I10 Essential (primary) hypertension
CPT/HCPCS: 36415; 80053; 80061; 84439; 84443; 84480; 85025

== ENCOUNTER 2024-07-29 00:56 | Inpatient (IN) | payer MEDICARE, SELFPAY ==
[2024-07-29] VITALS (26 sets, daily range): BP systolic 94–152; BP diastolic 48–94; PULSE 61–104; RESP 14–24; TEMP 36.1–37.1; O2SAT 93–100; BMI 25.3
--- NOTE | ~2024-07-29 | CT_ITS ---
CTA brain carotid Ordering provider: Magdalena Mccormick MD History: . episodic dizziness w/ nystagmus . Comparison: None. Technique: CT angiogram head and neck was performed following timed intravenous injection of contrast . Thin slice axial images and reformatted coronal images were obtained. Three dimensional reformatted images of the brain were also obtained using a [employer] workstation. FINDINGS: HEAD: --ANTERIOR AND MIDDLE CEREBRAL ARTERIES AND BRANCHES: Normal caliber and contour. --INTRACRANIAL INTERNAL CAROTID ARTERIES: Moderate atheromatous disease bilaterally resulting in mild stenosis but no occlusion. --BASILAR ARTERY AND BRANCHES: Mild atheromatous disease but no stenosis or occlusion. --POSTERIOR CEREBRAL ARTERIES: Normal caliber and contour --POSTERIOR COMMUNICATING ARTERIES: Not well visualized, likely related to congenital absence or smal l size. --ANEURYSM: None visualized. --BRAIN: The ventricles are enlarged. The dilatation of the ventricles is proportional to the degree of sulcal prominence, not uncommon in the senescent brain. Decreased attenuation is identified within the periventricular white matter, likely secondary to micr ovascular ischemic disease, in a patient of this age. There is no mass, mass effect or midline shift. There is no abnormal extra-axial fluid collection or intracranial hemorrhage. Visualized paranasal sinuses are clear. The mastoid air cells are well aerated. No acute displaced fractures within the overlying cranium. NECK: --RIGHT CERVICAL CAROTID SYSTEM: Moderate atheromatous disease of the carotid bulb and proximal inter nal carotid artery. Percent stenosis per NASCET criteria is 0% No carotid dissection. --LEFT CERVICAL CAROTID SYSTEM: Mild atheromatous disease of the carotid bulb and proximal internal c arotid artery without significant stenosis. Percent stenosis per NASCET criteria is 0% No carotid di ssection. --VERTEBRAL ARTERIES: Normal caliber and contour. Left vertebral artery dominant. --VISUALIZED AORTIC ARCH AND BRANCHING VESSELS: Mild atheromatous disease but no significant stenosis . --SOFT TISSUES: Unremarkable --CERVICAL SPINE: Age appropriate degenerative changes. IMPRESSION: 1. Percent stenosis per NASCET criteria is 0% bilaterally. 2. No acute intracranial hemorrhage or suspicious mass effect. Reviewed, dictated and finalized at location A.
--- NOTE | ~2024-07-29 | XR_ITS ---
CHEST RADIOGRAPH CLINICAL HISTORY: dizziness . COMPARISON: 10/05/2023 TECHNIQUE: Single portable view of the chest. FINDINGS The cardiomediastinal silhouette is unremarkable. Bibasilar scarring, unchanged. The remainder of the cardiomediastinal silhouette is otherwise unremarkable. IMPRESSION: Bibasilar scarring without focal infiltrate or effusion Reviewed, dictated and finalized at location A.
--- NOTE | ~2024-07-29 | MR_ITS ---
MR brain/brain stem wo/w con Ordering provider: Magdalena Mccormick MD History: 89 years Female with . vertigo . Comparison: CT head performed the same day. Technique: MRI brain was performed with and without contrast. 14 mL ProHance was given IV. FINDINGS: BONES: Normal. CRANIOCERVICAL JUNCTION: normal. PITUITARY: Normal. MAJOR INTRACRANIAL VESSELS: Normal flow void. OPTIC NERVES AND CRANIAL NERVES VII AND VIII COMPLEXES: Grossly normal. BRAIN PARENCHYMA AND CSF SPACES: Moderate nonspecific T2 white matter hyperintensities are seen in a bilateral periventricular and deep white matter distribution which are likely related to chronic isc hemic small vessel disease. Moderate diffuse cortical atrophy. The brainstem and cerebellum are antoine l. No acute or chronic intracranial hemorrhage. No extra axial fluid collections. Diffusion weighted and ADC mapping images reveal no recent ischemia. No midline shift or mass effect. PARANASAL SINUSES: Bilateral maxillary sinus disease. Bilateral ethmoid sinus disease. MASTOIDS: Effusion in the right sphenoid sinus. SUPERFICIAL/SURROUNDING SOFT TISSUES: Normal. IMPRESSION: 1. No acute intracranial process. 2. Nonenhancing lesion seen. Reviewed, dictated and finalized at location A.
--- NOTE | 2024-07-29 01:01 | ECG_ITS ---
Test Date: 2024-07-29 01:14:12 Measurements Intervals [place] Rate: 65 P: 78 HI: 218 QRS: 7 QRSD: 96 T: 53 QT: 455 QTc: 474 Interpretive Statements SINUS RHYTHM WITH FIRST DEGREE AV BLOCK NONSPECIFIC T-WAVE ABNORMALITY No previous ECG available for comparison Electronically Signed On 07-29-2024 10:10:51 CDT by Jani Bateman M.D.
--- NOTE | 2024-07-29 01:13 | ED.DIZZY ---
HPI - Dizziness General Chief Complaint: Dizziness Stated Complaint: Dizziness Time Seen by Provider: 07/29/24 01:02 Source: patient and family (daughter) Mode of arrival: EMS Limitations: no limitations History of Present Illness HPI Narrative: Patient presents with dizziness for 12 hours. It first occurred when she was trying to sit up and she became so dizzy it felt like she was being pushed back down. Has been complaining of right ear pain. Chronic hearing changes, nothing acute. No tinnitus. Episodes occur consistently when she tries to stand but also with head movement (especially when turning left). No cough or diarrhea. Does not feel like she is spinning but describes it as feeling like the room is spinning. Not lightheaded. Nauseated but no vomiting. Chronically cold. Subjectively felt warm. Doesn't describe it as disequilibrium. No gait abnormalities noted (though unclear if unable to be assessed). This has never happened before. History of memory issues. She was confused yesterday morning per daughter, thinking that a nurse was at the house but there wasn't one. Patient' can't say whether it was visual or auditory but she has had some occasional hallucinations at baseline. No new meds. Had missed a few PM meds recently due to taking AM meds too late in the morning (e.g. metoprolol and 2 potassiums). No history of diabetes mellitus. No unilateral symptoms or slurred speech. Denies chest pain or shortness of breath. Related Data Home Medications ?Medication ?Instructions ?Recorded ?Confirmed ?Last Taken ?Type potassium chloride 10 mEq 10 meq PO BID 01/08/19 12/05/23 12/04/23 History tablet,extended release (Klor-Con) furosemide 40 mg tablet (Lasix) 40 mg PO DAILY 02/21/19 12/05/23 12/04/23 History isosorbide mononitrate 30 mg 30 mg PO DAILY 02/21/19 12/05/23 12/04/23 History tablet,extended release 24 hr metoprolol tartrate 100 mg tablet 100 mg PO BID 02/21/19 12/05/23 12/04/23 History amiodarone 200 mg tablet (Pacerone) 200 mg PO DAILY@0800 10/19/21 12/05/23 12/04/23 History amlodipine 2.5 mg tablet 2.5 mg PO DAILY 0812/05/23 12/04/23 History gabapentin 300 mg capsule 300 mg PO BID 10/19/21 12/05/23 12/04/23 History rosuvastatin 10 mg tablet 10 mg PO DAILY 12/19/21 12/05/23 12/04/23 History levothyroxine 50 mcg tablet 50 mcg PO DAILY 03/10/22 12/05/23 12/05/23 History cholecalciferol (vitamin D3) 25 50 mcg PO DAILY 12/05/23 12/05/23 12/04/23 History mcg (1,000 unit) tablet (Vitamin D3) hydrocodone 5 mg-acetaminophen 325 1 tablet PO Q6H PRN Pain (Scale 12/05/23 12/05/23 Unknown History mg tablet Score 4-6) rivaroxaban 20 mg tablet (Xarelto) 20 mg PO QPM 12/05/23 12/05/23 12/04/23 History Allergies Allergy/AdvReac Type Severity Reaction Status Date / Time penicillin V Allergy Intermediate Rash Verified 12/08/23 14:21 Penicillins Allergy Intermediate Rash Verified 12/08/23 14:21 adhesive tape Allergy Unknown RASH Verified 12/05/23 14:34 morphine AdvReac Intermediate Vomiting Verified 12/05/23 14:34 meperidine AdvReac Unknown WOOZY Verified 12/05/23 14:34 [facility] Past Medical History Medical History (Updated 07/29/24 @ 09:53 by Magdalena Mccormick MD) Memory changes MRSA cellulitis Peptic ulcer Primary stress urinary incontinence Gastroesophageal reflux disease Mild coronary artery disease Cardiac catheterization October 2018 showed no angiographically significant coronary disease, at best 40% stenosis at the ostium of the 1st diagonal branch. Osteoarthritis Hypothyroidism Atrial fibrillation She has had several cardioversions, and had a cardiac ablation this year at [facility]. Migraine headache Abnormal colonoscopy Dyslipidemia Hypertension Cancer of right breast Status post lumpectomy and radiation in 2006. Anemia Seasonal allergic rhinitis Vision loss Hearing loss of both ears Surgical History Surgical History History of colonoscopy (07/2013) Diverticulosis, uncomplicated internal external hemorrhoids, hyperplastic polyp. History of arthroscopic knee surgery History of arthroplasty of right knee History of laparoscopic cholecystectomy History of 3 sections History of lumpectomy of right breast For breast cancer in 2006. History of appendectomy Family History Family History Mother Patient's mother is Family history of type 2 diabetes mellitus Family history of Parkinson's disease, Onset Age: 89 Father Family history of heart disease in male family member before age 55, Onset Age: 37 Patient's father is , Onset Age: 37 Family history of hepatitis, Onset Age: 37 Family history of nephrotic syndrome, Onset Age: 37 Son Motor vehicle accident Social History Social History Social History: Surrogate medical decision maker: Ariadne Lambert, daughter. Code status: Full code. Smoking packs per day: 0.5 Smoking cigarettes per day: 10.0 Years smoked: 20 Smoking pack-years: 10.00 Smoking status: Former smoker Tobacco type: cigarettes Second hand tobacco smoke exposure: No Additional smoking assessment comments: pt said she stopped smoking in 1978 Alcohol intake: never Substance use: never Do You Feel Safe in your Home?: Yes Lack of Transportation: YES Lack of Food: Never True Current Housing: I Have Housing Concerned About Future Housing: No Difficulty Paying Gas/Electric Bills: No Difficulty Paying for Meds: No Currently Unemployed: No Education: Grade School Difficulty w/ Childcare or Family Care: No Additional living arrangements comments: . 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cerns: No Agree to blood products: Yes Exam Narrative: GENERAL: Well-appearing, well-nourished, and in no acute distress. HEAD: Normocephalic, atraumatic. EYES: Non injected, non icteric. PERRL, 5mm. NO vertical nystagmus but patient has bilateral horizontal left beating and right beating nystagmus. ENT: Nares clear, no rhinorrhea or epistaxis. Gross auditory acuity intact. TMs easily visualized (scant cerumen) w/o bulging, effusion, erythema, vessicles . NECK: Supple. No meningismus. CHEST: Speaking in full sentences. No respiratory distress. HEART: Regular rate and rhythm. . ABDOMEN: Soft, nondistended. No rigidity or guarding. Not peritoneal EXTREMITIES: Demonstrates ability to move extremities x4. SKIN: Warm, dry, no rash. NEURO: No focal deficits. Alert and oriented. Answering questions. Following commands. Normal speech without aphasia or dysarthria. PSYCH: Normal mood and affect. Course Vital Signs Vital signs: Vital Signs Temperature 97.0 F L 07/29/24 01:04 Pulse Rate 65 07/29/24 01:04 Respiratory Rate 16 07/29/24 01:04 Blood Pressure 149/72 H 07/29/24 01:04 Pulse Oximetry 97 07/29/24 01:04 Oxygen Delivery Room Air 07/29/24 01:04 Temperature 97.0 F L 07/29/24 01:04 Pulse Rate 75 07/29/24 08:50 Respiratory Rate 14 07/29/24 08:50 Blood Pressure 152/75 H 07/29/24 08:50 Pulse Oximetry 96 07/29/24 08:50 Oxygen Delivery Room Air 07/29/24 01:04 MDM - Dizziness MDM Narrative Medical decision making narrative: This is an exceedingly pleasant 89 yo who comes in with episodes of dizziness for the past 12 hours, particularly any time she attempts to sit up/stand. In the emergency department she is afebrile with acceptable vital signs, only mildly hypertensive. Patient's symptoms sound vertiginous. Central causes: infection ( encephalitis, meningitis, cerebritis); vertebrobasilar arterial insufficiency, subclavian steal syndrome, cerebellar or brainstem hemorrhage or infarction, vertebrobasilar migraine, trauma ( temporal bone fracture, post concussive syndrome); tumor (brainstem or cerebellum); MS; temporal lobe epilepsy Peripheral causes: Foreign body, cerumen impaction, acute otitis media, labyrinthitis, benign paroxysmal positional vertigo, Meniere's disease, vestibular neuronitis, perilymphatic fistula, trauma, motion sickness, acoustic neuroma, ototoxic medications Meclizine given as first line agent. Patient has a potassium 2.9. Oral and IV repletion ordered. Magnesium lab ordered as well. Patient had another episode of dizziness after receiving meclizine. Small dose of Valium ordered as second line agent. Troponin normal. Patient is reassessed at approximately 3:50 a.m. and reports no subsequent dizziness. Her potassium is currently infusing. Nurse attempts to ambulate patient for a gait assessment at approximately 4:40 a.m. Patient becomes too dizzy during this. Promethazine ordered to suppress vestibular end-organ receptors and inhibit activation of vagal response. Patient does experience euphoria and hallucinations with this medication. She remains unable to sit upright without getting dizzy. Unable to perform orthostatics. Discuss patient's work up with her and daughter. Patient is having hallucinations and pleasantly confused, giggling. Occasionally reaching for objects. She does not appear bothered/scared. In no acute distress (no furrowed brow, grimace, etc.). Discussed that while peripheral causes were suspected for a variety of reasons, can not rule out central causes and either way patient still symptomatic. Patient and daughter confirm she is full code. No pacemaker. Does have knee replacement performed 10 years ago (likely MRI compatable based on this date). Discussed with neurology Dr Little who is agreeable to consultation and recommends MRI. Patient discussed with customer operations associate hospitalist Dr Velasco. Differential Diagnosis Differential diagnosis: Likely adverse reaction to drug, benign paroxysmal positional vertigo, orthostatic hypotension, vertebral basilar insufficiency, cerebrovascular accident, acute vestibular neuronitis and transient cerebral ischemia Lab Data Attestation: I reviewed the patient's lab results. 07/29/24 01:26 07/29/24 01:26 Labs: Lab Results 07/29/24 07/29/24 07/29/24 Range/Units 01:26 01:47 02:40 WBC 6.7 (4.5-10.0) K/mm3 RBC 4.73 (4.2-5.4) M/mm3 Hgb 13.9 (12.0-15.0) g/dL Hct 44.5 (37.0-47.0) % MCV 94.1 (80-100) fl MCH 29.4 (26-34) pg MCHC 31.2 L (32-36) g/dl RDW 14.0 (11.5-14.5) % Plt Count 220 (150-375) k/mm3 MPV 11.1 H (7.4-10.4) fl Immature Gran % (Auto) 0.3 (0-0.5) % Neut % (Auto) 61.2 (45.5-73.1) % Lymph % (Auto) 22.0 (18.3-44.2) % [place] % (Auto) 13.4 H (2.6-8.5) % Eos % (Auto) 2.3 (0-4.4) % Baso % (Auto) 0.8 (0.2-1.2) % Lymph # (Auto) 1.46 (0.9-3.2) K/mm3 [place] # (Auto) 0.9 H (0.1-0.6) K/mm3 Eos # (Auto) 0.2 (0-0.3) K/mm3 Baso # (Auto) 0.1 (0.0-0.1) K/mm3 Abs Immat Gran (auto) 0.02 (0.00-0.031) K/mm3 Absolute Neuts (auto) 4.1 (1.3-6.7) K/mm3 Absolute Nucleated RBC 0.000 (0.0-0.012) K/mm3 Nucleated RBC % 0.0 (0.0-0.2) % Sodium 139 (137-145) mmol/L Potassium 2.9 L (3.4-5.0) mmol/L Chloride 111 H (98-107) mmol/L Carbon Dioxide 23 (22-30) mmol/L Anion Gap 5 (4-12) mmol/L BUN 12 (7-17) mg/dL Creatinine 0.63 L (0.7-1.0) mg/dL Estim Creat Clear Calc Not Reportable Estimated GFR > 60 (59 - ) Glucose 78 (65-110) mg/dL POC Capillary Glucose (65-105) mg/dl Calcium 7.6 L (8.4-10.2) mg/dL Magnesium 1.9 (1.6-2.3) mg/dL Total Bilirubin 0.7 (0.2-1.3) mg/dL AST 32 (14-36) U/L ALT 12 (6-35) U/L Alkaline Phosphatase 58 (38-126) U/L Troponin I < 0.012 (0.000-0.034) ng/mL Total Protein 6.0 L (6.3-8.2) g/dL Albumin 3.2 L (3.5-5.1) g/dL Urine Color Yellow (Yellow) Urine Appearance Clear (Clear) Urine pH 6.5 (5.0-9.0) Ur Specific [place] 1.015 (1.001-1.035) Urine Protein Negative (Negative) mg/dL Urine Glucose (UA) Negative (Negative) mg/dL Urine Ketones Negative (Negative) mg/dL Ur Blood (Man) Negative (Negative) Urine Nitrate Negative (Negative) Urine Bilirubin Negative (Negative) Urine Urobilinogen 0.2 (<2.0) mg/dL Leukocyte Esterase Rfl Negative (Negative) FAY/UL Influenza A (RT-PCR) Negative (Negative) Influenza B (RT-PCR) Negative (Negative) RSV (RT-PCR) Negative (Negative) SARS-CoV-2 RNA (RT-PCR) Negative (Negative) 07/29/24 Range/Units 05:31 WBC (4.5-10.0) K/mm3 RBC (4.2-5.4) M/mm3 Hgb (12.0-15.0) g/dL Hct (37.0-47.0) % MCV (80-100) fl MCH (26-34) pg MCHC (32-36) g/dl RDW (11.5-14.5) % Plt Count (150-375) k/mm3 MPV (7.4-10.4) fl Immature Gran % (Auto) (0-0.5) % Neut % (Auto) (45.5-73.1) % Lymph % (Auto) (18.3-44.2) % [place] % (Auto) (2.6-8.5) % Eos % (Auto) (0-4.4) % Baso % (Auto) (0.2-1.2) % Lymph # (Auto) (0.9-3.2) K/mm3 [place] # (Auto) (0.1-0.6) K/mm3 Eos # (Auto) (0-0.3) K/mm3 Baso # (Auto) (0.0-0.1) K/mm3 Abs Immat Gran (auto) (0.00-0.031) K/mm3 Absolute Neuts (auto) (1.3-6.7) K/mm3 Absolute Nucleated RBC (0.0-0.012) K/mm3 Nucleated RBC % (0.0-0.2) % Sodium (137-145) mmol/L Potassium (3.4-5.0) mmol/L Chloride (98-107) mmol/L Carbon Dioxide (22-30) mmol/L Anion Gap (4-12) mmol/L BUN (7-17) mg/dL Creatinine (0.7-1.0) mg/dL Estim Creat Clear Calc Estimated GFR (59 - ) Glucose (65-110) mg/dL POC Capillary Glucose 84 (65-105) mg/dl Calcium (8.4-10.2) mg/dL Magnesium (1.6-2.3) mg/dL Total Bilirubin (0.2-1.3) mg/dL AST (14-36) U/L ALT (6-35) U/L Alkaline Phosphatase (38-126) U/L Troponin I (0.000-0.034) ng/mL Total Protein (6.3-8.2) g/dL Albumin (3.5-5.1) g/dL Urine Color (Yellow) Urine Appearance (Clear) Urine pH (5.0-9.0) Ur Specific [place] (1.001-1.035) Urine Protein (Negative) mg/dL Urine Glucose (UA) (Negative) mg/dL Urine Ketones (Negative) mg/dL Ur Blood (Man) (Negative) Urine Nitrate (Negative) Urine Bilirubin (Negative) Urine Urobilinogen (<2.0) mg/dL Leukocyte Esterase Rfl (Negative) FAY/UL Influenza A (RT-PCR) (Negative) Influenza B (RT-PCR) (Negative) RSV (RT-PCR) (Negative) SARS-CoV-2 RNA (RT-PCR) (Negative) Imaging Data Attestation: I personally reviewed and interpreted this imaging study as follows: My impression: Chest x-ray appears changed from previous and 2023 but without distinct lobar phenomenon Radiologist's impression: CT Head Stat Rad: No hemorrhage, hydrocephalus, mass effect, or herniation. CTA head no acute occlusion, severe stenosis, or aneurysm. CTA neck: No significant stenosis or dissection. CXR STat Rad: Mild atelectasis in the lung bases. Cardiomegaly. No pleural fluid or pneumothorax Impressions Head/Neck CTA 07/29/24 06:56 IMPRESSION: 1. Percent stenosis per NASCET criteria is 0% bilaterally. 2. No acute intracranial hemorrhage or suspicious mass effect. IMPRESSION: Bibasilar scarring without focal infiltrate or effusion ECG Data EKG #1: Attestation: I personally reviewed and interpreted this ECG as follows: ECG completion date: 07/29/24 ECG completion time: 01:14 Prior ECG tracings: available for review (EKG from 10/23/2022 similarly showed of prolonged OH interval of 204 milliseconds consistent with first-degree AV block) Interpretation: Normal sinus rhythm at a rate of 65 beats per minute. OH interval is prolonged at 218 milliseconds consistent with first-degree AV block. QRS 96. QT/QTC 455/466. Good R-wave progression across the precordial leads. No T-wave inversions. Discharge Plan Discharge Clinical Impression: First degree atrioventricular block by electrocardiography, Hypokalemia, Vertigo Patient Disposition: Still a Patient Condition: Stable
[2024-07-29 01:37] LABS: Basophils Absolute Auto 0.1 K/mm3 (0.0-0.1); Basophils Percent Auto 0.8 % (0.2-1.2); Eosinophils Absolute Auto 0.2 K/mm3 (0-0.3); Eosinophils Percent Auto 2.3 % (0-4.4); Hematocrit 44.5 % (37.0-47.0); Hemoglobin 13.9 g/dL (12.0-15.0); Immature Granulocyte Absolute 0.02 K/mm3 (0.00-0.031); Immature Granulocyte Percent A 0.3 % (0-0.5); Lymphocytes Absolute Auto 1.46 K/mm3 (0.9-3.2); Mean Corpuscular HGB Conc 31.2 g/dl (32-36); Mean Corpuscular Hemoglobin 29.4 pg (26-34); Mean Corpuscular Volume 94.1 fl (80-100); Mean Platelet Volume 11.1 fl (7.4-10.4); Monocytes Absolute Auto 0.9 K/mm3 (0.1-0.6); Monocytes Percent Auto 13.4 % (2.6-8.5); Neutrophils Absolute Auto 4.1 K/mm3 (1.3-6.7); Neutrophils Percent Auto 61.2 % (45.5-73.1); Platelet Count Result 220 k/mm3 (150-375); Red Blood Count 4.73 M/mm3 (4.2-5.4); White Blood Count 6.7 K/mm3 (4.5-10.0)
--- OUTSIDE RECORDS SUMMARY | 2024-07-29 01:43 | XMS_ITS ---
Author Name Auto Generated, Auto Generated Organization [employer] [employer] Address [address] [place] [address] Phone [phone] Care Team Providers Care Circulator Name Role Phone Marky Loya [phone] Functional Status No Results Mental Status No Results Allergies and Intolerances Name Onset Date Reaction Severity meperidine (Allergy) TueDec 12 15:42:00 EDT 201 9 tape, permeable adhesive (Allergy) TueDec 12 15 :42:00 EDT 2019 morphine (Allergy) TueDec 12 15:42:00 EDT 2018 penicillin (Allergy) TueDec 12 15:42:00 EDT 201 9 Medications Medication Directions Start Date End Date Bactrim DS 800 mg-160 mg tablet 1tab (TABLET) Oral Every 12 Hours Lisa Dec 14 01:00:00 EDT 2018Dec 23 00:59:00 EDT [...] 13 01:00:00 EDT 2018Jan 23 01:00:00 EST 2019 isosorbide mononitrate ER 30 mg tablet,extended release 24 hr 1tab (TABLET, EXTENDED RELEASE 24 HR) Oral Every 1 Day TueDec 13:00:00 ED2018Jan 23 01:00:00 EST 2018 Multiple Vitamin, Womens tablet 1tab (TABLET) Oral Every 1 Day TueDec 13:00:00 2018Jan 23 01:00:00 EST 2018 metoprolol tartrate 50 mg tablet 1tab (TABLET) Oral 2 Times Daily TueDec 13:00:00 EDT 2018Jan 23 01:00:00 EST 2018 Xarelto 20 mg tablet 1tab (TABLET) Oral Every 1 Day Take at supper time TueDec 13:00:00 2018Jan 23 01:00:00 EST 2018 potassium chloride ER 10 mEq capsule,extended release 2cap (CAPSULE, EXTENDED RELEASE) Oral 2 Times Daily TueDec 13:00:00 2018Jan 23 01:00:00 EST 2018 Zocor 10 mg tablet 1tab (TABLET) Oral Every 1 Day take in PM TueDec 13:00:00 EDT 2018Jan 23 01:00:00 EST 2018 Problems Active Concerns * Aftercare following joint replacement surgery* Code: * Start Date: TueDec 13:00:00 ED2018 * End Date: * Text: * Presence of right artificial knee joint* Code: * Start Date: TueDec 13:00:00 T 2018 * End Date: * Text: * Essential (primary) hypertension* Code: * Start Date: TueDec 13:00:00 2018 * End Date: * Text: * Unspecified atrial fibrillation* Code: * Start Date: TueDec 13:00:00 T 2018 * End Date: * Text: * Obesity, unspecified* Code: * Start Date: TueDec 13:00:00 EDT 2018 * End Date: * Text: * Body mass index [BMI]30.0-30.9, adult* Code: * Start Date: TueDec 13:00:00 EDT 2018 * End Date: * Text: Reason for Referral Past Medical History
--- OUTSIDE RECORDS SUMMARY | 2024-07-29 01:43 | XMS_ITS ---
Author Name Auto Generated, Auto Generated Organization [employer] [employer] Address [address] [place] [address] Phone [phone] Care Team Providers Care Hose Stripper Name Role Phone Marky Loya [phone] Functional Status No Results Mental Status No [...]
--- OUTSIDE RECORDS SUMMARY | 2024-07-29 01:43 | XMS_ITS | Referral Summary ---
Author Organization [facility] [place] [address] Address [address] [place] [address] Care Team Providers Care Plastics Supervisor Name Role Phone Marky Loya MD Primary Care Provider [phone] Allergies Active Allergy Reactions Criticality Noted Date Comments Adhesive Tape-Silicones Itching Low 02/14/2018 Meperidine Other (See comments) Low 02/14/2018 high Morphine Vomiting Low Penicillins Rash Medium Medications cholecalciferol (VITAMIN D-3) 1,000 unit tablet Take 1 tablet (1,000 Units total) by mouth daily Two tablets daily by mouth Active levothyroxine sodium (TIROSINT) 50 mcg capsule Take 1 capsule (50 mcg total) by mouth coach operator before breakfast Active multivitamin tabletIndications :Vitamin Deficiency [...] amLODIPine (NORVASC) 2.5 mg tablet 2 Active rosuvastatin (CRESTOR) 10 mg tabletIndications :Coronary artery disease involving [place] coronary artery of [place] heart without angina pectoris TAKE 1 TABLET BY MOUTH EVERY DAY 90 tablet 3 4 Active nitroglycerin (NITROSTAT) 0.4 mg SL tabletIndications :Coronary artery disease of [place] artery of [place] heart with stable angina pectoris Place 1 tablet (0.4 mg total) under the tongue every 5 (five) minutes as needed for chest pain May repeat dose every 5 minutes for up to 3 doses total. 25 tablet 3 5 Active amiodarone (PACERONE) 200 mg tabletIndications :Paroxysmal atrial fibrillation (HCC) Take 1 tablet (200 mg total) by mouth daily 90 tablet 2 5 Active potassium chloride ER 10 mEq CR tablet TAKE 2 TABLETS BY MOUTH TWICE A DAY 360 tablet 5 Active Active Problems Problem Noted Date [...] benefits. She will discuss this with her nozzle and sleeve worker, and if she wishes to proceed, I asked her to contact my office so that we could screen her appropriately. The patient will follow-up with me in 12 months for an office visit and twelve- lead ECG. Assessment & Plan (07/09/2018 10:48 AM CDT): The patient has a [id number] score of 5 (annualized risk of stroke 6.7 %). I have therefore recommended that she remain anticoagulated for thromboprophylaxis. The patient will follow-up with me in 6 months for an office visit and twelve- lead ECG. Assessment & Plan (01/16/2018 4:35 PM DEVELOPMENTAL MATHEMATICS INSTRUCTOR): The patient has a [id number] score of 4 (annualized risk of stroke 4.0 %). I have therefore recommended that she remain anticoagulated for thromboprophylaxis. Paroxysmal atrial fibrillation 01/12/2018 Overview (01/12/2018): Added automatically from request for surgery [id number] Assessment & Plan (06/27/2022 1:48 PM CDT): The patient is 4 and half years status post ablation for atrial fibrillation, doing well. Maintaining sinus rhythm with amiodarone. No changes to management at this time The patient has a [id number] score of 5. I have therefore recommended [...] expectantly. At risk for amiodarone toxicity with intermediate u se 12/14/2017 Chronic diastolic heart failure 08/08/2017 COPD (chronic obstructive pulmonary disease) Chronic anticoagulation 02/01/2017 Assessment & Plan (06/11/2019 1:12 PM CDT): The patient has a [id number] score of 5 (annualized risk of stroke 6.7%). I have therefore recommended that she remain anticoagulated for thromboprophylaxis. The patient will follow-up with me in 12 months for an office visit and twelve- lead ECG. Coronary artery disease invo lving [place] coronary artery of [place] heart without angina pectoris 02/01/2017 Edema of [...] be needed yearly. The patient has a [id number] score of 4. I have therefore recommended continued anticoagulation thromboprophylaxis. The patient follows yearly with her nozzle and sleeve worker. I have not made a follow-up appointment, [...] standpoint. Assessment & Plan (01/16/2018 4:34 PM DEVELOPMENTAL MATHEMATICS INSTRUCTOR): The patient has symptomatic persistent atrial fibrillation [...] ME, Wale KT, Chemo RL, Soy WG, Twyla PJ, Cony CM, [place] CW. 2014 AHA/ACC/HRS guideline for the management of patients with atrial fibrillation: a report of the [place] [employer]/[place] [employer] Association Task Force on Practice Guidelines and the Heart Rhythm Society. J Am Setfani Cardiol 2014. 6.3. AF Catheter Ablation to [...] on file Legal Sex Female 2:34 AM DEVELOPMENTAL MATHEMATICS INSTRUCTOR Gender Identity Not on file Sexual Orientation Not on file Last Filed Vital Signs Vital Sign Reading Time Taken Comments Blood Pressure 156/64 03/08/2024 11:32 AM DEVELOPMENTAL MATHEMATICS INSTRUCTOR Pulse 57 03/08/2024 11:32 AM DEVELOPMENTAL MATHEMATICS INSTRUCTOR Temperature 36.5 C (97.7 F) 01/05/2021 10:16 AM CDT Respiratory Rate 20 02/16/2018 7:50 AM DEVELOPMENTAL MATHEMATICS INSTRUCTOR Oxygen Saturation 94% 03/08/2024 11:32 AM DEVELOPMENTAL MATHEMATICS INSTRUCTOR Inhaled Oxygen Concentration - - Weight 64.4 kg (142 lb) 03/08/2024 11:32 AM DEVELOPMENTAL MATHEMATICS INSTRUCTOR Height 157.5 cm (5' 2) 03/08/2024 11:32 AM DEVELOPMENTAL MATHEMATICS INSTRUCTOR Body Mass Index 25.97 03/08/2024 11:32 AM DEVELOPMENTAL MATHEMATICS INSTRUCTOR Plan of Treatment Not on file Insurance MEDICARE [facility] MEDICARE [facility] MEDICARE [facility] BLUE CROSS MEDICARE SUPPLEMENT Care Teams Plastics Supervisor Relationship Specialty Start Date End Date Marky Loya MD PCP - General Family Medicine 07/06/18
--- OUTSIDE RECORDS SUMMARY | 2024-07-29 01:43 | XMS_ITS | Continuity of Care Document ---
Author Organization [facility] Address [address] [place] [address] [address] [place] [address] Phone Care Team Providers Care Cattle Killer Name Role Phone Domenico Vaughn Unavailable Unavailable Procedures Procedure Date Eye Exam & Treatment No Script Refraction Eye Exam & Treatment Refraction Office/outpatient Visit, Est Office/outpatient Visit, Est Office/outpatient Visit, Est Miscellaneous Vision Service - Supplies Advance Directives Directive Yes / No Effective Date File Name No Information Encounters Encounter Description Practice Location Reason(s) For Visit Diagnoses Date Provider Providers Copied on Encounter [facility], [address] [place] [address] [address], [place], [place], [id number], [place] tel:[phone] SEC [facility] No Information 4-201 0 Roderick Acuña. [address] [facility] , [address], [place], [place], [facility], [place]. tel:[phone] [facility], [address] [place] [address] [address], [place], [place], [id number], [place] tel:[phone] SEC [facility] No Information 6-200 8 Roderick Acuña. [address] [facility] , [address], [place], [address], [place]. tel:[phone] Office/outpat ient Visit, Est [facility], [address] [place] [address] [address], [place], [place], [id number], [place] tel:[phone] SEC [facility] No Information 8200 8 Roderick Edlinette. [address] [place] [address] , [address], [place], [address], [place]. tel:[phone] Office/outpat ient Visit, [facility], [address], [place], [place], [id number], [place] tel:[phone] SEC [facility] No Information 1200 7 Mayra Arreola. [address] [facility], [address], [place], [place], [address], [place]. tel:[phone] Office/outpat ient Visit, [facility], [address], [place], [place], [id number], [place] tel:[phone] SEC [facility] No Information 4200 7 Roderick Acuña. [address] [place] [address] , [address], [place], [address], [place]. tel:[phone] [facility], [address], [place], [place], [id number], [place] tel:[phone] SEC [facility] No Information 0 6200 7 [employer] [facility] [employer] . [address] [facility], [address], [place], [place], [address], [place]. tel:[phone] Consulting Provider: Giuseppe Gupta, [address] [facility], [place], [address]. tel:[phone] Family History Family Member Type Diagnosis Age At Onset No Information Payers Payer name Insurance type Covered libertarian ID Authoriza tion(s) [place] [id number] [place] [id number] Social History Type Description Quantity Date Captured [...]
--- OUTSIDE RECORDS SUMMARY | 2024-07-29 01:43 | XMS_ITS | Encounter Summary ---
Author Organization [facility] Address [address] [facility] [address] [place] [address] Care Team Providers Care Publishing Editor Name Role Phone Jose Cherry MD Primary Care Provider [phone] No, Physician Primary Care Provider [phone] Marky Loya MD Primary Care Provider [phone] Encounter Details Date Type Department Care Team (Late st Contact Info) Description 05/12/2016 Orders Only [facility] ProviderNe MD [address] [place] [address] Social History Tobacco Use Types Packs/Day Years Used Date Smoking Tobacco: Former Cigarettes Q uit: 03/07/1978 Alcohol Use Standard Drinks/Week Comments Yes 0 (1 standard drink = 0.6 oz pur e alcohol) Comments Unknown Sex and Gender Information Value Date Recorded Sex Assigned at Not on file Legal 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
--- OUTSIDE RECORDS SUMMARY | 2024-07-29 01:43 | XMS_ITS | Clinical Summary ---
Author Organization [facility] [address] Address [address] [place] [address] Care Team Providers Care Gis Manager Name Role Phone Marky Loya MD Primary Care Provider [phone] Allergies Active Allergy Reactions Criticality Noted Date Comments Adhesive Tape-Silicones Itching Low 02/14/2018 Meperidine Other (See comments) Low 02/14/2018 high Morphine Vomiting Low Penicillins Rash Medium Medications cholecalciferol (VITAMIN D-3) 1,000 unit tablet Take 1 tablet (1,000 Units total) by mouth daily Two tablets daily by mouth Active levothyroxine sodium (TIROSINT) 50 mcg capsule Take 1 capsule (50 mcg total) by mouth animal laboratory helper before breakfast Active multivitamin tabletIndications :Vitamin Deficiency [...] 10 mg tabletIndications :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 She will discuss this with her surveying crew stake runner, and if she wishes to proceed, I asked her to contact my office so that we could screen her appropriately. The patient will follow-up with me in 12 months for an office visit and twelve- lead ECG. Assessment & Plan (07/09/2018 10:48 AM CDT): The patient has a [id number]-QLKj score of 5 (annualized risk of stroke 6.7 %). I have therefore recommended that she remain anticoagulated for thromboprophylaxis. The patient will follow-up with me in 6 months for an office visit and twelve- lead ECG. Assessment & Plan (01/16/2018 4:35 PM REAL ESTATE CLOSING COORDINATOR): The patient has a DZW2KJ2-CFCf score of 4 (annualized risk of stroke 4.0 %). I have therefore recommended that she remain anticoagulated for thromboprophylaxis. Paroxysmal atrial fibrillation 01/12/2018 Overview (01/12/2018): Added automatically from request for surgery [id number] Assessment & Plan (06/27/2022 1:48 PM CDT): The patient is 4 and half years status post ablation for atrial fibrillation, doing well. Maintaining sinus rhythm with amiodarone. No changes to management at this time The patient has a MAB3MH6-MLLp score of 5. I have therefore recommended [...] expectantly. At risk for amiodarone toxicity with prison u se 12/14/2017 Chronic diastolic heart failure 08/08/2017 COPD (chronic obstructive pulmonary disease) Chronic anticoagulation 02/01/2017 Assessment & Plan (06/11/2019 1:12 PM CDT): The patient has a PPD5GS0-GEVv score of 5 (annualized risk of stroke 6.7%). I have therefore recommended that she remain anticoagulated for thromboprophylaxis. The patient will follow-up with me in 12 months for an office visit and twelve- lead ECG. 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 The patient has a WOF9PI7-ATQu score of 4. I have therefore recommended continued anticoagulation thromboprophylaxis. The patient follows yearly with her surveying crew stake runner. I have not made a follow-up appointment, [...] standpoint. 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 Gender Identity Not on file Sexual Orientation Not on file Obstetrics History Last Filed Vital Signs Vital Sign Reading Time Taken Comments Blood Pressure 156/64 03/08/2024 11:32 AM REAL ESTATE CLOSING COORDINATOR Pulse 57 03/08/2024 11:32 AM REAL ESTATE CLOSING COORDINATOR Temperature 36.5 C (97.7 F) 01/05/2021 10:16 AM CDT Respiratory Rate 20 02/16/2018 7:50 AM REAL ESTATE CLOSING COORDINATOR Oxygen Saturation 94% 03/08/2024 11:32 AM REAL ESTATE CLOSING COORDINATOR Inhaled Oxygen Concentration - - Weight 64.4 kg (142 lb) 03/08/2024 11:32 AM REAL ESTATE CLOSING COORDINATOR Height 157.5 cm (5' 2) 03/08/2024 11:32 AM REAL ESTATE CLOSING COORDINATOR Body Mass Index 25.97 03/08/2024 11:32 AM REAL ESTATE CLOSING COORDINATOR Plan of Treatment Health Maintenance Due Date Last Done Comments Depression Screening 1935 Fall Risk Assessment 1935 DTaP/Tdap/Td Vaccine (1 - Tdap) 1948 Hepatitis B Screening 06/11/1955 Pneumococcal vaccine 65+ (1 of 2 - PCV) 1956 Well Visit 65+ 2002 Zoster Vaccine (2 of 3) 02/26/2012 01/01/2012 Influenza Vaccine (Season Ended) 2024 01/05/20 12 Insurance MEDICARE [facility] MEDICARE [facility] MEDICARE [facility] BLUE CROSS MEDICARE SUPPLEMENT Member Subscriber Plan / Payer (Ef fective 2002-Present) Name:Alejandro Love Relation to Subscriber:Self Name:Alejandro Love Payer ID:[id number] Type:COMMERCIAL Address: [address] [place] [id number] Care Teams Gis Manager Relationship Specialty Start Date End Date Marky Loya MD PCP - General Family Medicine 07/06/18
[2024-07-29 01:47] LABS: Alanine Aminotransferase 12 U/L (6-35); Albumin Level 3.2 g/dL (3.5-5.1); Alkaline Phosphatase 58 U/L (38-126); Anion Gap 5 mmol/L (4-12); Aspartate Amino Transferase 32 U/L (14-36); Bilirubin,Total 0.7 mg/dL (0.2-1.3); Blood Urea Nitrogen 12 mg/dL (7-17); Calcium 7.6 mg/dL (8.4-10.2); Carbon Dioxide 23 mmol/L (22-30); Chloride 111 mmol/L (98-107); Estimated Glomerular Filt Rate > 60; Glucose 78 mg/dL (65-110); Potassium 2.9 mmol/L (3.4-5.0); Sodium 139 mmol/L (137-145)
[2024-07-29] MEDS: MECLIZINE HCL 25 MG TABLET PO (01:56)
[2024-07-29 02:29] LABS: Influenza A QL RT-PCR Negative (Negative); Influenza B QL RT-PCR Negative (Negative); RSV RNA, RT-PCR Negative (Negative); SARS-CoV-2 RNA PCR Negative (Negative)
[2024-07-29 02:48] LABS: Troponin I < 0.012 ng/mL (0.000-0.034)
[2024-07-29 02:57] LABS: Add Urine Microscopic? NO; Appearance Urine Clear (Clear); Bilirubin Urine Negative (Negative); Blood Urine Negative (Negative); Color Urine Yellow (Yellow); Glucose Urine UA Negative (Negative); Ketones Urine Negative (Negative); Leukocyte Esterase Ur Negative LEU/UL (Negative); Nitrate Urine Negative (Negative); Protein Urine Negative (Negative); Specific Grav Ur 1.015 (1.001-1.035); Urobilinogen Urine 0.2 mg/dL (<2.0); pH Urine 6.5 (5.0-9.0)
[2024-07-29 03:01] LABS: Magnesium 1.9 mg/dL (1.6-2.3)
[2024-07-29] MEDS: POTASSIUM BICARBONATE 25 MEQ TABEF 50 MEQ PO (03:04)
[2024-07-29] MEDS: diazePAM INJ (*CRX) 10 MG/2 ML SYRINGE 2.5 MG IV PUSH (03:05)
[2024-07-29] MEDS: KCL 20 MEQ/SW 100 ML 100 ML 50 MEQ IVPB (03:08)
[2024-07-29] MEDS: SODIUM CHLORIDE 0.9% IV 1,000 ML 150 ML IV CONT (03:16)
[2024-07-29] MEDS: PROMETHAZINE HCL 25 MG/ML AMPUL 12.5 MG IV PUSH (05:12)
[2024-07-29 05:32] LABS: Glucose Point of Care 84 mg/dl (65-105)
--- NOTE | 2024-07-29 07:00 | PC.NURSE ---
N.S. infusion only pulled to be run with potassium. Per side hemmer RN, additional 624 mL in bag should not be given.
--- NOTE | 2024-07-29 07:25 | PC.NURSE ---
Pt. urinated in her depend. Dirty depend removed, ghislaine care performed with soap and water, clean depend appied.
--- NOTE | 2024-07-29 08:45 | PC.NURSE ---
Attempted orthostatic VS. Able to get supine position. When brought up to a sitting position pt. grabbed her head stating oh no! too much pressure! and asked to be put back down.
--- NOTE | 2024-07-29 09:07 | ADMGEN ---
This patient, Mayuri Rutherfordcosta, was admitted to Medical Room 243-01. Patient/family oriented to hospital policies and general routines including ID bracelet, bed and alarms, visiting hours, pain management, procedures, bathroom and other care routines, personal items, smoking policy, room service/diet, and visiting hours. Information on how to activate the Rapid Response Team has been discussed. Patient/Family are encouraged to report perceived risks to care and to ask questions if they do not understand what they are told or what they should do.
--- NOTE | 2024-07-29 13:20 | P.HP_ITS ---
H&P: HPI History of Present Illness Date/Time: 07/29/24 13:30 Chief Complaint: Dizzy. Narrative: This is an 89-year-old female with paroxysmal atrial fibrillation, hypertension, hyperlipidemia, and hypothyroidism who presented to the emergency department via EMS from home with complaints of dizziness. Yesterday afternoon she was trying to sit up and she became so dizzy that it felt as though she was being pushed back down. She goes on to say that it feels almost as though the room is spinning. Since that time she has had versus dizziness when trying to stand but also with moving her head, especially to the left. She is nauseated with the vertigo. She has been complaining of some discomfort in both ears but no tinnitus or hearing loss. She denies visual changes, facial droop, difficulty speaking and swallowing, focal weakness, and paresthesias. No syncope, near syncope, chest pain, palpitations, shortness of breath, or vomiting. In the ED: Vital signs were stable on arrival. Labs were pretty unremarkable though potassium was low at 2.9. Urinalysis was unremarkable. EKG showed sinus rhythm with first-degree AV block with KY interval of 218 and nonspecific T-wave abnormalities. CT of the head and neck showed no acute findings and 0% stenosis of the internal carotid arteries. She was given meclizine 25 mg p.o. and promethazine 12.5 mg IV which caused her to have hallucination. Diazepam 2.5 mg IV was given later in the day with some improvement. She is being admitted in this setting for close monitoring and brain MRI to rule out central causes of her vertigo. Review of Systems Review of Systems: 12 systems were reviewed and are negativ e except for as per HPI. [facility] Past Medical History Medical History (Updated 07/29/24 @ 16:50 by Ellie Krishnan PA-C) Thyroid nodule Ultrasound 12/2023 showed bilateral nodules with TI-RADs of 4 however a biopsy has not been done. Memory changes MRSA cellulitis Peptic ulcer Primary stress urinary incontinence Gastroesophageal reflux disease Mild coronary artery disease Cardiac catheterization October 2018 showed no angiographically significant coronary disease, at best 40% stenosis at the ostium of the 1st diagonal branch. Osteoarthritis Hypothyroidism Atrial fibrillation She has had several cardioversions, and had a cardiac ablation this [facility] at [facility]. Migraine headache Abnormal colonoscopy Dyslipidemia Hypertension Cancer of right breast Status post lumpectomy and radiation in 2006. Anemia Seasonal allergic rhinitis Vision loss Hearing loss of both ears Surgical History Surgical History History of colonoscopy (07/2013) Diverticulosis, uncomplicated internal external hemorrhoids, hyperplastic jhon yp. History of arthroscopic knee surgery History of arthroplasty of right knee History of laparoscopic cholecystectomy History of 3 sections History of lumpectomy of right breast For breast cancer in 2006. History of appendectomy Family History Family History Mother Patient's mother is Family history of type 2 diabetes mellitus Family history of Parkinson's disease, Onset Age: 89 Father Family history of heart disease in male family member before age 55, Onset Age: 37 Patient's father is , Onset Age: 37 Family history of hepatitis, Onset Age: 37 Family history of nephrotic syndrome, Onset Age: 37 Son Motor vehicle accident Social History Social History Social History: Surrogate medical decision maker: Ariadne Lambert, daughter. Code status: Full code. Smoking packs per day: 0.5 Smoking cigarettes per day: 10.0 Years smoked: 20 Smoking pack-years: 10.00 Smoking status: Former smoker Tobacco type: cigarettes Second hand tobacco smoke exposure: No Additional smoking assessment comments: pt said she stopped smoking in 1978 Alcohol intake: never Substance use: never Do You Feel Safe in your Home?: Yes Lack of Transportation: YES Lack of Food: Never True Current Housing: I Have Housing Concerned About Future Housing: No Difficulty Paying Gas/Electric Bills: No Difficulty Paying for Meds: No Currently Unemployed: No Education: Grade School Difficulty w/ Childcare or Family Care: No Additional living arrangements comments: . 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cerns: No Agree to blood products: Yes Meds Home Medications and Allergies Home Medications ?Medication ?Instructions ?Recorded ?Confirmed ?Type potassium chloride 10 mEq 10 meq PO BID 01/08/19 07/29/24 History tablet,extended release (Klor-Con) furosemide 40 mg tablet (Lasix) 40 mg PO DAILY 02/21/19 07/29/24 History isosorbide mononitrate 30 mg 30 mg PO DAILY 02/21/19 07/29/24 History tablet,extended release 24 hr metoprolol tartrate 100 mg tablet 100 mg PO BID 02/21/19 07/29/24 History amiodarone 200 mg tablet (Pacerone) 200 mg PO DAILY@0800 10/19/21 07/29/24 History amlodipine 2.5 mg tablet 2.5 mg PO DAILY 10/19/21 07/29/24 History rosuvastatin 10 mg tablet 10 mg PO DAILY 12/19/21 07/29/24 History levothyroxine 50 mcg tablet 100 mcg PO DAILY 03/10/22 07/29/24 History cholecalciferol (vitamin D3) 25 50 mcg PO DAILY 12/05/23 07/29/24 History mcg (1,000 unit) tablet (Vitamin D3) hydrocodone 5 mg-acetaminophen 325 1 tablet PO Q6H PRN Pain (Scale 12/05/23 07/29/24 History mg tablet Score 4-6) rivaroxaban 20 mg tablet (Xarelto) 20 mg PO QPM 12/05/23 07/29/24 History Allergies Allergy/AdvReac Type Severity Reaction Status Date / Time penicillin V Allergy Intermediate Rash Verified 12/08/23 14:21 Penicillins Allergy Intermediate Rash Verified 12/08/23 14:21 adhesive tape Allergy Unknown RASH Verified 12/05/23 14:34 morphine AdvReac Intermediate Vomiting Verified 12/05/23 14:34 meperidine AdvReac Unknown WOOZY Verified 12/05/23 14:34 Vital Signs Vital Signs - 24 hr 07/29/24 01:04 07/29/24 01:09 07/29/24 01:37 Temperature 97.0 F L Pulse Rate 65 65 64 Respiratory Rate 16 15 Blood Pressure 149/72 H Pulse Oximetry 97 98 Oxygen Delivery Room Air 07/29/24 01:49 07/29/24 02:30 07/29/24 02:48 Temperature Pulse Rate 68 69 70 Respiratory Rate 17 16 17 Blood Pressure Pulse Oximetry 99 95 Oxygen Delivery 07/29/24 03:08 07/29/24 03:15 07/29/24 03:18 Temperature Pulse Rate 69 69 Respiratory Rate 17 14 Blood Pressure 123/55 L Pulse Oximetry 94 93 Oxygen Delivery 07/29/24 03:32 07/29/24 04:02 07/29/24 04:44 Temperature Pulse Rate 71 73 69 Respiratory Rate 16 21 H 24 H Blood Pressure 133/94 H 94/63 L 104/75 Pulse Oximetry 98 96 97 Oxygen Delivery 07/29/24 05:46 07/29/24 06:43 07/29/24 06:46 Temperature Pulse Rate 70 73 73 Respiratory Rate 22 H 18 22 H Blood Pressure Pulse Oximetry 93 Oxygen Delivery 07/29/24 07:00 07/29/24 08:50 07/29/24 10:14 Temperature Pulse Rate 73 75 Respiratory Rate 20 14 Blood Pressure 152/75 H Pulse Oximetry 96 94 Oxygen Delivery Room Air Exam Narrative: General: Well-developed, nontoxic-appearing elderly female sitting up in bed in no distress. Weight: 67 kg. BMI: 25.4. HEENT: Normocephalic, atraumatic. PERRL, EOMI. No nystagmus. Bilateral pinnae are slightly erythematous but not warm or indurated, suspect related to head phone she was wearing with her MRI. Sclera anicteric. Oral mucosa moist. Neck: Supple. Large bandage at the base of the right lower neck where she recently had a basal cell carcinoma excised. Respiratory: Lungs are clear to auscultation bilaterally. Cardiovascular: Regular rate and rhythm with S1-S2. Gastrointestinal: Abdomen is soft, nontender, and nondistended with positive bowel sounds. Skin: Warm and dry. Toenails are thick, long, and yellow Chronic hyperpigmentation of the lower legs with hyperkeratosis favoring the anterior shins, right greater than left. Extremities: No cyanosis, clubbing, or edema. Radial and pedal pulses intact. Neurological: Alert and oriented to self, date of , and place. Cranial nerves 2-12 are grossly intact. Speech is clear. No facial asymmetry. No pronator drift. Normal [id number]. Hand nuclear medicine physician and foot pushes equal bilaterally. Gait not assessed. Psychiatric: Pleasant and cooperative with normal mood and affect. Seems a bit forgetful. H&P: Results Labs Labs: Short CBC 07/29/24 Range/Units 01:26 WBC 6.7 (4.5-10.0) K/mm3 Hgb 13.9 (12.0-15.0) g/dL Hct 44.5 (37.0-47.0) % Plt Count 220 (150-375) k/mm3 BMP 07/29/24 01:26 Sodium 139 Potassium 2.9 L Chloride 111 H Carbon Dioxide 23 BUN 12 Creatinine 0.63 L Glucose 78 Calcium 7.6 L Cardiac Enzymes 07/29/24 Range/Units 01:26 Troponin I < 0.012 (0.000-0.034) ng/mL Liver Function 07/29/24 Range/Units 01:26 Total Bilirubin 0.7 (0.2-1.3) mg/dL AST 32 (14-36) U/L ALT 12 (6-35) U/L Alkaline Phosphatase 58 (38-126) U/L Albumin 3.2 L (3.5-5.1) g/dL Urine 07/29/24 Range/Units 02:40 Urine Color Yellow (Yellow) Urine Appearance Clear (Clear) Urine pH 6.5 (5.0-9.0) Ur Specific [place] 1.015 (1.001-1.035) Urine Protein Negative (Negative) mg/dL Urine Glucose (UA) Negative (Negative) mg/dL Imaging Head/Neck CTA 07/29/24 06:56 IMPRESSION: 1. Percent stenosis per NASCET criteria is 0% bilaterally. 2. No acute intracranial hemorrhage or suspicious mass effect. Chest X-Ray 07/29/24 07:16 IMPRESSION: 1. Bibasilar scarring without focal infiltrate or effusion. Assessment and Plan Assessment and plan (1) Vertigo: Code(s): R42 - Dizziness and giddiness Status: Acute (2) Hypokalemia: Code(s): E87.6 - Hypokalemia Status: Acute (3) First degree atrioventricular block by electrocardiography: Code(s): I44.0 - Atrioventricular block, first degree Status: Acute (4) Paroxysmal atrial fibrillation: Code(s): I48.0 - Paroxysmal atrial fibrillation Status: Acute (5) Hypertension: Code(s): I10 - Essential (primary) hypertension Status: Chronic (6) Hypothyroidism: Code(s): E03.9 - Hypothyroidism, unspecified Status: Chronic (7) Anticoagulant long-term use: Code(s): Z79.01 - long-term (current) use of anticoagulants Status: Acute (8) Thyroid nodule: Code(s): E04.1 - Nontoxic single thyroid nodule Status: Acute Plan The patient presented to the emergency department with complaints of dizziness since yesterday morning associated with mild nausea when standing as detailed in HPI. Labs, imaging, EKG, and all reports were personally reviewed. The patient describes vertigo which I suspect is more peripheral in origin given its rapid onset however she a history of atrial fibrillation and is at risk for stroke though she is on rivaroxaban and states compliance. Brain MRI has been ordered. Physical therapy consulted for vestibular therapy. EKG showed a first-degree AV block which has not been documented on previous EKGs. Continue telemetry monitoring overnight. Potassium was replaced and will be monitored. She takes potassium supplements at home although although she only took them once a day l ast week as she has been sleeping in and she was told that she needs to be taking them twice day. Blood pressures were reviewed and they are stable. Continue levothyroxine and check TSH. Thyroid nodule noted on ultrasound last fall with TI-RADs 4; will need follow-up with her primary care provider. The rest of her home medications will be reviewed and resumed as appropriate. Findings and treatment plan were discussed with the patient and her daughter at bedside. Questions were solicited and answered to satisfaction. The patient's medical management will be taken over by the hospitalist team in a.m. Quality VTE Prophylaxis VTE prophylaxis: pharmacologic ordered (on Xarelto) The patient has been admitted under observation status. Hospitalist [facility] Advance Care Plan I have confirmed that the patient's Advanced Care Plan is present, code status is documented, or surrogate decision maker is listed in patient medical record.: Yes Medication Reconciliation I have utilized all available resources to obtain, update and review the patients current medications (includes all prescriptions, OTC, herbals, cannabis, and nutritional supplements).: Yes
[2024-07-29] MEDS: ACETAMINOPHEN 325 MG TABLET 650 MG PO (14:02)
[2024-07-29 14:16] LABS: Potassium 4.6 mmol/L (3.4-5.0)
[2024-07-29] MEDS: CHOLECALCIFEROL 1,000 UNITS TABLET 2000 UNITS PO (15:42)
[2024-07-29] MEDS: ISOSORBIDE MONONITRATE 30 MG TAB.ER.24H PO (15:42)
[2024-07-29] MEDS: AMIODARONE HCL 200 MG TABLET PO (15:42)
[2024-07-29] MEDS: amLODIPine BESYLATE 2.5 MG TABLET PO (15:42)
[2024-07-29] MEDS: ROSUVASTATIN 10 MG TABLET PO (15:42)
[2024-07-29] MEDS: FUROSEMIDE 40 MG TABLET PO (15:43)
--- NOTE | 2024-07-29 16:07 | P.CONNEU_ITS ---
Assessment and Plan Assessment and plan (1) Vertigo: Code(s): R42 - Dizziness and giddiness Status: Acute Assessment and Plan: Her CT scan of brain and CT angiogram head and neck were within normal range. I did not find any significant focal deficit. I suspect this to be a peripheral vestibular pathology such as benign paroxysmal positional vertigo. MRI of the brain was performed the results of which are still awaited. (2) Paroxysmal atrial fibrillation with RVR: Code(s): I48.0 - Paroxysmal atrial fibrillation Status: Acute Assessment and Plan: She has had cardioversion several times. She is currently on Xarelto. (3) Right thyroid nodule: Code(s): E04.1 - Nontoxic single thyroid nodule Status: Acute Plan She will most likely require vestibular therapy and we can ask physical therapist to initiate that. I explained to the granddaughter about exercises. If the symptoms continue see may require ENT evaluation. I shall be glad to see her if necessary. Consult date: 07/29/24 HPI: Mayuri Love is a 89 year old female presented to the hospital with complaints of dizziness for lasting for 12 hours and in fact even after arrival despite all the treatments he still feels dizzy. She states that she is trying to hold still. No nausea or vomiting. No diplopia. No please speech or swallowing. She has had some headache after she came back from MRI. She is complaining about the noise in the MRI machine and states that her left ear is worse than the right side. She is not sure if she has had spells like that in the past but she does not recall if she has any prolonged spell or any significant spells. There is no history of chronic headache. She has history of memory loss and hallucinations. It was noted that after she got some symptomatic treatment in the emergency room particularly after Phenergan she became happily confused and was giggling and hallucinating. At this time she is feeling mentally clear. Granddaughter was present at the time of the evaluation. The patient lives with her daughter and granddaughter. A CT scan of brain was performed in the emergency room which did not show any significant abnormalities. Subsequently CT angiogram of the head and neck was also performed which did not show any significant abnormalities. it was noted that she has history of atrial fibrillation and she has had multiple ablations and she is currently on Xarelto. She has been found to be in regular sinus rhythm at this time. Review of Systems 2 Review of Systems: All systems reviewed & are unremarkable except as noted in HPI and below Constitutional: Constitutional: Reports no additional constitutional complaints Eyes: Eyes: Reports no additional eye complaints ENT: Comments: Some discomfort in the left ear Cardiovascular: Cardiovascular: Reports no additional cardiovascular complaints Respiratory: Respiratory: Reports no additional respiratory complaints Gastrointestinal: Gastrointestinal: Reports no additional gastrointestinal complaints Genitourinary: Genitourinary: Reports no additional female genitourinary complaints Musculoskeletal: Musculoskeletal: Reports no additional musculoskeletal complaints Neurologic: Comments: history of dementia [facility] Past Medical History Medical History (Updated 07/29/24 @ 16:14 by Messi Little MD) Memory changes MRSA cellulitis Peptic ulcer Primary stress urinary incontinence Gastroesophageal reflux disease Mild coronary artery disease Cardiac catheterization October 2018 showed no angiographically significant coronary disease, at best 40% stenosis at the ostium of the 1st diagonal branch. Osteoarthritis Hypothyroidism Atrial fibrillation She has had several cardioversions, and had a cardiac ablation this year at [facility]. Migraine headache Abnormal colonoscopy Dyslipidemia Hypertension Cancer of right breast Status post lumpectomy and radiation in 2006. Anemia Seasonal allergic rhinitis Vision loss Hearing loss of both ears Surgical History Surgical History History of colonoscopy (07/2013) Diverticulosis, uncomplicated internal external hemorrhoids, hyperplastic polyp. History of arthroscopic knee surgery History of arthroplasty of right knee History of laparoscopic cholecystectomy History of 3 sections History of lumpectomy of right breast For breast cancer in 2006. History of appendectomy Family History Family History Mother Patient's mother is Family history of type 2 diabetes mellitus Family history of Parkinson's disease, Onset Age: 89 Father Family history of heart disease in male family member before age 55, Onset Age: 37 Patient's father is , Onset Age: 37 Family history of hepatitis, Onset Age: 37 Family history of nephrotic syndrome, Onset Age: 37 Son Motor vehicle accident Social History Social History Social History: Surrogate medical decision maker: Ariadne Lambert, daughter. Code status: Full code. Smoking packs per day: 0.5 Smoking cigarettes per day: 10.0 Years smoked: 20 Smoking pack-years: 10.00 Smoking status: Former smoker Tobacco type: cigarettes Second hand tobacco smoke exposure: No Additional smoking assessment comments: pt said she stopped smoking in 1978 Alcohol intake: never Substance use: never Do You Feel Safe in your Home?: Yes Lack of Transportation: YES Lack of Food: Never True Current Housing: I Have Housing Concerned About Future Housing: No Difficulty Paying Gas/Electric Bills: No Difficulty Paying for Meds: No Currently Unemployed: No Education: Grade School Difficulty w/ Childcare or Family Care: No Additional living arrangements comments: . 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cerns: No Agree to blood products: Yes Meds Home Medications and Allergies Home Medications ?Medication ?Instructions ?Recorded ?Confirmed ?Type potassium chloride 10 mEq 10 meq PO BID 01/08/19 07/29/24 History tablet,extended release (Klor-Con) furosemide 40 mg tablet (Lasix) 40 mg PO DAILY 02/21/19 07/29/24 History isosorbide mononitrate 30 mg 30 mg PO DAILY 02/21/19 07/29/24 History tablet,extended release 24 hr metoprolol tartrate 100 mg tablet 100 mg PO BID 02/21/19 07/29/24 History amiodarone 200 mg tablet (Pacerone) 200 mg PO DAILY@0800 10/19/21 07/29/24 History amlodipine 2.5 mg tablet 2.5 mg PO DAILY 10/19/21 07/29/24 History rosuvastatin 10 mg tablet 10 mg PO DAILY 12/19/21 07/29/24 History levothyroxine 50 mcg tablet 100 mcg PO DAILY 03/10/22 07/29/24 History cholecalciferol (vitamin D3) 25 50 mcg PO DAILY 12/05/23 07/29/24 History mcg (1,000 unit) tablet (Vitamin D3) hydrocodone 5 mg-acetaminophen 325 1 tablet PO Q6H PRN Pain (Scale 12/05/23 07/29/24 History mg tablet Score 4-6) rivaroxaban 20 mg tablet (Xarelto) 20 mg PO QPM 12/05/23 07/29/24 History Allergies Allergy/AdvReac Type Severity Reaction Status Date / Time penicillin V Allergy Intermediate Rash Verified 12/08/23 14:21 Penicillins Allergy Intermediate Rash Verified 12/08/23 14:21 adhesive tape Allergy Unknown RASH Verified 12/05/23 14:34 morphine AdvReac Intermediate Vomiting Verified 12/05/23 14:34 meperidine AdvReac Unknown WOOZY Verified 12/05/23 14:34 Vital Signs Vital Signs - 24 hr 07/29/24 01:04 07/29/24 01:09 07/29/24 01:37 Temperature 97.0 F L Pulse Rate 65 65 64 Respiratory Rate 16 15 Blood Pressure 149/72 H Pulse Oximetry 97 98 Oxygen Delivery Room Air 07/29/24 01:49 07/29/24 02:30 07/29/24 02:48 Temperature Pulse Rate 68 69 70 Respiratory Rate 17 16 17 Blood Pressure Pulse Oximetry 99 95 Oxygen Delivery 07/29/24 03:08 07/29/24 03:15 07/29/24 03:18 Temperature Pulse Rate 69 69 Respiratory Rate 17 14 Blood Pressure 123/55 L Pulse Oximetry 94 93 Oxygen Delivery 07/29/24 03:32 07/29/24 04:02 07/29/24 04:44 Temperature Pulse Rate 71 73 69 Respiratory Rate 16 21 H 24 H Blood Pressure 133/94 H 94/63 L 104/75 Pulse Oximetry 98 96 97 Oxygen Delivery 07/29/24 05:46 07/29/24 06:43 07/29/24 06:46 Temperature Pulse Rate 70 73 73 Respiratory Rate 22 H 18 22 H Blood Pressure Pulse Oximetry 93 Oxygen Delivery 07/29/24 07:00 07/29/24 08:50 07/29/24 10:14 Temperature Pulse Rate 73 75 Respiratory Rate 20 14 Blood Pressure 152/75 H Pulse Oximetry 96 94 Oxygen Delivery Room Air 07/29/24 13:14 07/29/24 15:15 07/29/24 15:42 Temperature 98.0 F Pulse Rate 75 80 Respiratory Rate 16 Blood Pressure 122/50 L Pulse Oximetry 94 Oxygen Delivery Room Air Exam 2 Const: General: cooperative, well developed and alert O rientation/consciousness: patient oriented x3 HENMT: Head: atraumatic Mouth: Yes oropharynx normal Eyes: Alignment and Position: position normal Pupils: Equal, round and reactive pupils present EOM: EOMs intact bilaterally Neck: Neck: supple Resp: Effort & Inspection: normal respiratory effort Cardio: Rate: regular rate Rhythm: regular rhythm Skin: General skin exam: normal color Neuro: General: patient oriented x3 Cranial nerves: Yes CN's II-XII intact bilaterally, Yes facial sensation intact/muscles of mastication intact, Yes Equal, round and reactive pupils present, Yes facial symmetry and Yes Midline tongue present Cognition (Neuro): normal cognition Speech: normal speech Motor exam (neuro): 5/5 motor strength present throughout and Normal motor muscle tone present throughout Sensory Exam: normal sensation C oordination: [id number] test normal and Normal rapid alternating movements of the distal upper extremity present (Neuro) Results Labs 07/29/24 01:26 07/29/24 14:04 Labs: Short CBC 07/29/24 Range/Units 01:26 WBC 6.7 (4.5-10.0) K/mm3 Hgb 13.9 (12.0-15.0) g/dL Hct 44.5 (37.0-47.0) % Plt Count 220 (150-375) k/mm3 BMP 07/29/24 07/29/24 01:26 14:04 Sodium 139 Potassium 2.9 L 4.6 Chloride 111 H Carbon Dioxide 23 BUN 12 Creatinine 0.63 L Glucose 78 Calcium 7.6 L Cardiac Enzymes 07/29/24 Range/Units 01:26 Troponin I < 0.012 (0.000-0.034) ng/mL Liver Function 07/29/24 Range/Units 01:26 Total Bilirubin 0.7 (0.2-1.3) mg/dL AST 32 (14-36) U/L ALT 12 (6-35) U/L Alkaline Phosphatase 58 (38-126) U/L Albumin 3.2 L (3.5-5.1) g/dL Urine 07/29/24 Range/Units 02:40 Urine Color Yellow (Yellow) Urine Appearance Clear (Clear) Urine pH 6.5 (5.0-9.0) Ur Specific [place] 1.015 (1.001-1.035) Urine Protein Negative (Negative) mg/dL Urine Glucose (UA) Negative (Negative) mg/dL
[2024-07-29] MEDS: POTASSIUM CHLORIDE 10 MEQ ER TABLET PO (17:42)
[2024-07-29] MEDS: RIVAROXABAN 20 MG TABLET PO (17:42)
[2024-07-29] MEDS: LACTATED RINGERS 500 ML 999 ML IV CONT (20:52)
[2024-07-30] VITALS (16 sets, daily range): BP systolic 113–150; BP diastolic 41–83; PULSE 58–140; RESP 17–20; TEMP 36.9–37.1; O2SAT 93–97
[2024-07-30] MEDS: LEVOTHYROXINE SODIUM 100 MCG TABLET PO (05:23)
[2024-07-30 05:34] LABS: Anion Gap 5 mmol/L (4-12); Blood Urea Nitrogen 14 mg/dL (7-17); Calcium 9.3 mg/dL (8.4-10.2); Carbon Dioxide 29 mmol/L (22-30); Chloride 104 mmol/L (98-107); Estimated CRCL calculation 37 ml/min; Estimated Glomerular Filt Rate > 60; Glucose 91 mg/dL (65-110); Magnesium 2.1 mg/dL (1.6-2.3); Potassium 3.8 mmol/L (3.4-5.0); Sodium 138 mmol/L (137-145)
[2024-07-30 06:01] LABS: Thyroid Stimulating Hormone Reflex 0.549 uIU/mL (0.465-4.68)
[2024-07-30 07:54] LABS: Basophils Percent Auto 0.8 % (0.2-1.2); Eosinophils Absolute Auto 0.2 K/mm3 (0-0.3); Hematocrit 44.2 % (37.0-47.0); Hemoglobin 13.7 g/dL (12.0-15.0); Immature Granulocyte Absolute 0.01 K/mm3 (0.00-0.031); Immature Granulocyte Percent A 0.2 % (0-0.5); Lymphocytes Absolute Auto 1.55 K/mm3 (0.9-3.2); Lymphocytes Percent Auto 30.6 % (18.3-44.2); Mean Corpuscular Hemoglobin 28.6 pg (26-34); Mean Corpuscular Volume 92.3 fl (80-100); Mean Platelet Volume 11.2 fl (7.4-10.4); Monocytes Absolute Auto 0.6 K/mm3 (0.1-0.6); Monocytes Percent Auto 11.6 % (2.6-8.5); Neutrophils Absolute Auto 2.7 K/mm3 (1.3-6.7); Neutrophils Percent Auto 53.8 % (45.5-73.1); Platelet Count Result 209 k/mm3 (150-375); Red Blood Count 4.79 M/mm3 (4.2-5.4); White Blood Count 5.1 K/mm3 (4.5-10.0)
[2024-07-30] MEDS: CHOLECALCIFEROL 1,000 UNITS TABLET 2000 UNITS PO (10:19)
[2024-07-30] MEDS: FUROSEMIDE 40 MG TABLET PO (10:19)
[2024-07-30] MEDS: AMIODARONE HCL 200 MG TABLET PO (10:19)
[2024-07-30] MEDS: ISOSORBIDE MONONITRATE 30 MG TAB.ER.24H PO (10:19)
[2024-07-30] MEDS: ROSUVASTATIN 10 MG TABLET PO (10:19)
[2024-07-30] MEDS: POTASSIUM CHLORIDE 10 MEQ ER TABLET PO ×2 (10:19→17:50)
[2024-07-30] MEDS: amLODIPine BESYLATE 2.5 MG TABLET PO (10:19)
--- NOTE | 2024-07-30 10:29 | P.PNIM_ITS ---
Progress Note: A&P Assessment and Plan (1) Vertigo: Code(s): R42 - Dizziness and giddiness Status: Acute Assessment and Plan: * Denies while in bed but has not gotten up today. * Physical therapy for vestibular therapy. (2) Hypokalemia: Code(s): E87.6 - Hypokalemia Status: Acute Assessment and Plan: * Potassium improved to 3.8, 2.9 on admission. * Potassium 10 meq PO BID. * Continue to trend. (3) First degree atrioventricular block by electrocardiography: Code(s): I44.0 - Atrioventricular block, first degree Status: Acute Assessment and Plan: * Telemetry monitoring. * Previous EKG on 07/22/21 shows a first degree AV block. (4) Paroxysmal atrial fibrillation: Code(s): I48.0 - Paroxysmal atrial fibrillation Status: Acute Assessment and Plan: * Amiodarone 200 mg PO daily, Metoprolol 100 mg PO q 12, and Xarelto 20 mg PO qpm. * Telemetry currently SR 79. (5) Hypertension: Code(s): I10 - Essential (primary) hypertension Status: Chronic Assessment and Plan: * Current blood pressure 150/83. * Amlodipine 2.5 mg PO daily, Furosemide 40 mg PO daily, Metoprolol 100 mg PO q 12. * Monitor. (6) Hypothyroidism: Code(s): E03.9 - Hypothyroidism, unspecified Status: Chronic Assessment and Plan: * Levothyroxine 100 mcg PO daily. * TSH 0.549. (7) Anticoagulant long-term use: Code(s): Z79.01 - manager long term care (current) use of anticoagulants Status: Acute Assessment and Plan: * Xarelto 20 mg PO qpm. (8) Thyroid nodule: Code(s): E04.1 - Nontoxic single thyroid nodule Status: Acute Assessment and Plan: * Thyroid nodule noted on ultrasound last fall with TI-RADs 4; will need follow- up with her primary care provider. Subjective Date/time seen: 07/30/24 10:29 Interval history: Patient sitting up in bed. Patient reports that she has not gotten up today. Patient denies chest pain, palpitations, headache, dizziness, nausea, or vom iting. Review of Systems Review of Systems: All systems reviewed & are unremarkable except as noted in HPI and below Exam Const: General: comfortable and no acute distress Resp: Effort & Inspection: normal respiratory effort Auscultation: clear to auscultation bilaterally Cardio: Rate: regular rate Rhythm: regular rhythm Other: SR 79 GI: GI Palp: Yes Soft to palpation Auscultation: normal bowel sounds Neuro: Speech: normal speech Extrem: General: no pedal edema Psych: Affect: normal affect Other: Oriented to person and place. Objective Data Vital Signs Vital Signs: Vital Signs - 24 hr 07/29/24 13:14 07/29/24 15:15 07/29/24 15:42 Temperature 98.0 F Pulse Rate 75 80 Respiratory Rate 16 Blood Pressure 122/50 L Pulse Oximetry 94 Oxygen Delivery Room Air 07/29/24 19:51 07/29/24 19:51 07/29/24 19:53 Temperature 98.8 F 98 F Pulse Rate 84 84 104 H Respiratory Rate 18 18 Blood Pressure 112/64 112/64 121/57 L Pulse Oximetry 95 95 100 Oxygen Delivery 07/29/24 19:56 07/29/24 20:00 07/29/24 20:39 Temperature Pulse Rate 61 Respiratory Rate Blood Pressure 102/49 L Pulse Oximetry 100 Oxygen Delivery Room Air Room Air 07/29/24 20:41 07/29/24 21:30 07/30/24 00:00 Temperature Pulse Rate 80 70 82 Respiratory Rate 16 Blood Pressure 130/48 L Pulse Oximetry 97 Oxygen Delivery 07/30/24 04:00 07/30/24 05:39 07/30/24 08:00 Temperature 98.7 F Pulse Rate 93 77 Respiratory Rate 18 Blood Pressure 139/60 Pulse Oximetry 97 Oxygen Delivery Room Air 07/30/24 08:00 07/30/24 10:19 Temperature Pulse Rate 85 84 Respiratory Rate Blood Pressure Pulse Oximetry Oxygen Delivery Intake/Output Intake/Output: Intake & Output 07/27/24 07/28/24 07/29/24 07/30/24 23:59 23:59 23:59 23:59 Intake Total 1565.8 300 Output Total 1450 600 Balance 115.8 -300 Meds/Results Medications: Active Medications Generic Name Dose Route Start Last Admin Trade Name Freq PRN Reason Stop Dose Admin Acetaminophen 650 mg 07/29/24 07:06 07/29/24 14:02 Acetaminophen 325 Mg Tablet PO 650 mg Q4H PRN Administration Mild Pain (1-3) or Fever Amiodarone HCl 200 mg 07/29/24 14:10 07/30/24 10:19 Amiodarone Hcl 200 Mg Tablet PO 200 mg DAILY@0800 VERN Administration Amlodipine Besylate 2.5 mg 07/29/24 14:10 07/30/24 10:19 Amlodipine Besylate 2.5 Mg Tablet PO 2.5 mg DAILY VERN Administration Furosemide 40 mg 07/29/24 14:10 07/30/24 10:19 Furosemide 40 Mg Tablet PO 40 mg DAILY VERN Administration Isosorbide Mononitrate 30 mg 07/29/24 14:10 07/30/24 10:19 Isosorbide Mononitrate 30 Mg Tab.Er.24h PO 30 mg DAILY VERN Administration Levothyroxine Sodium 100 mcg 07/30/24 06:30 07/30/24 05:23 Levothyroxine Sodium 100 Mcg Tablet PO 100 mcg DAILY@0630 VERN Administration Metoprolol Tartrate 100 mg 07/29/24 21:00 Metoprolol Tartrate 50 Mg Tab PO Q12HR [facility] Ondansetron HCl 4 mg 07/29/24 07:06 Ondansetron Inj 4 Mg/2 Ml Vial IV PUSH Q4H PRN Nausea Potassium Chloride 10 meq 07/29/24 17:00 07/30/24 10:19 Potassium Chloride 10 Meq Er Tablet PO 10 meq BID VERN Administration Rivaroxaban 20 mg 07/29/24 18:00 07/29/24 17:42 Rivaroxaban 20 Mg Tablet PO 20 mg QPM VERN Administration Rosuvastatin Calcium 10 mg 07/29/24 14:15 07/30/24 10:19 Rosuvastatin 10 Mg Tablet PO 10 mg DAILY VERN Administration Vitamin D 2,000 units 07/29/24 14:10 07/30/24 10:19 Cholecalciferol 1,000 Units Tablet PO 2,000 units DAILY VERN Administration Radiology Results: ITS Impressions Head/Neck CTA 07/29/24 06:56 IMPRESSION: 1. Percent stenosis per NASCET criteria is 0% bilaterally. 2. No acute intracranial hemorrhage or suspicious mass effect. Chest X-Ray 07/29/24 07:16 IMPRESSION: Bibasilar scarring without focal infiltrate or effusion Brain MRI 07/29/24 18:52 IMPRESSION: 1. No acute intracranial process. 2. Nonenhancing lesion seen. Labs Labs: Laboratory Results - last 24 hr 07/29/24 07/30/24 07/30/24 14:04 04:40 07:16 WBC 5.1 RBC 4.79 Hgb 13.7 Hct 44.2 MCV 92.3 MCH 28.6 MCHC 31.0 L RDW 14.0 Plt Count 209 MPV 11.2 H Immature Gran % (Auto) 0.2 Neut % (Auto) 53.8 Lymph % (Auto) 30.6 [place] % (Auto) 11.6 H Eos % (Auto) 3.0 Baso % (Auto) 0.8 Lymph # (Auto) 1.55 [place] # (Auto) 0.6 Eos # (Auto) 0.2 Baso # (Auto) 0.0 Abs Immat Gran (auto) 0.01 Absolute Neuts (auto) 2.7 Absolute Nucleated RBC 0.000 Nucleated RBC % 0.0 Sodium 138 Potassium 4.6 3.8 Chloride 104 Carbon Dioxide 29 Anion Gap 5 BUN 14 Creatinine 0.80 Estim Creat Clear Calc 37 Estimated GFR > 60 Glucose 91 Calcium 9.3 Magnesium 2.1 TSH (Reflex) 0.549 Quality VTE Prophylaxis VTE prophylaxis: pharmacologic ordered (on Xarelto)
[2024-07-30] MEDS: METOPROLOL TARTRATE 50 MG TAB PO (12:40)
--- NOTE | 2024-07-30 15:30 | WPDNEUROPN ---
Progress Note: A&P Assessment and Plan (1) Benign paroxysmal positional vertigo: Code(s): H81.10 - Benign paroxysmal vertigo, unspecified ear Status: Acute (2) Memory changes: Code(s): R41.3 - Other amnesia Status: Acute (3) Paroxysmal atrial fibrillation: Code(s): I48.0 - Paroxysmal atrial fibrillation Status: Acute Plan Neurological examination is within normal limits. MRI of the brain did not show any significant abnormality. I saw a nonsustained right beating nystagmus. Overall findings are suggestive benign paroxysmal positional vertigo. This of course could be self-limiting. Patient was symptomatic this morning but this after she is feeling better. Symptomatic treatment and vestibular exercises may be helpful. Gradual ambulation under the guidance of physical therapy given her age is recommended. Subjective Date/time seen: 07/30/24 15:30 Interval history: The patient is 89-year-old with history of sudden onset of dizziness which led to indentation emergency room. She was still dizzy this morning but however this afternoon when I saw her she is feeling better. She denies any nausea vomiting or any other new symptoms. She still has not started to walk. She denies any headache. Review of Systems Review of Systems: All systems reviewed & are unremarkable except as noted in HPI and below Exam Narrative: Fully conscious alert. No aphasia or dysarthria. Examination head and neck was unremarkable. Cranial nerves on individual testing are intact. Normal strength in upper and lower limbs. No involuntary movements are seen however there are nonsustained tag much noted to the right side. No intention tremor. Coordination finger-nose appears normal. Objective Data Vital Signs Vital Signs: Vital Signs - 24 hr 07/29/24 15:42 07/29/24 19:51 07/29/24 19:51 Temperature 98.8 F 98 F Pulse Rate 80 84 84 Respiratory Rate 18 18 Blood Pressure 112/64 112/64 Pulse Oximetry 95 95 Oxygen Delivery 07/29/24 19:53 07/29/24 19:56 07/29/24 20:00 Temperature Pulse Rate 104 H 61 Respiratory Rate Blood Pressure 121/57 L 102/49 L Pulse Oximetry 100 Oxygen Delivery Room Air 07/29/24 20:39 07/29/24 20:41 07/29/24 21:30 Temperature Pulse Rate 80 70 Respiratory Rate 16 Blood Pressure 130/48 L Pulse Oximetry 100 97 Oxygen Delivery Room Air 07/30/24 00:00 07/30/24 04:00 07/30/24 05:39 Temperature 98.7 F Pulse Rate 82 93 77 Respiratory Rate 18 Blood Pressure 139/60 Pulse Oximetry 97 Oxygen Delivery 07/30/24 08:00 07/30/24 08:00 07/30/24 08:00 Temperature Pulse Rate 85 68 Respiratory Rate Blood Pressure 147/45 H Pulse Oximetry Oxygen Delivery Room Air 07/30/24 10:19 07/30/24 11:29 07/30/24 12:18 Temperature Pulse Rate 84 79 140 H Respiratory Rate Blood Pressure 150/83 H Pulse Oximetry Oxygen Delivery 07/30/24 12:40 07/30/24 13:05 Temperature 98.8 F Pulse Rate 111 H 78 Respiratory Rate 18 Blood Pressure 113/41 L Pulse Oximetry 95 Oxygen Delivery Intake/Output Intake/Output: Intake & Output 07/27/24 07/28/24 07/29/24 07/30/24 23:59 23:59 23:59 23:59 Intake Total 1565.8 780 Output Total 1450 600 Balance 115.8 180 Meds/Results Medications: Active Medications Generic Name Dose Route Start Last Admin Trade Name Freq PRN Reason Stop Dose Admin Acetaminophen 650 mg 07/29/24 07:06 07/29/24 14:02 Acetaminophen 325 Mg Tablet PO 650 mg Q4H PRN Administration Mild Pain (1-3) or Fever Amiodarone HCl 200 mg 07/29/24 14:10 07/30/24 10:19 Amiodarone Hcl 200 Mg Tablet PO 200 mg DAILY@0800 VERN Administration Amlodipine Besylate 2.5 mg 07/29/24 14:10 07/30/24 10:19 Amlodipine Besylate 2.5 Mg Tablet PO 2.5 mg DAILY VERN Administration Furosemide 40 mg 07/29/24 14:10 07/30/24 10:19 Furosemide 40 Mg Tablet PO 40 mg DAILY VERN Administration Isosorbide Mononitrate 30 mg 07/29/24 14:10 07/30/24 10:19 Isosorbide Mononitrate 30 Mg Tab.Er.24h PO 30 mg DAILY VERN Administration Levothyroxine Sodium 100 mcg 07/30/24 06:30 07/30/24 05:23 Levothyroxine Sodium 100 Mcg Tablet PO 100 mcg DAILY@0630 VERN Administration Metoprolol Tartrate 100 mg 07/29/24 21:00 Metoprolol Tartrate 50 Mg Tab PO Q12HR VERN Ondansetron HCl 4 mg 07/29/24 07:06 Ondansetron Inj 4 Mg/2 Ml Vial IV PUSH Q4H PRN Nausea Perflutren Lipid Microsphere 0 ml 07/30/24 12:14 Perflutren Lipid Microspheres 1.5 Ml Vial Diluted To 10 Ml Total Volume IV PUSH 08/02/24 12:15 ONCE PRN adequate visualization Protocol Potassium Chloride 10 meq 07/29/24 17:00 07/30/24 10:19 Potassium Chloride 10 Meq Er Tablet PO 10 meq BID VERN Administration Rivaroxaban 20 mg 07/29/24 18:00 07/29/24 17:42 Rivaroxaban 20 Mg Tablet PO 20 mg QPM VERN Administration Rosuvastatin Calcium 10 mg 07/29/24 14:15 07/30/24 10:19 Rosuvastatin 10 Mg Tablet PO 10 mg DAILY VERN Administration Vitamin D 2,000 units 07/29/24 14:10 07/30/24 10:19 Cholecalciferol 1,000 Units Tablet PO 2,000 units DAILY VERN Administration Radiology Results: ITS Impressions Head/Neck CTA 07/29/24 06:56 IMPRESSION: 1. Percent stenosis per NASCET criteria is 0% bilaterally. 2. No acute intracranial hemorrhage or suspicious mass effect. Chest X-Ray 07/29/24 07:16 IMPRESSION: Bibasilar scarring without focal infiltrate or effusion Brain MRI 07/29/24 18:52 IMPRESSION: 1. No acute intracranial process. 2. Nonenhancing lesion seen. Labs Labs: Laboratory Results - last 24 hr 07/30/24 07/30/24 04:40 07:16 WBC 5.1 RBC 4.79 Hgb 13.7 Hct 44.2 MCV 92.3 MCH 28.6 MCHC 31.0 L RDW 14.0 Plt Count 209 MPV 11.2 H Immature Gran % (Auto) 0.2 Neut % (Auto) 53.8 Lymph % (Auto) 30.6 [place] % (Auto) 11.6 H Eos % (Auto) 3.0 Baso % (Auto) 0.8 Lymph # (Auto) 1.55 [place] # (Auto) 0.6 Eos # (Auto) 0.2 Baso # (Auto) 0.0 Abs Immat Gran (auto) 0.01 Absolute Neuts (auto) 2.7 Absolute Nucleated RBC 0.000 Nucleated RBC % 0.0 Sodium 138 Potassium 3.8 Chloride 104 Carbon Dioxide 29 Anion Gap 5 BUN 14 Creatinine 0.80 Estim Creat Clear Calc 37 Estimated GFR > 60 Glucose 91 Calcium 9.3 Magnesium 2.1 TSH (Reflex) 0.549
[2024-07-30] MEDS: RIVAROXABAN 20 MG TABLET PO (17:50)
--- NOTE | 2024-07-30 18:31 | P.CONCA_ITS ---
Assessment and Plan Assessment and plan (1) Paroxysmal atrial fibrillation: Code(s): I48.0 - Paroxysmal atrial fibrillation Status: Acute (2) First degree atrioventricular block by electrocardiography: Code(s): I44.0 - Atrioventricular block, first degree Status: Acute (3) Dyslipidemia: Code(s): E78.5 - Hyperlipidemia, unspecified Status: Chronic Plan 89-year-old woman with paroxysmal atrial fibrillation, hypertension, hyperlipidemia, and hypothyroidism presented with dizziness Paroxysmal atrial fibrillation -continue Xarelto 20 mg every evening with dinner, amiodarone 200 mg p.o. daily, and metoprolol tartrate PO 100 mg b.i.d. Sinus with first-degree AV block -unlikely to be contributing to symptoms Hyperlipidemia -continue rosuvastatin 10 mg every evening Can follow up outpatient. Please call Cardiology with additional questions History of Present Illness History of Present Illness Consult date/time: 07/30/24 18:31 Requesting physician: Kathleen Syed APRN Consult reason: atrial fibrillation Reason For Visit: Vertigo/Hypokalemia Narrative: 89-year-old woman with paroxysmal atrial fibrillation, hypertension, hyperlipidemia, and hypothyroidism presented with dizziness. This is significantly precipitated and worsened by positional changes especially of her head. Denies any chest pain. She is able to ambulate within the confines of her home and able to carry out some activities of daily living such as dishes washing without significant cardiopulmonary limitations. There will be occasions where she would have some exertional shortness of breath however these are intermittent and not consistent. Denies syncopal events. Review of Systems 2 Cardiovascular: Cardiovascular: Reports as per HPI Respiratory: Respiratory: Reports as per HPI [facility] Past Medical History Medical History (Updated 07/30/24 @ 15:33 by Messi Little MD) Benign paroxysmal positional vertigo Thyroid nodule Ultrasound 12/2023 showed bilateral nodules with TI-RADs of 4 however a biopsy has not been done. Memory changes MRSA cellulitis Peptic ulcer Primary stress urinary incontinence Gastroesophageal reflux disease Mild coronary artery disease Cardiac catheterization October 2018 showed no angiographically significant coronary disease, at best 40% stenosis at the ostium of the 1st diagonal branch. Osteoarthritis Hypothyroidism Atrial fibrillation She has had several cardioversions, and had a cardiac ablation this year at [facility]. Migraine headache Abnormal colonoscopy Dyslipidemia Hypertension Cancer of right breast Status post lumpectomy and radiation in 2006. Anemia Seasonal allergic rhinitis Vision loss Hearing loss of both ears Surgical History Surgical History History of colonoscopy (07/2013) Diverticulosis, uncomplicated internal external hemorrhoids, hyperplastic polyp. History of arthroscopic knee surgery History of arthroplasty of right knee History of laparoscopic cholecystectomy History of 3 sections History of lumpectomy of right breast For breast cancer in 2006. History of appendectomy Family History Family History Mother Patient's mother is Family history of type 2 diabetes mellitus Family history of Parkinson's disease, Onset Age: 89 Father Family history of heart disease in male family member before age 55, Onset Age: 37 Patient's father is , Onset Age: 37 Family history of hepatitis, Onset Age: 37 Family history of nephrotic syndrome, Onset Age: 37 Son Motor vehicle accident Social History Social History Social History: Surrogate medical decision maker: Ariadne Lambert, daughter. Code status: Full code. Smoking packs per day: 0.5 Smoking cigarettes per day: 10.0 Years smoked: 20 Smoking pack-years: 10.00 Smoking status: Former smoker Tobacco type: cigarettes Second hand tobacco smoke exposure: No Additional smoking assessment comments: pt said she stopped smoking in 1978 Alcohol intake: never Substance use: never Do You Feel Safe in your Home?: Yes Lack of Transportation: YES Lack of Food: Never True Current Housing: I Have Housing Concerned About Future Housing: No Difficulty Paying Gas/Electric Bills: No Difficulty Paying for Meds: No Currently Unemployed: No Education: Grade School Difficulty w/ Childcare or Family Care: No Additional living arrangements comments: . 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cerns: No Agree to blood products: Yes Meds Home Medications and Allergies Home Medications ?Medication ?Instructions ?Recorded ?Confirmed ?Type potassium chloride 10 mEq 10 meq PO BID 01/08/19 07/29/24 History tablet,extended release (Klor-Con) furosemide 40 mg tablet (Lasix) 40 mg PO DAILY 02/21/19 07/29/24 History isosorbide mononitrate 30 mg 30 mg PO DAILY 02/21/19 07/29/24 History tablet,extended release 24 hr metoprolol tartrate 100 mg tablet 100 mg PO BID 02/21/19 07/29/24 History amiodarone 200 mg tablet (Pacerone) 200 mg PO DAILY@0800 10/19/21 07/29/24 History amlodipine 2.5 mg tablet 2.5 mg PO DAILY 10/19/21 07/29/24 History rosuvastatin 10 mg tablet 10 mg PO DAILY 12/19/21 07/29/24 History levothyroxine 50 mcg tablet 100 mcg PO DAILY 03/10/22 07/29/24 History cholecalciferol (vitamin D3) 25 50 mcg PO DAILY 12/05/23 07/29/24 History mcg (1,000 unit) tablet (Vitamin D3) hydrocodone 5 mg-acetaminophen 325 1 tablet PO Q6H PRN Pain (Scale 12/05/23 07/29/24 History mg tablet Score 4-6) rivaroxaban 20 mg tablet (Xarelto) 20 mg PO QPM 12/05/23 07/29/24 History Allergies Allergy/AdvReac Type Severity Reaction Status Date / Time penicillin V Allergy Intermediate Rash Verified 07/30/24 07:26 Penicillins Allergy Intermediate Rash Verified 07/30/24 07:26 adhesive tape Allergy Unknown RASH Verified 07/30/24 07:26 morphine AdvReac Intermediate Vomiting Verified 07/30/24 07:26 promethazine (From Phenergan) AdvReac Intermediate Hallucinati Verified 07/30/24 07:26 ng meperidine AdvReac Unknown WOOZY Verified 07/30/24 07:26 Vital Signs Vital Signs - 24 hr 07/29/24 19:51 07/29/24 19:51 07/29/24 19:53 Temperature 37.1 C 36.6 C Pulse Rate 84 84 104 H Respiratory Rate 18 18 Blood Pressure 112/64 112/64 121/57 L Pulse Oximetry 95 95 100 Oxygen Delivery 07/29/24 19:56 07/29/24 20:00 07/29/24 20:39 Temperature Pulse Rate 61 Respiratory Rate Blood Pressure 102/49 L Pulse Oximetry 100 Oxygen Delivery Room Air Room Air 07/29/24 20:41 07/29/24 21:30 07/30/24 00:00 Temperature Pulse Rate 80 70 82 Respiratory Rate 16 Blood Pressure 130/48 L Pulse Oximetry 97 Oxygen Delivery 07/30/24 04:00 07/30/24 05:39 07/30/24 08:00 Temperature 37.1 C Pulse Rate 93 77 Respiratory Rate 18 Blood Pressure 139/60 Pulse Oximetry 97 Oxygen Delivery Room Air 07/30/24 08:00 07/30/24 08:00 07/30/24 10:19 Temperature Pulse Rate 85 68 84 Respiratory Rate Blood Pressure 147/45 H Pulse Oximetry Oxygen Delivery 07/30/24 11:29 07/30/24 12:00 07/30/24 12:18 Temperature Pulse Rate 79 114 H 140 H Respiratory Rate Blood Pressure 150/83 H Pulse Oximetry Oxygen Delivery 07/30/24 12:40 07/30/24 13:05 07/30/24 16:00 Temperature 37.1 C Pulse Rate 111 H 78 58 L Respiratory Rate 18 Blood Pressure 113/41 L Pulse Oximetry 95 Oxygen Delivery Exam 2 Const: General: comfortable HENMT: Mouth: Yes moist mucous membranes Eyes: EOM: EOMs intact bilaterally Neck: Neck: no JVD Resp: Effort & Inspection: normal respiratory effort Auscultation: rales Other: Rales in basilar lung moore bilaterally Cardio: Rate: regular rate Rhythm: regular rhythm Extrem: General: no pedal edema Results Labs and Meds 07/30/24 07:16 07/30/24 04:40 Lab results: CBC 07/30/24 Range/Units 07:16 WBC 5.1 (4.5-10.0) K/mm3 RBC 4.79 (4.2-5.4) M/mm3 Hgb 13.7 (12.0-15.0) g/dL Hct 44.2 (37.0-47.0) % Plt Count 209 (150-375) k/mm3 Lymph # (Auto) 1.55 (0.9-3.2) K/mm3 [place] # (Auto) 0.6 (0.1-0.6) K/mm3 Eos # (Auto) 0.2 (0-0.3) K/mm3 Baso # (Auto) 0.0 (0.0-0.1) K/mm3 Comprehensive Metabolic Panel 07/30/24 Range/Units 04:40 Sodium 138 (137-145) mmol/L Potassium 3.8 (3.4-5.0) mmol/L Chloride 104 (98-107) mmol/L Carbon Dioxide 29 (22-30) mmol/L BUN 14 (7-17) mg/dL Creatinine 0.80 (0.7-1.0) mg/dL Glucose 91 (65-110) mg/dL Calcium 9.3 (8.4-10.2) mg/dL Intake and Output 07/30/24 07/30/24 07/30/24 07:59 15:59 23:59 Intake Total 300 480 240 Output Total 600 900 Balance -300 480 -660 Intake: Oral 300 480 240 Output: Catheter Urine 600 900 External/Condom 600 900
[2024-07-31] VITALS (17 sets, daily range): BP systolic 117–143; BP diastolic 38–115; PULSE 61–104; RESP 17–20; TEMP 36.4–36.7; O2SAT 94–97
--- NOTE | 2024-07-31 | ECHO_ITS ---
Patient Info Name: Mayuri Love Age: 89 years : 1935 Gender: Female Ht: 64 in Wt: 147 lbs BSA: 1.75 m2 HR: 82 bpm BP: 120 / 81 mmHg Technical Quality: Good Exam Date: 07/31/2024 10:23 AM Patient Status: I Admit Date: 07/30/2024 Exam Type: CA echo doppler color flow Complete two-dimensional, color flow and Doppler transthoracic echocardiogram is performed. Staff Referring Physician: Magdalena Mccormick Spine Specialist: Becki Angel Attending Provider: Talita Velasco MD Summary 1. Left ventricular chamber dimension is normal. 2. Left ventricular systolic function is normal, estimated at 60-65. 3. There is mildly increased left ventricular wall thickness. 4. The left ventricular diastolic function is grade I diastolic dysfunction. 5. Right ventricular systolic function is normal. 6. Left atrial chamber dimension is severely enlarged. 7. Right atrial chamber dimension is mildly enlarged. 8. There is mild aortic valve regurgitation. 9. The mitral valve annulus is mildly calcified. Left Ventricle Left ventricular chamber dimension is normal. Left ventricular systolic function is normal, estimated at 60-65. There is mildly increased left ventricular wall thickness. The left ventricular diastolic function is grade I diastolic dysfunction. Right Ventricle Right ventricular chamber dimension is normal. Right ventricular systolic function is normal. Left Atria Left atrial chamber dimension is severely enlarged. Right Atria Right atrial chamber dimension is mildly enlarged. Atrial Septum Intact interatrial septum visualized by color flow imaging. Aortic Valve The aortic valve is trileaflet. There is no aortic valve stenosis. There is mild aortic valve regurgitation. There is mild aortic valve calcification. Pulmonic Valve The pulmonic valve is not well visualized. There is trace pulmonic regurgitation. Mitral Valve There is mild mitral valve regurgitation. The mitral valve annulus is mildly calcified. Tricuspid Valve There is trace tricuspid valve regurgitation. Pericardium/Pleural There is no pericardial effusion. Inferior Vena Cava Normal inferior vena cava with >50% collapse upon inspiration consistent with normal right atrial pressure, 3 mmHg. Aorta The aortic root size at the sinus of Valsalva is normal. Left Ventricular Outflow Tract Name Value Normal LVOT 2D LVOT Diameter 2.0 cm LVOT Doppler LVOT Peak Velocity 114 cm/s LVOT Peak Gradient 5 mmHg LVOT Mean Gradient 3 mmHg LVOT VTI 23 cm LVOT VTI/AV VTI Ratio 0.8 LVOT Stroke Volume 70 ml LVOT CO 15.7 l/min LVOT CI 9.0 l/min/m2 Pulmonic Valve Name Value Normal PV Doppler PV Peak Velocity 95 cm/s PV Peak Gradient 4 mmHg Mitral Valve Name Value Normal MV Diastolic Function MV E Peak Velocity 56 cm/s MV A Peak Velocity 70 cm/s MV E/A 0.8 MV Decel Time (PW) 213 ms MV Annular TDI MV E/e' (Septal) 6.8 MV E/e' (Lateral) 5.7 MV E/e' (Average) 6.2 Tricuspid Valve Name Value Normal TV Regurgitation Doppler TR Peak Velocity 263 cm/s TR Peak Gradient 28 mmHg Estimated PAP/RSVP RA Pressure 3 mmHg <=5 PA Systolic Pressure 31 mmHg <36 RV Systolic Pressure 31 mmHg <36 TV Annular TDI TV Lateral Unique s' Velocity 20.3 cm/s >=9.5 Aorta Name Value Normal Ascending Aorta Ao Root Diameter (MM) 3.1 cm Ao Root Diam Index (MM) 1.8 cm/m2 Aortic Valve Name Value Normal AV Doppler AV Peak Velocity 138 cm/s AV Peak Gradient 8 mmHg AV Mean Gradient 5 mmHg AV VTI 28 cm AV Area (Cont Eq VTI) 2.5 cm2 >=3.0 AV Area (Cont Eq Charles) 2.5 cm2 AV DI (Charles) 0.83 AV Regurgitation 2D LVOT Area 3.1 cm2 Ventricles Name Value Normal LV Dimensions 2D/MM IVS Diastolic Thickness (2D) 1.1 cm 0.6-1.0 LVID Diastole (2D) 4.2 cm 3.8-5.2 LVIW Diastolic Thickness (2D) 1.1 cm 0.6-0.9 LVID Systole (2D) 2.2 cm 2.2-3.5 LVOT Diameter 2.0 cm LV Mass (2D Cubed) 157.71 g 67.00-162.00 LV Mass Index (2D Cubed) 90 g/m2 43-95 Relative Wall Thickness (2D) 0.50 <=0.42 LV Fractional Shortening/Ejection Fraction 2D/MM LV Fractional Shortening (2D) 47 % 27-45 LV EF (2D Teichholz) 79 % LV Diastolic Volume (4C MOD) 65 ml LV EF (4C MOD) 72 % LV Diastolic Volume (2C MOD) 49 ml LV EF (2C MOD) 53 % LV Diastolic Volume (BP MOD) 57 ml 46-106 LV Diastolic Volume Index (BP MOD) 33 ml/m2 29-61 LV Systolic Volume (BP MOD) 21 ml 14-42 LV Systolic Volume Index (BP MOD) 12 ml/m2 8-24 LV EF (BP MOD) 63 % 54-74 LV Diastolic Length (4C) 6.6 cm LV Systolic Length (4C) 5.2 cm LV Stroke Volume (4C MOD) 47 ml RV Dimensions 2D/MM RVID Diastole (2D) 4.2 cm 2.1-3.5 Atria Name Value Normal LA Dimensions LA Dimension (MM) 4.6 cm 2.7-3.8 LA Volume (4C A-L) 65 ml LA Volume (BP A-L) 67 ml RA Dimensions RA Systolic Major Troup Length (4C) 4.5 cm 2.2-2.8 RA Area (4C) 12.8 cm2 <=18.0 Report Signatures
[2024-07-31] MEDS: LEVOTHYROXINE SODIUM 100 MCG TABLET PO (05:08)
[2024-07-31 05:58] LABS: Basophils Percent Auto 0.7 % (0.2-1.2); Eosinophils Absolute Auto 0.2 K/mm3 (0-0.3); Eosinophils Percent Auto 3.3 % (0-4.4); Hematocrit 41.1 % (37.0-47.0); Immature Granulocyte Absolute 0.02 K/mm3 (0.00-0.031); Immature Granulocyte Percent A 0.4 % (0-0.5); Lymphocytes Absolute Auto 1.59 K/mm3 (0.9-3.2); Lymphocytes Percent Auto 28.9 % (18.3-44.2); Mean Corpuscular HGB Conc 31.6 g/dl (32-36); Mean Corpuscular Hemoglobin 28.8 pg (26-34); Mean Corpuscular Volume 91.1 fl (80-100); Mean Platelet Volume 11.5 fl (7.4-10.4); Monocytes Absolute Auto 0.6 K/mm3 (0.1-0.6); Monocytes Percent Auto 11.1 % (2.6-8.5); Neutrophils Absolute Auto 3.1 K/mm3 (1.3-6.7); Neutrophils Percent Auto 55.6 % (45.5-73.1); Platelet Count Result 204 k/mm3 (150-375); Red Blood Count 4.51 M/mm3 (4.2-5.4); Red Cell Distribution Width 13.9 % (11.5-14.5); White Blood Count 5.5 K/mm3 (4.5-10.0)
[2024-07-31 06:11] LABS: Alanine Aminotransferase 11 U/L (6-35); Albumin Level 3.5 g/dL (3.5-5.1); Alkaline Phosphatase 64 U/L (38-126); Anion Gap 4 mmol/L (4-12); Aspartate Amino Transferase 39 U/L (14-36); Bilirubin,Total 0.7 mg/dL (0.2-1.3); Blood Urea Nitrogen 10 mg/dL (7-17); Calcium 9.1 mg/dL (8.4-10.2); Carbon Dioxide 30 mmol/L (22-30); Chloride 103 mmol/L (98-107); Estimated CRCL calculation 37 ml/min; Estimated Glomerular Filt Rate > 60; Glucose 89 mg/dL (65-110); Potassium 3.7 mmol/L (3.4-5.0); Sodium 137 mmol/L (137-145)
[2024-07-31] MEDS: AMIODARONE HCL 200 MG TABLET PO (08:22)
[2024-07-31] MEDS: ISOSORBIDE MONONITRATE 30 MG TAB.ER.24H PO (08:22)
[2024-07-31] MEDS: ROSUVASTATIN 10 MG TABLET PO (08:22)
[2024-07-31] MEDS: amLODIPine BESYLATE 2.5 MG TABLET PO (08:23)
[2024-07-31] MEDS: FUROSEMIDE 40 MG TABLET PO (08:23)
[2024-07-31] MEDS: POTASSIUM CHLORIDE 10 MEQ ER TABLET PO ×2 (08:23→17:30)
[2024-07-31] MEDS: CHOLECALCIFEROL 1,000 UNITS TABLET 2000 UNITS PO (08:23)
[2024-07-31] MEDS: ACETAMINOPHEN 325 MG TABLET 650 MG PO (11:39)
--- NOTE | 2024-07-31 11:41 | PM.IMPN ---
Progress Note: A&P Assessment and Plan (1) Vertigo: Code(s): R42 - Dizziness and giddiness Status: Acute Assessment and Plan: Denies while in bed but has not gotten up today. Physical therapy for vestibular therapy. (2) Hypokalemia: Code(s): E87.6 - Hypokalemia Status: Acute Assessment and Plan: Potassium improved to 3.7, 2.9 on admission. Potassium 10 meq PO BID. Continue to trend. (3) First degree atrioventricular block by electrocardiography: Code(s): I44.0 - Atrioventricular block, first degree Status: Acute Assessment and Plan: Telemetry monitoring. Previous EKG on 07/22/21 shows a first degree AV block. (4) Paroxysmal atrial fibrillation: Code(s): I48.0 - Paroxysmal atrial fibrillation Status: Acute Assessment and Plan: Amiodarone 200 mg PO daily, Restart Metoprolol at 50 mg PO q 12, and Xarelto 20 mg PO qpm. Telemetry currently atrial fibrillation 96. (5) Hypertension: Code(s): I10 - Essential (primary) hypertension Status: Chronic Assessment and Plan: Current blood pressure 120/81. Amlodipine 2.5 mg PO daily, Furosemide 40 mg PO daily, Metoprolol 50 mg PO q 12. Monitor. (6) Hypothyroidism: Code(s): E03.9 - Hypothyroidism, unspecified Status: Chronic Assessment and Plan: Levothyroxine 100 mcg PO daily. TSH 0.549. 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 (8) Thyroid nodule: Code(s): E04.1 - Nontoxic single thyroid nodule Status: Acute Assessment and Plan: Thyroid nodule noted on ultrasound last fall with TI-RADs 4; will need follow-up with her primary care provider. Subjective Date/time seen: 07/31/24 11:41 Interval history: Patient reports a headache that is a 5, frequent, and aching. Patient reports that she is tired. Patient denies chest pain, palpitations, dizziness, nausea, or vomiting. Review of Systems Review of Systems: All systems reviewed & are unremarkable except as noted in HPI and below Exam Const: General: no acute distress and uncomfortable Resp: Effort & Inspection: normal respiratory effort Auscultation: clear to auscultation bilaterally Cardio: Rhythm: abnormal rhythm irregularly irregular GI: GI Palp: Yes Soft to palpation Auscultation: normal bowel sounds Neuro: Speech: normal speech Extrem: General: no pedal edema Psych: Affect: normal affect Other: Oriented to person and place. Objective Data Vital Signs Vital Signs: Vital Signs - 24 hr 07/30/24 12:00 07/30/24 12:18 07/30/24 12:40 Temperature Pulse Rate 114 H 140 H 111 H Respiratory Rate Blood Pressure Pulse Oximetry Oxygen Delivery Fraction of Inspired Oxygen 07/30/24 13:05 07/30/24 16:00 07/30/24 19:19 Temperature 98.8 F Pulse Rate 78 58 L 73 Respiratory Rate 18 20 Blood Pressure 113/41 L Pulse Oximetry 95 93 Oxygen Delivery Room Air Fraction of Inspired Oxygen 21 07/30/24 20:00 07/30/24 20:23 07/30/24 20:27 Temperature 98.5 F 98.5 F Pulse Rate 64 62 65 Respiratory Rate 17 17 Blood Pressure 147/57 H 143/56 H Pulse Oximetry 96 97 Oxygen Delivery Fraction of Inspired Oxygen 07/30/24 20:31 07/31/24 00:00 07/31/24 04:00 Temperature 98.5 F Pulse Rate 62 66 73 Respiratory Rate 17 Blood Pressure 147/57 H Pulse Oximetry 96 Oxygen Delivery Fraction of Inspired Oxygen 07/31/24 05:01 07/31/24 08:00 07/31/24 08:20 Temperature 97.5 F L Pulse Rate 66 69 Respiratory Rate 17 Blood Pressure 120/81 Pulse Oximetry 95 Oxygen Delivery Room Air Fraction of Inspired Oxygen 07/31/24 08:22 07/31/24 08:58 Temperature Pulse Rate 77 Respiratory Rate Blood Pressure Pulse Oximetry Oxygen Delivery Room Air Fraction of Inspired Oxygen Intake/Output Intake/Output: Intake & Output 07/28/24 07/29/24 07/30/24 07/31/24 23:59 23:59 23:59 23:59 Intake Total 1565.8 1220 420 Output Total 1450 1500 650 Balance 115.8 -280 -230 Meds/Results Medications: Active Medications Generic Name Dose Route Start Last Admin Trade Name Freq PRN Reason Stop Dose Admin Acetaminophen 650 mg 07/29/24 07:06 07/31/24 11:39 Acetaminophen 325 Mg Tablet PO 650 mg Q4H PRN Administration Mild Pain (1-3) or Fever Amiodarone HCl 200 mg 07/29/24 14:10 07/31/24 08:22 Amiodarone Hcl 200 Mg Tablet PO 200 mg DAILY@0800 [facility] Administration Amlodipine Besylate 2.5 mg 07/29/24 14:10 07/31/24 08:23 Amlodipine Besylate 2.5 Mg Tablet PO 2.5 mg DAILY [facility] Administration Furosemide 40 mg 07/29/24 14:10 07/31/24 08:23 Furosemide 40 Mg Tablet PO 40 mg DAILY [facility] Administration Isosorbide Mononitrate 30 mg 07/29/24 14:10 07/31/24 08:22 Isosorbide Mononitrate 30 Mg Tab.Er.24h PO 30 mg DAILY [facility] Administration Levothyroxine Sodium 100 mcg 07/30/24 06:30 07/31/24 05:08 Levothyroxine Sodium 100 Mcg Tablet PO 100 mcg DAILY@0630 [facility] Administration Metoprolol Tartrate 100 mg 07/29/24 21:00 Metoprolol Tartrate 50 Mg Tab PO Q12HR [facility] Ondansetron HCl 4 mg 07/29/24 07:06 Ondansetron Inj 4 Mg/2 Ml Vial IV PUSH Q4H PRN Nausea Perflutren Lipid Microsphere 0 ml 07/30/24 12:14 Perflutren Lipid Microspheres 1.5 Ml Vial Diluted To 10 Ml Total Volume IV PUSH 08/02/24 12:15 ONCE PRN adequate visualization Protocol Potassium Chloride 10 meq 07/29/24 17:00 07/31/24 08:23 Potassium Chloride 10 Meq Er Tablet PO 10 meq BID [facility] Administration Rivaroxaban 20 mg 07/29/24 18:00 07/30/24 17:50 Rivaroxaban 20 Mg Tablet PO 20 mg QPM [facility] Administration Rosuvastatin Calcium 10 mg 07/29/24 14:15 07/31/24 08:22 Rosuvastatin 10 Mg Tablet PO 10 mg DAILY [facility] Administration Vitamin D 2,000 units 07/29/24 14:10 07/31/24 08:23 Cholecalciferol 1,000 Units Tablet PO 2,000 units DAILY [facility] Administration Radiology Results: ITS Impressions Head/Neck CTA 07/29/24 06:56 IMPRESSION: 1. Percent stenosis per NASCET criteria is 0% bilaterally. 2. No acute intracranial hemorrhage or suspicious mass effect. Chest X-Ray 07/29/24 07:16 IMPRESSION: Bibasilar scarring without focal infiltrate or effusion Brain MRI 07/29/24 18:52 IMPRESSION: 1. No acute intracranial process. 2. Nonenhancing lesion seen. Labs Labs: Laboratory Results - last 24 hr 07/31/24 05:11 WBC 5.5 RBC 4.51 Hgb 13.0 Hct 41.1 MCV 91.1 MCH 28.8 MCHC 31.6 L RDW 13.9 Plt Count 204 MPV 11.5 H Immature Gran % (Auto) 0.4 Neut % (Auto) 55.6 Lymph % (Auto) 28.9 [place] % (Auto) 11.1 H Eos % (Auto) 3.3 Baso % (Auto) 0.7 Lymph # (Auto) 1.59 [place] # (Auto) 0.6 Eos # (Auto) 0.2 Baso # (Auto) 0.0 Abs Immat Gran (auto) 0.02 Absolute Neuts (auto) 3.1 Absolute Nucleated RBC 0.000 Nucleated RBC % 0.0 Sodium 137 Potassium 3.7 Chloride 103 Carbon Dioxide 30 Anion Gap 4 BUN 10 Creatinine 0.80 Estim Creat Clear Calc 37 Estimated GFR > 60 Glucose 89 Calcium 9.1 Total Bilirubin 0.7 AST 39 H ALT 11 Alkaline Phosphatase 64 Total Protein 6.0 L Albumin 3.5 Quality VTE Prophylaxis VTE prophylaxis: pharmacologic ordered (on Xarelto)
[2024-07-31] MEDS: METOPROLOL TARTRATE 50 MG TAB PO ×2 (13:53→21:30)
[2024-07-31] MEDS: RIVAROXABAN 20 MG TABLET PO (17:30)
[2024-08-01] VITALS (11 sets, daily range): BP systolic 116–143; BP diastolic 51–66; PULSE 58–78; RESP 16; TEMP 36.5–36.7; O2SAT 96
[2024-08-01 06:15] LABS: Basophils Percent Auto 0.4 % (0.2-1.2); Eosinophils Absolute Auto 0.2 K/mm3 (0-0.3); Eosinophils Percent Auto 3.4 % (0-4.4); Hematocrit 41.7 % (37.0-47.0); Hemoglobin 13.3 g/dL (12.0-15.0); Immature Granulocyte Absolute 0.01 K/mm3 (0.00-0.031); Immature Granulocyte Percent A 0.2 % (0-0.5); Lymphocytes Absolute Auto 1.42 K/mm3 (0.9-3.2); Lymphocytes Percent Auto 26.6 % (18.3-44.2); Mean Corpuscular HGB Conc 31.9 g/dl (32-36); Mean Corpuscular Hemoglobin 29.5 pg (26-34); Mean Corpuscular Volume 92.5 fl (80-100); Mean Platelet Volume 11.3 fl (7.4-10.4); Monocytes Absolute Auto 0.6 K/mm3 (0.1-0.6); Monocytes Percent Auto 11.4 % (2.6-8.5); Neutrophils Absolute Auto 3.1 K/mm3 (1.3-6.7); Platelet Count Result 215 k/mm3 (150-375); Red Blood Count 4.51 M/mm3 (4.2-5.4); Red Cell Distribution Width 13.7 % (11.5-14.5); White Blood Count 5.3 K/mm3 (4.5-10.0)
[2024-08-01 06:29] LABS: Alanine Aminotransferase 12 U/L (6-35); Albumin Level 3.7 g/dL (3.5-5.1); Alkaline Phosphatase 59 U/L (38-126); Anion Gap 2 mmol/L (4-12); Aspartate Amino Transferase 30 U/L (14-36); Bilirubin,Total 0.8 mg/dL (0.2-1.3); Blood Urea Nitrogen 14 mg/dL (7-17); Calcium 9.4 mg/dL (8.4-10.2); Carbon Dioxide 33 mmol/L (22-30); Chloride 103 mmol/L (98-107); Estimated CRCL calculation 37 ml/min; Estimated Glomerular Filt Rate > 60; Glucose 93 mg/dL (65-110); Sodium 138 mmol/L (137-145)
[2024-08-01] MEDS: LEVOTHYROXINE SODIUM 100 MCG TABLET PO (06:31)
[2024-08-01] MEDS: ROSUVASTATIN 10 MG TABLET PO (08:54)
[2024-08-01] MEDS: CHOLECALCIFEROL 1,000 UNITS TABLET 2000 UNITS PO (08:54)
[2024-08-01] MEDS: METOPROLOL TARTRATE 50 MG TAB PO (08:54)
[2024-08-01] MEDS: ISOSORBIDE MONONITRATE 30 MG TAB.ER.24H PO (08:55)
[2024-08-01] MEDS: POTASSIUM CHLORIDE 10 MEQ ER TABLET PO (08:55)
[2024-08-01] MEDS: amLODIPine BESYLATE 2.5 MG TABLET PO (08:55)
[2024-08-01] MEDS: FUROSEMIDE 40 MG TABLET PO (08:55)
[2024-08-01] MEDS: AMIODARONE HCL 200 MG TABLET PO (08:55)
--- NOTE | 2024-08-01 10:00 | P.PNIM_ITS ---
Progress Note: A&P Assessment and Plan (1) Vertigo: Code(s): R42 - Dizziness and giddiness Status: Acute Assessment and Plan: * Denies while in bed but has not gotten up today. * Physical therapy for vestibular therapy. (2) Hypokalemia: Code(s): E87.6 - Hypokalemia Status: Acute Assessment and Plan: * Potassium improved to 4.0, 2.9 on admission. * Potassium 10 meq PO BID. * Continue to trend. (3) First degree atrioventricular block by electrocardiography: Code(s): I44.0 - Atrioventricular block, first degree Status: Acute Assessment and Plan: * Telemetry monitoring. * Previous EKG on 07/22/21 shows a first degree AV block. (4) Paroxysmal atrial fibrillation: Code(s): I48.0 - Paroxysmal atrial fibrillation Status: Acute Assessment and Plan: * Amiodarone 200 mg PO daily, Restart Metoprolol at 50 mg PO q 12, and Xarelto 20 mg PO qpm. * Telemetry currently atrial fibrillation 96. (5) Hypertension: Code(s): I10 - Essential (primary) hypertension Status: Chronic Assessment and Plan: * Current blood pressure 120/81. * Amlodipine 2.5 mg PO daily, Furosemide 40 mg PO daily, Metoprolol 50 mg PO q 12. * Monitor. (6) Hypothyroidism: Code(s): E03.9 - Hypothyroidism, unspecified Status: Chronic Assessment and Plan: * Levothyroxine 100 mcg PO daily. * TSH 0.549. 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 (8) Thyroid nodule: Code(s): E04.1 - Nontoxic single thyroid nodule Status: Acute Assessment and Plan: * Thyroid nodule noted on ultrasound last fall with TI-RADs 4; will need follow- up with her primary care provider. Subjective Date/time seen: 08/01/24 1018 Interval history: Pt reports that her dizziness/vertigo is much better today and when working with PT yesterday for vestibular therapy, it did not really bother her at all. Pt agrees to outpt PT for continued vestibular therapy if dizziness persistent. Patient reports a headache that is a 7, current and aching. Recent administration of acetaminophen, will reassess. Review of Systems Review of Systems: 12 systems were reviewed and are negativ e except for as per HPI. All systems reviewed & are unremarkable except as noted in HPI and below Exam Narrative: General: Well-developed, nontoxic-appearing elderly female sitting up in bed in no distress. Weight: 67 kg. BMI: 25.4. HEENT: Normocephalic, atraumatic. PERRL, EOMI. No nystagmus. Bilateral pinnae are slightly erythematous but not warm or indurated, suspect related to head phone she was wearing with her MRI. Sclera anicteric. Oral mucosa moist. Neck: Supple. Large bandage at the base of the right lower neck where she recently had a basal cell carcinoma excised. Respiratory: Lungs are clear to auscultation bilaterally. Cardiovascular: Regular rate and rhythm with S1-S2. Gastrointestinal: Abdomen is soft, nontender, and nondistended with positive bowel sounds. Skin: Warm and dry. Toenails are thick, long, and yellow Chronic hyperpigmentation of the lower legs with hyperkeratosis favoring the anterior shins, right greater than left. Extremities: No cyanosis, clubbing, or edema. Radial and pedal pulses intact. Neurological: Alert and oriented to self, date of , and place. Cranial nerves 2-12 are grossly intact. Speech is clear. No facial asymmetry. No pronator drift. Normal [id number]. Hand tight cooper and foot pushes equal bilaterally. Gait not assessed. Psychiatric: Pleasant and cooperative with normal mood and affect. Seems a bit forgetful. Const: General: comfortable, no acute distress and uncomfortable Resp: Effort & Inspection: normal respiratory effort Auscultation: clear to auscultation bilaterally Cardio: Rate: regular rate Rhythm: regular rhythm and abnormal rhythm irreg ularly irregular Other: SR 79 GI: Auscultation: normal bowel sounds Neuro: Speech: normal speech Extrem: General: no pedal edema Psych: Affect: normal affect Other: Oriented to person and place. Objective Data Vital Signs Vital Signs: Vital Signs - 24 hr 07/31/24 12:00 07/31/24 13:50 07/31/24 13:53 Temperature Pulse Rate 104 H 74 83 Respiratory Rate Blood Pressure 117/38 L Pulse Oximetry Oxygen Delivery Fraction of Inspired Oxygen 05/27/25 13:54 07/31/24 13:58 07/31/24 16:00 Temperature Pulse Rate 81 89 61 Respiratory Rate Blood Pressure 123/58 L 133/115 H Pulse Oximetry Oxygen Delivery Fraction of Inspired Oxygen 07/31/24 19:43 07/31/24 19:46 07/31/24 19:48 Temperature 98.0 F 98.0 F 98.0 F Pulse Rate 64 63 64 Respiratory Rate 18 17 18 Blood Pressure 140/52 L 143/58 H 140/52 L Pulse Oximetry 96 97 96 Oxygen Delivery Fraction of Inspired Oxygen 07/31/24 20:00 07/31/24 20:00 07/31/24 21:29 Temperature Pulse Rate 63 64 Respiratory Rate 20 Blood Pressure Pulse Oximetry 94 Oxygen Delivery Room Air Room Air Fraction of Inspired Oxygen 21 07/31/24 21:30 08/01/24 00:00 08/01/24 04:00 Temperature Pulse Rate 67 61 65 Respiratory Rate Blood Pressure Pulse Oximetry Oxygen Delivery Fraction of Inspired Oxygen 08/01/24 05:12 08/01/24 08:54 08/01/24 08:55 Temperature 98.0 F Pulse Rate 66 68 68 Respiratory Rate 16 Blood Pressure 143/57 H Pulse Oximetry 96 Oxygen Delivery Fraction of Inspired Oxygen 08/01/24 09:00 08/01/24 09:19 Temperature Pulse Rate Respiratory Rate Blood Pressure Pulse Oximetry Oxygen Delivery Room Air Room Air Fraction of Inspired Oxygen Intake/Output Intake/Output: Intake & Output 07/29/24 07/30/24 07/31/24 08/01/24 23:59 23:59 23:59 23:59 Intake Total 1565.8 1220 930 250 Output Total 1450 1500 1200 1000 Balance 115.8 -280 -270 -750 Meds/Results Medications: Active Medications Generic Name Dose Route Start Last Admin Trade Name Freq PRN Reason Stop Dose Admin Acetaminophen 650 mg 07/29/24 07:06 07/31/24 11:39 Acetaminophen 325 Mg Tablet PO 650 mg Q4H PRN Administration Mild Pain (1-3) or Fever Amiodarone HCl 200 mg 07/29/24 14:10 08/01/24 08:55 Amiodarone Hcl 200 Mg Tablet PO 200 mg DAILY@0800 [facility] Administration Amlodipine Besylate 2.5 mg 07/29/24 14:10 08/01/24 08:55 Amlodipine Besylate 2.5 Mg Tablet PO 2.5 mg DAILY [facility] Administration Furosemide 40 mg 07/29/24 14:10 08/01/24 08:55 Furosemide 40 Mg Tablet PO 40 mg DAILY [facility] Administration Isosorbide Mononitrate 30 mg 07/29/24 14:10 08/01/24 08:55 Isosorbide Mononitrate 30 Mg Tab.Er.24h PO 30 mg DAILY [facility] Administration Levothyroxine Sodium 100 mcg 07/30/24 06:30 08/01/24 06:31 Levothyroxine Sodium 100 Mcg Tablet PO 100 mcg DAILY@0630 [facility] Administration Metoprolol Tartrate 50 mg 07/31/24 21:00 08/01/24 08:54 Metoprolol Tartrate 50 Mg Tab PO 50 mg Q12HR [facility] Administration Ondansetron HCl 4 mg 07/29/24 07:06 Ondansetron Inj 4 Mg/2 Ml Vial IV PUSH Q4H PRN Nausea Perflutren Lipid Microsphere 0 ml 07/30/24 12:14 Perflutren Lipid Microspheres 1.5 Ml Vial Diluted To 10 Ml Total Volume IV PUSH 08/02/24 12:15 ONCE PRN adequate visualization Protocol Potassium Chloride 10 meq 07/29/24 17:00 08/01/24 08:55 Potassium Chloride 10 Meq Er Tablet PO 10 meq BID [facility] Administration Rivaroxaban 20 mg 07/29/24 18:00 07/31/24 17:30 Rivaroxaban 20 Mg Tablet PO 20 mg QPM [facility] Administration Rosuvastatin Calcium 10 mg 07/29/24 14:15 08/01/24 08:54 Rosuvastatin 10 Mg Tablet PO 10 mg DAILY [facility] Administration Vitamin D 2,000 units 07/29/24 14:10 08/01/24 08:54 Cholecalciferol 1,000 Units Tablet PO 2,000 units DAILY [facility] Administration Radiology Results: ITS Impressions Head/Neck CTA 07/29/24 06:56 IMPRESSION: 1. Percent stenosis per NASCET criteria is 0% bilaterally. 2. No acute intracranial hemorrhage or suspicious mass effect. Chest X-Ray 07/29/24 07:16 IMPRESSION: Bibasilar scarring without focal infiltrate or effusion Brain MRI 07/29/24 18:52 IMPRESSION: 1. No acute intracranial process. 2. Nonenhancing lesion seen. Labs Labs: Laboratory Results - last 24 hr 05/28/25 05:39 WBC 5.3 RBC 4.51 Hgb 13.3 Hct 41.7 MCV 92.5 MCH 29.5 MCHC 31.9 L RDW 13.7 Plt Count 215 MPV 11.3 H Immature Gran % (Auto) 0.2 Neut % (Auto) 58.0 Lymph % (Auto) 26.6 [place] % (Auto) 11.4 H Eos % (Auto) 3.4 Baso % (Auto) 0.4 Lymph # (Auto) 1.42 [place] # (Auto) 0.6 Eos # (Auto) 0.2 Baso # (Auto) 0.0 Abs Immat Gran (auto) 0.01 Absolute Neuts (auto) 3.1 Absolute Nucleated RBC 0.000 Nucleated RBC % 0.0 Sodium 138 Potassium 4.0 Chloride 103 Carbon Dioxide 33 H Anion Gap 2 L BUN 14 Creatinine 0.81 Estim Creat Clear Calc 37 Estimated GFR > 60 Glucose 93 Calcium 9.4 Total Bilirubin 0.8 AST 30 ALT 12 Alkaline Phosphatase 59 Total Protein 6.0 L Albumin 3.7 Quality VTE Prophylaxis VTE prophylaxis: pharmacologic ordered (on Xarelto)
[2024-08-01] MEDS: ACETAMINOPHEN 500 MG TABLET 1000 MG PO (10:53)
--- NOTE | 2024-08-01 14:40 | P.DS_ITS ---
DS: Admitting Diagnosis Discharge Date 08/01/2024 Admitting Diagnosis Dizziness, hypokalemia DS: Discharge Diagnosis Discharge Diagnosis (1) Vertigo: Code(s): R42 - Dizziness and giddiness Status: Acute Assessment and Plan: * Denies while in chair but reports sx have gotten better and are now only intermittent but also not happening as often * Physical therapy for vestibular therapy inpt and outpt. * Brain MRI negative (2) Hypokalemia: Code(s): E87.6 - Hypokalemia Status: Acute Assessment and Plan: * Potassium improved to 4.0 today, 2.9 on admission. * Potassium 10 meq PO BID, reports takes this at home as well, to continue at D/C. 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 * Previous EKG on 07/22/21 shows a first degree AV block. * Cards consulted, reports unlikely to be contributing to symptoms * --To f/u with cardiology, Dr. Bateman, outpatient (4) Paroxysmal atrial fibrillation: Code(s): I48.0 - Paroxysmal atrial fibrillation Status: Acute Assessment and Plan: * Amiodarone 200 mg PO daily, Restarted Metoprolol at 50 mg PO q 12, and Xarelto 20 mg PO qpm. Continue these upon discharge. * Telemetry currently NSR 80bpm, will D/C at discharge. (5) Hypertension: Qualifiers: Hypertension type: primary hypertension Qualified Code(s): I10 - Essential (primary) hypertension Code(s): I10 - Essential (primary) hypertension Status: Chronic Assessment and Plan: * Current blood pressure 116/57 * Amlodipine 2.5 mg PO daily, Furosemide 40 mg PO daily, Metoprolol 50 mg PO q 12. Continue these on discharge. * Continue to monitor at home and report to PCP. (6) Hypothyroidism: Qualifiers: Hypothyroidism type: unspecified Qualified Code(s): E03.9 - Hypothyroidism, unspecified Code(s): E03.9 - Hypothyroidism, unspecified Status: Chronic Assessment and Plan: * Levothyroxine 100 mcg PO daily. Continue on D/C. * TSH 0.549. 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 (8) Thyroid nodule: Code(s): E04.1 - Nontoxic single thyroid nodule Status: Acute Assessment and Plan: * Thyroid nodule noted on ultrasound last fall with TI-RADs 4; will need follow- up with her primary care provider. Plan Home with outpatient OT and PT. As well as vestibular PT. DS: Summary Hospital Course Reason for hospitalization: Dizziness, hypokalemia Hospital Course: Patient reported to the ED on 07/29 for dizziness. Pt reported the dizziness as the room spinning when she stands or turns side to side. Pt was also c/o R ear pain. P [place]. +Intermittent nausea when dizziness present. Hemodynamically stable. Denies any other neurological sx. Denies CP, SOB, or any other sx. In ED: Vital signs were stable on arrival. Labs were pretty unremarkable though potassium was low at 2.9. Urinalysis was unremarkable. EKG showed sinus rhythm with first-degree AV block with [place] interval of 218 and nonspecific T-wave abnormalities. CT of the head and neck showed no acute findings and 0% stenosis of the internal carotid arteries. She was given meclizine 25 mg p.o. and promethazine 12.5 mg IV which caused her to have hallucination. Diazepam 2.5 mg IV was given later in the day with some improvement. She is being admitted in this setting for close monitoring and brain MRI to rule out central causes of her vertigo. CT scan of brain and CT angiogram head and neck were within normal range. Brain MRI unremarkable. Cardiology and Neurology saw patient and signed off. Has part been participating in this vestibular therapy with physical therapy at the bedside and will continue this outpatient and onto ENT referral if no help. Patient has also been treated for hypokalemia while inpatient, patient normally takes supplement at home and will continue this upon discharge. Upon D/C, K level at 4.0. Patient to follow-up with cardiology for paroxysmal atrial fibrillation (hx of multiple cardioversions) and AV block 1st degree. Continue to take all home meds upon discharge. Patient reports today that she is feeling much better. She states that her vertigo is only very intermittent she is currently sitting up and not experiencing any symptoms. Continue outpatient with vestibular physical therapy. Pt also c.o ROBERSON this AM, pt was given 1 g of acetaminophen. Upon reassessment patient with no more headache. Patient states that she sometimes gets headaches at home and acetaminophen helps. Instructed to continue this as needed. Status at Discharge Cognitive/behavioral status at discharge: Stable Time Spent with Patient Time attestation: Total time spent providing and/or coordinating discharge services: Exam Narrative: Nontoxic-appearing elderly female sitting up in bed in no distress. Const: General: comfortable, no acute distress and uncomfortable HENMT: Face/Nose/Sinus: Normal nares present Mouth: Yes moist mucous membranes Other: +[place] Large bandage at the base of the right lower neck where she recently had a basal cell carcinoma excised. Eyes: General: appearance normal, both eyes and all related structures Sclera: sclerae normal Neck: Neck: supple and no JVD Carotids: no bruits Resp: Effort & Inspection: normal respiratory effort Auscultation: clear to auscultation bilaterally Cardio: Rate: regular rate Rhythm: regular rhythm and abnormal rhythm irregularly irregular Other: SR 80 GI: Inspection: distended GI Palp: No Tenderness to palpation present (GI) Auscultation: normal bowel sounds Skin: General skin exam: normal color and no rashes or lesions noted Wounds: no wounds Neuro: Speech: normal speech Motor exam (neuro): Normal motor muscle tone present throughout Sensory Exam: normal sensation Extrem: General: normal to inspection and no pedal edema Psych: Affect: normal affect Other: A&O x3 DS: Data Data Completed and Pending Labs on day of discharge: Labs from last 24 hours 08/01/24 05:39 WBC 5.3 RBC 4.51 Hgb 13.3 Hct 41.7 MCV 92.5 MCH 29.5 MCHC 31.9 L RDW 13.7 Plt Count 215 MPV 11.3 H Immature Gran % (Auto) 0.2 Neut % (Auto) 58.0 Lymph % (Auto) 26.6 [place] % (Auto) 11.4 H Eos % (Auto) 3.4 Baso % (Auto) 0.4 Lymph # (Auto) 1.42 [place] # (Auto) 0.6 Eos # (Auto) 0.2 Baso # (Auto) 0.0 Abs Immat Gran (auto) 0.01 Absolute Neuts (auto) 3.1 Absolute Nucleated RBC 0.000 Nucleated RBC % 0.0 Sodium 138 Potassium 4.0 Chloride 103 Carbon Dioxide 33 H Anion Gap 2 L BUN 14 Creatinine 0.81 Estim Creat Clear Calc 37 Estimated GFR > 60 Glucose 93 Calcium 9.4 Total Bilirubin 0.8 AST 30 ALT 12 Alkaline Phosphatase 59 Total Protein 6.0 L Albumin 3.7 Discharge Plan Discharge Attending physician on discharge: Vy Salvador Consulting providers: Messi Little; Jani Bateman Discharging Clinician: Vy Salvador Anticipated Discharge Date/Time: 08/01/24 16:00 Patient Disposition: Home Activity: may shower and as tolerated Diet: heart healthy Discharge Instructions: 1. Plan for outpatient physical therapy as occupational therapy to help ambulating as well with dizziness / vertigo, these have been ordered for you today. 2. Follow-up with your primary care provider about this visit and about the nodule found on thyroid. 3. Cardiology, Dr. Bateman, also wants you to follow-up with him at his clinic for your heart rate. I have attached his contact information here. 4. Continue taking your home medication including your potassium supplement. Your primary care provider will likely re-draw your lab work when you follow-up with them in their office. Continue to check your blood pressure and blood sugar at home if applicable. Keep your scheduled appts with your primary care provider and any specialist that you may see. Return to the emergency department if you develop sudden shortness of breath, chest pain, a fever of greater than 101.5, or nausea, vomiting, abd pain, or diarrhea that does not go away. Follow-up with your primary care provider within 1-2 weeks, they will want to be updated on your inpatient stay in the hospital. Thank you for [facility] for your healthcare needs. Patient Instructions: Antibiotic Form, A-fib (Atrial Fibrillation) (GEN), Benign Paroxysmal Positional Vertigo (GEN) Patient Language: Maltese Stand Alone Forms: General Discharge Information Follow-up/Referrals: Jani Bateman MD [Physician] - 2 Weeks Marky Loya MD [Primary Care Provider] - 2 Weeks Discharge Medications: Continued potassium chloride [Klor-Con 10] 10 mEq tablet extended release 10 meq PO BID levothyroxine 50 mcg tablet 100 mcg PO DAILY hydrocodone-acetaminophen 5-325 mg Tablet 1 tablet PO Q6H PRN (Reason: Pain (Scale Score 4-6)) Rx Instructions: from med list updated 03/10/2023 cholecalciferol (vitamin D3) [Vitamin D3] 25 mcg (1,000 unit) Tablet 50 mcg PO DAILY Xarelto 20 mg Tablet 20 mg PO QPM Rx Instructions: must administer with evening meal furosemide [Lasix] 40 mg tablet 40 mg PO DAILY isosorbide mononitrate 30 mg tablet extended release 24 hr 30 mg PO DAILY metoprolol tartrate 100 mg tablet 100 mg PO BID amiodarone [Pacerone] 200 mg tablet 200 mg PO DAILY@0800 amlodipine 2.5 mg Tablet 2.5 mg PO DAILY rosuvastatin 10 mg tablet 10 mg PO DAILY Other Ambulatory Orders: PT Outpatient Eval and Treat (ONCE) Timeframe: [id number] Location: Determined by Patient Ordered By: Vy Salvador Date of admission: 07/30/24 12:34 Primary Care Provider: Marky Loya Admitting Provider: Talita Velasco Attending physician on admission: Vy Salvador Condition: Stable Quality VTE Prophylaxis VTE prophylaxis: pharmacologic ordered (on Xarelto) Hospitalist MIPS Heart Failure (Exclusion) Patient has history of Heart Transplant or Left Ventricular Assistive Device?: No IF YES, STOP HERE Heart Failure (Qualifier) Patient has current or prior documentation of LVEF less than or equal to 40%, or mod/servere depressed LVSF?: No IF NO, STOP HERE
== END 2024-08-01 17:10 | disposition home or self-care (01) | DRG 149 ==
LOC: ANHED 01:42 → ANH3MEDSUR 07:56 → ANH2MED 08:26
PROVIDERS: Nurse Practitioner Family; Physician Assistant; Admitting Provider Family Medicine; Emergency Provider Student in an Organized Health Care Education/Training Program; PCP Family Medicine
DX: R42 Dizziness and giddiness (principal); I10 Essential (primary) hypertension; I44.0 Atrioventricular block, first degree; I48.0 Paroxysmal atrial fibrillation; I25.10 Atherosclerotic heart disease of native coronary artery without angina pectoris; E87.6 Hypokalemia; E03.9 Hypothyroidism, unspecified; E04.1 Nontoxic single thyroid nodule; E78.5 Hyperlipidemia, unspecified; K21.9 Gastro-esophageal reflux disease without esophagitis; M19.90 Unspecified osteoarthritis, unspecified site; G43.909 Migraine, unspecified, not intractable, without status migrainosus; Z96.651 Presence of right artificial knee joint; Z87.11 Personal history of peptic ulcer disease; Z85.3 Personal history of malignant neoplasm of breast; Z87.891 Personal history of nicotine dependence; Z79.01 Long term (current) use of anticoagulants
CPT/HCPCS: 36415; 70496; 70498; 70553; 71045; 80048; 80053; 81003; 82948; 83735; 84132; 84443; 84484; 85025; 87637; 93005; 93306; 96361; 96365; 96366; 96375; 97110; 97161; 97165; 97530; 99285; A9270; A9579; G0378; J2550; J3360; J3480; J7030; J7120; Q9967

== ENCOUNTER 2024-08-09 04:40 | Emergency (ER) | payer MEDICARE, SELFPAY ==
[2024-08-09] VITALS (10 sets, daily range): BP systolic 135–174; BP diastolic 56–87; PULSE 61–66; RESP 13–20; TEMP 36.5–36.6; O2SAT 94–99
--- NOTE | ~2024-08-09 | CT_ITS ---
CT head without contrast Indication: Status post fall COMPARISON: 07/29/2024 Technique: Serial scans were obtained through the brain without the administration of contrast. Dose reduction technique was used on this scan by utilizing automated exposure control and iterative recon struction technique. The dose-length product (DLP) was 681.00 mGy-cm. Findings: There is no evidence of intracranial hemorrhage, mass lesion, or acute infarct. The ventri cles and subarachnoid spaces are dilated, consistent with mild atrophy. Low attenuation regions are seen within the periventricular white matter bilaterally, likely representing changes from chronic mi crovascular ischemic disease. There is no evidence of edema, mass effect or midline shift. The visu alized paranasal sinuses and mastoid air cells are clear. Impression: No intracranial hemorrhage, mass, or acute infarct. Atrophy and chronic white matter changes, as above. Reviewed, dictated and finalized at [facility]. Impression: No intracranial hemorrhage, mass, or acute infarct. Atrophy and chronic white matter changes, as above.
--- NOTE | ~2024-08-09 | XR_ITS ---
AP view of the pelvis Clinical history: Pain Findings: No acute fracture or dislocation is seen. Osseous alignment is anatomic. Bilateral hip and SI joint spaces are preserved. Soft tissues are unremarkable. Impression: No significant abnormality is seen. Reviewed, dictated and finalized at location M. Impression: No significant abnormality is seen.
--- NOTE | ~2024-08-09 | XR_ITS ---
Left wrist Technique: PA, oblique, lateral, and ulnar deviation views were obtained. Clinical History: Status post fall Findings: There is a nondisplaced acute fracture the distal radius, probably transverse, with a longi tudinal component probably extending to the articular surface. No articular surface step-off.. There is advanced degenerative change of the first CMC joint. Soft tissues are unremarkable. Impression: Nondisplaced, probable comminuted fracture of the distal radius, as detailed above. 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 Reviewed, dictated and finalized at location M. Impression: Nondisplaced, probable comminuted fracture of the distal radius, as detailed ab ove. 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
[2024-08-09] MEDS: ACETAMINOPHEN 500 MG TABLET 1000 MG PO (04:50)
--- NOTE | 2024-08-09 04:51 | ED_ITS ---
HPI - Fall General Chief Complaint: Fall Stated Complaint: fall from unknown cause/wrist pain Time Seen by Provider: 08/09/24 04:41 History of Present Illness HPI Narrative: 89-year-old female with a history of hypertension, hypothyroidism, paroxysmal atrial fibrillation on Xarelto and metoprolol. Patient presents to the emergency department after having falling at home. Patient states that she was walking in the kitchen trying to get to the other side of the room when she fell and landed onto her left wrist. She did not strike her head or lose consciousness. Endorses pain in her left wrist but no other pain but her family called EMS as they were not able to get the patient up. EMS was able to get the patient up into the stretcher and she was complaining of some sacral pain as well but was ambulatory. Did not take anything for pain prior to arrival. Denies any headache, vision change, nausea vomiting, chest pain, shortness a breath, abdominal pain, back pain, weakness or fatigue. Patient was just discharged from this facility at the end of last month on review of the EMR where she was having vertiginous episodes and had a rather unremarkable workup with negative CTs, CT angios an MRI and was discharged with vestibular therapy and physical therapy. Patient denies any dizziness at this time. Related Data Home Medications ?Medication ?Instructions ?Recorded ?Confirmed ?Last Taken ?Type potassium chloride 10 mEq 10 meq PO BID 01/08/19 07/29/24 07/28/24 History tablet,extended release (Klor-Con) furosemide 40 mg tablet (Lasix) 40 mg PO DAILY 02/21/19 07/29/24 07/28/24 History isosorbide mononitrate 30 mg 30 mg PO DAILY 02/21/19 07/29/24 07/28/24 History tablet,extended release 24 hr metoprolol tartrate 100 mg tablet 100 mg PO BID 02/21/19 07/29/24 07/28/24 History amiodarone 200 mg tablet (Pacerone) 200 mg PO DAILY@0800 10/19/21 07/29/24 07/28/24 History amlodipine 2.5 mg tablet 2.5 mg PO DAILY 10/19/21 07/29/24 07/28/24 History rosuvastatin 10 mg tablet 10 mg PO DAILY 12/19/21 07/29/24 07/28/24 History levothyroxine 50 mcg tablet 100 mcg PO DAILY 03/10/22 07/29/24 07/28/24 History cholecalciferol (vitamin D3) 25 50 mcg PO DAILY 12/05/23 07/29/24 07/28/24 History mcg (1,000 unit) tablet (Vitamin D3) hydrocodone 5 mg-acetaminophen 325 1 tablet PO Q6H PRN Pain (Scale 12/05/23 07/29/24 Unknown History mg tablet Score 4-6) rivaroxaban 20 mg tablet (Xarelto) 20 mg PO QPM 12/05/23 07/29/24 07/28/24 History Allergies Allergy/AdvReac Type Severity Reaction Status Date / Time penicillin V Allergy Intermediate Rash Verified 07/30/24 07:26 Penicillins Allergy Intermediate Rash Verified 07/30/24 07:26 adhesive tape Allergy Unknown RASH Verified 07/30/24 07:26 morphine AdvReac Intermediate Vomiting Verified 07/30/24 07:26 promethazine (From Phenergan) AdvReac Intermediate Hallucinati Verified 07/30/24 07:26 ng meperidine AdvReac Unknown WOOZY Verified 07/30/24 07:26 Review of Systems 2 Review of Systems: As reviewed above in [facility] Past Medical History Medical History Debility Benign paroxysmal positional vertigo Thyroid nodule Ultrasound 12/2023 showed bilateral nodules with TI-RADs of 4 however a biopsy has not been done. Memory changes MRSA cellulitis Peptic ulcer Primary stress urinary incontinence Gastroesophageal reflux disease Mild coronary artery disease Cardiac catheterization October 2018 showed no angiographically significant coronary disease, at best 40% stenosis at the ostium of the 1st diagonal branch. Osteoarthritis Hypothyroidism Atrial fibrillation She has had several cardioversions, and had a cardiac ablation this year at [facility]. Migraine headache Abnormal colonoscopy Dyslipidemia Hypertension Cancer of right breast Status post lumpectomy and radiation in 2006. Anemia Seasonal allergic rhinitis Vision loss Hearing loss of both ears Surgical History Surgical History History of colonoscopy (07/2013) Diverticulosis, uncomplicated internal external hemorrhoids, hyperplastic polyp. History of arthroscopic knee surgery History of arthroplasty of right knee History of laparoscopic cholecystectomy History of 3 sections History of lumpectomy of right breast For breast cancer in 2006. History of appendectomy Family History Family History Mother Patient's mother is Family history of type 2 diabetes mellitus Family history of Parkinson's disease, Onset Age: 89 Father Family history of heart disease in male family member before age 55, Onset Age: 37 Patient's father is , Onset Age: 37 Family history of hepatitis, Onset Age: 37 Family history of nephrotic syndrome, Onset Age: 37 Son Motor vehicle accident Social History Social History Social History: Surrogate medical decision maker: Ariadne Lambert, daughter. Code status: Full code. Smoking packs per day: 0.5 Smoking cigarettes per day: 10.0 Years smoked: 20 Smoking pack-years: 10.00 Smoking status: Former smoker Tobacco type: cigarettes Second hand tobacco smoke exposure: No Additional smoking assessment comments: pt said she stopped smoking in 1978 Alcohol intake: never Substance use: never Do You Feel Safe in your Home?: Yes Lack of Transportation: YES Lack of Food: Never True Current Housing: I Have Housing Concerned About Future Housing: No Difficulty Paying Gas/Electric Bills: No Difficulty Paying for Meds: No Currently Unemployed: No Education: Grade School Difficulty w/ Childcare or Family Care: No Additional living arrangements comments: . 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cerns: No Agree to blood products: Yes Exam 2 Narrative: GENERAL: [Well-appearing, well-nourished, and in no acute distress.] HEAD: [Normocephalic, atraumatic.] EYES: [PERRLA and EOMI.] ENT: Nares clear, no rhinorrhea or epistaxis. Mucous membranes moist. NECK: Supple. CHEST: [Clear to auscultation. No respiratory distress.] HEART: [Regular rate and rhythm]. No murmur heard. [Normal peripheral pulses.] ABDOMEN: [Soft, nondistended], [nontender], [No rigidity or guarding] MSK: Some limited range of motion with deviation of the left wrist and some overlying swelling of the dorsum of left wrist on the radial aspect. Good range of motion of the MCP PIP and D IP joints of each major joint on the left hand. Able to make an okay sign, thumbs up sign and oppose each digit without difficulty. No tenderness or any elbow or shoulder. No injury identified in the contralateral arm or lower extremities. No midline spinal tenderness. Ambulatory SKIN: Warm, dry, no rash. NEURO: [No focal deficits]. Alert and oriented [x3.] PSYCH: [Normal mood and affect.] Course Vital Signs Vital signs: Vital Signs Temperature 36.6 C 08/09/24 04:39 Pulse Rate 65 08/09/24 04:39 Respiratory Rate 16 08/09/24 04:39 Blood Pressure 174/87 H 08/09/24 04:39 Pulse Oximetry 99 08/09/24 04:39 Oxygen Delivery Room Air 08/09/24 04:39 Temperature 36.6 C 08/09/24 04:39 Pulse Rate 64 08/09/24 05:32 Respiratory Rate 20 08/09/24 05:32 Blood Pressure 160/68 H 08/09/24 05:32 Pulse Oximetry 97 08/09/24 05:26 Oxygen Delivery Room Air 08/09/24 04:39 Procedures Orthopedic Splinting/Casting Injury #1: Splinting/Casting Date: 08/09/24 Splinting/Casting Time: 06:00 Side: left Upper Extremity Injury Location: wrist Upper Extremity Immobilizer: volar splint Splint: customized in ED Pre-Procedure Neuro Vascular Exam: normal Post-Procedure Neuro Vascular Exam: normal MDM - Fall MDM Narrative Medical decision making narrative: 89-year-old female with history of hypertension, hypothyroidism, paroxysmal atrial fibrillation on metoprolol and Xarelto. Patient presents to the emergency department after a fall in her kitchen. Patient states she was trying to walk to the other and fell forward landing onto her left wrist. Did not strike her head or lose consciousness but was not able to get up secondary to the pain. She is ambulatory here in the emergency department, has a hematoma to the dorsal left wrist but reassuring distal neuro vasculature examination. She has clear breath sounds, vital signs reassuring without any significant tachycardia, fever, hypoxia or significantly elevated blood pressure. Considerations presently are for a wrist fracture, dislocation, soft tissue injury or hematoma. Low suspicion intracranial pathology but she does have high risk factors including age and blood thinner use soap CT of the head was obtained as well as a workup given her recent hospital admission with previous electrolyte derangements to lucid any other potential causes of her fall. CT head, EKG, CBC, CMP obtained. She was given Tylenol for analgesia and re- evaluated. X-ray of the wrist was independently reviewed and there is a small nondisplaced fracture of the distal radius. Patient was placed volar splint with good neuro vasculature pre and post. Remaining workup was also reassuring with no leukocytosis or anemia. Normal platelet count. Electrolyte panel is unremarkable. Normal renal function, normal glucose and LFTs. Head CT shows no acute intracranial findings. Pelvic x-ray without any findings. EKG with first-degree AV block but no other acute findings or concerns. Patient provided 2.5 mg of p.o. oxycodone with good analgesia achieved. She is safe for discharge home at this time and family members were comfortable with the plan for outpatient orthopedics follow-up appointments and return precautions. Medical Records Attestation: I reviewed the patient's medical records. Lab Data Attestation: I reviewed the patient's lab results. 08/09/24 05:35 08/09/24 05:35 Labs: Lab Results 08/09/24 08/09/24 Range/Units 04:48 05:35 WBC 7.1 (4.5-10.0) K/mm3 RBC 5.04 (4.2-5.4) M/mm3 Hgb 14.7 (12.0-15.0) g/dL Hct 46.2 (37.0-47.0) % MCV 91.7 (80-100) fl MCH 29.2 (26-34) pg MCHC 31.8 L (32-36) g/dl RDW 13.9 (11.5-14.5) % Plt Count 234 (150-375) k/mm3 MPV 11.3 H (7.4-10.4) fl Immature Gran % (Auto) 0.3 (0-0.5) % Neut % (Auto) 64.9 (45.5-73.1) % Lymph % (Auto) 22.0 (18.3-44.2) % [place] % (Auto) 10.9 H (2.6-8.5) % Eos % (Auto) 1.3 (0-4.4) % Baso % (Auto) 0.6 (0.2-1.2) % Lymph # (Auto) 1.55 (0.9-3.2) K/mm3 [place] # (Auto) 0.8 H (0.1-0.6) K/mm3 Eos # (Auto) 0.1 (0-0.3) K/mm3 Baso # (Auto) 0.0 (0.0-0.1) K/mm3 Abs Immat Gran (auto) 0.02 (0.00-0.031) K/mm3 Absolute Neuts (auto) 4.6 (1.3-6.7) K/mm3 Absolute Nucleated RBC 0.000 (0.0-0.012) K/mm3 Nucleated RBC % 0.0 (0.0-0.2) % Sodium 138 (137-145) mmol/L Potassium 3.8 (3.4-5.0) mmol/L Chloride 102 (98-107) mmol/L Carbon Dioxide 31 H (22-30) mmol/L Anion Gap 5 (4-12) mmol/L BUN 14 (7-17) mg/dL Creatinine 0.87 (0.7-1.0) mg/dL Estim Creat Clear Calc 37 ml/min Estimated GFR > 60 (59 - ) Glucose 104 (65-110) mg/dL POC Capillary Glucose 99 (65-105) mg/dl Calcium 10.2 (8.4-10.2) mg/dL Magnesium 2.2 (1.6-2.3) mg/dL Total Bilirubin 0.7 (0.2-1.3) mg/dL AST 35 (14-36) U/L ALT 15 (6-35) U/L Alkaline Phosphatase 74 (38-126) U/L Total Protein 7.1 (6.3-8.2) g/dL Albumin 4.3 (3.5-5.1) g/dL Imaging Data Attestation: I personally reviewed and interpreted this imaging study as follows: My impression: Impressions Head CT 08/09/24 05:04 Impression: No intracranial hemorrhage, mass, or acute infarct. Atrophy and chronic white matter changes, as above. Wrist X-Ray 08/09/24 05:36 Impression: Nondisplaced, probable comminuted fracture of the distal radius, as detailed above. 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 Pelvis X-Ray 08/09/24 05:38 Impression: No significant abnormality is seen. Discharge Plan Discharge Clinical Impression: Distal radius fracture, left, Fall from other slipping, tripping, or stumbling Patient Disposition: Home Condition: Stable Instructions: Antibiotic Form, Wrist Fracture in Adults (ED) Additional Instructions: You have a distal radius fracture of your left wrist. Maintain the splint for comfort and stability the joint and follow-up with your primary care provider and the provided child welfare specialist. Return with any emergent concerns, numbness in the hand, inability to range the fingers, worsening pain or swelling or any other concerns. Take Tylenol and ibuprofen for pain control. Patient Language: Nepali Prescriptions: New acetaminophen [Tylenol Extra Strength] 500 mg tablet 1,000 mg PO TID PRN (Reason: pain) Qty: 30 0RF ibuprofen 600 mg tablet 600 mg PO TID PRN (Reason: pain) Qty: 20 0RF No Action potassium chloride [Klor-Con 10] 10 mEq tablet extended release 10 meq PO BID levothyroxine 50 mcg tablet 100 mcg PO DAILY hydrocodone-acetaminophen 5-325 mg Tablet 1 tablet PO Q6H PRN (Reason: Pain (Scale Score 4-6)) Rx Instructions: from med list updated 03/10/2023 cholecalciferol (vitamin D3) [Vitamin D3] 25 mcg (1,000 unit) Tablet 50 mcg PO DAILY Xarelto 20 mg Tablet 20 mg PO QPM Rx Instructions: must administer with evening meal furosemide [Lasix] 40 mg tablet 40 mg PO DAILY isosorbide mononitrate 30 mg tablet extended release 24 hr 30 mg PO DAILY metoprolol tartrate 100 mg tablet 100 mg PO BID amiodarone [Pacerone] 200 mg tablet 200 mg PO DAILY@0800 amlodipine 2.5 mg Tablet 2.5 mg PO DAILY rosuvastatin 10 mg tablet 10 mg PO DAILY Follow-up/Referrals: Marky Loya MD [Primary Care Provider] - Kevan Hernandes MD [Physician] - 1 Week (Distal radius fracture) Time of Disposition: 06:13
[2024-08-09 04:55] LABS: Glucose Point of Care 99 mg/dl (65-105)
--- OUTSIDE RECORDS SUMMARY | 2024-08-09 05:19 | XMS_ITS | Referral Summary ---
Author Organization [facility] [address] Address [address] [place] [address] Care Team Providers Care Skin Former Name Role Phone Marky Loya MD Primary Care Provider [phone] Encounters Date Type Department Care Team Description 08/01/[address] [facility] Medical [facility] Cardiology [address] [place] [address] Jani Bateman MD from Last 3 Months Allergies Active Allergy [...] 1 capsule (50 mcg total) by mouth library paraprofessional before breakfast Active multivitamin tabletIndications :Vitamin Deficiency [...] 10 mg tabletIndications :Coronary artery disease involving [place] coronary artery of [place] heart without angina pectoris TAKE 1 TABLET BY MOUTH EVERY DAY 90 tablet 3 4 Active nitroglycerin (NITROSTAT) 0.4 mg SL tabletIndications :Coronary artery disease of [place] artery of [place] heart with stable angina pectoris Place 1 [...] benefits. She will discuss this with her athletic scout, and if she wishes to proceed, I asked her to contact my office so that we could screen her appropriately. The patient will follow-up with me in 12 months for an office visit and twelve- lead ECG. Assessment & Plan (07/09/2018 10:48 AM CDT): The patient has a [id number] score of 5 (annualized risk of stroke 6.7 %). I have therefore recommended that she remain anticoagulated for thromboprophylaxis. The patient will follow-up with me in 6 months for an office visit and twelve- lead ECG. Assessment & Plan (01/16/2018 4:35 PM NATIONAL INSURANCE OFFICER): The patient has a [id number] score of 4 (annualized risk of stroke 4.0 %). I have therefore recommended that she remain anticoagulated for thromboprophylaxis. Paroxysmal atrial fibrillation 01/12/2018 Overview (01/12/2018): Added automatically from request for surgery [id number] Assessment & Plan (06/27/2022 1:48 PM CDT): The patient is 4 and half years status post ablation for atrial fibrillation, doing well. Maintaining sinus rhythm with amiodarone. No changes to management at this time The patient has a UGU3QA3-SZLs score of 5. I have therefore recommended [...] expectantly. At risk for amiodarone toxicity with terminal operations supervisor u se 12/14/2017 Chronic diastolic heart failure 08/08/2017 COPD (chronic obstructive pulmonary disease) Chronic anticoagulation 02/01/2017 Assessment & Plan (06/11/2019 1:12 PM CDT): The patient has a MKV4SW0-FGZu score of 5 (annualized risk of stroke 6.7%). I have therefore recommended that she remain anticoagulated for thromboprophylaxis. The patient will follow-up with me in 12 months for an office visit and twelve- lead ECG. Coronary artery disease invo lving [place] coronary artery of [place] heart without angina pectoris 02/01/2017 Edema of [...] be needed yearly. The patient has a MKV8ED6-YIMq score of 4. I have therefore recommended continued anticoagulation thromboprophylaxis. The patient follows yearly with her athletic scout. I have not made a follow-up appointment, [...] standpoint. Assessment & Plan (01/16/2018 4:34 PM NATIONAL INSURANCE OFFICER): The patient has symptomatic persistent atrial fibrillation [...] with atrial fibrillation: a report of the [place] [employer]/[place] [employer] Association Task Force on Practice Guidelines [...] on file Legal Sex Female 2:34 AM NATIONAL INSURANCE OFFICER Gender Identity Not on file Sexual Orientation Not on file Last Filed Vital Signs Vital Sign Reading Time Taken Comments Blood Pressure 156/64 03/08/2024 11:32 AM NATIONAL INSURANCE OFFICER Pulse 57 03/08/2024 11:32 AM NATIONAL INSURANCE OFFICER Temperature 36.5 C (97.7 F) 01/05/2021 10:16 AM CDT Respiratory Rate 20 02/16/2018 7:50 AM NATIONAL INSURANCE OFFICER Oxygen Saturation 94% 03/08/2024 11:32 AM NATIONAL INSURANCE OFFICER Inhaled Oxygen Concentration - - Weight 64.4 kg (142 lb) 03/08/2024 11:32 AM NATIONAL INSURANCE OFFICER Height 157.5 cm (5' 2) 03/08/2024 11:32 AM NATIONAL INSURANCE OFFICER Body Mass Index 25.97 03/08/2024 11:32 AM NATIONAL INSURANCE OFFICER Plan of Treatment Not on file Procedures Procedure Name Priority Date/Time Associated Diagnosis Comments CARDIOLOGY DOCUMENT SCAN Routine 07/30/2024 4:12 PM CDT from Last 3 Months Results * Cardiology Document Scan (07/30/2024 4:12 PM CDT) Anatomical Region Laterality Modality Other Jani Bateman MD CV CARDIAC SERVICES PROCEDURES F inal Result from Last 3 Months Insurance MEDICARE [facility] MEDICARE [facility] MEDICARE SUPPLEMENT Care Teams Skin Former Relationship Specialty Start Date End Date Marky Loya MD PCP - General Family Medicine 07/06/18
--- OUTSIDE RECORDS SUMMARY | 2024-08-09 05:19 | XMS_ITS ---
Author Name Auto Generated, Auto Generated Organization [facility] Address [facility] [place] [address] Phone [phone] Care Team Providers Care Model Builder Name Role Phone Marky Loya Functional Status Mental Status Allergies and Intolerances Medications Problems Reason for Referral Past Medical History
--- OUTSIDE RECORDS SUMMARY | 2024-08-09 05:19 | XMS_ITS | Clinical Summary ---
Author Organization [facility] [address] Address [address] [place] [address] Care Team Providers Care Printing Plate Clerk Name Role Phone Marky Loya MD Primary Care Provider [phone] Allergies Active Allergy Reactions Criticality Noted Date Comments Adhesive Tape-Silicones Itching Low 02/14/2018 Meperidine Other (See comments) Low 02/14/2018 high Morphine Vomiting Low Penicillins Rash Medium Medications cholecalciferol (VITAMIN D-3) 1,000 unit tablet Take 1 tablet (1,000 Units total) by mouth daily Two tablets daily by mouth Active levothyroxine sodium (TIROSINT) 50 mcg capsule Take 1 capsule (50 mcg total) by mouth musical instrument maker before breakfast Active multivitamin tabletIndications :Vitamin Deficiency [...] 10 mg tabletIndications :Coronary artery disease involving [place] coronary artery of [place] heart without angina pectoris TAKE 1 TABLET BY MOUTH EVERY DAY 90 tablet 3 4 Active nitroglycerin (NITROSTAT) 0.4 mg SL tabletIndications :Coronary artery disease of [place] artery of [place] heart with stable angina pectoris Place 1 [...] benefits. She will discuss this with her assistant research scientist, and if she wishes to proceed, I asked her to contact my office so that we could screen her appropriately. The patient will follow-up with me in 12 months for an office visit and twelve- lead ECG. Assessment & Plan (07/09/2018 10:48 AM CDT): The patient has a UVO8WV5-XSMs score of 5 (annualized risk of stroke 6.7 %). I have therefore recommended that she remain anticoagulated for thromboprophylaxis. The patient will follow-up with me in 6 months for an office visit and twelve- lead ECG. Assessment & Plan (01/16/2018 4:35 PM HAZARDOUS SUBSTANCES SCIENTIST): The patient has a FGW5KM2-BOLd score of 4 (annualized risk of stroke 4.0 %). I have therefore recommended that she remain anticoagulated for thromboprophylaxis. Paroxysmal atrial fibrillation 01/12/2018 Overview (01/12/2018): Added automatically from request for surgery [id number] Assessment & Plan (06/27/2022 1:48 PM CDT): The patient is 4 and half years status post ablation for atrial fibrillation, doing well. Maintaining sinus rhythm with amiodarone. No changes to management at this time The patient has a ACK5GU5-TBKw score of 5. I have therefore recommended [...] expectantly. At risk for amiodarone toxicity with residential u se 12/14/2017 Chronic diastolic heart failure 08/08/2017 COPD (chronic obstructive pulmonary disease) Chronic anticoagulation 02/01/2017 Assessment & Plan (06/11/2019 1:12 PM CDT): The patient has a [id number]-ZGKe score of 5 (annualized risk of stroke 6.7%). I have therefore recommended that she remain anticoagulated for thromboprophylaxis. The patient will follow-up with me in 12 months for an office visit and twelve- lead ECG. Coronary artery disease invo lving [place] coronary artery of [place] heart without angina pectoris 02/01/2017 Edema of [...] be needed yearly. The patient has a TNZ4FO1-TROj score of 4. I have therefore recommended continued anticoagulation thromboprophylaxis. The patient follows yearly with her assistant research scientist. I have not made a follow-up appointment, [...] standpoint. Assessment & Plan (01/16/2018 4:34 PM HAZARDOUS SUBSTANCES SCIENTIST): The patient has symptomatic persistent atrial fibrillation [...] with atrial fibrillation: a report of the [place] [employer]iology/[place] Heart Association Task Force on Practice Guidelines [...] Department Care Team Description 08/01/2024 Orders Only [facility] Medical [facility] Cardiology [address] [place] [id number] Jani Bateman MD from Last 3 Months Surgical History Surgery [...] on file Legal Sex Female 2:34 AM HAZARDOUS SUBSTANCES SCIENTIST Gender Identity Not on file Sexual Orientation Not on file Obstetrics History Last Filed Vital Signs Vital Sign Reading Time Taken Comments Blood Pressure 156/64 03/08/2024 11:32 AM HAZARDOUS SUBSTANCES SCIENTIST Pulse 57 03/08/2024 11:32 AM HAZARDOUS SUBSTANCES SCIENTIST Temperature 36.5 C (97.7 F) 01/05/2021 10:16 AM CDT Respiratory Rate 20 02/16/2018 7:50 AM HAZARDOUS SUBSTANCES SCIENTIST Oxygen Saturation 94% 03/08/2024 11:32 AM HAZARDOUS SUBSTANCES SCIENTIST Inhaled Oxygen Concentration - - Weight 64.4 kg (142 lb) 03/08/2024 11:32 AM HAZARDOUS SUBSTANCES SCIENTIST Height 157.5 cm (5' 2) 03/08/2024 11:32 AM HAZARDOUS SUBSTANCES SCIENTIST Body Mass Index 25.97 03/08/2024 11:32 AM HAZARDOUS SUBSTANCES SCIENTIST Plan of Treatment Health Maintenance Due Date Last Done Comments Depression Screening 1935 Fall Risk Assessment 1935 DTaP/Tdap/Td Vaccine (1 - Tdap) 1948 Hepatitis B Screening 06[birth year]11/1955 Pneumococcal vaccine 65+ (1 of 2 - PCV) 1954 Well Visit 65+ 2002 Zoster Vaccine (2 of 3) 02/26/2012 01/01/2012 Influenza Vaccine (Season Ended) 2024 01/05/20 12 Procedures Procedure Name Priority Date/Time Associated Diagnosis Comments CARDIOLOGY DOCUMENT SCAN Routine 07/30/2024 4:12 PM CDT from Last 3 Months Results * Cardiology Document Scan (07/30/2024 4:12 PM CDT) Anatomical Region Laterality Modality Other Jani Bateman MD CV CARDIAC SERVICES PROCEDURES F inal Result from Last 3 Months Insurance MEDICARE [facility] MEDICARE [facility] BLUE CROSS MEDICARE SUPPLEMENT Care Teams Printing Plate Clerk Relationship Specialty Start Date End Date Marky Loya MD PCP - General Family Medicine 07/06/18
--- OUTSIDE RECORDS SUMMARY | 2024-08-09 05:19 | XMS_ITS | Encounter Summary ---
Author Organization [facility] Address [address] [facility] [address] [place] [address] Care Team Providers Care Social Science Analyst Name Role Phone Jose Cherry MD Primary Care Provider [phone] No, Physician Primary Care Provider [phone] Marky Loya MD Primary Care Provider [phone] Encounter Details Date Type Department Care Team (Late st Contact Info) Description 05/12/2016 Orders Only [facility] ProviderNe MD [address] [place] [address] Social History Tobacco Use Types Packs/Day Years Used Date Smoking Tobacco: Former Cigarettes Q uit: 03/07/1978 Alcohol Use Standard Drinks/Week Comments Yes 0 (1 standard drink = 0.6 oz pur e alcohol) Comments Unknown Sex and Gender Information Value Date Recorded Sex Assigned at Not on file Legal Sex Female 2:34 AM MANAGER COMMODITIES Gender Identity Not on file Sexual Orientation [...] on filedocumented in this encounter Care Teams Social Science Analyst Relationship Specialty Start Date End Date Jose Cherry MD PCP - General 09/10/14 06/03/16 No, Physician PCP - General 05/04/18 07/05/18 Marky Loya MD PCP - General Family Medicine 07/06/18 documented as of this encounter
--- OUTSIDE RECORDS SUMMARY | 2024-08-09 05:19 | XMS_ITS ---
Author Name Auto Generated, Auto Generated Organization [facility] Address [address] [place] [address] Phone [phone] Care Team Providers Care Chain Builder Name Role Phone Marky Loya Functional Status No Results Mental Status No [...]
--- OUTSIDE RECORDS SUMMARY | 2024-08-09 05:19 | XMS_ITS | Continuity of Care Document ---
Author Organization [facility] Address [address] [place] [address] [address] [place] [address] Phone Care Team Providers Care Ged Tutor Name Role Phone Domenico Vaughn Unavailable Unavailable Procedures Procedure Date Eye Exam & Treatment No Script Refraction Eye Exam & Treatment Refraction Office/outpatient Visit, Est Office/outpatient Visit, Est Office/outpatient Visit, Est Miscellaneous Vision Service - Supplies Advance Directives Directive Yes / No Effective Date File Name No Information Encounters Encounter Description Practice Location Reason(s) For Visit Diagnoses Date Provider Providers Copied on Encounter [facility], [address] [place] [address] [address], [place], [place], [id number], [place] tel:[phone] [facility] No Information 4-201 0 Roderick Acuña. [address] [facility] , [address], [place], [place], [facility], [place]. tel:[phone] [facility], [address] [place] [address] [address], [place], [place], [id number], [place] tel:[phone] [facility] No Information 6-200 8 Roderick Acuña. [address] [facility] , [address], [place], [address], [place]. tel:[phone] Office/outpat ient Visit, Est [facility], [address] [place] [address] [address], [place], [place], [id number], [place] tel:[phone] [facility] No Information 8200 8 Roderick Edlinette. [address] [place] [address] , [address], [place], [address], [place]. tel:[phone] Office/outpat ient Visit, [facility] Eye [facility], [address], [place], [place], [address], [place] tel:[phone] SEC [facility] No Information 1200 7 Mayra Arreola. [address] [facility], [address], [place], [place], [address], [place]. tel:[phone] Office/outpat ient Visit, [facility] Eye [facility], [address], [place], [place], [id number], [place] tel:[phone] [facility] No Information 4200 7 Roderick Acuña. [address] [place] [address] , [address], [place], [address], [place]. tel:[phone] [facility], [address] [facility] [address], [place], [place], [address], [place] tel:[phone] [facility] No Information 0 6200 [address] [employer] . [address] [facility], [address], [place], [place], [address], [place]. tel:[phone] Consulting Provider: Giuseppe Gupta, [address] [facility] [address], [place], [address]. tel:[phone] Family History Family Member Type Diagnosis Age At Onset No Information Payers Payer name Insurance type Covered alliance party ID Authoriza tion(s) Medicare CT CI [id number] BCBS [place] Commercial CI [id number] Social History Type Description Quantity Date Captured [...]
--- NOTE | 2024-08-09 05:20 | ECG_ITS ---
Test Date: 2024-08-09 05:22:32 Measurements Intervals [place] Rate: 63 P: 56 DC: 224 QRS: -4 QRSD: 86 T: 51 QT: 332 QTc: 340 Interpretive Statements SINUS RHYTHM WITH FIRST DEGREE AV BLOCK BASELINE ARTIFACT- I, II, III, AVR, AVL, AVF, V2 BORDERLINE ECG Compared to ECG 07/29/2024 01:14:12 No significant changes Electronically Signed On 08-09-2024 06:12:18 CDT by Pee Ruff D.O.
[2024-08-09 05:43] LABS: Basophils Percent Auto 0.6 % (0.2-1.2); Eosinophils Absolute Auto 0.1 K/mm3 (0-0.3); Eosinophils Percent Auto 1.3 % (0-4.4); Hematocrit 46.2 % (37.0-47.0); Hemoglobin 14.7 g/dL (12.0-15.0); Immature Granulocyte Absolute 0.02 K/mm3 (0.00-0.031); Immature Granulocyte Percent A 0.3 % (0-0.5); Lymphocytes Absolute Auto 1.55 K/mm3 (0.9-3.2); Mean Corpuscular HGB Conc 31.8 g/dl (32-36); Mean Corpuscular Hemoglobin 29.2 pg (26-34); Mean Corpuscular Volume 91.7 fl (80-100); Mean Platelet Volume 11.3 fl (7.4-10.4); Monocytes Absolute Auto 0.8 K/mm3 (0.1-0.6); Monocytes Percent Auto 10.9 % (2.6-8.5); Neutrophils Absolute Auto 4.6 K/mm3 (1.3-6.7); Neutrophils Percent Auto 64.9 % (45.5-73.1); Platelet Count Result 234 k/mm3 (150-375); Red Blood Count 5.04 M/mm3 (4.2-5.4); Red Cell Distribution Width 13.9 % (11.5-14.5); White Blood Count 7.1 K/mm3 (4.5-10.0)
[2024-08-09] MEDS: oxyCODONE HCL (*CRX) 2.5 MG TAB IR PO (05:52)
[2024-08-09 05:55] LABS: Alanine Aminotransferase 15 U/L (6-35); Albumin Level 4.3 g/dL (3.5-5.1); Alkaline Phosphatase 74 U/L (38-126); Anion Gap 5 mmol/L (4-12); Aspartate Amino Transferase 35 U/L (14-36); Bilirubin,Total 0.7 mg/dL (0.2-1.3); Blood Urea Nitrogen 14 mg/dL (7-17); Calcium 10.2 mg/dL (8.4-10.2); Carbon Dioxide 31 mmol/L (22-30); Chloride 102 mmol/L (98-107); Estimated CRCL calculation 37 ml/min; Estimated Glomerular Filt Rate > 60; Glucose 104 mg/dL (65-110); Magnesium 2.2 mg/dL (1.6-2.3); Potassium 3.8 mmol/L (3.4-5.0); Sodium 138 mmol/L (137-145); Total Protein 7.1 g/dL (6.3-8.2)
== END 2024-08-09 06:31 | disposition home or self-care (01) ==
PROVIDERS: Emergency Provider Student in an Organized Health Care Education/Training Program; PCP Family Medicine
DX: S52.502A Unspecified fracture of the lower end of left radius, initial encounter for closed fracture (principal); I10 Essential (primary) hypertension; I48.0 Paroxysmal atrial fibrillation; I25.10 Atherosclerotic heart disease of native coronary artery without angina pectoris; E03.9 Hypothyroidism, unspecified; E78.5 Hyperlipidemia, unspecified; K21.9 Gastro-esophageal reflux disease without esophagitis; N39.3 Stress incontinence (female) (male); M19.90 Unspecified osteoarthritis, unspecified site; Z96.651 Presence of right artificial knee joint; Z85.3 Personal history of malignant neoplasm of breast; Z92.3 Personal history of irradiation; Z86.2 Personal history of diseases of the blood and blood-forming organs and certain disorders involving the immune mechanism; Z86.14 Personal history of Methicillin resistant Staphylococcus aureus infection; Z87.891 Personal history of nicotine dependence; Z90.49 Acquired absence of other specified parts of digestive tract; Z79.01 Long term (current) use of anticoagulants; I44.0 Atrioventricular block, first degree; G31.9 Degenerative disease of nervous system, unspecified; W01.0XXA Fall on same level from slipping, tripping and stumbling without subsequent striking against object, initial encounter
CPT/HCPCS: 29125; 36415; 70450; 72170; 73110; 80053; 82948; 83735; 85025; 93005; 99284; A9270

== ENCOUNTER 2025-02-19 08:47 | Outpatient (CLI) | payer MEDICARE, SELFPAY ==
--- OUTSIDE RECORDS SUMMARY | 2025-02-19 09:26 | XMS_ITS | Clinical Summary ---
Author Organization [facility] [address] Address [address] [place] [address] Care Team Providers Care Home Restoration Service Cleaner Name Role Phone Marky Loya MD Primary Care Provider [phone] Allergies Active Allergy Reactions Criticality Noted Date Comments Adhesive Tape-Silicones Itching Low 02/14/2018 Meperidine Other (See comments) Low 02/14/2018 high Morphine Vomiting Low Penicillins Rash Medium Medications cholecalciferol (VITAMIN D-3) 1,000 unit tablet Take 1 tablet (1,000 Units total) by mouth daily Two tablets daily by mouth Active levothyroxine sodium (TIROSINT) 50 mcg capsule Take 1 capsule (50 mcg total) by mouth workers' compensation magistrate before breakfast Active multivitamin tabletIndications :Vitamin Deficiency [...] amLODIPine (NORVASC) 2.5 mg tablet 2 Active nitroglycerin (NITROSTAT) 0.4 mg SL tabletIndications :Coronary artery disease of [place] artery of [place] heart with stable angina pectoris Place 1 tablet (0.4 mg total) under the tongue every 5 (five) minutes as needed for chest pain May repeat dose every 5 minutes for up to 3 doses total. 25 tablet 3 5 Active rosuvastatin (CRESTOR) 10 mg tabletIndications :Coronary artery disease involving [place] coronary artery of [place] heart without angina pectoris TAKE 1 TABLET BY MOUTH EVERY DAY 90 tablet 3 5 Active amiodarone (PACERONE) 200 mg tabletIndications :Paroxysmal atrial fibrillation (HCC) TAKE 1 TABLET BY MOUTH EVERY DAY 90 tablet 3 5 Active potassium chloride ER 10 mEq [...] benefits. She will discuss this with her buffer inflated pad, and if she wishes to proceed, I asked her to contact my office so that we could screen her appropriately. The patient will follow-up with me in 12 months for an office visit and twelve- lead ECG. Assessment & Plan (07/09/2018 10:48 AM CDT): The patient has a WUD6AH3-LCGr score of 5 (annualized risk of stroke 6.7 %). I have therefore recommended that she remain anticoagulated for thromboprophylaxis. The patient will follow-up with me in 6 months for an office visit and twelve- lead ECG. Assessment & Plan (01/16/2018 4:35 PM MEDICAL OFFICE WORKER): The patient has a ETT5NZ9-LCWj score of 4 (annualized risk of stroke 4.0 %). I have therefore recommended that she remain anticoagulated for thromboprophylaxis. Paroxysmal atrial fibrillation 01/12/2018 Overview (01/12/2018): Added automatically from request for surgery [id number] Assessment & Plan (06/27/2022 1:48 PM CDT): The patient is 4 and half years status post ablation for atrial fibrillation, doing well. Maintaining sinus rhythm with amiodarone. No changes to management at this time The patient has a [id number]-PIWx score of 5. I have therefore recommended [...] expectantly. At risk for amiodarone toxicity with oil heaterman u se 12/14/2017 Chronic diastolic heart failure 08/08/2017 COPD (chronic obstructive pulmonary disease) Chronic anticoagulation 02/01/2017 Assessment & Plan (06/11/2019 1:12 PM CDT): The patient has a GIH1VT4-BUUp score of 5 (annualized risk of stroke 6.7%). I have therefore recommended that she remain anticoagulated for thromboprophylaxis. The patient will follow-up with me in 12 months for an office visit and twelve- lead ECG. Coronary artery disease invo lving [place] coronary artery of [place] heart without angina pectoris 02/01/2017 Edema of [...] be needed yearly. The patient has a KJW0UT3-TJXe score of 4. I have therefore recommended continued anticoagulation thromboprophylaxis. The patient follows yearly with her buffer inflated pad. I have not made a follow-up appointment, [...] standpoint. Assessment & Plan (01/16/2018 4:34 PM MEDICAL OFFICE WORKER): The patient has symptomatic persistent atrial fibrillation [...] with atrial fibrillation: a report of the [place] [employer]/[place] [employer] Association Task Force on Practice Guidelines [...] on file Legal Sex Female 2:34 AM MEDICAL OFFICE WORKER Gender Identity Not on file Sexual Orientation Not on file Last Filed Vital Signs Vital Sign Reading Time Taken Comments Blood Pressure 136/68 09/04/2024 10:38 AM CDT Pulse 58 09/04/2024 10:38 AM CDT Temperature 36.5 C (97.7 F) 01/05/2021 10:16 AM CDT Respiratory Rate 20 02/16/2018 7:50 AM MEDICAL OFFICE WORKER Oxygen Saturation 92% 09/04/2024 10:38 AM CDT Inhaled Oxygen Concentration - - Weight 67.1 kg (148 lb) 09/04/2024 10:38 AM CDT Height 157.5 cm (5' 2) 09/04/2024 10:38 AM CDT Body Mass Index 27.07 09/04/2024 10:38 AM CDT Plan of Treatment Health Maintenance Due Date Last Done Comments Depression Screening 1935 Fall Risk Assessment 1937 Osteoporosis Screening-Bone Density Scan 1937 DTaP/Tdap/Td Vaccine (1 - Tdap) 1946 Hepatitis B Screening [birth year]11/1953 Pneumococcal vaccine 65+ (1 of 2 - PCV) 1956 Well Visit 65+ 2002 Zoster Vaccine (2 of 3) 02/26/2012 01/01/2012 Influenza Vaccine (#1) 2024 01/05/2012 Insurance [facility] MEDICARE [facility] BLUE CROSS MEDICARE SUPPLEMENT Care Teams Home Restoration Service Cleaner Relationship Specialty Start Date End Date Marky Loya MD PCP - General Family Medicine 07/06/18
--- OUTSIDE RECORDS SUMMARY | 2025-02-19 09:26 | XMS_ITS | Encounter Summary ---
Author Organization [facility] Healthcare Address [address] [place] [address] Care Team Providers Care Digital Analyst Name Role Phone Marky Loya MD Primary Care Provider [phone] Encounter Details Date Type Department Care Team (Late st Contact Info) Description 07/31/2024 Orders Only [facility] [place] [facility] Health Information Management [address] [place] [id number] Scanning, Provider Social History Tobacco Use Types Packs/Day Years Used Date Smoking Tobacco: Former Cigarettes Q uit: 10/09/1978 Smokeless Tobacco: Never Alcohol Use Standard Drinks/Week Comments Yes 0 [...] on file Legal Sex Female 2:34 AM DEHYDRATION PLANT OPERATOR Gender Identity Not on file Sexual Orientation Not on file documented as of this encounter Plan of Treatment Not on file documented as of this encounter Procedures Procedure Name Priority Date/Time Associated Diagnosis Comments CARDIOLOGY DOCUMENT SCAN 07/31/2024 documented in this encounter Results * Cardiology Document Scan (07/31/2024) Anatomical Region Laterality Modality Other us Provider Scanning CV CARDIAC SERVICES PROCEDURES Final Result documented in this encounter Visit Diagnoses Not on filedocumented in this encounter Care Teams Digital Analyst Relationship Specialty Start Date End Date Marky Loya MD PCP - General Family Medicine 07/06/18 documented as of this encounter
--- OUTSIDE RECORDS SUMMARY | 2025-02-19 09:26 | XMS_ITS | Encounter Summary ---
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 Gender Identity Not on file Sexual Orientation Not on file documented as of this encounter Plan of Treatment Not on file documented as of this encounter Procedures Procedure Name Priority Date/Time Associated Diagnosis Comments SCAN - RADIOLOGY/IMAGING 07/29/2024 documented in this encounter Results * SCAN - RADIOLOGY/IMAGING (07/29/2024) Anatomical Region Laterality Modality Other us Provider Scanning Final Result documented in this encounter Visit Diagnoses Not on filedocumented in this encounter Care Teams Integration Software Engineer Relationship Specialty Start Date End Date Marky Loya MD PCP - General Family Medicine 07/06/18 documented as of this encounter
--- OUTSIDE RECORDS SUMMARY | 2025-02-19 09:26 | XMS_ITS | Patient Health Record ---
Author Organization [facility] Address [address] [place], [place] [address] Care Team Providers Care Medical Transcription Radiology Name Role Phone IgnaciaMIGUEL cordova Unavailable [phone] Marky Loya Unavailable Unavailable Reason For Referral No Information Plan Of Treatment No Information Insurance Providers Payer Name Payer Address Payer Phone Subscriber Number Group Number Insured Name Patient Relationship to Insured Coverage Start Date Coverage End Date Medicare Part B [place] [address] [place] [address] [id number] ALEJANDRO HARRIS Self - patient is the insured [facility] ([facility] ATTN CLAIMS [address] [place] [address] [id number] ALEJANDRO HARRIS Self - patient is the insured
--- OUTSIDE RECORDS SUMMARY | 2025-02-19 09:26 | XMS_ITS | Encounter Summary ---
Author Organization [facility] Address [address] [place] [address] Care Team Providers Care Electrical Calibrator Name Role Phone Jose Cherry MD Primary Care Provider [phone] No, Physician Primary Care Provider [phone] Marky Loya MD Primary Care Provider [phone] Encounter Details Date Type Department Care Team (Late st Contact Info) Description 05/12/2016 Orders Only [facility] ProviderNe MD [address] [place] [id number] Social History Tobacco Use Types Packs/Day Years Used Date Smoking Tobacco: Former Cigarettes Q uit: 03/07/1978 Alcohol Use Standard Drinks/Week Comments Yes 0 (1 standard drink = 0.6 oz pur e alcohol) Comments Unknown Sex and Gender Information Value Date Recorded Sex Assigned at Not on file 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
--- OUTSIDE RECORDS SUMMARY | 2025-02-19 09:26 | XMS_ITS | Encounter Summary ---
Author Organization [facility] Healthcare Address [address] [place] [address] Care Team Providers Care Quantitative Equity Head Name Role Phone No, Physician Primary Care Provider [phone] Marky Loya MD Primary Care Provider [phone] Encounter Details Date Type Department Care Team (Late st Contact Info) Description 11/09/2017 Orders Only [facility] [place] Health Information Management [address] [place] [id number] Scanning, Provider Social History Tobacco Use Types Packs/Day Years Used Date Smoking Tobacco: Former Smokeless Tobacco: Never Alcohol Use Standard Drinks/Week Comments Yes 0 (1 standard drink = 0.6 oz pur e alcohol) Comments Unknown Sex and Gender Information Value Date Recorded Sex Assigned at Not on file 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 Gender Identity Not on file Sexual Orientation Not on file documented as of this encounter Plan of Treatment Not on file documented as of this encounter Procedures Procedure Name Priority Date/Time Associated Diagnosis Comments SCAN - LABS 11/09/2017 CARDIOLOGY DOCUMENT SCAN 11/09/2017 documented in this encounter Results * SCAN - LABS (11/09/2017) us Provider Scanning Final Result * Cardiology Document Scan (11/09/2017) Anatomical Region Laterality Modality Other us Provider Scanning CV CARDIAC SERVICES PROCEDURES Final Result documented in this encounter Visit Diagnoses Not on filedocumented in this encounter Care Teams Quantitative Equity Head Relationship Specialty Start Date End Date No, Physician PCP - General 05/04/18 07/05/18 Marky Loya MD PCP - General Family Medicine 07/06/18 documented as of this encounter
[2025-02-19 09:50] LABS: Hematocrit 47.1 % (37.0-47.0); Hemoglobin 14.7 g/dL (12.0-15.0); Immature Granulocyte Percent A 0.2 % (0-0.5); Lymphocytes Absolute Auto 1.18 K/mm3 (0.9-3.2); Mean Corpuscular HGB Conc 31.2 g/dl (32-36); Mean Corpuscular Hemoglobin 28.7 pg (26-34); Mean Corpuscular Volume 92.0 fl (80-100); Nucleated Red Blood Cells Absolute Auto 0.000 K/mm3 (0.0-0.012); Nucleated Red Blood Cells Perc 0.0 % (0.0-0.2); Platelet Count Result 227 k/mm3 (150-375); Red Blood Count 5.12 M/mm3 (4.2-5.4); White Blood Count 5.4 K/mm3 (4.5-10.0)
[2025-02-19 10:01] LABS: Hemoglobin A1C 5.0 % (<5.7)
[2025-02-19 10:18] LABS: Alanine Aminotransferase 14 U/L (6-35); Albumin Level 4.3 g/dL (3.5-5.1); Alkaline Phosphatase 84 U/L (38-126); Anion Gap 6 mmol/L (4-12); Aspartate Amino Transferase 32 U/L (14-36); Bilirubin,Total 0.8 mg/dL (0.2-1.3); Blood Urea Nitrogen 12 mg/dL (7-17); Calcium 10.1 mg/dL (8.4-10.2); Carbon Dioxide 31 mmol/L (22-30); Chloride 103 mmol/L (98-107); Cholesterol 135 mg/dL (0-200); Estimated Glomerular Filt Rate > 60; Glucose 89 mg/dL (65-110); HDL Direct 72 mg/dL; Potassium 4.0 mmol/L (3.4-5.0); Sodium 140 mmol/L (137-145); Total Protein 7.3 g/dL (6.3-8.2); Triglycerides 118 mg/dL (<150)
[2025-02-19 10:23] LABS: NT Pro B Type Natriuretic Pept 809 pg/mL (19.9-100)
[2025-02-19 10:33] LABS: Free T4 Free Thyroxine 2.48 ng/dL (0.78-2.19)
[2025-02-19 10:45] LABS: Thyroid Stimulating Hormone 0.091 uIU/mL (0.465-4.680)
[2025-02-19 10:53] LABS: Total Triiodothyronine (T3) 0.81 NG/ML (0.82-1.58)
[2025-02-19 11:20] LABS: Vitamin B12 880.0 pg/mL (239-931)
== END 2025-02-19 08:48 | disposition home or self-care (01) ==
PROVIDERS: PCP Family Medicine; Visit Provider Nurse Practitioner Family
DX: E03.9 Hypothyroidism, unspecified (principal); E78.2 Mixed hyperlipidemia; I11.0 Hypertensive heart disease with heart failure; I50.9 Heart failure, unspecified; E55.9 Vitamin D deficiency, unspecified; R53.83 Other fatigue; Z13.1 Encounter for screening for diabetes mellitus
CPT/HCPCS: 36415; 80053; 80061; 82306; 82607; 82746; 83036; 83880; 84439; 84443; 84480; 85025